=== PATIENT | female | born 1955 | race Caucasian/White ===

== ENCOUNTER 2023-06-06 09:18 | Outpatient (OUT) | payer MEDICARE, SELFPAY ==
[2023-06-06 09:55] LABS: Basophils Absolute Auto 0.1 10^3/uL (0.0-0.1); Basophils Percent Auto 0.6 % (0.2-2.0); Eosinophils Absolute Auto 0.1 10^3/uL (0.0-0.7); Eosinophils Percent Auto 0.6 % (0.9-7.0); Hematocrit 41.6 % (36.0-48.0); Hemoglobin 13.7 g/dL (12.0-16.0); Immature Granulocytes Abs Auto 0.04 10^3/uL (0.00-0.03); Immature Granulocytes Pct Auto 0.4 % (0.0-0.5); Lymphocytes Absolute Auto 2.6 10^3/uL (1.2-3.8); Lymphocytes Percent Auto 26.9 % (20.5-60.0); Mean Corpuscular HGB Conc 32.9 g/dL (29.9-35.2); Mean Corpuscular Hemoglobin 28.8 pg (26.7-34.0); Mean Corpuscular Volume 87.6 fL (81.0-99.0); Mean Platelet Volume 9.8 fL (9.5-13.5); Monocytes Absolute Auto 0.8 10^3/uL (0.3-0.8); Monocytes Percent Auto 8.2 % (1.7-12.0); Neutrophils Absolute Auto 6.2 10^3/uL (1.4-6.5); Neutrophils Percent Auto 63.3 % (43.0-75.0); Platelet Count 333 10^3/uL (150-450); Red Blood Count 4.75 10^6/uL (4.20-5.40); Red Cell Distribution Width 12.9 % (11.0-15.0); White Blood Count 9.8 10^3/uL (4.0-11.0)
[2023-06-06 10:13] LABS: Creatinine Urine Random 33.92 mg/dL (20.00-300.00); Microalbum Creatinine Ratio Ur 38.3 mg/g (0.0-29.9); Microalbumin Urine Random <1.3 mg/dL (<=30.0)
[2023-06-06 10:17] LABS: Alanine Aminotransferase 36 U/L (14-59); Albumin Globulin Ratio 0.9; Alkaline Phosphatase 55 U/L (46-116); Anion Gap 12.2; Aspartate Amino Transferase 17 U/L (15-37); BUN Creatinine Ratio 19.6; Bilirubin Total 0.4 mg/dL (0.2-1.0); Calcium 9.4 mg/dL (8.5-10.1); Carbon Dioxide 27.8 mmol/L (21.0-32.0); Chloride 100 mmol/L (98-107); Chol HDL Ratio 4.7; Cholesterol 225 mg/dL (<=200); Estimated GFR (African America >60 (>=60); Estimated GFR (Non-African Ame >60 (>=60); Globulin 4.4 g/dL; Glucose 112 mg/dL (74-106); HDL Cholesterol 48 mg/dL (40-60); Sodium 136 mmol/L (136-145); Total Protein 8.4 g/dL (6.4-8.2); Triglycerides 221 mg/dL (<=150); VLDL CHOLESTEROL 44.2 mg/dL
[2023-06-06 10:25] LABS: Estimated Average Glucose 143 mg/dL; Glycohemoglobin A1C 6.6 % (4.5-6.2)
== END 2023-06-06 09:19 | disposition home or self-care (01) ==
LOC: LAB 09:22
PROVIDERS: PCP Internal Medicine; Visit Provider Internal Medicine
DX: E78.49 Other hyperlipidemia (principal); E11.9 Type 2 diabetes mellitus without complications; I10 Essential (primary) hypertension
CPT/HCPCS: 36415; 80053; 80061; 82043; 82570; 83036; 85025

== ENCOUNTER 2023-09-14 12:25 | Outpatient (OUT) | payer MEDICARE, SELFPAY ==
--- OUTSIDE RECORDS SUMMARY | 2023-09-14 12:42 | XMS_ITS | CCD ---
Author Organization [facility] Care Team Providers Care Diesel Bus Mechanic Name Role Phone FAWWAD, AREVALO H Attending Unavailable FAWWAD, AREVALO H Admitting Unavailable FAWWAD, AREVALO H Primary Care Unavailable FAWWAD, AREVALO H Consulting Unavailable FAWWAD, AREVALO H Attending Unavailable FAWWAD, AREVALO H Admitting Unavailable FAWWAD, AREVALO H Primary Care Unavailable FAWWAD, AREVALO H Consulting Unavailable DR SAMIR DORANTES V Consulting Unavailable FAWWAD, AREVALO H Attending Unavailable FAWWAD, AREVALO H Admitting Unavailable FAWWAD, AREVALO H Primary Care Unavailable FAWWAD, AREVALO H Consulting Unavailable FAWWAD, AREVALO Attending Unavailable FAWWAD, AREVALO Attending Unavailable Problems Active Problems Problem Classification Problem Date Documented Da te Episodic/Chronic Diabetes mellitus with complications (4 sources) Type 2 diabetes mellitus with diabetic neuropathy, unspecified; Translations: [TYPE 2 DM W/DIABETIC NEUROPATHY UNS] Onset: 08-03-2022 Chronic Diabetes mellitus without complication (4 sources) Type 2 diabetes mellitus without complications; Translations: [TYPE 2 DM WITHOUT COMPLICATIONS] Onset: 06-14-2022 Chronic Disorders of lipid metabolism (1 source) Hyperlipidemia, unspecified; Translations: [HYPERLIPIDEMIA UNSPECIFIED] Onset: 08-07-2022 Chronic Past or Other Problems Problem Classification Problem Date Documented Da te Episodic/Chronic Other screening for suspected conditions (not mental disorders or infectious disease) (4 sources) Encounter for screening mammogram for malignant neoplasm of breast; Translations: [ENC SCR MAMMO MALIG NEOPLASM BREAST] Onset: 03-22-2022 Episodic Residual codes; unclassified (1 source) Family history of malignant neoplasm of other organs or systems; Translations: [FAM HX MALIG NEOPLASM OTH ORGN/SYS] Onset: 04-01-2022 Episodic Results Test Name Value Interpretation Reference Range Facility VITAMIN B1 (THIAMINE)on 07-15 Vit. B1, Whole Blood 120.2 nmol/L Normal 66.5-200.0 [facility] Comment on above: Performed By: #### V ITB1T #### [facility] [address] [place] [address] Dr. Sameera [place] GLYCOHEMOGLOBIN A1Con 2022 ADA RECOMMENDATION SEE BELOW Normal [facility] Comment on above: Result Comment: ADA RECOMMENDED LIMIT 4.0 - 6.0 ADA THERAPEUTIC TARGET < 7.0 ACTION SUGGESTED > 7.0 Performed By: #### A 1C #### [facility] [address] [place] [address] Dr. Sameera [place] Glucose [Mass/Vol] 131 mg/dL Normal [facility] Comment on above: Performed By: #### A 1C #### [facility] [address] [place] [address] Dr. Sameera [place] HbA1c (Bld) [Mass fraction] 6.2 % Normal 4.5-6.2 [facility] Comment on above: Performed By: #### A 1C #### [facility] [address] [place] [address] Dr. Sameera Montana LIPID PROFILEon 08-03-2022 CHOL-HDL RATIO NORM SEE BELOW Normal [facility] Comment on above: Result Comment: 3.3 - 4.4 LOW RISK 4.4 - 7.1 AVERAGE RISK 7.1 - 11.0 MODERATE RISK >11.0 HIGH RISK Performed By: #### L IPID #### [facility] [address] [place] [address] Dr. Sameera Montana Cholesterol [Mass/Vol] 216 mg/dL Critically high <=200 [facility] Comment on above: Performed By: #### L IPID #### [facility] [address] [place] [address] Dr. Sameera Montana Cholesterol in HDL [Mass/Vol] 46 mg/dL Normal 40-60 [facility] Comment on above: Performed By: #### L IPID #### [facility] [address] [place] [address] Dr. Sameera Montana Cholesterol in LDL [Mass/Vol] 106.4 mg/dL Normal [facility] Comment on above: Performed By: #### L IPID #### [facility] [address] [address] [address] Sameera Montana Cholesterol.total/Cho lesterol in HDL [Mass ratio] 4.7 {ratio} Normal [facility] Comment on above: Performed By: #### L IPID #### [facility] [address] [address] [address] Sameera Montana HDL NORMAL > or = 60 mg/dl - LO W CARDIOVASCULAR RISK <40 mg/dl - HIGH CARDIOVASCULAR RISK Normal [facility] Comment on above: Performed By: #### L IPID #### [facility] [address] [address] [address] Sameera Montana LDL CALC NORMAL SEE BELOW Normal [facility] Comment on above: Result Comment: <100 mg/dl OPTIMAL 100 - 129 mg/dl NEAR OR ABOVE OPTIMAL 130 - 159 mg/dl BORDERLINE HIGH 160 - 189 mg/dl HIGH >190 mg/dl VERY HIGH Performed By: #### L IPID #### [facility] [address] [place] [address] Dr. Sameera Montana Triglyceride [Mass/Vol] 318 mg/dL Critically high <=150 [facility] Comment on above: Performed By: #### L IPID #### [facility] [address] [place] [address] Dr. Sameera Montana VLDL CALC 63.6 mg/dL Normal [facility] Comment on above: Performed By: #### L IPID #### [facility] [address] [address] [address] Sameera Montana VITAMIN B12on 08-03-2022 Cobalamin (Vitamin B12) [Mass/Vol] 506.0 pg/mL Normal 193.0-986.0 [facility] Comment on above: Performed By: #### V ITB12 #### [facility] [address] [place] [address] Dr. Sameera Montana DIRECT LDLon 06-14-2022 Cholesterol in LDL [Mass/Vol] 164 mg/dL Normal [facility] Comment on above: Performed By: #### D LDL, LIPID #### [facility] [address] [address] [address] Sameera Montana DLDL NORMAL SEE BELOW Normal [facility] Comment on above: Result Comment: <100 mg/dl OPTIMAL 100 - 129 mg/dl NEAR OR ABOVE OPTIMAL 130 - 159 mg/dl BORDERLINE HIGH 160 - 189 mg/dl HIGH >190 mg/dl VERY HIGH Performed By: #### D LDL, LIPID #### [facility] [address] [address] [address] Sameera Montana GLYCOHEMOGLOBIN A1Con 2022 ADA RECOMMENDATION SEE BELOW Normal [facility] Comment on above: Result Comment: ADA RECOMMENDED LIMIT 4.0 - 6.0 ADA THERAPEUTIC TARGET < 7.0 ACTION SUGGESTED > 7.0 Performed By: #### A 1C #### [facility] [address] [place] [address] Dr. Sameera Montana Glucose [Mass/Vol] 137 mg/dL Normal [facility] Comment on above: Performed By: #### A 1C #### [facility] [address] [place] [address] Dr. Sameera Montaan HbA1c (Bld) [Mass fraction] 6.4 % Critically high 4.5-6.2 [facility] Comment on above: Performed By: #### A 1C #### [facility] [address] [place] [address] Dr. Sameera Montana LIPID PROFILEon 06-14-2022 CHOL-HDL RATIO NORM SEE BELOW Normal [facility] Comment on above: Result Comment: 3.3 - 4.4 LOW RISK 4.4 - 7.1 AVERAGE RISK 7.1 - 11.0 MODERATE RISK >11.0 HIGH RISK Performed By: #### D LDL, LIPID #### [facility] [address] [place] [address] Dr. Sameera Montana Cholesterol [Mass/Vol] 295 mg/dL Critically high <=200 [facility] Comment on above: Performed By: #### D LDL, LIPID #### [facility] [address] [place] [address] Dr. Sameera Montana Cholesterol in HDL [Mass/Vol] 41 mg/dL Normal 40-60 [facility] Comment on above: Performed By: #### D LDL, LIPID #### [facility] [address] [address] [address] Sameera Montana Cholesterol.total/Cho lesterol in HDL [Mass ratio] 7.2 {ratio} Normal [facility] Comment on above: Performed By: #### D LDL, LIPID #### [facility] [address] [address] [address] Sameera Montana HDL NORMAL > or = 60 mg/dl - LO W CARDIOVASCULAR RISK <40 mg/dl - HIGH CARDIOVASCULAR RISK Normal [facility] Comment on above: Performed By: #### D LDL, LIPID #### [facility] [address] [address] [address] Sameera Montana LDL CALC NORMAL SEE BELOW Normal [facility] Comment on above: Result Comment: <100 mg/dl OPTIMAL 100 - 129 mg/dl NEAR OR ABOVE OPTIMAL 130 - 159 mg/dl BORDERLINE HIGH 160 - 189 mg/dl HIGH >190 mg/dl VERY HIGH Performed By: #### D LDL, LIPID #### [facility] [address] [address] [address] Sameera Montana Triglyceride [Mass/Vol] 440 mg/dL Critically high <=150 [facility] Comment on above: Performed By: #### D LDL, LIPID #### [facility] [address] [address] [address] Sameera Montana VLDL CALC 88.0 mg/dL Normal [facility] Comment on above: Performed By: #### D LDL, LIPID #### [facility] [address] [address] [address] Sameera Montana MG MAMM SCREEN 3D MIKEY CADon 03-22-2022 MG MAMM SCREEN 3D MIKEY CAD Patient: MAME HONG Exam Date: 03/22/2022 : 1955 Gender:F Ordering : SHAIKH Radha JOHNSON . Admission #: [id number] Family : Order #: [id number] CLICK HERE TO VIEW EXAM RADIOLOGY REPORT PROCEDURE: MAMMOGRAM SCREENING 3D BILATERAL CAD COMPARISON: MG MAMM SCREEN MIKEY W CAD, 03/27/2019. MG MAMM MIKEY SCRN W CAD DIG, 03/20/2013. INDICATIONS: Screening mammography Calculator Name NCI Breast Cancer Risk Assessment Tool 5 Year Breast Cancer Risk 1.20% Lifetime Breast Cancer Risk 4.60% Personal Breast Cancer No Personal Ovarian Cancer No Treatments None Family Cancers Brother with bone cancer at age 51. LOCATION: [facility] BREAST COMPOSITION: Heterogeneously dense,which may obscure small masses. FINDINGS: DIAGNOSTIC CATEGORY 1--NEGATIVE. NO CHANGE FROM COMPARISON ASSESSMENT. Scattered benign-appearing calcifications are present. Scattered benign-appearing lymph nodes are present. RIGHT BREAST: No significant suspicious finding. LEFT BREAST: No significant suspicious finding. RECOMMENDATIONS: ROUTINE MAMMOGRAM AND CLINICAL EVALUATION IN 12 MONTHS. PLEASE NOTE: A NORMAL MAMMOGRAM DOES NOT EXCLUDE THE POSSIBILITY OF BREAST CANCER. A CLINICALLY SUSPICIOUS PALPABLE LUMP SHOULD BE BIOPSIED. Dictated by: Samir Dorantes MD on 03/22/2022 at 12:13 Approved by: Samir Dorantes MD on 03/22/2022 at 12:14 Normal [facility] Encounters Encounter Date Encounter Type Care Provider Facility Start: 08-15-2023 End: 08-15-2023 ambulatory SHAIKH ELIZABETH Not Available Start: 05-26-2023 End: 05-26-2023 ambulatory SHAIKH ELIZABETH Not Available Start: 08-03-2022 End: 08-04-2022 ambulatory SHAIKH Nato JOHNSON Facility:[facility] Start: 06-14-2022 End: 06-15-2022 ambulatory SHAIKH Nato JOHNSON Facility:[facility] Start: 03-22-2022 End: 03-23-[address] SAMIR DORANTES Facility:[facility] Payers Date Payer Category Payer Medicare [id number] 1957 Unknown [id number] 1957 Unknown [id number] 1955 Unknown [id number] 2.16.84 [id number] 1955 Unknown [id number] 2.16.84 [id number] 1955 Unknown [id number] 2.16.84 [id number] 1955 Unknown [id number] 2.16.84 [id number] 1955 Unknown [id number] 2.16.84 [id number] Summary Purpose Family History No Family History Records FoundNo Family History Records Found Advance Directives No Advanced Directives Records FoundNo Advanced Directives Records Found Additional Source Comments INFORMATION SOURCE (unrecogn ized section and content) DATE CREATED AUTHOR 10/22/2022 [facility] DATE CREATED AUTHOR AUTHOR'S EDUARDO ATGIBRAN 08/16/2023 [facility] dical Specialists [facility] FOR RECORDS PERTAINING TO PATIENTS WHO ARE OR HAVE BEEN ENROLLED IN A CHEMICAL DEPENDENCY/SUBSTANCEABUSE PROGRAM, SOME INFORMATION MAY BE OMITTED. This clinical summary was aggregated from multiple sources. Caution should be exercised in using it in the provision of clinical care. This summary normalizes information from multiple sources, and as a consequence, information in this document may materially change the coding, format and clinical context of patient data. In addition, data may be omitted in some cases. CLINICAL DECISIONS SHOULD BE BASED ON THE PRIMARY CLINICAL RECORDS. [facility] [employer] [facility]. provides no warranty or guarantee of the accuracy or completeness of information in this document.
[2023-09-14 14:14] LABS: Chol HDL Ratio 4.3; Cholesterol 204 mg/dL (<=200); HDL Cholesterol 47 mg/dL (40-60); Triglycerides 173 mg/dL (<=150); VLDL CHOLESTEROL 34.6 mg/dL
== END 2023-09-14 12:26 | disposition home or self-care (01) ==
LOC: LAB 12:26
PROVIDERS: PCP Internal Medicine; Visit Provider Internal Medicine
DX: E78.49 Other hyperlipidemia (principal)
CPT/HCPCS: 36415; 80061

== ENCOUNTER 2023-11-08 09:23 | Outpatient (OUT) | payer MEDICARE, SELFPAY ==
--- OUTSIDE RECORDS SUMMARY | 2023-11-08 09:43 | XMS_ITS ---
Patient Summarization (C-CDA 2.1 CCD) Created on: November 08, 2023 MAME HONG : 1955 Sex: Female Author Organization Sample organization Care Team Providers Care Ergonomic Specialist Name Role Phone FAWWAD, AREVALO H Attending Unavailable FAWWAD, AREVALO H Admitting Unavailable FAWWAD, AREVALO H Primary Care Unavailable FAWWAD, AREVALO H Consulting Unavailable FAWWAD, AREVALO H Attending Unavailable FAWWAD, AREVALO H Admitting Unavailable FAWWAD, AREVALO H Primary Care Unavailable FAWWAD, AREVALO H Consulting Unavailable DR SAMIR DORANTES Unavailable FAWWAD, AREVALO H Attending Unavailable FAWWAD, AREVALO H Admitting Unavailable FAWWAD, AREVALO H Primary Care Unavailable FAWWAD, AREVALO H Consulting Unavailable FAWWAD, AREVALO Attending Unavailable FAWWAD, AREVALO Attending Unavailable FAWWAD, AREVALO Attending Unavailable Encounters Encounter Date Encounter Type Care Provider Facility Start: 10-03-2023 End: 10-03-2023 ambulatory AREVALO FAWWAD Not Available Start: 08-15-2023 End: 08-15-2023 ambulatory AREVALO FAWWAD Not Available Start: 05-26-2023 End: 05-26-2023 ambulatory AREVALO FAWWAD Not Available Start: 08-03-2022 End: 08-04-2022 ambulatory AREVALO H FAWWAD Facility:[facility] Start: 06-14-2022 End: 06-15-2022 ambulatory AREVALO H FAWWAD Facility:[facility] Start: 03-22-2022 End: 03-23-[address] SAMIR DORANTES Facility:[facility] Payers Date Payer Category Payer Medicare [id number] 1957 Unknown [id number] 1957 Unknown [id number] 1955 Unknown [id number] 2.16.84 [id number] 1955 Unknown [id number] 2.16.84 [id number] 1955 Unknown [id number] 2.16.84 [id number] 1955 Unknown [id number] 2.16.84 [id number] 1955 Unknown [id number] 2.16.84 [id number] 1955 Unknown [id number] 2.16.84 [id number] Problems Active Problems Problem Classification Problem Date [...] Whole Blood 120.2 nmol/L Normal 66.5-200.0 [facility] Comment on above: Performed By: #### V ITB1T #### [facility] [address] [place] [address] Dr. Sameera Montana GLYCOHEMOGLOBIN A1Con 2022 ADA RECOMMENDATION SEE BELOW Normal [facility] Comment on above: Result Comment: ADA RECOMMENDED LIMIT 4.0 - 6.0 ADA THERAPEUTIC TARGET < 7.0 ACTION SUGGESTED > 7.0 Performed By: #### A 1C #### [facility] [address] [place] [address] Dr. Sameera Montana Glucose [Mass/Vol] 131 mg/dL Normal [facility] Comment on above: Performed By: #### A 1C #### [facility] [address] [place] [address] Dr. Sameera Montana HbA1c (Bld) [Mass fraction] 6.2 % Normal 4.5-6.2 [facility] Comment on above: Performed By: #### A 1C #### [facility] [address] [place] [address] Dr. Sameera Montana LIPID PROFILEon 08-03-2022 CHOL-HDL RATIO NORM SEE BELOW Normal [facility] Comment on above: Result Comment: 3.3 - 4.4 LOW RISK 4.4 - 7.1 AVERAGE RISK 7.1 - 11.0 MODERATE RISK >11.0 HIGH RISK Performed By: #### L IPID #### [facility] [address] [place] [address] Dr. Sameera Montana Cholesterol [Mass/Vol] 216 mg/dL Critically high <=200 [facility] Comment on above: Performed By: #### L IPID #### [facility] [address] [place] [address] Dr. Sameera Montana Cholesterol in HDL [Mass/Vol] 46 mg/dL Normal 40-60 [facility] Comment on above: Performed By: #### L IPID #### [facility] [address] [place] [address] Dr. Sameera Montana Cholesterol in LDL [Mass/Vol] 106.4 mg/dL Normal [facility] Comment on above: Performed By: #### L IPID #### [facility] [address] [place] [address] Dr. Sameera Montana Cholesterol.total/Cho lesterol in HDL [Mass ratio] 4.7 {ratio} Normal [facility] Comment on above: Performed By: #### L IPID #### [facility] [address] [address] [address] Sameera Montana HDL NORMAL > or = 60 mg/dl - LO W CARDIOVASCULAR RISK <40 mg/dl - HIGH CARDIOVASCULAR RISK Normal [facility] Comment on above: Performed By: #### L IPID #### [facility] [address] [place] [address] Dr. Sameera Montana LDL CALC NORMAL SEE BELOW Normal [facility] Comment on above: Result Comment: <100 mg/dl OPTIMAL 100 - 129 mg/dl NEAR OR ABOVE OPTIMAL 130 - 159 mg/dl BORDERLINE HIGH 160 - 189 mg/dl HIGH >190 mg/dl VERY HIGH Performed By: #### L IPID #### [facility] [address] [place] [address] Dr. Sameera Montana Triglyceride [Mass/Vol] 318 mg/dL Critically high <=150 [facility] Comment on above: Performed By: #### L IPID #### [facility] [address] [address] [address] Sameera Montana VLDL CALC 63.6 mg/dL Normal [facility] Comment on above: Performed By: #### L IPID #### [facility] [address] [place] [address] Dr. Sameera Montana VITAMIN B12on 08-03-2022 Cobalamin (Vitamin B12) [Mass/Vol] 506.0 pg/mL Normal 193.0-986.0 [facility] Comment on above: Performed By: #### V ITB12 #### [facility] [address] [place] [address] Dr. Sameera Montana DIRECT LDLon 06-14-2022 Cholesterol in LDL [Mass/Vol] 164 mg/dL Normal [facility] Comment on above: Performed By: #### D LDL, LIPID #### [facility] [address] [place] [address] Dr. Sameera Montana DLDL NORMAL SEE BELOW Normal [facility] Comment on above: Result Comment: <100 mg/dl OPTIMAL 100 - 129 mg/dl NEAR OR ABOVE OPTIMAL 130 - 159 mg/dl BORDERLINE HIGH 160 - 189 mg/dl HIGH >190 mg/dl VERY HIGH Performed By: #### D LDL, LIPID #### [facility] [address] [address] [address] Sameera Montana GLYCOHEMOGLOBIN A1Con 2022 ADA RECOMMENDATION SEE BELOW Normal [facility] Comment on above: Result Comment: ADA RECOMMENDED LIMIT 4.0 - 6.0 ADA THERAPEUTIC TARGET < 7.0 ACTION SUGGESTED > 7.0 Performed By: #### A 1C #### [facility] [address] [address] [address] Sameera Montana Glucose [Mass/Vol] 137 mg/dL Normal [facility] Comment on above: Performed By: #### A 1C #### [facility] [address] [place] [address] Dr. Sameera Montana HbA1c (Bld) [Mass fraction] 6.4 % Critically high 4.5-6.2 [facility] Comment on above: Performed By: #### A 1C #### [facility] [address] [place] [address] Dr. Sameera Montana LIPID PROFILEon 06-14-2022 CHOL-HDL RATIO NORM SEE BELOW Normal [facility] Comment on above: Result Comment: 3.3 - 4.4 LOW RISK 4.4 - 7.1 AVERAGE RISK 7.1 - 11.0 MODERATE RISK >11.0 HIGH RISK Performed By: #### D LDL, LIPID #### [facility] [address] [place] [address] Dr. Sameera Montana Cholesterol [Mass/Vol] 295 mg/dL Critically high <=200 [facility] Comment on above: Performed By: #### D LDL, LIPID #### [facility] [address] [address] [address] Sameera Montana Cholesterol in HDL [Mass/Vol] 41 mg/dL Normal 40-60 [facility] Comment on above: Performed By: #### D LDL, LIPID #### [facility] [address] [address] [address] Sameera Montana Cholesterol.total/Cho lesterol in HDL [Mass ratio] 7.2 {ratio} Normal [facility] Comment on above: Performed By: #### D LDL, LIPID #### [facility] [address] [address] [address] Sameera Montana HDL NORMAL > or = 60 mg/dl - LO W CARDIOVASCULAR RISK <40 mg/dl - HIGH CARDIOVASCULAR RISK Normal [facility] Comment on above: Performed By: #### D LDL, LIPID #### [facility] [address] [address] [address] Sameera Montana LDL CALC NORMAL SEE BELOW Normal [facility] Comment on above: Result Comment: <100 mg/dl OPTIMAL 100 - 129 mg/dl NEAR OR ABOVE OPTIMAL 130 - 159 mg/dl BORDERLINE HIGH 160 - 189 mg/dl HIGH >190 mg/dl VERY HIGH Performed By: #### D LDL, LIPID #### [facility] [address] [address] [address] Sameera Montana Triglyceride [Mass/Vol] 440 mg/dL Critically high <=150 [facility] Comment on above: Performed By: #### D LDL, LIPID #### [facility] [address] [address] [address] Sameera Montana VLDL CALC 88.0 mg/dL Normal [facility] Comment on above: Performed By: #### D LDL, LIPID #### [facility] [address] [address] [address] Sameera Montana MG MAMM SCREEN 3D MIKEY CADon 03-22-2022 MG MAMM SCREEN 3D MIKEY CAD Patient: MAME HONG Exam Date: 03/22/2022 : 1955 Gender:F Ordering : SHAIKH Radha JOHNSON . Admission #: [id number] Family : Order #: [id number] CLICK HERE TO VIEW EXAM RADIOLOGY REPORT [...] bone cancer at age 53. LOCATION: [facility] BREAST COMPOSITION: Heterogeneously dense,which may obscure small [...] Dorantes MD on 03/22/2022 at 12:14 Normal [facility] Summary Purpose Family History No Family History Records FoundNo Family History Records Found Advance Directives No Advanced Directives Records FoundNo Advanced Directives Records Found Additional Source Comments INFORMATION SOURCE (unrecogn ized section and content) DATE CREATED AUTHOR 10/22/2022 [facility] DATE CREATED AUTHOR 'S ORGANIZ ATION 10/04/2023 [facility] Specialists [facility] FOR RECORDS PERTAINING TO PATIENTS WHO ARE [...] BE BASED ON THE PRIMARY CLINICAL RECORDS. [facility] [employer] [facility]. provides no warranty or guarantee of the accuracy or completeness of information in this document.
[2023-11-08 10:19] LABS: Estimated Average Glucose 131 mg/dL; Glycohemoglobin A1C 6.2 % (4.5-6.2)
[2023-11-08 10:57] LABS: Chol HDL Ratio 8.5; Cholesterol 333 mg/dL (<=200); HDL Cholesterol 39 mg/dL (40-60); Triglycerides 575 mg/dL (<=150)
[2023-11-08 11:00] LABS: LDL Cholesterol Direct 127 mg/dL
== END 2023-11-08 09:24 | disposition home or self-care (01) ==
LOC: LAB 09:24
PROVIDERS: PCP Internal Medicine; Visit Provider Internal Medicine
DX: E78.49 Other hyperlipidemia (principal); E11.42 Type 2 diabetes mellitus with diabetic polyneuropathy
CPT/HCPCS: 36415; 80061; 83036; 83721

== ENCOUNTER 2024-07-31 10:32 | Outpatient (OUT) | payer MEDICARE, SELFPAY ==
--- OUTSIDE RECORDS SUMMARY | 2024-07-31 10:40 | XMS_ITS | CCD ---
Author Organization [facility] Team Providers Care Supervisor Production Managing Name Role Phone FAWWAD, AREVALO H Attending [...] Care Unavailable FAWWAD, AREVALO H Consulting Unavailable Chuckie Zepeda MD Primary Care Provider Alaina INSTRUCTIONAL COORDINATOR, Ada Unavailable CHUCKIE ZEPEDA Attending Unavailable FAWWAD, AREAVLO Attending Unavailable FAWWAD, AREVALO Attending Unavailable FAWWAD, AREVALO Attending Unavailable HYDE, ADA Attending Unavailabl e HYDE, ADA Referring Unavailabl e HYDE, ADA Referring Unavailabl e HYDE, ADA Attending Unavailabl e Allergies Allergy Classification Reported Allergen(s) Allergy Type Date of Onset Reaction(s) Facility (6 sources) gabapentin Drug Allergy 05-24-2023 Other [facility] Medications Current Medications Medication Drug Class(es) Dates Sig (Normalized) Sig (Original) ezetimibe 10 mg oral tablet (5 sources) Dietary Cholesterol Absorption Inhibitor Start: 02-21-2024 End: 02-20-2025 take 1 tablet by mouth once daily ezetimibe (Zetia) 10 MG tablet Indications: Other hyperlipidemia (CMS/HCC) Take 1 tablet (10 mg) by mouth Daily 30 tablet 11 02/21/2024 02/20/2025 Active fenofibrate 145 mg oral tablet (3 sources) Peroxisome Proliferator Receptor alpha Agonist Start: 11-08-2023 End: 02-21-2024 take 1 tablet by mouth once daily fenofibrate (Tricor) 145 MG tablet Indications: Other hyperlipidemia (CMS/HCC) Take 1 tablet (145 mg) by mouth Daily 90 tablet 11/08/2023 02/21/2024 Discontinued (Side effects) gabapentin 300 mg oral capsule (10 sources) Anti-epileptic Agent Start: 02-21-2024 End: 02-20-2025 take 1 capsule by mouth once daily gabapentin (Neurontin) 300 MG capsule Indications: Diabetic polyneuropathy associated with type 2 diabetes mellitus (CMS/HCC) Take 1 capsule (300 mg) by mouth Daily 90 capsule 05/23/2024 08/21/2024 Active Start: 11-07-2023 End: 05-25-2024 take 1 capsule by mouth in the morning gabapentin (Neurontin) 100 MG capsule Indications: Diabetic polyneuropathy associated with type 2 diabetes mellitus (CMS/HCC) Take 1 capsule (100 mg) by mouth in the morning and 1 capsule (100 mg) before bedtime. 200 capsule 1 11/07/2023 02/21/2024 Discontinued (Dose adjustment) rosuvastatin calcium 40 mg oral tablet (6 sources) HMG-CoA Reductase Inhibitor Start: 11-08-2023 End: 05-26-2024 take 1 tablet by mouth once daily rosuvastatin (Crestor) 40 MG tablet Indications: Other hyperlipidemia (CMS/HCC) Take 1 tablet (40 mg) by mouth Daily 100 tablet 1 11/08/2023 05/26/2024 Active semaglutide 7 mg oral tablet (6 sources) Start: 11-07-2023 End: 05-25-2024 take 1 tablet by mouth before mealtime semaglutide (Rybelsus) 7 MG tablet Indications: Type 2 diabetes mellitus without complication, without long-term current use of insulin (CMS/HCC) Take 1 tablet (7 mg) by mouth in the morning. Take before meals. 100 tablet 1 11/07/2023 05/25/2024 Active Problems Active Problems Problem Classification Problem Date Documented Da te Episodic/Chronic Diabetes mellitus with complications (20 sources) Type 2 diabetes mellitus with diabetic neuropathy, unspecified; Translations: [Polyneuropathy due to type 2 diabetes mellitus] Onset: 08-03-2022 Chronic Diabetes mellitus without complication (4 sources) Type 2 diabetes mellitus without complications; Translations: [TYPE 2 DM WITHOUT COMPLICATIONS] Onset: 06-14-2022 Chronic Disorders of lipid metabolism (11 sources) Hyperlipidemia, unspecified; Translations: [Hyperlipidemia] Onset: 08-07-2022 05-26-2023 Chronic Essential hypertension (8 sources) Essential hypertension; Translations: [Essential (primary) hypertension] Onset: 05-26-2023 05-26-2023 Chronic Past or Other Problems Problem Classification Problem Date Documented Da te Episodic/Chronic Mood disorders (6 sources) Mood disorders Onset: 05-26-2023 05-26-2023 Other screening for suspected conditions (not mental disorders or infectious disease) (20 sources) Encounter for screening mammogram for malignant neoplasm of breast; Translations: [Patient encounter status] Onset: 03-22-2022 Episodic Residual codes; unclassified (1 source) Family history of malignant neoplasm of other organs or systems; Translations: [FAM HX MALIG NEOPLASM OTH ORGN/SYS] Onset: 04-01-2022 Episodic Results Test Name Value Interpretation Reference Range Facility BI MAMMOGRAM SCREENING TOMOS YNTHESIS BILATERALon 05-22-2024 BI MAMMOGRAM SCREENING TOMOSYNTHESIS BILATERAL This is a summary report. The complete report is available in the patient's medical record. If you cannot access the medical record, please contact the sending organization for a detailed fax or copy. Examination: BI MAMMOGRAM SCREENING TOMOSYNTHESIS BILATERAL Clinical History: screening for breast cancer Technique: Screening digital mammography study of both breasts was performed with 2-D and 3-D tomosynthesis imaging. Study was compared to the prior exam dated 03/22/2022. Findings: There is no evidence of interval dominant spiculated mass, grouped microcalcifications, or skin thickening which would be suggestive of malignancy. A few benign-appearing calcifications are seen bilaterally. Axillary lymph nodes are noted on the left. IMPRESSION: Impression: No specific evidence of malignancy seen in either breast. BIRADS 2 - Benign Findings DENSITY: There are scattered areas of fibroglandular density. FOLLOW-UP: Routine Screening Mammogram ELECTRONICALLY SIGNED BY: Sukhdev Betancourt M.D. Normal Not Available DEXA BONE DENSITYon 05-22-19 DEXA BONE DENSITY Examination: DEXA BONE DENSITY Clinical History: screening for osteoporosis Technique: Bone density study was performed. T score values for the lumbar spine, right femoral neck and left femoral neck were obtained. Comparison: None Findings: Value for the lumbar spine from L1-L4 is -0.9. Value for the right femoral neck is -1.1. Value for the left femoral neck is -1.0. Findings are compatible with mild osteopenia with mild increased fracture risk. No evidence of osteoporosis. IMPRESSION: Impression: Findings compatible with mild osteopenia with mild increased fracture risk. ELECTRONICALLY SIGNED BY: Sukhdev Betancourt M.D. Normal Not Available VITAMIN B1 (THIAMINE)on 07-15 Vit. B1, Whole Blood 120.2 nmol/L Normal 66.5-200.0 [facility] Comment on above: Performed By: #### V ITB1T #### [facility] [address] [place] [address] Dr. Sameera [place] GLYCOHEMOGLOBIN A1Con 2022 ADA RECOMMENDATION SEE BELOW Normal [facility] Comment on above: Result Comment: ADA RECOMMENDED LIMIT 4.0 - 6.0 ADA THERAPEUTIC TARGET < 7.0 ACTION SUGGESTED > 7.0 Performed By: #### A 1C #### [facility] [address] [place] [address] Dr. Sameera [place] Glucose [Mass/Vol] 131 mg/dL Normal [facility] Comment on above: Performed By: #### A 1C #### [facility] [address] [place] [address] Dr. Sameera [place] HbA1c (Bld) [Mass fraction] 6.2 % Normal 4.5-6.2 [facility] Comment on above: Performed By: #### A 1C #### [facility] [address] [place] [address] Dr. Sameera [place] LIPID PROFILEon 08-03-2022 CHOL-HDL RATIO NORM SEE BELOW Normal [facility] Comment on above: Result Comment: 3.3 - 4.4 LOW RISK 4.4 - 7.1 AVERAGE RISK 7.1 - 11.0 MODERATE RISK >11.0 HIGH RISK Performed By: #### L IPID #### [facility] [address] [address] [address] Sameera [place] Cholesterol [Mass/Vol] 216 mg/dL Critically high <=[address] [facility] Comment on above: Performed By: #### L IPID #### [facility] [address] [address] [address] Sameera [place] Cholesterol in HDL [Mass/Vol] 46 mg/dL Normal 40-60 [facility] Comment on above: Performed By: #### L IPID #### [facility] [address] [address] [address] Sameera [place] Cholesterol in LDL [Mass/Vol] 106.4 mg/dL Normal [facility] Comment on above: Performed By: #### L IPID #### [facility] [address] [address] [address] Sameera [place] Cholesterol.total/Cho lesterol in HDL [Mass ratio] 4.7 {ratio} Normal [facility] Comment on above: Performed By: #### L IPID #### [facility] [address] [address] [address] Sameera [place] HDL NORMAL > or = 60 mg/dl - LOW CARDIOVASCULAR RISK <40 mg/dl - HIGH CARDIOVASCULAR RISK Normal [facility] Comment on above: Performed By: #### L IPID #### [facility] [address] [address] [address] Sameera [place] LDL CALC NORMAL SEE BELOW Normal [facility] Comment on above: Result Comment: <100 mg/dl OPTIMAL 100 - 129 mg/dl NEAR OR ABOVE OPTIMAL 130 - 159 mg/dl BORDERLINE HIGH 160 - 189 mg/dl HIGH >190 mg/dl VERY HIGH Performed By: #### L IPID #### [facility] [address] [address] [address] Sameera [place] Triglyceride [Mass/Vol] 318 mg/dL Critically high <=[address] [facility] Comment on above: Performed By: #### L IPID #### [facility] [address] [address] [address] Sameera [place] VLDL CALC 63.6 mg/dL Normal [facility] Comment on above: Performed By: #### L IPID #### [facility] [address] [address] [address] Sameera [place] VITAMIN B12on 08-03-2022 Cobalamin (Vitamin B12) [Mass/Vol] 506.0 pg/mL Normal 193.0-986.0 [facility] Comment on above: Performed By: #### V ITB12 #### [facility] [address] [address] [address] Sameera [place] DIRECT LDLon 06-14-2022 Cholesterol in LDL [Mass/Vol] 164 mg/dL Normal [facility] Comment on above: Performed By: #### D LDL, LIPID #### [facility] [address] [place] [address] Dr. Sameera [place] DLDL NORMAL SEE BELOW Normal [facility] Comment on above: Result Comment: <100 mg/dl OPTIMAL 100 - 129 mg/dl NEAR OR ABOVE OPTIMAL 130 - 159 mg/dl BORDERLINE HIGH 160 - 189 mg/dl HIGH >190 mg/dl VERY HIGH Performed By: #### D LDL, LIPID #### [facility] [address] [place] [address] Dr. Sameera [place] GLYCOHEMOGLOBIN A1Con 2022 ADA RECOMMENDATION SEE BELOW Normal [facility] Comment on above: Result Comment: ADA RECOMMENDED LIMIT 4.0 - 6.0 ADA THERAPEUTIC TARGET < 7.0 ACTION SUGGESTED > 7.0 Performed By: #### A 1C #### [facility] [address] [place] [address] Dr. Sameera Motnana Glucose [Mass/Vol] 137 mg/dL Normal [facility] Comment on above: Performed By: #### A 1C #### [facility] [address] [place] [address] Dr. Sameera [place] HbA1c (Bld) [Mass fraction] 6.4 % Critically high 4.5-6.2 [facility] Comment on above: Performed By: #### A 1C #### [facility] [address] [place] [address] Dr. Sameera [place] LIPID PROFILEon 06-14-2022 CHOL-HDL RATIO NORM SEE BELOW Normal [facility] Comment on above: Result Comment: 3.3 - 4.4 LOW RISK 4.4 - 7.1 AVERAGE RISK 7.1 - 11.0 MODERATE RISK >11.0 HIGH RISK Performed By: #### D LDL, LIPID #### [facility] [address] [address] [address] Sameera [place] Cholesterol [Mass/Vol] 295 mg/dL Critically high <=200 [facility] Comment on above: Performed By: #### D LDL, LIPID #### [facility] [address] [address] [address] Sameera Montana Cholesterol in HDL [Mass/Vol] 41 mg/dL Normal 40-60 [facility] Comment on above: Performed By: #### D LDL, LIPID #### [facility] [address] [address] [address] Sameera [place] Cholesterol.total/Cho lesterol in HDL [Mass ratio] 7.2 {ratio} Normal [facility] Comment on above: Performed By: #### D LDL, LIPID #### [facility] [address] [address] [address] Sameera [place] HDL NORMAL > or = 60 mg/dl - LOW CARDIOVASCULAR RISK <40 mg/dl - HIGH CARDIOVASCULAR RISK Normal [facility] Comment on above: Performed By: #### D LDL, LIPID #### [facility] [address] [place], [place] [address] Dr. Sameera [place] LDL CALC NORMAL SEE BELOW Normal [facility] Comment on above: Result Comment: <100 mg/dl OPTIMAL 100 - 129 mg/dl NEAR OR ABOVE OPTIMAL 130 - 159 mg/dl BORDERLINE HIGH 160 - 189 mg/dl HIGH >190 mg/dl VERY HIGH Performed By: #### D LDL, LIPID #### [facility] [id number] Sameera Montana Triglyceride [Mass/Vol] 440 mg/dL Critically high <=150 [facility] Comment on above: Performed By: #### D LDL, LIPID #### [facility] [address] [address] [address] Sameera Montana VLDL CALC 88.0 mg/dL Normal [facility] Comment on above: Performed By: #### D LDL, LIPID #### [facility] [address] [address] [address] Sameera Montana MG MAMM SCREEN 3D MIKEY CADon 03-22-2022 MG MAMM SCREEN 3D MIKEY CAD Patient: LALI JACKSON Exam Date: 03/22/2022 : 1955 Gender:F Ordering : SHAIKH Radha JOHNSON . Admission #: [id number] Family : Order #: [id number] CLICK HERE TO VIEW EXAM RADIOLOGY REPORT [...] bone cancer at age 53. LOCATION: [facility] BREAST COMPOSITION: Heterogeneously dense,which may obscure [...] Dorantes MD on 03/22/2022 at 12:14 Normal [facility] Vital Signs Date Time Vital Sign Value Performing Clinician Faci lity 05-23-2024 08:58-0500 Body height 160 cm Ada Grigsbytrick INSTRUCTIONAL COORDINATOR Work Phone: [facility] 05-23-2024 08:58-0500 Body mass index (BMI) [Ratio] 25.69 kg/m2 Ada Grigsbytrick INSTRUCTIONAL COORDINATOR Work Phone: [facility] 05-23-2024 08:58-0500 Body temperature 97.5 [degF] Ada Hyde INSTRUCTIONAL COORDINATOR Work Phone: [facility] 05-23-2024 08:58-0500 Body weight 65.77 kg Ada Hyde INSTRUCTIONAL COORDINATOR Work Phone: [facility] 05-23-2024 08:58-0500 Diastolic blood pressure 76 mm[Hg] Ada Hyde INSTRUCTIONAL COORDINATOR Work Phone: [facility] 05-23-2024 08:58-0500 Heart rate 90 /min Ada Hyde INSTRUCTIONAL COORDINATOR Work Phone: [facility] 05-23-2024 08:58-0500 Respiratory rate 22 /min Ada Hyde INSTRUCTIONAL COORDINATOR Work Phone: [facility] 05-23-2024 08:58-0500 SaO2% (BldA) [Mass fraction] 96 % Ada Hyde INSTRUCTIONAL COORDINATOR Work Phone: [facility] 05-23-2024 08:58-0500 Systolic blood pressure 158 mm[Hg] Ada Hyde INSTRUCTIONAL COORDINATOR Work Phone: [facility] 02-21-2024 09:27-0400 Body mass index (BMI) [Ratio] 25.15 kg/m2 Ada Hyde INSTRUCTIONAL COORDINATOR Work Phone: [facility] 02-21-2024 09:27-0400 Body temperature 97.2 [degF] Ada Hyde INSTRUCTIONAL COORDINATOR Work Phone: [facility] 02-21-2024 09:27-0400 Body weight 64.41 kg Ada Hyde INSTRUCTIONAL COORDINATOR Work Phone: [facility] 02-21-2024 09:27-0400 Diastolic blood pressure 78 mm[Hg] Ada Hyde INSTRUCTIONAL COORDINATOR Work Phone: [facility] 02-21-2024 09:27-0400 Heart rate 75 /min Ada Hyde INSTRUCTIONAL COORDINATOR Work Phone: [place] [id number] 09:27-0400 SaO2% (BldA) [Mass fraction] 99 % Ada Hyde INSTRUCTIONAL COORDINATOR Work Phone: [facility] 02-21-2024 09:27-0400 Systolic blood pressure 122 mm[Hg] Ada Hyde INSTRUCTIONAL COORDINATOR Work Phone: [facility] Encounters Encounter Date Encounter Type Care Provider Facility Start: 07-20-2024 End: 07-20-2024 ambulatory CHUCKIE ZEPEDA Not Available Start: 05-23-2024 End: 05-23-2024 Bamboo flowsheet Ada Hyde INSTRUCTIONAL COORDINATOR Work Phone: [facility] Start: 05-23-2024 End: 05-23-2024 Bamboo flowsheet Ada Hyde INSTRUCTIONAL COORDINATOR Work Phone: [facility] Start: 05-23-2024 End: 05-23-2024 Office outpatient visit 15 minutes Ada Cortezpatrick INSTRUCTIONAL COORDINATOR Work Phone: [facility] Comment on above: Other hyperlipidemia (CMS/HCC) (Primary Dx); Diabetic polyneuropathy associated with type 2 diabetes mellitus (CMS/HCC); Type 2 diabetes mellitus with diabetic polyneuropathy, without long-term current use of insulin (CMS/HCC) Start: 05-23-2024 End: 05-23-2024 ambulatory ADA HYDE Not Available Start: 05-22-2024 End: 05-22-2024 ambulatory ADA HYDE Not Available Start: 02-21-2024 End: 02-21-2024 Bamboo flowsheet Ada Hyde INSTRUCTIONAL COORDINATOR Work Phone: [facility] Start: 02-21-2024 End: 02-21-2024 Bamboo flowsheet Ada Hyde INSTRUCTIONAL COORDINATOR Work Phone: [facility] Start: 02-21-2024 End: 02-21-2024 Office outpatient visit 25 minutes Ada Hyde INSTRUCTIONAL COORDINATOR Work Phone: [facility] Comment on above: Essential hypertensi on (Primary Dx); Diabetic polyneuropathy associated with type 2 diabetes mellitus ([facility]); Encounter for osteoporosis screening in asymptomatic postmenopausal patient; Encounter for screening for malignant neoplasm of colon; Screening mammogram, encounter for; Other hyperlipidemia ([facility]); Type 2 diabetes mellitus with diabetic polyneuropathy, without long-term current use of insulin ([facility]) Start: 02-21-2024 End: 02-21-2024 ambulatory ADA HYDE Not Available Start: 11-07-2023 End: 11-07-2023 ambulatory SHAIKH ELDERWRUBIO Not Available Start: 10-03-2023 End: 10-03-2023 ambulatory AREVALO FAWWAD Not Available Start: 08-15-2023 End: 08-15-2023 ambulatory AREVALO FAWBASIMD Not Available Start: 05-26-2023 Patient encounter procedure Allison Hyde NP Work Phone: [facility] Start: 08-03-2022 End: 08-04-2022 ambulatory AREVALO H FAWWAD Facility:[facility] Start: 06-14-2022 End: 06-15-2022 ambulatory AREVALO Nato FAWWACarolyn Facility:[facility] Start: 03-22-2022 End: 03-23-[address] SAMIR DORANTES Facility:[facility] Plan of Treatment Date Care Activity Detail Author Start: 08-22-2024 End: 08-22-2024 Patient encounter procedure 08/22/2024 10:00 AM EDT Office Visit [facility] [address] [place] [address] Ada Hyde NP [address] [place] [address] [facility] Start: 06-16-2024 Glaucoma screening Diabetes: R etinopathy Screening [facility] Start: 06-06-2024 Urine screening for protein Diabetes: Urine Protein Screening [facility] Start: 05-26-2024 Medicare Annual Wellness (AWV) Medicare Annual Wellness (AWV) [facility] Start: 05-26-2024 Pneumococcal Vaccine : 65+ Years (1 of 2 - PCV) Pneumococcal Vaccine: 65+ Years (1 of 2 - PCV) [facility] Comment on above: Postponed from 01/07 (Patient Refused) Start: 05-23-2024 End: 05-23-2024 Patient encounter procedure [facility] Comment on above: Arrived Start: 02-21-2024 End: 02-20-2025 CBC W Auto Differential panel - Blood CBC and differential Lab Routine Essential hypertension Type 2 diabetes mellitus with diabetic polyneuropathy, without long-term current use of insulin ([facility]) Expected: 02/21/2024 (Approximate), Expires: 02/20/2025 [facility] Comment on above: Expected: 02/21/2024 (Approximate), Expires: 02/20/2025 Start: 02-21-2024 End: 02-20-2025 Comprehensive metabolic 2000 panel - Serum or Plasma Comprehensive metabolic panel Lab Routine Essential hypertension Type 2 diabetes mellitus with diabetic polyneuropathy, without long-term current use of insulin (CMS/HCC) Expected: 02/21/2024 (Approximate), Expires: 02/20/2025 [facility] Comment on above: Expected: 02/21/2024 (Approximate), Expires: 02/20/2025 Start: 02-21-2024 End: 02-20-2025 DXA Skeletal system Views for bone density DEXA bone density Imaging Routine Encounter for osteoporosis screening in asymptomatic postmenopausal patient Expected: 02/21/2024, Expires: 02/20/2025 [facility] Comment on above: Expected: 02/21/2024 , Expires: 02/20/2025 Start: 02-21-2024 End: 02-20-2025 Hemoglobin A1c/Hemoglobin.total in Blood Hemoglobin A1c Lab Routine Type 2 diabetes mellitus with diabetic polyneuropathy, without long-term current use of insulin ([facility]) Expected: 02/21/2024 (Approximate), Expires: 02/20/2025 [facility] Comment on above: Expected: 02/21/2024 (Approximate), Expires: 02/20/2025 Start: 02-21-2024 End: 02-20-2025 Lipid 1996 panel - Serum or Plasma Lipid panel Lab Routine Other hyperlipidemia (CMS/HCC) Expected: 02/21/2024 (Approximate), Expires: 02/20/2025 [facility] Comment on above: Expected: 02/21/2024 (Approximate), Expires: 02/20/2025 Start: 02-21-2024 End: 04-22-2025 MG Breast - bilateral Screening Bilateral screening mammogram Imaging Routine Screening mammogram, encounter for Expected: 02/21/2024, Expires: 04/22/2025 [facility] Comment on above: Expected: 02/21/2024 , Expires: 04/22/2025 Start: 02-21-2024 End: 02-20-2025 Noninvasive colorectal cancer DNA and occult blood screening [Presence] in Stool Cologuard colon cancer screening Lab Routine Encounter for screening for malignant neoplasm of colon Expected: 02/21/2024 (Approximate), Expires: 02/20/2025 [facility] Comment on above: Expected: 02/21/2024 (Approximate), Expires: 02/20/2025 Start: 02-21-2024 End: 02-20-2025 TSH W/REFLEX TO FT4 TSH W/REFLEX TO FT4 Lab Routine Essential hypertension Expected: 02/21/2024 (Approximate), Expires: 02/20/2025 [facility] Work Phone: Comment on above: Expected: 02/21/2024 (Approximate), Expires: 02/20/2025 Start: 02-21-2024 End: 02-21-2024 Patient encounter procedure 02/21/2024 9:30 AM EDT Office Visit [facility] [address] [place] [address] Ada Hyde NP [address] [place] [address] Arrived [facility] Comment on above: Arrived Start: 01-15-2024 Influenza vaccination Influenza Vacc ine (#1) [facility] Start: 12-05-2023 Hemoglobin A1c measurement Diabetes: Hemoglobin A1C [facility] Start: 1997 Screening for malign ant neoplasm of breast Mammogram [facility] Start: 1955 Screening for malign ant neoplasm of colon [facility] Microalbumin/Creatin ine panel in random Urine Microalbumin / creatinine urine ratio Lab Routine Essential hypertension Type 2 diabetes mellitus with diabetic polyneuropathy, without long-term current use of insulin ([facility]) Ordered: 02/21/2024 [facility] Comment on above: Ordered: 02/21/2024 Payers Date Payer Category Payer Medicaid [employer] MEDICARE A DVANTAGE [id number] 2022 Medicare [employer] MEDICARE A DVANTAGE A[employer]NA MEDICARE REPLACEMENT [id number] 2022-Present [address] [place] [address] [id number] 2022 Medicare [id number] 1959 Unknown [id number] 1959 Unknown [id number] 1955 Unknown [id number] 1955 Unknown [id number] 1957 Unknown [id number] [id number] 1957 Unknown [id number] [id number] 1957 Unknown [id number] [id number] 1957 Unknown [id number] [id number] 1957 Unknown [id number] [id number] 1957 Unknown [id number] [id number] 1957 Unknown [id number] [id number] 1955 Unknown [id number] [id number] 1955 Unknown [id number] Social History Date Type Detail Facility Start: 08-15-2023 Tobacco smoking status [facility] Ex-smoke r [facility] History of tobacco use Current smoker [facility] History of tobacco use Cigarette Smoker [facility] History of tobacco use Passive smoker [facility] Start: 11-07-2023 Alcoholic beverage intake Life time non-drinker (finding) [facility] Start: 05-25-2023 End: 11-07-2023 [facility] of [facility] Start: 05-25-2023 End: 11-07-2023 Humiliation, Afraid, Rape, and Kick questionnaire [HARK] [facility] Within the last year , have you been afraid of your partner or ex-partner? No [facility] How often do you att end meetings of the clubs or organizations you belong to? Patient declined [facility] Are you now , , , , never or living with a partner? [facility] Do you feel stress - tense, restless, nervous, or anxious, or unable to sleep at night because your mind is troubled all the time - these days [OSQ] To some extent [facility] Start: 05-26-2023 Alcohol Comment caffeine: 3-4 cups per day [facility] Start: 1955 Sex assigned at Not on file [facility] History of Present illness Narrative 05-23-2024 Ada Hyde NP - 05/23/2024 9:50 AM Hortencia Hyde NP - 05/23/2024 9:21 AM Hortencia Hyde NP - 05/23/2024 9:00 AM EST Note Date & Type Note Facility 05-23-2024 History of Presen t illness Narrative Associated Problem(s): Type 2 diabetes mellitus with diabetic polyneuropathy, without long-term current use of insulin (CMS/[facility]) Stopped taking all of her medications. States she feels significantly better since stopping all medications. Discussed in detail with pt cardiovascular and additional risks associated with unmanaged diabetes mellitus. Pt verbalized understanding and maintains she would like to stay off of all medications except gabapentin at this time. Associated Problem(s): Other hyperlipidemia (CMS/HCC) Currently stopped taking Rosuvastatin and Zetia; Stopped fenofibrate due to migraines. Denies any myalgias. Most recent Lipid Panel 3 months ago elevated. Would like a recheck done today. Discussed in detail with pt cardiovascular and additional risks associated with unmanaged triglycerides and cholesterol. Pt verbalized understanding and maintains she would like to stay off of all medications except gabapentin at this time. Images from the original note were not included. Subjective Patient ID: Lali Jackson is a 69 y.o. female who presents for Follow-up (3m ). Stopped taking all of her medications. States she feels significantly better since stopping all medications. Reports neuropathy in feet is still bothersome and is agreeable to taking gabapentin again for neuropathy. States she is walking on treadmill daily now. Did not have lab work done from last OV, states she will have them done today. HLD: Currently stopped taking Rosuvastatin and Zetia; Stopped fenofibrate due to migraines. Denies any myalgias. Most recent Lipid Panel 3 months ago elevated. Would like a recheck done today. Discussed in detail with pt cardiovascular and additional risks associated with unmanaged triglycerides and cholesterol. Pt verbalized understanding and maintains she would like to stay off of all medications except gabapentin at this time. Review of Systems Constitutional: Negative for activity change, appetite change, chills, diaphoresis, fatigue, fever and unexpected weight change. HENT: Negative for congestion, ear pain, rhinorrhea, sinus pressure, sinus pain, sneezing, sore throat, trouble swallowing and voice change. Eyes: Negative for visual disturbance. Respiratory: Negative for cough, chest tightness, shortness of breath and wheezing. Cardiovascular: Negative for chest pain, palpitations and leg swelling. Gastrointestinal: Negative for abdominal distention, abdominal pain, blood in stool, constipation, diarrhea and vomiting. Genitourinary: Negative for decreased urine volume, dysuria, flank pain, frequency, hematuria and urgency. Musculoskeletal: Negative for arthralgias, gait problem, joint swelling and myalgias. Skin: Negative for rash. Neurological: Negative for dizziness, tremors, syncope, weakness, light-headedness and headaches. Neuropathy BLE Psychiatric/Behavioral: Negative for decreased concentration and suicidal ideas. The patient is not nervous/anxious. Hematological: Does not bruise/bleed easily. Endocrine: Negative for cold intolerance, heat intolerance, polydipsia, polyphagia and polyuria. Objective Physical Exam Vitals reviewed. Constitutional: Appearance: Normal appearance. HENT: Right Ear: Tympanic membrane normal. Left Ear: Tympanic membrane normal. Nose: Nose normal. Mouth/Throat: Mouth: Mucous membranes are moist. Pharynx: Oropharynx is clear. Eyes: Pupils: Pupils are equal, round, and reactive to light. Cardiovascular: Rate and Rhythm: Normal rate and regular rhythm. Pulses: Normal pulses. Heart sounds: Normal heart sounds. Pulmonary: Effort: Pulmonary effort is normal. Breath sounds: Normal breath sounds. Abdominal: General: Abdomen is flat. Bowel sounds are normal. Palpations: Abdomen is soft. Musculoskeletal: General: Normal range of motion. Skin: General: Skin is warm and dry. Capillary Refill: Capillary refill takes less than 2 seconds. Neurological: Mental Status: She is alert and oriented to person, place, and time. Mental status is at baseline. Assessment/Plan Problem List Items Addressed This Visit Type 2 diabetes mellitus with diabetic polyneuropathy, without long-term current use of insulin ([facility]) Stopped taking all of her medications. States she feels significantly better since stopping all medications. Discussed in detail with pt cardiovascular and additional risks associated with unmanaged diabetes mellitus. Pt verbalized understanding and maintains she would like to stay off of all medications except gabapentin at this time. Other hyperlipidemia ([facility]) - Primary Currently stopped taking Rosuvastatin and Zetia; Stopped fenofibrate due to migraines. Denies any myalgias. Most recent Lipid Panel 3 months ago elevated. Would like a recheck done today. Discussed in detail with pt cardiovascular and additional risks associated with unmanaged triglycerides and cholesterol. Pt verbalized understanding and maintains she would like to stay off of all medications except gabapentin at this time. Diabetic polyneuropathy associated with type 2 diabetes mellitus ([facility]/HCC) Relevant Medications gabapentin (Neurontin) 300 MG capsule documented in this encounter [facility] Instructions 05-23-2024 Patient Instructions Note Date & Type Note Facility 05-23-2024 Instructions Ada Hyde NP - 05/23/2024 9:00 AM EST FASTING labs ordered. Nothing to eat or drink for 12 hours prior to blood draw. Water and black coffee ok. We will call you with results! documented in this encounter [facility] History of Present illness Narrative 02-21-2024 Ada Hyde NP - 02/21/2024 12:05 PM Shane Hyde NP - 02/21/2024 12:04 PM Shane Hyde NP - 02/21/2024 12:03 PM Shane Hyde NP - 02/21/2024 9:30 AM EDT Note Date & Type Note Facility 02-21-2024 History of Presen t illness Narrative Associated Problem(s): Diabetic polyneuropathy associated with type 2 diabetes mellitus ([facility]/HCC) Previously reported Gabapentin as allergy due to muscle aches. Was agreeable to restart and trial medication with previous PCP. Was taking Gabapentin 100 mg BID. Reports it does take the edge off of the neuropathic pain but does not relieve it entirely. Will trial 300 mg Gabapentin once daily. Associated Problem(s): Other hyperlipidemia ([facility]) Currently taking Rosuvastatin 40mg; Stopped fenofibrate due to migraines. Denies any myalgias. Most recent Lipid Panel 3 monhs ago elevated. Will order Zetia 10mg today; Associated Problem(s): Type 2 diabetes mellitus with diabetic polyneuropathy, without long-term current use of insulin ([facility]) Taking Rybelsus 7mg Denies any adverse reactions or unwanted side effects Most recent labs: hemoglobin A1C 6.2 Does not check BG at home. No episode of hypoglycemia No medication adverse effects reported by the patient. Patient educated on lifestyle modifications, dietary restrictions, signs and symptoms of hypoglycemia/hyperglycemia and importance of eating regular consistent meals. Stressed upon importance of checking blood glucose at home and bring blood glucose log to appointments. All questions, concerns answered and addressed. Encouraged to call office if persistent hypoglycemia/hyperglycemia on home glucose monitoring noted. Recheck A1C today. DM Eye Exam: 06/2022 @ [facility] Images from the original note were not included. Subjective Patient ID: Lali Jackson is a 69 y.o. female who presents for Follow-up (Neuropathy in her feet /Pain level is an 8-10 at night /). HPI DM II: Taking Rybelsus 7mg Denies any adverse reactions or unwanted side effects Most recent labs: hemoglobin A1C 6.2 Does not check BG at home. No episode of hypoglycemia No medication adverse effects reported by the patient. Patient educated on lifestyle modifications, dietary restrictions, signs and symptoms of hypoglycemia/hyperglycemia and importance of eating regular consistent meals. Stressed upon importance of checking blood glucose at home and bring blood glucose log to appointments. All questions, concerns answered and addressed. Encouraged to call office if persistent hypoglycemia/hyperglycemia on home glucose monitoring noted. Education: Check blood sugars daily, notify if <70 or >200. Take medications (pills or insulin) as directed. Monitor for s/s of hypoglycemia (sweaty, dizziness, nausea, vomiting, or shakiness). Watch for increase in thirst, urination, or appetite. Inspect feet frequently monitoring for open wounds , and also recommend yearly eye exam. Pt should attempt to remain as physically active as chronic conditions allow, as well as trying to follow a diet low in carbohydrates, and simple sugars. DM Eye Exam: 06/2022 @ [facility] in [place] DM Neuropathy: Was taking Gabapentin 100mg Bid. Reports it does take the edge off of the neuropathic pain but does not relieve it entirely. Will trial 300mg Gabapentin once daily. HLD: Currently taking Rosuvastatin 40mg; Stopped fenofibrate due to migraines. Denies any myalgias. Most recent Lipid Panel 3 monhs ago elevated. Will order Zetia 10mg today; Component Ref Range & Units 3 mo ago (11/08/23) 5 mo ago (09/14/23) 8 mo ago (06/06/23) 8 mo ago (06/06/23) 8 mo ago (06/06/23) 8 mo ago (06/06/23) TRIGLYCERIDES <=150 mg/dL 575 High 173 High 221 High 136 R 26.9 R 33.92 R CHOLESTEROL <=200 mg/dL 333 High 204 High 225 High 4.0 R 0.4 R HDL CHOLESTEROL 40 - 60 mg/dL 39 Low 47 CM 48 CM 12.2 R 6.2 R Comment: > or =60 mg/dl - LOW CARDIOVASCULAR RISK <40 mg/dl - HIGH CARDIOVASCULAR RISK VLDL CHOLESTEROL mg/dL 115.0 123.0 CM 133.0 CM 112 High R 2.6 R CHOL HDL RATIO 8.5 34.6 R 44.2 R 0.4 R 0.8 R Comment: 3.3 - 4.4 LOW RISK 4.4 - 7.1 AVERAGE RISK 7.1 - 11.0 MODERATE RISK >11.0 HIGH RISK CHOL HDL RATIO 4.3 CM 4.7 CM 17 R 0.04 High R ALANINE AMINOTRANSFERASE 36 R ALKALINE PHOSPHATASE 55 R TOTAL PROTEIN 8.4 High R ALBUMIN LEVEL 4.0 R ALBUMIN GLOBULIN RATIO 0.9 Resulting Agency [facility] Review of Systems Constitutional: Negative for activity change, appetite change, chills, diaphoresis, fatigue, fever and unexpected weight change. HENT: Negative for congestion, ear pain, rhinorrhea, sinus pressure, sinus pain, sneezing, sore throat, trouble swallowing and voice change. Eyes: Negative for visual disturbance. Respiratory: Negative for cough, chest tightness, shortness of breath and wheezing. Cardiovascular: Negative for chest pain, palpitations and leg swelling. Gastrointestinal: Negative for abdominal distention, abdominal pain, blood in stool, constipation, diarrhea and vomiting. Genitourinary: Negative for decreased urine volume, dysuria, flank pain, frequency, hematuria and urgency. Musculoskeletal: Negative for arthralgias, gait problem, joint swelling and myalgias. Skin: Negative for rash. Neurological: Negative for dizziness, tremors, syncope, weakness, light-headedness and headaches. Neuropathy in BLE Psychiatric/Behavioral: Negative for decreased concentration and suicidal ideas. The patient is not nervous/anxious. Hematological: Does not bruise/bleed easily. Endocrine: Negative for cold intolerance, heat intolerance, polydipsia, polyphagia and polyuria. Objective Physical Exam Vitals reviewed. Constitutional: Appearance: Normal appearance. HENT: Head: Normocephalic and atraumatic. Right Ear: Tympanic membrane normal. Left Ear: Tympanic membrane normal. Nose: Nose normal. Mouth/Throat: Mouth: Mucous membranes are moist. Pharynx: Oropharynx is clear. Eyes: Pupils: Pupils are equal, round, and reactive to light. Cardiovascular: Rate and Rhythm: Normal rate and regular rhythm. Pulses: Normal pulses. Heart sounds: Normal heart sounds. Pulmonary: Effort: Pulmonary effort is normal. Breath sounds: Normal breath sounds. Abdominal: General: Abdomen is flat. Bowel sounds are normal. Palpations: Abdomen is soft. Musculoskeletal: General: Normal range of motion. Cervical back: Normal range of motion. Skin: General: Skin is warm and dry. Capillary Refill: Capillary refill takes less than 2 seconds. Neurological: General: No focal deficit present. Mental Status: She is alert and oriented to person, place, and time. Psychiatric: Mood and Affect: Mood normal. Behavior: Behavior normal. Assessment/Plan Problem List Items Addressed This Visit Type 2 diabetes mellitus with diabetic polyneuropathy, without long-term current use of insulin (CMS/HCC) Taking Rybelsus 7mg Denies any adverse reactions or unwanted side effects Most recent labs: hemoglobin A1C 6.2 Does not check BG at home. No episode of hypoglycemia No medication adverse effects reported by the patient. Patient educated on lifestyle modifications, dietary restrictions, signs and symptoms of hypoglycemia/hyperglycemia and importance of eating regular consistent meals. Stressed upon importance of checking blood glucose at home and bring blood glucose log to appointments. All questions, concerns answered and addressed. Encouraged to call office if persistent hypoglycemia/hyperglycemia on home glucose monitoring noted. Recheck A1C today. DM Eye Exam: 06/2022 @ [facility] Relevant Orders Microalbumin / creatinine urine ratio Hemoglobin A1c Comprehensive metabolic panel CBC and differential Other hyperlipidemia (CMS/HCC) Currently taking Rosuvastatin 40mg; Stopped fenofibrate due to migraines. Denies any myalgias. Most recent Lipid Panel 3 monhs ago elevated. Will order Zetia 10mg today; Relevant Medications ezetimibe (Zetia) 10 MG tablet Other Relevant Orders Lipid panel Essential hypertension - Primary (Chronic) Relevant Orders TSH W/REFLEX TO FT4 Microalbumin / creatinine urine ratio Comprehensive metabolic panel CBC and differential Screening mammogram, encounter for Relevant Orders Bilateral screening mammogram Diabetic polyneuropathy associated with type 2 diabetes mellitus (CMS/HCC) Previously reported Gabapentin as allergy due to muscle aches. Was agreeable to restart and trial medication with previous PCP. Was taking Gabapentin 100 mg BID. Reports it does take the edge off of the neuropathic pain but does not relieve it entirely. Will trial 300 mg Gabapentin once daily. Relevant Medications gabapentin (Neurontin) 300 MG capsule Encounter for osteoporosis screening in asymptomatic postmenopausal patient Relevant Orders DEXA bone density Encounter for screening for malignant neoplasm of colon Relevant Orders Cologuard colon cancer screening documented in this encounter [facility] Instructions 02-21-2024 Patient Instructions Note Date & Type Note Facility 02-21-2024 Instructions Ada Hyde NP - 02/21/2024 9:30 AM EDT FASTING labs ordered. Nothing to eat or drink for 12 hours prior to blood draw. Water and black coffee ok. Diet: Eat three meals per day. Breakfast, lunch, and dinner. Avoid snacking. Avoid eating after 5/6 pm. Daily protein GOAL 35% of your intake; 30g per meal. Daily calorie GOAL 1,800-2,000 per day. Consider tracking your food intake on MyFtinessPal or LoseIt Water: Increase water intake; GOAL 64-80oz of water per day. Exercise: Increase activity. GOAL 30 minutes, 5 days per week. START SLOW. Start with 5 minutes, 5 days per week. Then increase to 10 days, 5 days per week. Continue to increase until you reach the goal. Increase steps; GOAL 10,000 steps per day. Be sure to get adequate sleep; GOAL 6-8 hours of sleep per night. Education: Check blood sugars daily, notify if <70 or >200. Take medications (pills or insulin) as directed. Monitor for s/s of hypoglycemia (sweaty, dizziness, nausea, vomiting, or shakiness). Watch for increase in thirst, urination, or appetite. Inspect feet frequently monitoring for open wounds , and also recommend yearly eye exam. Pt should attempt to remain as physically active as chronic conditions allow, as well as trying to follow a diet low in carbohydrates, and simple sugars. documented in this encounter [facility] Evaluation note Note Date & Type Note Facility Evaluation note Diagnosis Essential hypertension- Primary Unspecified essential hypertension Diabetic polyneuropathy associated with type 2 diabetes mellitus (CMS/HCC) Encounter for osteoporosis screening in asymptomatic postmenopausal patient Encounter for screening for malignant neoplasm of colon Screening mammogram, encounter for Other hyperlipidemia (CMS/HCC) Type 2 diabetes mellitus with diabetic polyneuropathy, without long-term current use of insulin (CMS/HCC) documented in this encounter [facility] Evaluation note Note Date & Type Note Facility Evaluation note Diagnosis Type 2 diabetes mellitus without complication, without long-term current use of insulin (CMS/HCC)- Primary Other hyperlipidemia (CMS/HCC) Essential hypertension Unspecified essential hypertension Screening mammogram, encounter for Diabetic polyneuropathy associated with type 2 diabetes mellitus (CMS/HCC) Encounter for osteoporosis screening in asymptomatic postmenopausal patient Medicare annual wellness visit, initial Other hyperlipidemia (CMS/HCC)- Primary Diabetic polyneuropathy associated with type 2 diabetes mellitus (CMS/HCC)- Primary Essential hypertension Unspecified essential hypertension Type 2 diabetes mellitus with diabetic polyneuropathy, without long-term current use of insulin (CMS/HCC) Other hyperlipidemia (CMS/HCC) Diabetic polyneuropathy associated with type 2 diabetes mellitus (CMS/HCC)- Primary Encounter for screening for malignant neoplasm of colon- Primary Type 2 diabetes mellitus with diabetic polyneuropathy, without long-term current use of insulin (CMS/HCC) Diabetic polyneuropathy associated with type 2 diabetes mellitus (CMS/HCC) Essential hypertension Unspecified essential hypertension Other hyperlipidemia (CMS/HCC) Type 2 diabetes mellitus without complication, without long-term current use of insulin (CMS/HCC) Essential hypertension- Primary Unspecified essential hypertension Diabetic polyneuropathy associated with type 2 diabetes mellitus (CMS/HCC) Encounter for osteoporosis screening in asymptomatic postmenopausal patient Encounter for screening for malignant neoplasm of colon Screening mammogram, encounter for Other hyperlipidemia (CMS/HCC) Type 2 diabetes mellitus with diabetic polyneuropathy, without long-term current use of insulin (CMS/HCC) Other hyperlipidemia (CMS/HCC)- Primary Diabetic polyneuropathy associated with type 2 diabetes mellitus (CMS/HCC) Type 2 diabetes mellitus with diabetic polyneuropathy, without long-term current use of insulin (CMS/HCC) documented in this encounter [facility] Summary Purpose Family History No Family History Records FoundNo Family History Records Found Advance Directives No Advanced Directives Records FoundNo Advanced Directives Records Found Additional Source Comments INFORMATION SOURCE (unrecogn ized section and content) DATE CREATED AUTHOR 10/22/2022 [facility] DATE CREATED AUTHOR AUTHOR'S ORGANIZ ATION 07/22/2024 [facility] [employer] Care Teams (unrecognized sec tion and content) Supervisor Production Managing Relationship Specialty Start Date End Date Chuckie Zepeda MD [address] [place] [phone] PCP - General Family Medicine 12/27/23 Ada Hyde NP [address] [place] [phone] Nurse Practitioner Family Medicine 12/27/23 Supervisor Production Managing Relationship Specialty Start Date End Date Chuckie Zepeda MD [address] [place] [phone] PCP - General Family Medicine 12/27/23 Ada Hyde NP [address] [place] [phone] Nurse Practitioner Family Medicine 12/27/23 Supervisor Production Managing Relationship Specialty Start Date End Date Chuckie Zepeda MD [address] [place] [phone] PCP - General Family Medicine 12/27/23 Ada Hyde NP [address] [place] [phone] Nurse Practitioner Family Medicine 12/27/23 Supervisor Production Managing Relationship Specialty Start Date End Date Chuckie Zepeda MD [address] [place] [phone] PCP - General Family Medicine 12/27/23 Ada Hyde NP [address] [place] [phone] Nurse Practitioner Family Medicine 12/27/23 Reason for Visit (unrecogniz ed section and content) Reason Comments Follow-up Neuropathy in her fe et Pain level is an 8-10 at night Reason Comments Follow-up 3m FOR RECORDS PERTAINING TO PATIENTS WHO ARE [...] BE BASED ON THE PRIMARY CLINICAL RECORDS. [facility]. provides no warranty or guarantee of the accuracy or completeness of information in this document.
[2024-07-31 11:06] LABS: Basophils Absolute Auto 0.1 10^3/uL (0.0-0.1); Basophils Percent Auto 0.7 % (0.2-2.0); Eosinophils Absolute Auto 0.1 10^3/uL (0.0-0.7); Eosinophils Percent Auto 1.4 % (0.9-7.0); Hemoglobin 13.8 g/dL (12.0-16.0); Immature Granulocytes Abs Auto 0.06 10^3/uL (0.00-0.03); Immature Granulocytes Pct Auto 0.7 % (0.0-0.5); Lymphocytes Absolute Auto 2.9 10^3/uL (1.2-3.8); Lymphocytes Percent Auto 32.5 % (20.5-60.0); Mean Corpuscular HGB Conc 33.7 g/dL (29.9-35.2); Mean Corpuscular Hemoglobin 28.9 pg (26.7-34.0); Mean Corpuscular Volume 85.8 fL (81.0-99.0); Mean Platelet Volume 9.4 fL (9.5-13.5); Monocytes Absolute Auto 0.8 10^3/uL (0.3-0.8); Neutrophils Absolute Auto 5.1 10^3/uL (1.4-6.5); Neutrophils Percent Auto 55.7 % (43.0-75.0); Platelet Count 310 10^3/uL (150-450); Red Blood Count 4.78 10^6/uL (4.20-5.40); Red Cell Distribution Width 12.7 % (11.0-15.0); White Blood Count 9.1 10^3/uL (4.0-11.0)
[2024-07-31 11:46] LABS: Creatinine Urine Random 19.19 mg/dL (20.00-300.00); Microalbum Creatinine Ratio Ur 67.7 mg/g (0.0-29.9); Microalbumin Urine Random <1.3 mg/dL (<=30.0)
[2024-07-31 12:07] LABS: Estimated Average Glucose 140 mg/dL; Glycohemoglobin A1C 6.5 % (4.5-6.2)
[2024-07-31 12:16] LABS: Alanine Aminotransferase 29 U/L (14-59); Albumin Level 4.2 g/dL (3.4-5.0); Alkaline Phosphatase 50 U/L (46-116); Anion Gap 12.5; Aspartate Amino Transferase 20 U/L (15-37); BUN Creatinine Ratio 27.2; Bilirubin Direct 0.1 mg/dL (0.0-0.2); Bilirubin Total 0.5 mg/dL (0.2-1.0); Calcium 9.8 mg/dL (8.5-10.1); Carbon Dioxide 29.7 mmol/L (21.0-32.0); Chloride 100 mmol/L (98-107); Chol HDL Ratio 6.9; Cholesterol 277 mg/dL (<=200); Estimated GFR (African America >60 (>=60 mL/min/1.73m^2); Estimated GFR (Non-African Ame >60 (>=60 mL/min/1.73m^2); Globulin 4.3 g/dL; Glucose 116 mg/dL (74-106); HDL Cholesterol 40 mg/dL (40-60); Potassium 4.2 mmol/L (3.5-5.1); Sodium 138 mmol/L (136-145); Thyroid Stimulating Hormone 1.602 uIU/mL (0.358-3.740); Total Protein 8.5 g/dL (6.4-8.2); Triglycerides 304 mg/dL (<=150); VLDL CHOLESTEROL 60.8 mg/dL
== END 2024-07-31 10:33 | disposition home or self-care (01) ==
LOC: LAB 10:34
PROVIDERS: PCP Family Medicine; Visit Provider Family Medicine
DX: E11.65 Type 2 diabetes mellitus with hyperglycemia (principal); Z79.899 Other long term (current) drug therapy; I10 Essential (primary) hypertension; E78.5 Hyperlipidemia, unspecified; R53.83 Other fatigue
CPT/HCPCS: 36415; 80048; 80061; 80076; 82043; 82570; 83036; 84443; 85025

== ENCOUNTER 2025-01-16 09:55 | Outpatient (OUT) | payer MEDICARE, SELFPAY ==
--- OUTSIDE RECORDS SUMMARY | 2025-01-03 06:30 | XMS_ITS ---
Author Organization [facility] Address [address], [place] [address] Care Team Providers Care Clinical Application Manager Name Role Phone Chuckie Lindsay Primary Care Provider Cedrick Kim Unavailable [phone] Allergies No Known Allergies Reason For Referral Reason b/l painful foot rosa ropathy Diagnosis 1 Peripheral neuropath ic pain (M79.2) Referral Organization [facility] Referring Provider First Name Cedrick Referring Provider Last Name Sergio Referring Provider Speciality Podiatry Referred Provider Specialty Pain Medicin e Referral Priority Routine REASON FOR VISIT Bilateral Foot Pain Medications Medication SIG (Take, Route, Frequency, Duration) Notes Start Date End Date Status Ezetimibe 10 MG Tablet Oral; Duration: 30 Days Active Gabapentin 300 MG Capsule Oral; Duration: 90 Days Active Rosuvastatin Calcium 40 MG Tablet 1 tablet Orally Once a day Active Amitriptyline HCl 25 MG Tablet TAKE 1 TABLET BY MOUTH AT BEDTIME Oral; Duration: 30 Days Active Rybelsus 3 MG Tablet as directed Orally Active Fenofibrate 145 MG Tablet 1 tablet Orall y Once a day Active Advil PM 200-38 MG Tablet 2 tablets at b edtime as needed Orally Once a day Active Calcium 600 MG Tablet 1 tablet with meal s Orally Twice a day Active Magnesium 250 MG Tablet 1 tablet with a meal Orally Once a day Active Neuropathy Dicofenac 3%, gabapentin 6%, lidocaine 2%, prilocaine 2% FAS Gel 1-2 grams Topically to area of pain BID-QID PRN massaging in well; Duration: 1 month 01/03/2025 01/05/2025 Active Social History Section Notes: Patient is a nonsmoker. No alcohol use. Encounters Encounter Location Date Provider Diagnosis [employer] [facility] [address], [place] [address] 01/03/2025 Cedrick Hill Peripheral neuropathic pain M79.2 ; Low back pain without sciatica, unspecified back pain laterality, unspecified chronicity M54.50 and Diabetic peripheral neuropathy E11.42 Assessments Encounter Date Diagnosis (ICD Code) Assessment Notes Treatment Notes Treatment Clinical Notes Section Notes 01/03/2025 Peripheral neuropathic pain (ICD-10 - M79.2) Patient was seen and evaluated. Patient education provided and all questions answered to satisfaction. I recommended nonsurgical treatment at this time. Treatment advices included: - Referral to pain mgt - Dr. Michelle provided - Discussed medications and potential side effect. Medication(s) recommended/pres cribed: topical compound from [facility] - I discussed Lyrica as an alternative to gabapentin but was not prescribed as this will likely be a buttermaker continuous churn medication and would prefer the Dr. Lindsay or Dr. Lewis manage going forward. Lali will f/u with me as needed 01/03/2025 Low back pain without sciatica, unspecified back pain laterality, unspecified chronicity (ICD-10 - M54.50) 01/03/2025 Diabetic peripheral neuropathy (ICD-10 - E11.42) Plan Of Treatment Medication Medication Name Sig Start Date Stop Date Notes Neuropathy Dicofenac 3%, gabapentin 6%, lidocaine 2%, prilocaine 2% FAS Gel 1-2 grams Topically to area of pain BID-QID PRN massaging in well; Duration: 1 month 01/03/2025 01/05/2025 Treatment Notes Assessment Notes Peripheral neuropathic pain Patient was seen and evaluated. Patient education provided and all questions answered to satisfaction. I recommended nonsurgical treatment at this time. Treatment advices included: - Referral to pain mgt - Dr. Michelle provided - Discussed medications and potential side effect. Medication(s) recommended/prescribed: topical compound from [facility] - I discussed Lyrica as an alternative to gabapentin but was not prescribed as this will likely be a buttermaker continuous churn medication and would prefer the Dr. Lindsay or Dr. Lewis manage going forward. Lali will f/u with me as needed Referrals Referral Date Details 01/03/2025 01/03/2025, b/l pain ful foot neuropathy Next Appt Details Follow Up: prn, Reason: History and Physical Notes * HPI (History of Present Illness) Category Sub-Category Detail Notes Category Not es Foot Lali is a 69F who relates to being healthy most of her life but over last year or two she has developed worsening tingling pain in b/l feet which is worse at night. She was placed on gabapentin but no longer taking it because it didn't seem to help and she couldn't tolerate the side effects (headaches & drowsiness). She relates that she had lower back issues when working at [employer] for 39 years but that got somewhat better since retiring. Examination Category Sub-Category Detail Notes Category Not es General Examination Skin: skin intact with no open wounds. No signs of infection Neuro: light touch intact to dorsal & plantar foot but somewhat altered to the toes and forefoot. Negative tinel's sign Vascular: Palpable pedal pulses. No significant swelling or bruising. No calf pain on squeeze MSK: No POP. Able to fire all muscle groups equally & symmetrically. No deformity Consultation Request Notes Referral Date Referring Provider Referred Provider Not es 01/03/2025 Cedrick Hill , b/l painfu l foot neuropathy Progress Notes * Win HONGaDOB:1955 ( 69 yo F)Acc No.[id number]:01/03/2025 New Patient Patient: Lali Rico Provider: Vega Hill DPM :1955 A ge:69 Y S ex:Female Date:01/03/2025 Phone: Address:[address] [place] [address], [id number] Pcp:hCuckie Lindsay Subjective: * Chief Complaints: * B ilateral Foot Pain * HPI: F oot: Lali is a 69F who relates to being healthy most of her life but over last year or two she has developed worsening tingling pain in b/l feet which is worse at night. She was placed on gabapentin but no longer taking it because it didn't seem to help and she couldn't tolerate the side effects (headaches & drowsiness). She relates that she had lower back issues when working at [employer] for 39 years but that got somewhat better since retiring. * Medical History: Diabetes Medical History Verified * Surgical History: Denies Past Surgical History. * Family History: F ather: diagnosed with Heart disease. B savanna: diagnosed with Type 2 diabetes mellitus without complication, unspecified whether penitentiary insulin use. S ister: diagnosed with Type 2 diabetes mellitus without complication, unspecified whether buttermaker continuous churn insulin use. S on: diagnosed with Type 2 diabetes mellitus without complication, unspecified whether penitentiary insulin use.?Family History Verified.. * Social History: Social History Verified. P andreas is a nonsmoker. No alcohol use. * Medications: T akingAdvil PM 200-38 MG Tablet 2 tablets at bedtime as needed Orally Once a day Magnesium 250 MG Tablet 1 tablet with a meal Orally Once a day Calcium 600 MG Tablet 1 tablet with meals Orally Twice a day Fenofibrate 145 MG Tablet 1 tablet Orally Once a day Rosuvastatin Calcium 40 MG Tablet 1 tablet Orally Once a day Rybelsus 3 MG Tablet as directed Orally Amitriptyline HCl 25 MG Tablet TAKE 1 TABLET BY MOUTH AT BEDTIME Oral Gabapentin 300 MG Capsule Oral Ezetimibe 10 MG Tablet Oral Medication List reviewed and reconciled with the patientTaking Advil PM 200-38 MG Tablet 2 tablets at bedtime as needed Orally Once a day Taking Magnesium 250 MG Tablet 1 tablet with a meal Orally Once a day Taking Calcium 600 MG Tablet 1 tablet with meals Orally Twice a day Taking Fenofibrate 145 MG Tablet 1 tablet Orally Once a day Taking Rosuvastatin Calcium 40 MG Tablet 1 tablet Orally Once a day Taking Rybelsus 3 MG Tablet as directed Orally Taking Amitriptyline HCl 25 MG Tablet TAKE 1 TABLET BY MOUTH AT BEDTIME Oral Taking Gabapentin 300 MG Capsule Oral Taking Ezetimibe 10 MG Tablet Oral Medication List reviewed and reconciled with the patient * Allergies: N .K.D.A.yesAllergies Verified. Objective: * Examination: G eneral Examination: S kin: skin intact with no open wounds. No signs of infection Neuro: light touch intact to dorsal & plantar foot but somewhat altered to the toes and forefoot. Negative tinel's sign Vascular: Palpable pedal pulses. No significant swelling or bruising. No calf pain on squeeze MSK: No POP. Able to fire all muscle groups equally & symmetrically. No deformity. Assessment: * Assessment: 1. P eripheral neuropathic pain - M79.2 (Primary) 2 . L ow back pain without sciatica, unspecified back pain laterality, unspecified chronicity - M54.50 3 .?Diabetic peripheral neuropathy - E11.42 Plan: * Treatment: * Follow Up: vega morris Billing Information: * Visit Code: 49350 Office Visit, New Pt., Level 3. * Procedure Codes: * Sign off status: Completed true * Provider: Vega Hill DPM Date: 0 01/03/2025 Generated for Karissa arnold/Melonie/Jess on: 0 01/16/2025 09:59 AM EDT
--- OUTSIDE RECORDS SUMMARY | 2025-01-16 09:59 | XMS_ITS | Clinical Summary ---
Author Organization [facility] Address [address] [place] [address] Care Team Providers Care Rectifier Operator Name Role Phone Chuckie Lindsay MD Primary Care Provider Allergies Active Allergy Reactions Criticality Noted Date Comments Gabapentin Other 05/24/2023 Severe muscle aches Medications amitriptyline (Elavil) 25 MG tabletIndications:D iabetic polyneuropathy associated with type 2 diabetes mellitus (HCC) Take 1 tablet (25 mg) by mouth at bedtime 30 tablet 2 Active Active Problems Problem Noted Date Diagnosed Date Type 2 diabetes mellitus wit h diabetic microalbuminuria, without long-term current use of insulin 07/31/2024 Statin myopathy 07/20/2024 Assessment & Plan (07/20/2024 10:42 AM EST): Did not tolerate statins and monitor. Encounter for long-term (current) use of medicat ions 07/20/2024 Encounter for screening for malignant neoplasm o f colon 11/07/2023 Assessment & Plan (11/07/2023 9:51 AM EDT): Had normal colonoscopy 10 years ago - ordered cologuard. Type 2 diabetes mellitus wit h hyperglycemia, without long-term current use of insulin 05/26/2023 Assessment & Plan (10/22/2024 9:14 AM EDT): Last A1C 6.5. Stick to ADA diet and limit carbs. Assessment & Plan (07/20/2024 10:42 AM EST): Not checking BS and due for A1C. Stick to ADA diet and limit carbs. Assessment & Plan (05/23/2024 9:50 AM EST): Stopped taking all of her medications. States she feels significantly better since stopping all medications. Discussed in detail with pt cardiovascular and additional risks associated with unmanaged diabetes mellitus. Pt verbalized understanding and maintains she would like to stay off of all medications except gabapentin at this time. Assessment & Plan (02/21/2024 12:04 PM EDT): Taking Rybelsus 7mg Denies any adverse reactions [...] A1C today. DM Eye Exam: 06/2022 @ [facility] in [place] Assessment & Plan (11/07/2023 9:49 AM EDT): A1C 6.6 06/08 She was previously on Metformin for T2 DM - she stopped using it due to GI side effects. Doing well on Rybelsus - On 7 mg. Check A1C. Assessment & Plan (08/15/2023 11:46 AM EDT): A1C 6.6 No episode of hypoglycemia No medication adverse effects reported by the patient. She was on Metformin for T2 DM - she stopped using it due to GI side effects. Doing well on Rybelsus. Patient counseled and educated on adverse effects, drug interactions and to reach out to office/pharmacy if questions or concerns related to new medications. Assessment & Plan (05/26/2023 3:01 PM EST): Has not gone for labs since last appointment. No episode of hypoglycemia No medication adverse [...] persistent hypoglycemia/hyperglycemia on home glucose monitoring noted. She was on Metformin for T2 DM - she stopped using it due to GI side effects. Will start patient on Rybelsus that should also help with weight loss. Patient counseled and educated on adverse effects, drug interactions and to reach out to office/pharmacy if questions or concerns related to new medications. Dyslipidemia 05/26/2023 Assessment & Plan (07/20/2024 10:42 AM EST): Did not tolerate statins and add fiber supplement. Assessment & Plan (05/23/2024 9:21 AM EST): Currently stopped taking Rosuvastatin and Zetia; Stopped fenofibrate due to migraines. Denies any myalgias. Most recent Lipid Panel 3 months ago elevated. Would like a recheck done today. Discussed in detail with pt cardiovascular and additional risks associated with unmanaged triglycerides and cholesterol. Pt verbalized understanding and maintains she would like to stay off of all medications except gabapentin at this time. Assessment & Plan (02/21/2024 12:04 PM EDT): Currently taking Rosuvastatin 40mg; Stopped fenofibrate due to migraines. Denies any myalgias. Most recent Lipid Panel 3 monhs ago elevated. Will order Zetia 10mg today; Assessment & Plan (11/07/2023 9:50 AM EDT): Co-morbidities: T2 DM Currently on Crestor. Recheck Lipid panel Assessment & Plan (08/15/2023 11:53 AM EDT): Co-morbidities: T2 DM Last Lipid Panel: 06/08 LDL 130 TAG 221 T. Cholesterol 225 HDL 48 Supposed to be on Lipitor 40 mg but uses 20 mg. She reports feeling nauseous when she uses 40 mg. Switch to Crestor 20 mg to see if she can tolerate it better. Recheck Lipid panel Assessment & Plan (06/08/2023 10:44 AM EST): Co-morbidities: T2 DM Last Lipid Panel: 06/08 LDL 130 TAG 221 T. Cholesterol 225 HDL 48 Supposed to be on Lipitor 40 mg but uses 20 mg. She reports feeling nauseous when she uses 40 mg. Switch to Crestor 20 mg to see if she can tolerate it better. Essential hypertension 05/26/2023 Assessment & Plan (10/22/2024 9:13 AM EDT): BP okay without medication and monitor. Discussed DASH diet. Assessment & Plan (07/20/2024 10:42 AM EST): BP controlled and monitor PRN. Discussed DASH diet. Assessment & Plan (08/15/2023 11:52 AM EDT): BP has been elevated on multiple occasions. Asymptomatic. Patient encouraged to continue with home BP monitoring and call office if he experiences orthostatic symptoms or persistently elevated BP. She had two cups of coffee today. Patient advised on moderate caffeine consumption. She drinks about 4-5 cups a day. Will monitor for now. Assessment & Plan (05/26/2023 2:59 PM EST): BP has been elevated on multiple occasions. Asymptomatic. Patient encouraged to continue with home BP monitoring and call office if he experiences orthostatic symptoms or persistently elevated BP. Bring Home BP log next appointment for review and based on the numbers, will determine need for treatment. Screening mammogram, encounter for 05/26/2023 Assessment & Plan (05/26/2023 3:02 PM EST): Ordered mammogram for screening. Diabetic polyneuropathy asso ciated with type 2 diabetes mellitus 05/26/2023 Assessment & Plan (10/22/2024 9:13 AM EDT): Continued pain and stop neurontin. Try lyrica. Assessment & Plan (07/20/2024 10:42 AM EST): Continued symptoms and increase neurontin. Assessment & Plan (02/21/2024 12:06 PM EDT): Previously reported Gabapentin as allergy due to muscle aches. Was agreeable to restart and trial medication with previous PCP. Was taking Gabapentin 100 mg BID. Reports it does take the edge off of the neuropathic pain but does not relieve it entirely. Will trial 300 mg Gabapentin once daily. Assessment & Plan (11/07/2023 9:50 AM EDT): Previously experienced daily burning, numbing pain in bilateral feet, usually at night. Previously tried gabapentin and lyrica and stopped because they worsened her joint pain She reports waking up multiple times due to pain. Amitriptyline made her too drowsy. She could not tolerate Cymbalta also because it caused her headache and nausea. She was agreeable to try gabapentin again - she is using 100 mg at bedtime and its working well for her. C/w same. Assessment & Plan (10/03/2023 9:51 AM EDT): Reports daily burning, numbing pain in bilateral feet, usually at night. Previously tried gabapentin and lyrica and stopped because they worsened her joint pain She reports waking up multiple times due to pain. Amitriptyline made her too drowsy. She could not tolerate Cymbalta also because it caused her headache and nausea. Patient is agreeable to try and use Gabapentin once again. We will start low dose gabapentin Assessment & Plan (08/15/2023 11:49 AM EDT): Reports daily burning, numbing pain in bilateral feet, usually at night. Previously tried gabapentin and lyrica and stopped because they worsened her joint pain She reports waking up multiple times due to pain. She is agreeable to try and use Amitriptyline. She noticed very mild improvement in her symptoms, but she also noted that she is very groggy on it. I do not believe there is room for increasing the dose as I suspect she will be too drowsy on it if we did that. We will start patient on Cymbalta 30 mg once daily for one week and then use 30 mg q12 from week 2. Assessment & Plan (05/26/2023 2:58 PM EST): Reports daily burning, numbing pain in bilateral feet, usually at night. Previously tried gabapentin and lyrica and stopped because they worsened her joint pain She reports waking up multiple times due to pain. She is agreeable to try and use Amitriptyline. Patient counseled and educated on adverse effects, drug interactions and to reach out to office/pharmacy if questions or concerns related to new medications. Encounter for osteoporosis s creening in asymptomatic postmenopausal patient 05/26/2023 Assessment & Plan (05/26/2023 3:02 PM EST): Ordered DEXA scan - post menopausal women, age > 65 Medicare annual wellness visit, subsequent 05/26 Assessment & Plan (10/22/2024 9:13 AM EDT): Reviewed labs. Due for cologuard. Discussed proper diet and regular aerobic exercise. Need aerobic exercise 5-6 days a week for 30 minutes at a time. Smaller portions and limit total calories. Tetanus every 10 years. Advised not to smoke. Assessment & Plan (05/26/2023 3:03 PM EST): Patient here for Medicare Wellness. Reviewed medical, surgical and social history. Reviewed medication list. Patient screened for depression, fall risk, cognitive impairment. Patient provided appropriate education on chronic medical conditions, prescription medications. Patient's health related questions and concerns addressed and answered. Ordered mammogram, DEXA scan. Uptodate on Colon Cancer screening. Refusing Vaccines. Encounters Date Type Department Care Team Description 11/07/2024 Telephone [facility] [address] [place] [address] Chuckie Lindsay MD 11/02/2024 Telephone [facility] [address] [place] [address] Chuckie Lindsay MD 10/22/2024 8:30 AM EDT Office Visit [facility] [address] [place] [address] Chuckie Lindsay MD Medicare annual wellness visit, subsequent (Primary Dx); Type 2 diabetes mellitus with hyperglycemia, without long-term current use of insulin (HCC); Essential hypertension; Diabetic polyneuropathy associated with type 2 diabetes mellitus (HCC); Colon cancer screening 10/22/2024 Halina flowsheet [facility] [address] [place] [address] Chuckie Lindsay MD from Last 3 Months Family History Medical History Relation Name Comments Bone cancer Brother Lung cancer Brother Heart disease Father MVA Mother Diabetes Sister Diabetes Son Relation Name Status Comments Brother Father Mother Sister Son Social History Tobacco Use Types Packs/Day Years Used Date Smoking Tobacco: Former Cigarettes Passive Smoke Exposure: Past Tobacco Cessation:Counseling Given: No Alcohol Use Standard Drinks/Week Comments Never 0 (1 standard drink = 0.6 oz pur e alcohol) caffeine: 3-4 cups per day Humiliation, Afraid, Rape, and Kick questionnair e Answer Date Recorded Within the last year, have y ou been afraid of your partner or ex-partner? No 05/25/2023 Within the last year, have y ou been humiliated or emotionally abused in other ways by your partner or ex-partner? No Within the last year, have y ou been kicked, hit, slapped, or otherwise physically hurt by your partner or ex-partner? No 05/25/2023 Within the last year, have y ou been raped or forced to have any kind of sexual activity by your partner or ex-partner? No 05/25/2023 Social Connection and Isolat ion Panel [NHANES] Answer Date Recorded In a typical week, how many times do you talk on the phone with family, friends, or neighbors? More than three times a week 05/25/2023 How often do you get togethe r with friends or relatives? More than three times a week 05/25/2023 How often do you attend chur ch or mormonism services? Never 05/25/2023 Do you belong to any clubs o r organizations such as judaism groups, unions, fraternal or athletic groups, or school groups? No 05/25/2023 How often do you attend meet ings of the clubs or organizations you belong to? Patient declined 05/25/2023 Are you , , di vorced, , never , or living with a partner? 05/25/2023 AUDIT-C Answer Date Recorded Q1: How often do you have a drink containing alc ohol? Patient declined 05/25/2023 Q2: How many drinks containi ng alcohol do you have on a typical day when you are drinking? Patient declined 05/25/2023 Q3: How often do you have si x or more drinks on one occasion? Patient declined 05/25/2023 Overall Financial Resource Strain (CARDIA) Answe r Date Recorded How hard is it for you to pa y for the very basics like food, housing, medical care, and heating? Patient declined 05/25/2023 PHQ-2 Answer Date Recorded Patient Health Questionnaire-2 Score 0 10/22/2024 [facility] - Occupational Stress Questionnaire Answer Date Recorded Do you feel stress - tense, restless, nervous, or anxious, or unable to sleep at night because your mind is troubled all the time - these days? To some extent 05/25/2023 Exercise Vital Sign Answer Date Recorde d On average, how many days pe r week do you engage in moderate to strenuous exercise (like a brisk walk)? 4 days 05/25/2023 On average, how many minutes do you engage in exercise at this level? 30 min 05/25/2023 Hunger Vital Sign Answer Date Recorded Within the past 12 months, y ou worried that your food would run out before you got the money to buy more. Patient declined Within the past 12 months, t he food you bought just didn't last and you didn't have money to get more. Patient declined 02/2024 PRAPARE - Transportation Answer Date Re corded In the past 12 months, has l ack of transportation kept you from medical appointments or from getting medications? Patient declined 05/25/2023 In the past 12 months, has l ack of transportation kept you from meetings, work, or from getting things needed for daily living? Patient declined 05/25/2023 Housing Stability Vital Sign Answer Javier e Recorded In the last 12 months, was t here a time when you were not able to pay the mortgage or rent on time? Patient refused 05/25/19 24 Number of Places Lived in the Last Year Not on f ile 05/25/2023 In the last 12 months, was t here a time when you did not have a steady place to sleep or slept in a half-way (including now)? Patient refused 05/25/2023 Comments Unknown Sex and Gender Information Value Date Recorded Sex Assigned at Not on file Legal Sex Female 7:11 PM EDT Gender Identity Not on file Sexual Orientation Not on file Last Filed Vital Signs Vital Sign Reading Time Taken Comments Blood Pressure 146/82 10/22/2024 8:36 AM EDT Pulse 89 10/22/2024 8:36 AM EDT Temperature 36.4 C (97.5 F) 10/22/2024 8:36 AM EDT Respiratory Rate 18 10/22/2024 8:36 AM EDT Oxygen Saturation 97% 10/22/2024 8:36 AM EDT Inhaled Oxygen Concentration - - Weight 66.2 kg (146 lb) 10/22/2024 8:36 AM EDT Height 160 cm (5' 3 ) 10/22/2024 8:36 AM EDT Body Mass Index 25.86 10/22/2024 8:36 AM EDT Plan of Treatment Health Maintenance Due Date Last Done Comments CT Colonography 1957 Colonoscopy 1957 Colorectal Cancer Screening 1957 FIT-DNA 1957 FIT 1957 FOBT 1957 Sigmoidoscopy 1955 Pneumococcal Vaccine: 65+ Ye ars (1 of 2 - PCV) 01/08/1976 Influenza Vaccine (#1) 2025 Diabetes: Hemoglobin A1C 01/31/2025 07/31/2024, 05/17 Mammogram 05/22/2025 05/22/2024 Diabetes: Urine Protein Screening 07/31/2025 025, 06/06/2023 Medicare Annual Wellness (AWV) 10/22/2025 0 10/22/2024, 05/26/2023, 05/26/2023 Diabetes: Retinopathy Screening 10/10/2026 , 06/16/2022 Procedures Procedure Name Priority Date/Time Associated Diagnosis Comments BI MAMMOGRAM SCREENING TOMOSYNTHESIS BILATERAL Routine 05/22/2024 3:02 PM EST Screening mammogram, encounter for from Last 3 Months or Most Recently Relevant to Health Maintenance Results * Bilateral screening mammogram with tomosynthesis (05/22/2024 3:02 PM EST) Anatomical Region Laterality Modality Breast Bilateral Mammography 05/23/2024 11:2 1 AM EST Impressions 05/23/2024 11:26 AM EST Impression: No specific evidence of malignancy seen in either breast. BIRADS 2 - Benign Findings DENSITY: There are scattered areas of fibroglandular density. FOLLOW-UP: Routine Screening Mammogram ELECTRONICALLY SIGNED BY: Sukhdev Betancourt M.D. Narrative 05/23/2024 11:26 AM EST Examination: BI MAMMOGRAM SCREENING TOMOSYNTHESIS BILATERAL Clinical [...] lymph nodes are noted on the left. Procedure Note Sukhdev Betancourt MD - 05/23/2024 Examination: BI MAMMOGRAM SCREENING TOMOSYNTHESIS BILATERAL Clinical History: screening for breast cancer Technique: Screening digital mammography study of both breasts wasperformed with 2-D and 3-D tomosynthesis imaging. Study was compared tothe prior exam dated 03/22/2022. Findings: There is no evidence of interval dominant spiculated mass,grouped microcalcifications, or skin thickening which would be suggestiveof malignancy. A few benign-appearing calcifications are seen bilaterally. Axillary lymphnodes are noted on the left. IMPRESSION: Impression: No specific evidence of malignancy seen in either breast. BIRADS 2 - Benign Findings DENSITY: There are scattered areas of fibroglandular density. FOLLOW-UP: Routine Screening Mammogram ELECTRONICALLY SIGNED BY: Sukhdev Betancourt M.D. Ada Foley NP IMG BI PROCEDURES Final Result from Last 3 Months or Most Recently Relevant to Health Maintenance Insurance [employer] MED[employer]ARE [employer]VANTAGE Care Teams Rectifier Operator Relationship Specialty Start Date End Date Chuckie Lindsay MD PCP - General Family Medicine 12/27/23
--- OUTSIDE RECORDS SUMMARY | 2025-01-16 09:59 | XMS_ITS | Encounter Summary ---
Author Organization [facility] Address [address] [place] [address] Care Team Providers Care Cloth Bleaching Range Back Tender Name Role Phone Shaikh TOM Espinosa Primary Care Provider [phone] Chuckie Lindsay MD Primary Care Provider [phone] Ada Foley HEMATOLOGY TECHNICIAN Unavailable [phone] Encounter Details Date Type Department Care Team (Late st Contact Info) Description 09/30/2023 Orders Only [facility] [address] [place] [id number] Shaikh Espinosa MD [address] [place] [id number] Social History Tobacco Use Types Packs/Day Years Used Date Smoking Tobacco: Former Cigarettes Passive Smoke Exposure: Past Alcohol Use Standard Drinks/Week Comments Never 0 [...] often do you attend chur ch or advent services? Never 05/25/2023 Do you belong to any clubs o r organizations such as amish groups, unions, fraternal or athletic groups, or [...] Date Recorded Patient Health Questionnaire-2 Score 0 10/03/2023 [facility] Questionnaire Answer Date Recorded [...] place to sleep or slept in a intermediate (including now)? Patient refused 05/25/2023 Comments Unknown Sex and Gender Information Value Date Recorded Sex Assigned at Not on file Legal Sex Female 7:11 PM EDT Gender Identity Not on file Sexual Orientation Not on file documented as of this encounter Functional Status * Over the past 2 weeks, how often have you been bothered by any of the following problems? Question Answer Date of Assessment Author Little interest or pleasure in doing things Not at all 10/03/2023 9:42 AM EDT Marco A Bob M A Feeling down, depressed, or hopeless Not at all 10/03/2023 9:42 AM EDT Marco A Bob M A Patient Health Questionnaire -2 Score 0 10/03/2023 9:42 AM EDT Marco A Bob M A documented as of this encounter Plan of Treatment Not on file documented as of this encounter Visit Diagnoses Not on filedocumented in this encounter Additional Health Concerns Assessment Noted Time PHQ-9 Depression Total Score: 0 05/26/19 24 2:30 PM EST documented as of this encounter Care Teams Cloth Bleaching Range Back Tender Relationship Specialty Start Date End Date Shaikh Espinosa MD [address] [place] [address] PCP - General Internal Medicine 08/15/23 12/26/23 Chuckie Lindsay MD [address] [place] [address] PCP - General Family Medicine 12/27/23 Ada Foley NP [address] [place] [address] Nurse Practitioner Family Medicine 12/27/23 07/19/24 documented as of this encounter
--- OUTSIDE RECORDS SUMMARY | 2025-01-16 09:59 | XMS_ITS | Patient Health Record ---
Author Organization [employer] [employer] [facility] Address [address] [address], [place] [address] Care Team Providers Care Sod Farmer Name Role Phone Chuckie Lindsay Primary Care Provider Unavailfabricio sergio AriewilbertCedrick Unavailable [phone] Allergies No Known Allergies Reason For Referral Reason b/l painful foot rosa ropathy Diagnosis 1 Peripheral neuropath ic pain (M79.2) Referral Organization [employer] Referring Provider First Name Cedrick Referring Provider Last Name Sergio Referring Provider Speciality Podiatry Referred Provider Specialty Pain Medicin e Referral Priority Routine Medications Medication SIG (Take, Route, Frequency, Duration) Notes Start Date End Date Status Ezetimibe 10 MG Tablet Oral; Duration: 30 Days Active Gabapentin 300 MG Capsule Oral; Duration: 90 Days Active Rosuvastatin Calcium 40 MG Tablet 1 tablet Orally Once a day Active Fenofibrate 145 MG Tablet 1 tablet Orall y Once a day Active Amitriptyline HCl 25 MG Tablet TAKE 1 TABLET BY MOUTH AT BEDTIME Oral; Duration: 30 Days Active Rybelsus 3 MG Tablet as directed Orally Active Advil PM 200-38 MG Tablet 2 tablets at b edtime as needed Orally Once a day Active Calcium 600 MG Tablet 1 tablet with meal s Orally Twice a day Active Magnesium 250 MG Tablet 1 tablet with a meal Orally Once a day Active Social History Section Notes: Patient is a nonsmoker. No alcohol use. Encounters Encounter Location Date Provider Diagnosis [employer] [facility] [address] [address], [place] [address] 01/03/2025 C[facility]rick [place] Peripheral neuropathic pain M79.2 [...] would prefer the Dr. Lindsay or Dr. Michelle. manage going forward. Lali will f/u with me as needed 01/03/2025 Low back pain without sciatica, unspecified back pain laterality, unspecified chronicity (ICD-10 - M54.50) 01/03/2025 Diabetic peripheral neuropathy (ICD-10 - E11.42) Plan Of Treatment No Information Insurance Providers Payer Name Payer Address Payer Phone Subscriber Number Group Number Insured Name Patient Relationship to Insured Coverage Start Date Coverage End Date [employer] [address] [address] [place] [address] [phone] [id number] Lali Jackson Self - patient is the insured Medical (General) History Medical History History ICD Code Diabetes
--- OUTSIDE RECORDS SUMMARY | 2025-01-16 09:59 | XMS_ITS | Clinical Summary ---
Author Organization [facility] Address [address] [place] [address] Care Team Providers Care Casing Man Name Role Phone Unavailable Primary Care Provider Unavailabl e Social History Tobacco Use Types Packs/Day Years Used Date Smoking Tobacco: Never Assessed Comments Unknown Sex and Gender Information Value Date Recorded Sex Assigned at Not on file Legal Sex Female 12:18 AM EDT Gender Identity Not on file Sexual Orientation Not on file Last Filed Vital Signs Vital Sign Reading Time Taken Comments Blood Pressure 124/66 03/01/2019 9:39 AM EDT Pulse - - Temperature - - Respiratory Rate - - Oxygen Saturation 98% 03/01/2019 9:39 AM EDT Inhaled Oxygen Concentration - - Weight 65.3 kg (144 lb) 03/01/2019 9:37 AM EDT Height 160 cm (5' 3 ) 03/01/2019 9:39 AM EDT Body Mass Index 25.51 03/01/2019 9:37 AM EDT Plan of Treatment Not on file
--- NOTE | 2025-01-16 10:29 | P.CN_ITS ---
Consult Note: HPI Data of Consult Patient: new to practice Requesting Physician: Aide Lewis NP Primary Care Provider: Chuckie Lindsay MD Consult Narrative Reason for consult: bilateral foot pain Narrative: Lali Jackson a pleasant 70 year old female presents for evaluation of chronic bilateral foot pain. notes traumatic injury to low back 25 years ago with intermittent back and BLE pain since then, however over the last few years she has had increasing severe bilateral foot pain. no emg/ncv completed, she does have a hx of DM2. pain 3/10 increasing to 10/10 at night, standing, walking, stairs, bending, activity. pt has failed to benefit from amitriptyline, gabapentin, pregabalin, and duloxetine noted significant side effects with each medication. she was referred to Dr Hill for treatment, he suggested a compound cream which she has not received yet. currently shes utilizing advil pm and magnesium with minimal improvement. cc:: CC: Aide Lewis NP Review of Systems ROS Musculoskeletal Reports: extremity pain Exam Constitutional Documenting provider has reviewed patient's vital signs: yes Common normals: no apparent distress, oriented x3, healthy appearing, alert and well nourished General appearance: cooperative HENSC Common normals: normocephalic, hearing grossly normal bilaterally and moist oral mucous membranes Head and scalp: normocephalic Eye Common normals: PERRL Pupil: PERRL Neck & C-Spine Common normals: full ROM General: normal visual inspection Chest Common normals: inspection of chest normal Respiratory Common normals: normal respiratory effort, no retractions and no use of accessory muscles Back & Pelvis Lumbar spine/lower back: pain with ROM Other: increased low back pain with bending Extremity Other: no edema noted to bilateral lower extremities bilateral feet warm to touch, appropraite color, decreased sensation to soles of bilateral feet. dysthesia noted to bilateral feet and digits Neuro Common normals: oriented x3 Sensorium/orientation: alert Psych Common normals: mental status grossly normal, thought process normal, cooperative, affect normal, speech normal and activity/motor behavior normal Speech: normal speech Thought process: normal thought process Results Additional Findings Additional findings: If on a controlled substance or opioids, I have checked an [place] report on this patient and there are no aberrancies noted in the prescribing history.??If on a controlled substance or opioid a drug screen was completed and reviewed within the last year, and if there has not been a drug screen completed we ordered one today to monitor higher risk, state monitored pain medication use. As part of providing excellent, safe, comprehensive care, the following was completed at our patient's visit: 1. A medication reconciliation and review to ensure accurate knowledge of current/active medications, including asking our patients to inform us about any [id number] medications or herbal remedies/nutritional supplements/alternative remedies. 2. A review to specifically ensure our patients have had annual screening for screening for depression, screening for tobacco use, and screening for unhealthy alcohol use. For concerning screenings had a discussion with the patient, provided patient education, and recommended follow-up with primary care provider when appropriate. If patient noted with a risk of falling, they received education on strength, gait, and balance training to prevent future risk of falling. Portions of this note may have been carried over from the previous visit and updated as appropriate. Please note this office utilizes paper charting in addition to the electronic medical record. A list of current medications, vitals, and PMH is available there as the clinical staff outside of myself do not have access to [employer] charting during the clinic day operations. As part of providing quality comprehensive care the current medications, vitals, and PMH were reviewed in the paper chart. Assessment and Plan Assessment and Plan (1) Painful diabetic neuropathy: (2) Polyneuropathy: (3) Lumbar degenerative disc disease: Plan 70 year old female with chronic bilateral foot pain, as well as hx of moderate to severe low back pain. based on patients failure to respond to gabapentin, amitriptyline, duloxetine, pregabalin and significant side effects we do not recommend additional oral medications at this time. we will update an emg ncv of bilateral feet to assess neuropathic pain and polyneuropathy, as well as update lumbar xray to assess ddd. pt may benefit from qutenza for painful DPN, however she will need to trial lidocaine 5% patches to bilateral feet on 12 hours off 12 hours at this time as a recommendation prior to qutenza. can utilize compound cream ordered by podiatry as directed throughout the day. f/u to review EMG and lumbar xray.
--- OUTSIDE RECORDS SUMMARY | 2025-01-16 11:26 | XMS_ITS | CCD ---
Author Organization [facility] Care Team Providers Care Communication Equipment Mechanic Name Role Phone FAWWAD, AREVALO H [...] Chuckie Zepeda MD Primary Care Provider Alaina ASSISTANT STORE MANAGER TRAINEE, Ada Unavailable CHUCKIE ZEPEDA Attending Unavailable CHUCKIE ZEPEDA Attending Unavailable FAWWAD, AREVALO Attending Unavailable ADA FOLEY Attending Maude e ADA FOLEY Referring Unavailabl e FOLEY, ADA Referring Unavailabl e FOLEY, ADA Attending Unavailabl e Allergies Allergy Classification Reported Allergen(s) Allergy Type Date of Onset Reaction(s) Facility (9 sources) gabapentin Drug Allergy 05-24-2023 Other [facility] [...] (Side effects) gabapentin 300 mg oral capsule (13 sources) Anti-epileptic Agent Start: 02-21-2024 End: 02-20-2025 take 1 capsule by mouth in the morning gabapentin (Neurontin) 300 MG capsule Indications: Diabetic polyneuropathy associated with type 2 diabetes mellitus (CMS/HCC) Take 1 capsule (300 mg) by mouth in the morning and 1 capsule (300 mg) before bedtime. 180 capsule 07/20/2024 10/22/2024 Discontinued Start: 11-07-2023 End: 05-25-2024 take 1 capsule by mouth in the morning gabapentin (Neurontin) 100 MG capsule Indications: Diabetic polyneuropathy associated with type 2 diabetes mellitus (CMS/HCC) Take 1 capsule (100 mg) by mouth in the morning and 1 capsule (100 mg) before bedtime. 200 capsule 1 11/07/2023 02/21/2024 Discontinued (Dose adjustment) losartan potassium 25 mg oral tablet (3 sources) Angiotensin 2 Receptor Ju Start: 07-31-2024 End: 10-22-2024 take 1 tablet by mouth once daily losartan (Cozaar) 25 MG tablet Indications: Essential hypertension (CMS/HCC) Take 1 tablet (25 mg) by mouth Daily 30 tablet 5 07/31/2024 10/22/2024 Discontinued pregabalin 75 mg oral capsule (2 sources) Start: 10-22-2024 End: 12-21-2024 take 1 capsule by mouth in the morning pregabalin (Lyrica) 75 MG capsule Indications: Diabetic polyneuropathy associated with type 2 diabetes mellitus (CMS/HCC) Take 1 capsule (75 mg) by mouth in the morning and 1 capsule (75 mg) before bedtime. 60 capsule 1 10/22/2024 12/21/2024 Active rosuvastatin calcium 40 mg oral tablet (6 sources) HMG-CoA Reductase Inhibitor Start: 11-08-2023 End: 01-11-2025 take 1 tablet by mouth once daily [...] Onset: 06-14-2022 Chronic Disorders of lipid metabolism (14 sources) Hyperlipidemia, unspecified; Translations: [Hyperlipidemia] Onset: 08-07-2022 05-26-2023 Chronic Essential hypertension (13 sources) Essential hypertension; Translations: [Essential (primary) hypertension] Onset: 05-26-2023 05-26-2023 Chronic Other screening for suspected conditions (not mental disorders or infectious disease) (20 sources) Encounter for screening mammogram for malignant neoplasm of breast; Translations: [Patient encounter status] Onset: 03-22-2022 Episodic Past or Other Problems Problem Classification Problem Date Documented Da te Episodic/Chronic Mood disorders (9 sources) Mood disorders Onset: 05-26-2023 Resolved: 10-22-2024 05-26-2023 Other aftercare (3 sources) Long-term current use of drug therapy; Translations: [Other usp (current) drug therapy] Onset: 07-20-2024 07-20-2024 Episodic Other nervous system disorders (3 sources) Drug-induced myopathy; Translations: [Toxic myopathy] Onset: 07-20-2024 07-20-2024 Episodic Residual codes; unclassified (1 source) Family [...] Whole Blood 120.2 nmol/L Normal 66.5-200.0 Th [facility] Comment on above: Performed By: #### V ITB1T #### [facility] [address] [place] [address] Dr. Sameera Montana GLYCOHEMOGLOBIN A1Con 2022 ADA RECOMMENDATION SEE BELOW Normal [facility] Comment on above: Result Comment: ADA RECOMMENDED LIMIT 4.0 - 6.0 ADA THERAPEUTIC TARGET < 7.0 ACTION SUGGESTED > 7.0 Performed By: #### A 1C #### [facility] [address] [place] [address] Dr. Sameera Montana Glucose [Mass/Vol] 131 mg/dL Normal [facility] Comment on above: Performed By: #### A 1C #### [facility] [address] [address] [address] Sameera Montana HbA1c (Bld) [Mass fraction] 6.2 % Normal 4.5-6.2 [facility] Comment on above: Performed By: #### A 1C #### [facility] [address] [place] [address] Dr. Sameera Montana LIPID PROFILEon 08-03-2022 CHOL-HDL RATIO NORM SEE BELOW Normal [facility] Comment on above: Result Comment: 3.3 - 4.4 LOW RISK 4.4 - 7.1 AVERAGE RISK 7.1 - 11.0 MODERATE RISK >11.0 HIGH RISK Performed By: #### L IPID #### [facility] [address] [place] [address] Dr. Sameera Montana Cholesterol [Mass/Vol] 216 mg/dL Critically high <=200 [facility] Comment on above: Performed By: #### L IPID #### [facility] [address] [place] [address] Dr. Sameera Montana Cholesterol in HDL [Mass/Vol] 46 mg/dL Normal 40-60 [facility] Comment on above: Performed By: #### L IPID #### [facility] [address] [address] [address] Sameera Montana Cholesterol in LDL [Mass/Vol] 106.4 mg/dL Normal [facility] Comment on above: Performed By: #### L IPID #### [facility] [address] [place] [address] Dr. Sameera Montana Cholesterol.total/Cho lesterol in HDL [Mass ratio] 4.7 {ratio} Normal [facility] Comment on above: Performed By: #### L IPID #### [facility] [address] [address] [address] Sameera Montana HDL NORMAL > or = 60 mg/dl - LOW CARDIOVASCULAR RISK <40 mg/dl - HIGH CARDIOVASCULAR RISK Normal [facility] Comment on above: Performed By: #### L IPID #### [facility] [address] [address] [address] Sameera Montana LDL CALC NORMAL SEE BELOW Normal [facility] Comment on above: Result Comment: <100 mg/dl OPTIMAL 100 - 129 mg/dl NEAR OR ABOVE OPTIMAL 130 - 159 mg/dl BORDERLINE HIGH 160 - 189 mg/dl HIGH >190 mg/dl VERY HIGH Performed By: #### L IPID #### [facility] [address] [place] [address] Dr. Sameera Montana Triglyceride [Mass/Vol] 318 mg/dL Critically high <=150 [facility] Comment on above: Performed By: #### L IPID #### [facility] [address] [address] [address] Sameera Montana VLDL CALC 63.6 mg/dL Normal [facility] Comment on above: Performed By: #### L IPID #### [facility] [address] [place] [address] Dr. Sameera Montana VITAMIN B12on 08-03-2022 Cobalamin (Vitamin B12) [Mass/Vol] 506.0 pg/mL Normal 193.0-986.0 [facility] Comment on above: Performed By: #### V ITB12 #### [facility] [address] [place] [address] Dr. Sameera Montana DIRECT LDLon 06-14-2022 Cholesterol in LDL [Mass/Vol] 164 mg/dL Normal [facility] Comment on above: Performed By: #### D LDL, LIPID #### [facility] [address] [place] [address] Dr. Sameera Montana DLDL NORMAL SEE BELOW Normal [facility] Comment on above: Result Comment: <100 mg/dl OPTIMAL 100 - 129 mg/dl NEAR OR ABOVE OPTIMAL 130 - 159 mg/dl BORDERLINE HIGH 160 - 189 mg/dl HIGH >190 mg/dl VERY HIGH Performed By: #### D LDL, LIPID #### [facility] [address] [address] [address] Sameera Montana GLYCOHEMOGLOBIN A1Con 2022 ADA RECOMMENDATION SEE BELOW Normal [facility] Comment on above: Result Comment: ADA RECOMMENDED LIMIT 4.0 - 6.0 ADA THERAPEUTIC TARGET < 7.0 ACTION SUGGESTED > 7.0 Performed By: #### A 1C #### [facility] [address] [address] [address] Sameera Montana Glucose [Mass/Vol] 137 mg/dL Normal [facility] Comment on above: Performed By: #### A 1C #### [facility] [address] [place] [address] Dr. Sameera Montana HbA1c (Bld) [Mass fraction] 6.4 % Critically high 4.5-6.2 [facility] Comment on above: Performed By: #### A 1C #### [facility] [address] [place] [address] Dr. Sameera Montana LIPID PROFILEon 06-14-2022 CHOL-HDL RATIO NORM SEE BELOW Normal [facility] Comment on above: Result Comment: 3.3 - 4.4 LOW RISK 4.4 - 7.1 AVERAGE RISK 7.1 - 11.0 MODERATE RISK >11.0 HIGH RISK Performed By: #### D LDL, LIPID #### [facility] [address] [place] [address] Dr. Sameera Montana Cholesterol [Mass/Vol] 295 mg/dL Critically high <=200 [facility] Comment on above: Performed By: #### D LDL, LIPID #### [facility] [address] [address] [address] Sameera Montana Cholesterol in HDL [Mass/Vol] 41 mg/dL Normal 40-60 [facility] Comment on above: Performed By: #### D LDL, LIPID #### [facility] [address] [place] [address] Dr. Sameera Montana Cholesterol.total/Cho lesterol in HDL [Mass ratio] 7.2 {ratio} Normal [facility] Comment on above: Performed By: #### D LDL, LIPID #### [facility] [address] [address] [address] Sameera Montana HDL NORMAL > or = 60 mg/dl - LOW CARDIOVASCULAR RISK <40 mg/dl - HIGH CARDIOVASCULAR RISK Normal [facility] Comment on above: Performed By: #### D LDL, LIPID #### [facility] [address] [address] [address] Sameera Montana LDL CALC NORMAL SEE BELOW Normal [facility] Comment on above: Result Comment: <100 mg/dl OPTIMAL 100 - 129 mg/dl NEAR OR ABOVE OPTIMAL 130 - 159 mg/dl BORDERLINE HIGH 160 - 189 mg/dl HIGH >190 mg/dl VERY HIGH Performed By: #### D LDL, LIPID #### [facility] [address] [address] [address] Sameera Montana Triglyceride [Mass/Vol] 440 mg/dL Critically high <=150 [facility] Comment on above: Performed By: #### D LDL, LIPID #### [facility] [address] [address] [address] Sameera Montana VLDL CALC 88.0 mg/dL Normal [facility] Comment on above: Performed By: #### D LDL, LIPID #### [facility] [address] [address] [address] Sameera Montana MG MAMM SCREEN 3D MIKEY CADon 03-22-2022 MG MAMM SCREEN 3D MIKEY CAD Patient: LALI JACKSON Exam Date: 03/22/2022 : 1955 Gender:F Ordering : SHAIKH Rahda JOHNSON . Admission #: [id number] Family : Order #: [id number] CLICK HERE TO VIEW EXAM RADIOLOGY REPORT [...] bone cancer at age 53. LOCATION: [facility] BREAST COMPOSITION: Heterogeneously dense,which may obscure [...] Dorantes MD on 03/22/2022 at 12:14 Normal [facility] Vital Signs Date Time Vital Sign Value Performing Clinician Faci lity 10-22-2024 08:36-0400 Body height 160 cm Chuckie Zepeda MD Work Phone: [facility] 10-22-2024 08:36-0400 Body mass index (BMI) [Ratio] 25.86 kg/m2 Chuckie Zepeda MD Work Phone: [facility] 10-22-2024 08:36-0400 Body temperature 97.5 [degF] Chuckie Zepeda MD Work Phone: [facility] 10-22-2024 08:36-0400 Body weight 66.22 kg Chuckie Zepeda MD Work Phone: [facility] 10-22-2024 08:36-0400 Diastolic blood pressure 82 mm[Hg] Chuckie Zepeda MD Work Phone: [facility] 10-22-2024 08:36-0400 Heart rate 89 /min Chuckie Zepeda MD Work Phone: [facility] 10-22-2024 08:36-0400 Respiratory rate 18 /min Chuckie Zepeda MD Work Phone: [facility] 10-22-2024 08:36-0400 SaO2% (BldA) [Mass fraction] 97 % Chuckie Zepeda MD Work Phone: [facility] 10-22-2024 08:36-0400 Systolic blood pressure 146 mm[Hg] Chuckie Zepeda MD Work Phone: [facility] 05-23-2024 08:58-0500 Body height 160 cm Ada Foley ASSISTANT STORE MANAGER TRAINEE Work Phone: [facility] 05-23-2024 08:58-0500 Body mass index (BMI) [Ratio] 25.69 kg/m2 Ada Foley ASSISTANT STORE MANAGER TRAINEE Work Phone: [facility] 05-23-2024 08:58-0500 Body temperature 97.5 [degF] Ada Foley ASSISTANT STORE MANAGER TRAINEE Work Phone: [facility] 05-23-2024 08:58-0500 Body weight 65.77 kg Ada Foley ASSISTANT STORE MANAGER TRAINEE Work Phone: [facility] 05-23-2024 08:58-0500 Diastolic blood pressure 76 mm[Hg] Ada Foley ASSISTANT STORE MANAGER TRAINEE Work Phone: [facility] 05-23-2024 08:58-0500 Heart rate 90 /min Ada Foley ASSISTANT STORE MANAGER TRAINEE Work Phone: [facility] 05-23-2024 08:58-0500 Respiratory rate 22 /min Ada Foley ASSISTANT STORE MANAGER TRAINEE Work Phone: [facility] 05-23-2024 08:58-0500 SaO2% (BldA) [Mass fraction] 96 % Ada Foley ASSISTANT STORE MANAGER TRAINEE Work Phone: [facility] 05-23-2024 08:58-0500 Systolic blood pressure 158 mm[Hg] Ada Foley ASSISTANT STORE MANAGER TRAINEE Work Phone: [facility] 02-21-2024 09:27-0400 Body mass index (BMI) [Ratio] 25.15 kg/m2 Ada Foley ASSISTANT STORE MANAGER TRAINEE Work Phone: [facility] 02-21-2024 09:27-0400 Body temperature 97.2 [degF] Ada Foley ASSISTANT STORE MANAGER TRAINEE Work Phone: [facility] 02-21-2024 09:27-0400 Body weight 64.41 kg Ada Medinak ASSISTANT STORE MANAGER TRAINEE Work Phone: [facility] 02-21-2024 09:27-0400 Diastolic blood pressure 78 mm[Hg] Ada Haddadzpatrick ASSISTANT STORE MANAGER TRAINEE Work Phone: [facility] 02-21-2024 09:27-0400 Heart rate 75 /min Ada Cortezpatrick ASSISTANT STORE MANAGER TRAINEE Work Phone: [facility] 02-21-2024 09:27-0400 SaO2% (BldA) [Mass fraction] 99 % Ada Grigsbytrick ASSISTANT STORE MANAGER TRAINEE Work Phone: [facility] 02-21-2024 09:27-0400 Systolic blood pressure 122 mm[Hg] Ada Foley ASSISTANT STORE MANAGER TRAINEE Work Phone: [facility] Healthcare Encounters Encounter Date Encounter Type Care Provider Facility Start: 10-22-2024 End: 10-22-2024 Bamboo flowsheet Chuckie Zepeda MD Work Phone: [facility] Start: 10-22-2024 End: 10-22-2024 Halina flowsheet Chuckie Zepeda MD Work Phone: [facility] Start: 10-22-2024 End: 10-22-2024 Office outpatient visit 15 minutes Chuckie Zepeda MD Work Phone: [facility] Comment on above: Medicare annual well ness visit, subsequent (Primary Dx); Type 2 diabetes mellitus with hyperglycemia, without long-term current use of insulin ([facility]/HCC); Essential hypertension; Diabetic polyneuropathy associated with type 2 diabetes mellitus (CMS/HCC); Colon cancer screening Start: 10-22-2024 End: 10-22-2024 Patient encounter procedure Chuckie Zepeda MD Work Phone: [facility] Start: 10-22-2024 End: 10-22-2024 ambulatory CHUCKIE ZEPEDA Not Available Start: 07-20-2024 Patient encounter procedure Frederick Zepeda MD Work Phone: [facility] Start: 07-20-2024 End: 07-20-2024 ambulatory CHUCKIE ZEPEDA Not Available Start: 05-23-2024 End: 05-23-2024 Bamboo flowsheet Ada Foley ASSISTANT STORE MANAGER TRAINEE Work Phone: [facility] Start: 05-23-2024 End: 05-23-2024 Bamboo flowsheet Ada Foley ASSISTANT STORE MANAGER TRAINEE Work Phone: [facility] Start: 05-23-2024 End: 05-23-2024 Office outpatient visit 15 minutes Ada Foley ASSISTANT STORE MANAGER TRAINEE Work Phone: [facility] Comment on above: Other hyperlipidemia (CMS/HCC) (Primary Dx); Diabetic polyneuropathy associated with type 2 diabetes mellitus (CMS/HCC); Type 2 diabetes mellitus with diabetic polyneuropathy, without long-term current use of insulin (CMS/HCC) Start: 05-23-2024 End: 05-23-2024 ambulatory ADA FOLEY Not Available Start: 05-22-2024 End: 05-22-2024 ambulatory ADA FOLEY Not Available Start: 02-21-2024 End: 02-21-2024 Bamboo flowsheet Ada Foley ASSISTANT STORE MANAGER TRAINEE Work Phone: [facility] Start: 02-21-2024 End: 02-21-2024 Bamboo flowsheet Ada Foley ASSISTANT STORE MANAGER TRAINEE Work Phone: [facility] Start: 02-21-2024 End: 02-21-2024 Office outpatient visit 25 minutes Ada Foley ASSISTANT STORE MANAGER TRAINEE Work Phone: [facility] Comment on above: Essential hypertensi on (Primary Dx); Diabetic polyneuropathy associated with type 2 diabetes mellitus (CMS/HCC); Encounter for osteoporosis screening in asymptomatic postmenopausal patient; Encounter for screening for malignant neoplasm of colon; Screening mammogram, encounter for; Other hyperlipidemia (CMS/HCC); Type 2 diabetes mellitus with diabetic polyneuropathy, without long-term current use of insulin ([facility]) Start: 02-21-2024 End: 02-21-2024 ambulatory ADA HADDADZPATRICK Not Available Start: 11-07-2023 End: 11-07-2023 ambulatory SHAIKH ELIZABETH Not Available Start: 05-26-2023 Patient encounter procedure Allison Haddadzpatrick ASSISTANT STORE MANAGER TRAINEE Work Phone: [facility] Start: 08-03-2022 End: 08-04-2022 ambulatory SHAIKH Nato SINGLETONCarolyn Facility:[facility] Start: 06-14-2022 End: 06-15-2022 ambulatory SHAIKH Nato FRIEDMANBRANDI Facility:[facility] Start: 03-22-2022 End: 03-23-[address] SAMIR DORANTES Facility:[facility] Procedures Date Procedure Procedure Detail Performing Clinician Start: 05-22-2024 Mammography Chuckie agustin MD Work Phone: Plan of Treatment Date Care Activity Detail Author Start: 10-10-2026 Glaucoma screening Diabetes: R etinopathy Screening [facility] Start: 07-31-2025 Urine screening for protein Diabetes: Urine Protein Screening [facility] Start: 05-22-2025 Screening for malign ant neoplasm of breast Mammogram [facility] Start: 01-31-2025 Hemoglobin A1c measurement Diabetes: Hemoglobin A1C [facility] Start: 01-22-2025 End: 01-22-2025 Patient encounter procedure 01/22/2025 9:30 AM EDT Office Visit [facility] [address] [place] [phone] Chuckie Zepeda MD [address] [place] [id number] [facility] Start: 01-14-2025 Influenza vaccination Influenz a Vaccine (Season Ended) [facility] Start: 10-22-2024 End: 10-22-2025 Noninvasive colorectal cancer DNA and occult blood screening [Presence] in Stool Cologuard colon cancer screening Lab Routine Colon cancer screening Expected: 10/22/2024 (Approximate), Expires: 10/22/2025 [facility] Work Phone: Comment on above: Expected: 10/22/2024 (Approximate), Expires: 10/22/2025 Start: 10-22-2024 End: 10-22-2024 Patient encounter procedure 10/22/2024 8:30 AM EDT Office Visit [facility] [address] [place] [phone] Chuckie Zepeda MD [address] [place] [id number] [facility] Comment on above: Arrived Start: 08-22-2024 End: 08-22-2024 Patient encounter procedure 08/22/2024 10:00 AM EDT Office Visit [facility] [address] [place] [phone] Ada Foley NP [address] [place] [phone] [facility] Start: 06-16-2024 Glaucoma screening Diabetes: R etinopathy Screening [facility] Start: 06-06-2024 Urine screening for protein Diabetes: Urine Protein Screening [facility] Start: 05-26-2024 Medicare Annual Wellness (AWV) Medicare Annual Wellness (AWV) [facility] Start: 05-26-2024 Pneumococcal Vaccine : 65+ Years (1 of 2 - PCV) Pneumococcal Vaccine: 65+ Years (1 of 2 - PCV) [facility] Comment on above: Postponed from 01/07 (Patient Refused) Start: 05-23-2024 End: 05-23-[address] [facility] Comment on above: Arrived Start: 02-21-2024 End: 02-20-2025 CBC W Auto Differential panel - Blood CBC and differential Lab Routine Essential hypertension Type 2 diabetes mellitus with diabetic polyneuropathy, without long-term current use of insulin ([facility]) Expected: 02/21/2024 (Approximate), Expires: 02/20/2025 [facility] Comment on above: Expected: 02/21/2024 (Approximate), Expires: 02/20/2025 Start: 02-21-2024 End: 02-20-2025 Comprehensive metabolic 2000 panel - Serum or Plasma Comprehensive metabolic panel Lab Routine Essential hypertension Type 2 diabetes mellitus with diabetic polyneuropathy, without long-term current use of insulin ([facility]) Expected: 02/21/2024 (Approximate), Expires: 02/20/2025 [facility] Comment on above: Expected: 02/21/2024 (Approximate), Expires: 02/20/2025 Start: 02-21-2024 End: 02-20-2025 DXA Skeletal system Views for bone density DEXA bone density Imaging Routine Encounter for osteoporosis screening in asymptomatic postmenopausal patient Expected: 02/21/2024, Expires: 02/20/2025 [facility] Comment on above: Expected: 02/21/2024 , Expires: 02/20/2025 Start: 02-21-2024 End: 02-20-2025 Hemoglobin A1c/Hemoglobin.total in Blood Hemoglobin A1c Lab Routine Type 2 diabetes mellitus with diabetic polyneuropathy, without long-term current use of insulin ([facility]) Expected: 02/21/2024 (Approximate), Expires: 02/20/2025 [facility] Comment on above: Expected: 02/21/2024 (Approximate), Expires: 02/20/2025 Start: 02-21-2024 End: 02-20-2025 Lipid 1996 panel - Serum or Plasma Lipid panel Lab Routine Other hyperlipidemia ([facility]) Expected: 02/21/2024 (Approximate), Expires: 02/20/2025 [facility] Comment on above: Expected: 02/21/2024 (Approximate), Expires: 02/20/2025 Start: 02-21-2024 End: 04-22-2025 MG Breast - bilateral Screening Bilateral screening mammogram Imaging Routine Screening mammogram, encounter for Expected: 02/21/2024, Expires: 04/22/2025 [facility] Comment on above: Expected: 02/21/2024 , Expires: 04/22/2025 Start: 02-21-2024 End: 02-20-2025 Noninvasive colorectal cancer DNA and occult blood screening [Presence] in Stool Cologuard colon cancer screening Lab Routine Encounter for screening for malignant neoplasm of colon Expected: 02/21/2024 (Approximate), Expires: 02/20/2025 [facility] Comment on above: Expected: 02/21/2024 (Approximate), Expires: 02/20/2025 Start: 02-21-2024 End: 02-20-2025 TSH W/REFLEX TO FT4 TSH W/REFLEX TO FT4 Lab Routine Essential hypertension Expected: 02/21/2024 (Approximate), Expires: 02/20/2025 [facility] Work Phone: Comment on above: Expected: 02/21/2024 (Approximate), Expires: 02/20/2025 Start: 02-21-2024 End: 02-21-2024 Patient encounter procedure 02/21/2024 9:30 AM EDT Office Visit [facility] [address] [place] [phone] Ada Foley NP [address] [place] [address] [facility] Comment on above: Arrived Start: 01-15-2024 Influenza vaccination Influenza Vacc ine (#1) [facility] Start: 12-05-2023 Hemoglobin A1c measurement Diabetes: Hemoglobin A1C [facility] Start: 1997 Screening for malign ant neoplasm of breast Mammogram [facility] Start: 01-08-1976 Pneumococcal Vaccine : 65+ Years (1 of 2 - PCV) Pneumococcal Vaccine: 65+ Years (1 of 2 - PCV) [facility] Start: 1955 Screening for malign ant neoplasm of colon [facility] Microalbumin/Creatin ine panel in random Urine Microalbumin / creatinine urine ratio Lab Routine Essential hypertension Type 2 diabetes mellitus with diabetic polyneuropathy, without long-term current use of insulin ([facility]) Ordered: 02/21/2024 [facility] Comment on above: Ordered: 02/21/2024 Payers Date Payer Category Payer Medicaid [employer] MEDICARE A DVANTAGE [id number] 2022 Medicare [employer] MEDICARE A DVANTAGE [employer] MEDICARE REPLACEMENT [id number] 2022-Present [address] [place] [address] [id number] 2022 Medicare [id number] 1957 Unknown [id number] 1957 Unknown [id number] 1955 Unknown [id number] 1957 Unknown [id number] 1957 Unknown [id number] [id number] 1957 Unknown [id number] [id number] 1957 Unknown [id number] [id number] 1957 Unknown [id number] 1957 Unknown [id number] [id number] 1957 Unknown [id number] [id number] 1957 Unknown [id number] [id number] 1957 Unknown [id number] Social History Date Type Detail Facility Start: 08-15-2023 Tobacco smoking status NHIS Ex-smoke r [facility] History of tobacco use Current smoker [facility] History of tobacco use Cigarette Smoker [facility] History of tobacco use Passive smoker [facility] Start: 11-07-2023 End: 10-22-2024 Alcoholic beverage intake Lifetime non-drinker (finding) [facility] Start: 05-25-2023 End: 10-22-2024 [facility] of [facility] Start: 05-25-2023 End: 10-22-2024 Humiliation, Afraid, Rape, and Kick questionnaire [HARK] [...] at Not on file [facility] Functional Status Date Assessment Result Facility 10-22-2024 Patient [facility] ionnaire 2 item (PHQ-2) [Reported] [facility] History of Present illness Narrative 10-22-2024 Chuckie Zepeda MD - 10/22/2024 9:14 AM Jayy Zepeda MD - 10/22/2024 9:13 AM Jayy Zepeda MD - 10/22/2024 9:13 AM Jayy Zepeda MD - 10/22/2024 9:13 AM EDT Note Date & Type Note Facility 10-22-2024 History of Presen t illness Narrative Associated Problem(s): Type 2 diabetes mellitus with hyperglycemia, without long-term current use of insulin ([facility]) Last A1C 6.5. Stick to ADA diet and limit carbs. Associated Problem(s): Medicare annual wellness visit, subsequent Reviewed labs. Due for cologuard. Discussed proper diet and regular aerobic exercise. Need aerobic exercise 5-6 days a week for 30 minutes at a time. Smaller portions and limit total calories. Tetanus every 10 years. Advised not to smoke. Associated Problem(s): Essential hypertension BP okay without medication and monitor. Discussed DASH diet. Associated Problem(s): Diabetic polyneuropathy associated with type 2 diabetes mellitus ([facility]) Continued pain and stop neurontin. Try lyrica. Images from the original note were not included. Subjective Patient ID: Lali Jackson is a 69 y.o. female who presents for Medicare Annual Wellness Visit Subsequent (WELLNESS) and Hip Pain. Presents for medicare annual wellness visit. Weight stable over the past year. Tries to stay active and walk several days a week. Tries to watch diet and eat healthy. Increased fruits and vegetables. Smaller portions and limits snacking. Tries to limit total daily calories. Reviewed labs. Not checking BS but last A1C 6.5. Stopped losartan due to side effects. Turner nauseated and had HART. BP okay without medication. Neuropathy unchanged. Increased neurontin but still pain and numbness in feet. Pain with walking and standing. Review of Systems Respiratory: Negative for cough, shortness of breath and wheezing. Cardiovascular: Negative for chest pain and palpitations. Gastrointestinal: Negative for abdominal pain, diarrhea, nausea and vomiting. Genitourinary: Negative for dysuria. Objective Physical Exam Constitutional: General: She is not in acute distress. Appearance: Normal appearance. HENT: Head: Normocephalic. Right Ear: Tympanic membrane normal. Left Ear: Tympanic membrane normal. Eyes: Extraocular Movements: Extraocular movements intact. Pupils: Pupils are equal, round, and reactive to light. Cardiovascular: Rate and Rhythm: Normal rate and regular rhythm. Heart sounds: No murmur heard. No friction rub. No gallop. Pulmonary: Effort: Pulmonary effort is normal. Breath sounds: Normal breath sounds. No wheezing, rhonchi or rales. Abdominal: General: Bowel sounds are normal. There is no distension. Palpations: Abdomen is soft. Tenderness: There is no abdominal tenderness. There is no guarding or rebound. Musculoskeletal: General: No swelling or tenderness. Cervical back: Neck supple. Right lower leg: No edema. Left lower leg: No edema. Skin: Findings: No erythema or rash. Neurological: General: No focal deficit present. Mental Status: She is alert and oriented to person, place, and time. Cranial Nerves: No cranial nerve deficit. Motor: No weakness. Gait: Gait normal. Assessment/Plan Problem List Items Addressed This Visit Type 2 diabetes mellitus with hyperglycemia, without long-term current use of insulin ([facility]) Last A1C 6.5. Stick to ADA diet and limit carbs. Essential hypertension (Chronic) BP okay without medication and monitor. Discussed DASH diet. Diabetic polyneuropathy associated with type 2 diabetes mellitus (CMS/HCC) Continued pain and stop neurontin. Try lyrica. Relevant Medications pregabalin (Lyrica) 75 MG capsule Medicare annual wellness visit, subsequent - Primary Reviewed labs. Due for cologuard. Discussed proper diet and regular aerobic exercise. Need aerobic exercise 5-6 days a week for 30 minutes at a time. Smaller portions and limit total calories. Tetanus every 10 years. Advised not to smoke. Other Visit Diagnoses Colon cancer screening Relevant Orders Cologuard colon cancer screening documented in this encounter [facility] History of Present illness Narrative 05-23-2024 Ada Foley NP - 05/23/2024 9:50 AM Hortencia Foley NP - 05/23/2024 9:21 AM Hortencia Foley NP - 05/23/2024 9:00 AM EST Note Date & Type Note Facility 05-23-2024 History of Presen t illness Narrative Associated Problem(s): Type 2 diabetes mellitus with diabetic polyneuropathy, without long-term current use of insulin ([facility]) Stopped taking all of her medications. States she feels significantly better since stopping all medications. Discussed in detail with pt cardiovascular and additional risks associated with unmanaged diabetes mellitus. Pt verbalized understanding and maintains she would like to stay off of all medications except gabapentin at this time. Associated Problem(s): Other hyperlipidemia ([facility]) Currently stopped taking Rosuvastatin and Zetia; Stopped [...] polyneuropathy, without long-term current use of insulin ([facility]) Stopped taking all of her medications. States she feels significantly better since stopping all medications. Discussed in detail with pt cardiovascular and additional risks associated with unmanaged diabetes mellitus. Pt verbalized understanding and maintains she would like to stay off of all medications except gabapentin at this time. Other hyperlipidemia (CMS/HCC) - Primary Currently stopped taking Rosuvastatin and [...] associated with type 2 diabetes mellitus (CMS/HCC) Relevant Medications gabapentin (Neurontin) 300 MG capsule documented in this encounter [facility] Instructions 05-23-2024 Patient Instructions Note Date & Type Note Facility 05-23-2024 Instructions Ada Foley NP - 05/23/2024 9:00 AM EST FASTING labs ordered. Nothing to eat or drink for 12 hours prior to blood draw. Water and black coffee ok. We will call you with results! documented in this encounter [facility] History of Present illness Narrative 02-21-2024 Ada Foley NP - 02/21/2024 12:05 PM EDGleyns Foley NP - 02/21/2024 12:04 PM Shane Foley NP - 02/21/2024 12:03 PM Shane Foley NP - 02/21/2024 9:30 AM EDT Note [...] Gabapentin once daily. Associated Problem(s): Other hyperlipidemia ([facility]/HCC) Currently taking Rosuvastatin 40mg; Stopped fenofibrate due to migraines. Denies any myalgias. Most recent Lipid Panel 3 monhs ago elevated. Will order Zetia 10mg today; Associated Problem(s): Type 2 diabetes mellitus with diabetic polyneuropathy, without long-term current use of insulin ([facility]) Taking Rybelsus 7mg Denies any adverse reactions [...] A1C today. DM Eye Exam: 06/2022 @ [facility] Images from the original note were not [...] DM Eye Exam: 06/2022 @ [facility] in [place] DM Neuropathy: Was taking Gabapentin 100mg Bid. [...] R ALBUMIN GLOBULIN RATIO 0.[address] [facility] Review of Systems Constitutional: Negative for activity [...] polyneuropathy, without long-term current use of insulin ([facility]) Taking Rybelsus 7mg Denies any adverse reactions [...] A1C today. DM Eye Exam: 06/2022 @ [facility] in [place] Relevant Orders Microalbumin / creatinine urine ratio Hemoglobin A1c Comprehensive metabolic panel CBC and differential Other hyperlipidemia ([facility]) Currently taking Rosuvastatin 40mg; Stopped fenofibrate due [...] polyneuropathy associated with type 2 diabetes mellitus ([facility]) Previously reported Gabapentin as allergy due to [...] colon cancer screening documented in this encounter [facility] Instructions 02-21-2024 Patient Instructions Note Date & Type Note Facility 02-21-2024 Instructions Ada Foley NP - 02/21/2024 9:30 AM EDT FASTING [...] and simple sugars. documented in this encounter [facility] Evaluation note Note Date & Type Note Facility Evaluation note Diagnosis Essential hypertension- Primary Unspecified essential hypertension Diabetic polyneuropathy associated with type 2 diabetes mellitus ([facility]) Encounter for osteoporosis screening in asymptomatic postmenopausal patient Encounter for screening for malignant neoplasm of colon Screening mammogram, encounter for Other hyperlipidemia (CMS/HCC) Type 2 diabetes mellitus with diabetic polyneuropathy, without long-term current use of insulin (CMS/HCC) documented in this encounter [facility] Evaluation note Note Date & Type [...] of insulin (CMS/HCC) documented in this encounter [facility] Evaluation note Note Date & Type Note Facility Evaluation note Diagnosis Type 2 diabetes mellitus without complication, without long-term current use of insulin- Primary Other hyperlipidemia Essential hypertension Unspecified essential hypertension Screening mammogram, encounter for Diabetic polyneuropathy associated with type 2 diabetes mellitus (CMS/HCC) Encounter for osteoporosis screening in asymptomatic postmenopausal patient Medicare annual wellness visit, initial Other hyperlipidemia- Primary Diabetic polyneuropathy associated with type 2 diabetes mellitus (CMS/HCC)- Primary Essential hypertension Unspecified essential hypertension Type 2 diabetes mellitus with diabetic polyneuropathy, without long-term current use of insulin (CMS/HCC) Other hyperlipidemia Diabetic polyneuropathy associated with type 2 diabetes mellitus (CMS/HCC)- Primary Encounter for screening for malignant neoplasm of colon- Primary Type 2 diabetes mellitus with diabetic polyneuropathy, without long-term current use of insulin (CMS/HCC) Diabetic polyneuropathy associated with type 2 diabetes mellitus (CMS/HCC) Essential hypertension Unspecified essential hypertension Other hyperlipidemia Type 2 diabetes mellitus without complication, without long-term current use of insulin Essential hypertension- Primary Unspecified essential hypertension Diabetic polyneuropathy associated with type 2 diabetes mellitus (CMS/HCC) Encounter for osteoporosis screening in asymptomatic postmenopausal patient Encounter for screening for malignant neoplasm of colon Screening mammogram, encounter for Other hyperlipidemia Type 2 diabetes mellitus with diabetic polyneuropathy, without long-term current use of insulin ([facility]) Other hyperlipidemia- Primary Diabetic polyneuropathy associated with type 2 diabetes mellitus ([facility]/HCC) Type 2 diabetes mellitus with diabetic polyneuropathy, without long-term current use of insulin ([facility]/HCC) Type 2 diabetes mellitus with hyperglycemia, without long-term current use of insulin ([facility]/HCC)- Primary Essential hypertension Unspecified essential hypertension Diabetic polyneuropathy associated with type 2 diabetes mellitus ([facility]CC) Statin myopathy Toxic myopathy Dyslipidemia ([facility]/HCC) Other and unspecified hyperlipidemia Encounter for long-term (current) use of medications Encounter for long-term (current) use of other medications Fatigue, unspecified type Medicare annual wellness visit, subsequent- Primary Type 2 diabetes mellitus with hyperglycemia, without long-term current use of insulin ([facility]) Essential hypertension Unspecified essential hypertension Diabetic polyneuropathy associated with type 2 diabetes mellitus ([facility]) Colon cancer screening Special screening for malignant neoplasms, colon documented in this encounter [facility] Summary Purpose Family History No Family History Records FoundNo Family History Records Found Advance Directives No Advanced Directives Records FoundNo Advanced Directives Records Found Additional Source Comments INFORMATION SOURCE (unrecogn ized section and content) DATE CREATED AUTHOR 10/22/2022 [facility] DATE CREATED AUTHOR AUTHOR'S EDUARDO ATION 10/22/2024 [facility] EPIC Care Teams (unrecognized sec tion and content) Communication Equipment Mechanic Relationship Specialty Start Date End Date Chuckie Zepeda MD [address] [place] [address] PCP - General Family Medicine 12/27/23 Ada Foley NP [address] [place] [address] Nurse Practitioner Family Medicine 12/27/23 Communication Equipment Mechanic Relationship Specialty Start Date End Date Chuckie Zepeda MD [address] [place] [address] PCP - General Family Medicine 12/27/23 Ada Foley NP [address] [place] [address] Nurse Practitioner Family Medicine 12/27/23 Communication Equipment Mechanic Relationship Specialty Start Date End Date Chuckie Zepeda MD [address] [place] [phone] PCP - General Family Medicine 12/27/23 Ada Foley NP [address] [place] [address] Nurse Practitioner Family Medicine 12/27/23 Communication Equipment Mechanic Relationship Specialty Start Date End Date Chuckie Zepeda MD [address] [place] [phone] PCP - General Family Medicine 12/27/23 Ada Foley NP [address] [place] [address] Nurse Practitioner Family Medicine 12/27/23 Communication Equipment Mechanic Relationship Specialty Start Date End Date Chuckie Zepeda MD [address] [place] [phone] PCP - General Family Medicine 12/27/23 Communication Equipment Mechanic Relationship Specialty Start Date End Date Chuckie Zepeda MD [address] [place] [phone] PCP - General Family Medicine 12/27/23 Reason for Visit (unrecogniz ed section and content) Reason Comments Follow-up Neuropathy in her fe et Pain level is an 8-10 at night Reason Comments Follow-up 3m Reason Comments Medicare Annual Wellness Visit Subsequen t WELLNESS Hip Pain FOR RECORDS PERTAINING TO PATIENTS WHO ARE [...] BE BASED ON THE PRIMARY CLINICAL RECORDS. [employer] provides no warranty or guarantee of the accuracy or completeness of information in this document.
== END 2025-01-16 09:56 | disposition home or self-care (01) ==
PROVIDERS: PCP Family Medicine; Visit Provider Nurse Practitioner
DX: E11.40 Type 2 diabetes mellitus with diabetic neuropathy, unspecified (principal); G62.9 Polyneuropathy, unspecified; M51.369 Other intervertebral disc degeneration, lumbar region without mention of lumbar back pain or lower extremity pain
CPT/HCPCS: G0463

== ENCOUNTER 2025-01-17 10:01 | Outpatient (OUT) | payer MEDICARE, SELFPAY ==
--- NOTE | 2025-01-17 10:07 | XR_ITS ---
The [address] [address] Patient Name: MAME HONG MRN: [id number] date: 1955 Sex: F Assigned Patient Location: [facility] Current Patient Location: [facility] Accession/Order Number: [id number] Exam Date: 01/17/2025 10:28 Report Date: 01/17/2025 11:10 At the request of: ABELARDO PERRIN NP Procedure: XR lumbar spine min 4V LUMBAR SPINE -4 views: CLINICAL HISTORY: Chronic back pain radiating to the left hip, increasing over the past few months. Numbness and tingling at the feet. No recent injury. COMPARISON: None AP, lateral and both oblique views of the lumbosacral junction were obtained. The lateral view is not well centered. There is osteopenia. Slight thoracolumbar levoscoliotic curvature is seen. No definite acute compression fractures are identified. There is approximately 7 mm anterolisthesis of L4 on L5. Alignment is otherwise maintained. No disproportionate disc space narrowing is identified. There is minimal endplate spurring. Lower lumbar facet hypertrophy is seen, greatest at L4-5. No pars defect is identified. The sacroiliac joints are maintained. There are no paraspinal soft tissue abnormalities. XR/XR lumbar spine min 4V IMPRESSION: OSTEOPENIA, SCOLIOSIS AND MILD DEGENERATIVE CHANGES. Impression dictated by: Susi Adams M.D. 01/17/2025 11:10 AM Dictation Location: Fever Electronically authenticated by: [id number] Date: 01/17/2025 11:10
--- OUTSIDE RECORDS SUMMARY | 2025-01-17 10:09 | XMS_ITS | CCD ---
Author Organization [facility] Care Team Providers Care Worm Raiser Name Role Phone FAWWAD, AREVALO H Attending [...] Unavailable Chuckie Zepeda MD Primary Care Provider [phone] Alaina HEMOTHERAPISTAda Unavailable CHUCKIE ZEPEDA Attending Unavailable CHUCKIE ZEPEDA [...] current use of drug therapy; Translations: [Other [place] [facility] (current) drug therapy] Onset: 07-20-2024 07-20-2024 Episodic [...] Whole Blood 120.2 nmol/L Normal 66.5-200.0 [facility] Comment on above: Performed By: #### V ITB1T #### [facility] [address] [place] [address] Dr. Sameera Montana GLYCOHEMOGLOBIN A1Con 2022 ADA RECOMMENDATION SEE BELOW Normal [facility] Comment on above: Result Comment: ADA RECOMMENDED LIMIT 4.0 - 6.0 ADA THERAPEUTIC TARGET < 7.0 ACTION SUGGESTED > 7.0 Performed By: #### A 1C #### [facility] [address] [place] [address] Dr. Sameera Montana Glucose [Mass/Vol] 131 mg/dL Normal [facility] Comment on above: Performed By: #### A 1C #### [facility] [address] [address] [address] Sameera Montana HbA1c (Bld) [Mass fraction] 6.2 % Normal 4.5-6.2 [facility] Comment on above: Performed By: #### A 1C #### [facility] [address] [place] [address] Dr. Sameera Montana LIPID PROFILEon 08-03-2022 CHOL-HDL RATIO NORM SEE BELOW Normal [facility] Comment on above: Result Comment: 3.3 - 4.4 LOW RISK 4.4 - 7.1 AVERAGE RISK 7.1 - 11.0 MODERATE RISK >11.0 HIGH RISK Performed By: #### L IPID #### [facility] [address] [place] [address] Dr. Sameera Montana Cholesterol [Mass/Vol] 216 mg/dL Critically high <=200 [facility] Comment on above: Performed By: #### L IPID #### [facility] [address] [place] [address] Dr. Sameera Montana Cholesterol in HDL [Mass/Vol] 46 mg/dL Normal 40-60 [facility] Comment on above: Performed By: #### L IPID #### [facility] [address] [address] [address] Sameera Montana Cholesterol in LDL [Mass/Vol] 106.4 mg/dL Normal [facility] Comment on above: Performed By: #### L IPID #### [facility] [address] [place] [address] Dr. Sameera Montana Cholesterol.total/Cho lesterol in HDL [Mass ratio] 4.7 {ratio} Normal [facility] Comment on above: Performed By: #### L IPID #### [facility] [address] [address] [address] Sameera Montana HDL NORMAL > or = 60 mg/dl - LOW CARDIOVASCULAR RISK <40 mg/dl - HIGH CARDIOVASCULAR RISK Normal [facility] Comment on above: Performed By: #### L IPID #### [facility] [address] [address] [address] Sameera Montana LDL CALC NORMAL SEE BELOW Normal [facility] Comment on above: Result Comment: <100 mg/dl OPTIMAL 100 - 129 mg/dl NEAR OR ABOVE OPTIMAL 130 - 159 mg/dl BORDERLINE HIGH 160 - 189 mg/dl HIGH >190 mg/dl VERY HIGH Performed By: #### L IPID #### [facility] [address] [place] [address] Dr. Sameera Montana Triglyceride [Mass/Vol] 318 mg/dL Critically high <=150 [facility] Comment on above: Performed By: #### L IPID #### [facility] [address] [address] [address] Sameera Montana VLDL CALC 63.6 mg/dL Normal [facility] Comment on above: Performed By: #### L IPID #### [facility] [address] [place] [address] Dr. Sameera Montana VITAMIN B12on 08-03-2022 Cobalamin (Vitamin B12) [Mass/Vol] 506.0 pg/mL Normal 193.0-986.0 [facility] Comment on above: Performed By: #### V ITB12 #### [facility] [address] [place] [address] Dr. Sameera Montana DIRECT LDLon 06-14-2022 Cholesterol in LDL [Mass/Vol] 164 mg/dL Normal [facility] Comment on above: Performed By: #### D LDL, LIPID #### [facility] [address] [place] [address] Dr. Sameera Montana DLDL NORMAL SEE BELOW Normal [facility] Comment on above: Result Comment: <100 mg/dl OPTIMAL 100 - 129 mg/dl NEAR OR ABOVE OPTIMAL 130 - 159 mg/dl BORDERLINE HIGH 160 - 189 mg/dl HIGH >190 mg/dl VERY HIGH Performed By: #### D LDL, LIPID #### [facility] [address] [address] [address] Sameera Montana GLYCOHEMOGLOBIN A1Con 2022 ADA RECOMMENDATION SEE BELOW Normal [facility] Comment on above: Result Comment: ADA RECOMMENDED LIMIT 4.0 - 6.0 ADA THERAPEUTIC TARGET < 7.0 ACTION SUGGESTED > 7.0 Performed By: #### A 1C #### [facility] [address] [address] [address] Sameera Montana Glucose [Mass/Vol] 137 mg/dL Normal [facility] Comment on above: Performed By: #### A 1C #### [facility] [address] [place] [address] Dr. Sameera Montana HbA1c (Bld) [Mass fraction] 6.4 % Critically high 4.5-6.2 [facility] Comment on above: Performed By: #### A 1C #### [facility] [address] [place] [address] Dr. Sameera Montana LIPID PROFILEon 06-14-2022 CHOL-HDL RATIO NORM SEE BELOW Normal [facility] Comment on above: Result Comment: 3.3 - 4.4 LOW RISK 4.4 - 7.1 AVERAGE RISK 7.1 - 11.0 MODERATE RISK >11.0 HIGH RISK Performed By: #### D LDL, LIPID #### [facility] [address] [place] [address] Dr. Sameera Montana Cholesterol [Mass/Vol] 295 mg/dL Critically high <=200 [facility] Comment on above: Performed By: #### D LDL, LIPID #### [facility] [address] [address] [address] Sameera Montana Cholesterol in HDL [Mass/Vol] 41 mg/dL Normal 40-60 [facility] Comment on above: Performed By: #### D LDL, LIPID #### [facility] [address] [place] [address] Dr. Sameera Montana Cholesterol.total/Cho lesterol in HDL [Mass ratio] 7.2 {ratio} Normal [facility] Comment on above: Performed By: #### D LDL, LIPID #### [facility] [address] [address] [address] Sameera Montana HDL NORMAL > or = 60 mg/dl - LOW CARDIOVASCULAR RISK <40 mg/dl - HIGH CARDIOVASCULAR RISK Normal [facility] Comment on above: Performed By: #### D LDL, LIPID #### [facility] [address] [address] [address] Sameera Montana LDL CALC NORMAL SEE BELOW Normal [facility] Comment on above: Result Comment: <100 mg/dl OPTIMAL 100 - 129 mg/dl NEAR OR ABOVE OPTIMAL 130 - 159 mg/dl BORDERLINE HIGH 160 - 189 mg/dl HIGH >190 mg/dl VERY HIGH Performed By: #### D LDL, LIPID #### [facility] [address] [address] [address] Sameera Montana Triglyceride [Mass/Vol] 440 mg/dL Critically high <=150 [facility] Comment on above: Performed By: #### D LDL, LIPID #### [facility] [address] [address] [address] Sameera Montana VLDL CALC 88.0 mg/dL Normal [facility] Comment on above: Performed By: #### D LDL, LIPID #### [facility] [address] [address] [address] Sameera Montana MG MAMM SCREEN 3D MIKEY CADon 03-22-2022 MG MAMM SCREEN 3D MIKEY CAD Patient: LALI JACKSON Exam Date: 03/22/2022 : 1955 Gender:F Ordering : SHAIKH Radha JOHNSON . Admission #: [id number] Family : Order #: [id number] CLICK HERE TO VIEW EXAM RADIOLOGY REPORT [...] cancer at age 53. LOCATION: [facility] BREAST COMPOSITION: Heterogeneously dense,which may obscure [...] Dorantes MD on 03/22/2022 at 12:14 Normal [facility] Vital Signs Date Time Vital Sign Value Performing Clinician Faci lity 10-22-2024 08:36-0400 Body height 160 cm Chuckie Zepeda MD Work Phone: [facility] 10-22-2024 08:36-0400 Body mass index (BMI) [Ratio] 25.86 kg/m2 Chuckie Zepeda MD Work Phone: [facility] 10-22-2024 08:36-0400 Body temperature 97.5 [degF] Chuckie Zepeda MD Work Phone: [facility] 10-22-2024 08:36-0400 Body weight 66.22 kg Chuckie Zepeda MD Work Phone: [facility] 10-22-2024 08:36-0400 Diastolic blood pressure 82 mm[Hg] Chuckie Zepeda MD Work Phone: [facility] 10-22-2024 08:36-0400 Heart rate 89 /min Chuckie Zepeda MD Work Phone: [facility] 10-22-2024 08:36-0400 Respiratory rate 18 /min Chuckie Zepeda MD Work Phone: [facility] 10-22-2024 08:36-0400 SaO2% (BldA) [Mass fraction] 97 % Chuckie Zepeda MD Work Phone: [facility] 10-22-2024 08:36-0400 Systolic blood pressure 146 mm[Hg] Chuckie Zepeda MD Work Phone: [facility] 05-23-2024 08:58-0500 Body height 160 cm Ada Foley HEMOTHERAPIST Work Phone: [facility] 05-23-2024 08:58-0500 Body mass index (BMI) [Ratio] 25.69 kg/m2 Ada Foley HEMOTHERAPIST Work Phone: [facility] 05-23-2024 08:58-0500 Body temperature 97.5 [degF] Ada Foley HEMOTHERAPIST Work Phone: [facility] 05-23-2024 08:58-0500 Body weight 65.77 kg Ada Foley HEMOTHERAPIST Work Phone: [facility] 05-23-2024 08:58-0500 Diastolic blood pressure 76 mm[Hg] Ada Foley HEMOTHERAPIST Work Phone: [facility] 05-23-2024 08:58-0500 Heart rate 90 /min Ada Foley HEMOTHERAPIST Work Phone: [facility] 05-23-2024 08:58-0500 Respiratory rate 22 /min Ada Foley HEMOTHERAPIST Work Phone: [facility] 05-23-2024 08:58-0500 SaO2% (BldA) [Mass fraction] 96 % Ada Foley HEMOTHERAPIST Work Phone: [facility] 05-23-2024 08:58-0500 Systolic blood pressure 158 mm[Hg] Ada Foley HEMOTHERAPIST Work Phone: [facility] 02-21-2024 09:27-0400 Body mass index (BMI) [Ratio] 25.15 kg/m2 Ada Foley HEMOTHERAPIST Work Phone: [facility] 02-21-2024 09:27-0400 Body temperature 97.2 [degF] Ada Foley HEMOTHERAPIST Work Phone: [facility] 02-21-2024 09:27-0400 Body weight 64.41 kg Ada Medinak HEMOTHERAPIST Work Phone: [facility] 02-21-2024 09:27-0400 Diastolic blood pressure 78 mm[Hg] Ada Haddadzpatrick HEMOTHERAPIST Work Phone: [facility] 02-21-2024 09:27-0400 Heart rate 75 /min Ada Cortezpatrick HEMOTHERAPIST Work Phone: [facility] 02-21-2024 09:27-0400 SaO2% (BldA) [Mass fraction] 99 % Ada Grigsbytrick HEMOTHERAPIST Work Phone: [facility] 02-21-2024 09:27-0400 Systolic blood pressure 122 mm[Hg] Ada Foley HEMOTHERAPIST Work Phone: [facility] Healthcare Encounters Encounter Date Encounter Type Care Provider Facility Start: 10-22-2024 End: 10-22-2024 Bamboo flowsheet Chuckie Zepeda MD Work Phone: [facility] Start: 10-22-2024 End: 10-22-2024 Halina flowsheet Chuckie Zepeda MD Work Phone: [facility] Start: 10-22-2024 End: 10-22-2024 Office outpatient visit 15 minutes Chuckie Zepeda MD Work Phone: [facility] Comment on above: Medicare annual well ness visit, subsequent (Primary Dx); Type 2 diabetes mellitus with hyperglycemia, without long-term current use of insulin ([facility]/HCC); Essential hypertension; Diabetic polyneuropathy associated with type 2 diabetes mellitus (CMS/HCC); Colon cancer screening Start: 10-22-2024 End: 10-22-2024 Patient encounter procedure Chuckie Zepeda MD Work Phone: [facility] Healthcare Start: 10-22-2024 End: 10-22-2024 ambulatory CHUCKIE ZEPEDA Not Available Start: 07-20-2024 Patient encounter procedure Frederick Zepeda MD Work Phone: [facility] Start: 07-20-2024 End: 07-20-2024 ambulatory CHUCKIE ZEPEDA Not Available Start: 05-23-2024 End: 05-23-2024 Bamboo flowsheet Ada Foley HEMOTHERAPIST Work Phone: [facility] Start: 05-23-2024 End: 05-23-2024 Bamboo flowsheet Ada Foley HEMOTHERAPIST Work Phone: [facility] Start: 05-23-2024 End: 05-23-2024 Office outpatient visit 15 minutes Ada Foley HEMOTHERAPIST Work Phone: [facility] Comment on above: Other hyperlipidemia (CMS/HCC) (Primary Dx); Diabetic polyneuropathy associated with type 2 diabetes mellitus (CMS/HCC); Type 2 diabetes mellitus with diabetic polyneuropathy, without long-term current use of insulin (CMS/HCC) Start: 05-23-2024 End: 05-23-2024 ambulatory ADA FOLEY Not Available Start: 05-22-2024 End: 05-22-2024 ambulatory ADA FOLEY Not Available Start: 02-21-2024 End: 02-21-2024 Bamboo flowsheet Ada Foley HEMOTHERAPIST Work Phone: [facility] Start: 02-21-2024 End: 02-21-2024 Bamboo flowsheet Ada Foley HEMOTHERAPIST Work Phone: [facility] Start: 02-21-2024 End: 02-21-2024 Office outpatient visit 25 minutes Ada Foley HEMOTHERAPIST Work Phone: [facility] Comment on above: Essential hypertensi on (Primary Dx); Diabetic polyneuropathy associated with type 2 diabetes mellitus (CMS/HCC); Encounter for osteoporosis screening in asymptomatic postmenopausal patient; Encounter for screening for malignant neoplasm of colon; Screening mammogram, encounter for; Other hyperlipidemia (CMS/HCC); Type 2 diabetes mellitus with diabetic polyneuropathy, without long-term current use of insulin ([facility]) Start: 02-21-2024 End: 02-21-2024 ambulatory ADA HADDADZPATRICK Not Available Start: 11-07-2023 End: 11-07-2023 ambulatory SHAIKH ELIZABETH Not Available Start: 05-26-2023 Patient encounter procedure Allison Haddadzpatrick HEMOTHERAPIST Work Phone: [facility] Start: 08-03-2022 End: 08-04-2022 ambulatory SHAIKH Nato SINGLETONCarolyn Facility:[facility] Start: 06-14-2022 End: 06-15-2022 ambulatory SHAIKH Nato FRIEDMANBRANDI Facility:[facility] Start: 03-22-2022 End: 03-23-[address] SAMIR DORANTES Facility:[facility] Procedures Date Procedure Procedure Detail Performing Clinician Start: 05-22-2024 Mammography Chuckie agustin MD Work Phone: Plan of Treatment Date Care Activity Detail Author Start: 10-10-2026 Glaucoma screening Diabetes: R etinopathy Screening [facility] Start: 07-31-2025 Urine screening for protein Diabetes: Urine Protein Screening [facility] Start: 05-22-2025 Screening for malign ant neoplasm of breast Mammogram [facility] Start: 01-31-2025 Hemoglobin A1c measurement Diabetes: Hemoglobin A1C [facility] Start: 01-22-2025 End: 01-22-2025 Patient encounter procedure 01/22/2025 9:30 AM EDT Office Visit [facility] [address] [place] [phone] Chuckie Zepeda MD [address] [place] [phone] [facility] Start: 01-14-2025 Influenza vaccination Influenz a Vaccine (Season Ended) [facility] Start: 10-22-2024 End: 10-22-2025 Noninvasive colorectal cancer DNA and occult blood screening [Presence] in Stool Cologuard colon cancer screening Lab Routine Colon cancer screening Expected: 10/22/2024 (Approximate), Expires: 10/22/2025 [facility] Work Phone: Comment on above: Expected: 10/22/2024 (Approximate), Expires: 10/22/2025 Start: 10-22-2024 End: 10-22-2024 Patient encounter procedure 10/22/2024 8:30 AM EDT Office Visit [facility] [address] [place] [phone] Chuckie Zepeda MD [address] [place] [phone] [facility]rived [facility] Comment on above: Arrived Start: 08-22-2024 End: 08-22-2024 Patient encounter procedure 08/22/2024 10:00 AM EDT Office Visit [facility] [address] [place] [phone] Ada Foley NP [address] [place] [phone] [facility] Start: 06-16-2024 Glaucoma screening Diabetes: R etinopathy Screening [facility] Start: 06-06-2024 Urine screening for protein Diabetes: Urine Protein Screening [facility] Start: 05-26-2024 Medicare Annual Wellness (AWV) Medicare Annual Wellness (AWV) [facility] Start: 05-26-2024 Pneumococcal Vaccine : 65+ Years (1 of 2 - PCV) Pneumococcal Vaccine: 65+ Years (1 of 2 - PCV) [facility] Comment on above: Postponed from 01/07 (Patient Refused) Start: 05-23-2024 End: 05-23-2024 Patient encounter procedure [facility] Comment on above: Arrived Start: 02-21-2024 End: 02-20-2025 CBC W Auto Differential panel - Blood CBC and differential Lab Routine Essential hypertension Type 2 diabetes mellitus with diabetic polyneuropathy, without long-term current use of insulin ([facility]) Expected: 02/21/2024 (Approximate), Expires: 02/20/2025 [facility] Comment on above: Expected: 02/21/2024 (Approximate), Expires: 02/20/2025 Start: 02-21-2024 End: 02-20-2025 Comprehensive metabolic 2000 panel - Serum or Plasma Comprehensive metabolic panel Lab Routine Essential hypertension Type 2 diabetes mellitus with diabetic polyneuropathy, without long-term current use of insulin ([facility]) Expected: 02/21/2024 (Approximate), Expires: 02/20/2025 [facility] Comment on above: Expected: 02/21/2024 (Approximate), Expires: 02/20/2025 Start: 02-21-2024 End: 02-20-2025 DXA Skeletal system Views for bone density DEXA bone density Imaging Routine Encounter for osteoporosis screening in asymptomatic postmenopausal patient Expected: 02/21/2024, Expires: 02/20/2025 [facility] Comment on above: Expected: 02/21/2024 , Expires: 02/20/2025 Start: 02-21-2024 End: 02-20-2025 Hemoglobin A1c/Hemoglobin.total in Blood Hemoglobin A1c Lab Routine Type 2 diabetes mellitus with diabetic polyneuropathy, without long-term current use of insulin ([facility]) Expected: 02/21/2024 (Approximate), Expires: 02/20/2025 [facility] Comment on above: Expected: 02/21/2024 (Approximate), Expires: 02/20/2025 Start: 02-21-2024 End: 02-20-2025 Lipid 1996 panel - Serum or Plasma Lipid panel Lab Routine Other hyperlipidemia ([facility]) Expected: 02/21/2024 (Approximate), Expires: 02/20/2025 [facility] Comment on above: Expected: 02/21/2024 (Approximate), Expires: 02/20/2025 Start: 02-21-2024 End: 04-22-2025 MG Breast - bilateral Screening Bilateral screening mammogram Imaging Routine Screening mammogram, encounter for Expected: 02/21/2024, Expires: 04/22/2025 [facility] Comment on above: Expected: 02/21/2024 , Expires: 04/22/2025 Start: 02-21-2024 End: 02-20-2025 Noninvasive colorectal cancer DNA and occult blood screening [Presence] in Stool Cologuard colon cancer screening Lab Routine Encounter for screening for malignant neoplasm of colon Expected: 02/21/2024 (Approximate), Expires: 02/20/2025 [facility] Comment on above: Expected: 02/21/2024 (Approximate), Expires: 02/20/2025 Start: 02-21-2024 End: 02-20-2025 TSH W/REFLEX TO FT4 TSH W/REFLEX TO FT4 Lab Routine Essential hypertension Expected: 02/21/2024 (Approximate), Expires: 02/20/2025 [facility] Work Phone: Comment on above: Expected: 02/21/2024 (Approximate), Expires: 02/20/2025 Start: 02-21-2024 End: 02-21-2024 Patient encounter procedure 02/21/2024 9:30 AM EDT Office Visit [facility] [address] [place] [address] Ada Foley NP [address] [place] [address] [facility]rived [facility] Comment on above: Arrived Start: 01-15-2024 Influenza vaccination Influenza Vacc ine (#1) [facility] Start: 12-05-2023 Hemoglobin A1c measurement Diabetes: Hemoglobin A1C [facility] Start: 1997 Screening for malign ant neoplasm of breast Mammogram [facility] Start: 01-08-1976 Pneumococcal Vaccine : 65+ Years (1 of 2 - PCV) Pneumococcal Vaccine: 65+ Years (1 of 2 - PCV) [facility] Start: 1955 Screening for malign ant neoplasm of colon [facility] Microalbumin/Creatin ine panel in random Urine Microalbumin / creatinine urine ratio Lab Routine Essential hypertension Type 2 diabetes mellitus with diabetic polyneuropathy, without long-term current use of insulin ([facility]) Ordered: 02/21/2024 [facility] Comment on above: Ordered: 02/21/2024 Payers Date Payer Category Payer Medicaid [employer] MEDICARE A DVANTAGE [id number] 2022 Medicare [employer] MEDICARE A DVANTAGE A[employer]NA MEDICARE REPLACEMENT [id number] 2022-Present [address] [place] [address] [id number] 2022 Medicare [id number] 1959 Unknown [id number] 1959 Unknown [id number] 1955 Unknown [id number] 1955 Unknown [id number] 1955 Unknown [id number] 1955 Unknown [id number] 1955 Unknown [id number] 1957 Unknown [id number] 1957 Unknown [id number] 1957 Unknown [id number] 1957 Unknown [id number] 1957 Unknown [id number] Social History Date Type Detail Facility Start: [...] hyperglycemia, without long-term current use of insulin ([facility]) Last A1C 6.5. Stick to ADA diet [...] polyneuropathy associated with type 2 diabetes mellitus ([facility]) Continued pain and stop neurontin. Try lyrica. [...] 6.5. Stopped losartan due to side effects. Kirby nauseated and had HART. BP okay without [...] hyperglycemia, without long-term current use of insulin ([facility]) Last A1C 6.5. Stick to ADA diet [...] polyneuropathy, without long-term current use of insulin ([facility]) Stopped taking all of her medications. States she feels significantly better since stopping all medications. Discussed in detail with pt cardiovascular and additional risks associated with unmanaged diabetes mellitus. Pt verbalized understanding and maintains she would like to stay off of all medications except gabapentin at this time. Associated Problem(s): Other hyperlipidemia ([facility]) Currently stopped taking Rosuvastatin and Zetia; Stopped [...] polyneuropathy, without long-term current use of insulin ([facility]) Stopped taking all of her medications. States [...] 300 MG capsule documented in this encounter [facility] Healthcare Instructions 05-23-2024 Patient Instructions Note Date & Type Note Facility 05-23-2024 Instructions Ada Foley NP - 05/23/2024 9:00 AM EST FASTING labs ordered. Nothing to eat or drink for 12 hours prior to blood draw. Water and black coffee ok. We will call you with results! documented in this encounter [facility] History of Present illness Narrative 02-21-2024 Ada Foley NP - 02/21/2024 12:05 PM EDGlenys Foley NP - 02/21/2024 12:04 PM Shane [...] Gabapentin once daily. Associated Problem(s): Other hyperlipidemia ([facility]/HCC) Currently taking Rosuvastatin 40mg; Stopped fenofibrate due to migraines. Denies any myalgias. Most recent Lipid Panel 3 monhs ago elevated. Will order Zetia 10mg today; Associated Problem(s): Type 2 diabetes mellitus with diabetic polyneuropathy, without long-term current use of insulin (CMS/[facility]) Taking Rybelsus 7mg Denies any adverse reactions [...] A1C today. DM Eye Exam: 06/2022 @ [facility] Images from the original note were [...] DM Eye Exam: 06/2022 @ [facility] [place] DM Neuropathy: Was taking Gabapentin 100mg Bid. [...] R ALBUMIN GLOBULIN RATIO 0.9 Resulting Agency [facility] Review of Systems Constitutional: Negative for activity [...] polyneuropathy, without long-term current use of insulin ([facility]) Taking Rybelsus 7mg Denies any adverse reactions [...] A1C today. DM Eye Exam: 06/2022 @ [facility] in [place] Relevant Orders Microalbumin / creatinine urine ratio Hemoglobin A1c Comprehensive metabolic panel CBC and differential Other hyperlipidemia ([facility]) Currently taking Rosuvastatin 40mg; Stopped fenofibrate due [...] polyneuropathy associated with type 2 diabetes mellitus ([facility]/HCC) Previously reported Gabapentin as allergy due to [...] colon cancer screening documented in this encounter [facility] Instructions 02-21-2024 Patient Instructions Note Date [...] and simple sugars. documented in this encounter [facility] Healthcare Evaluation note Note Date & Type Note Facility Evaluation note Diagnosis Essential hypertension- Primary Unspecified essential hypertension Diabetic polyneuropathy associated with type 2 diabetes mellitus ([facility]/HCC) Encounter for osteoporosis screening in asymptomatic postmenopausal patient Encounter for screening for malignant neoplasm of colon Screening mammogram, encounter for Other hyperlipidemia (CMS/HCC) Type 2 diabetes mellitus with diabetic polyneuropathy, without long-term current use of insulin (CMS/HCC) documented in this encounter [facility] Healthcare Evaluation note Note Date & [...] of insulin (CMS/HCC) documented in this encounter [facility] Healthcare Evaluation note Note Date & [...] polyneuropathy, without long-term current use of insulin ([facility]) Other hyperlipidemia- Primary Diabetic polyneuropathy associated with type 2 diabetes mellitus ([facility]/HCC) Type 2 diabetes mellitus with diabetic polyneuropathy, without long-term current use of insulin ([facility]/HCC) Type 2 diabetes mellitus with hyperglycemia, without long-term current use of insulin ([facility]/HCC)- Primary Essential hypertension Unspecified essential hypertension Diabetic polyneuropathy associated with type 2 diabetes mellitus ([facility]/HCC) Statin myopathy Toxic myopathy Dyslipidemia ([facility]/HCC) Other and unspecified hyperlipidemia Encounter for long-term (current) use of medications Encounter for long-term (current) use of other medications Fatigue, unspecified type Medicare annual wellness visit, subsequent- Primary Type 2 diabetes mellitus with hyperglycemia, without long-term current use of insulin ([facility]) Essential hypertension Unspecified essential hypertension Diabetic polyneuropathy associated with type 2 diabetes mellitus ([facility]) Colon cancer screening Special screening for malignant neoplasms, colon documented in this encounter [facility] Summary Purpose Family History No Family History Records FoundNo Family History Records Found Advance Directives No Advanced Directives Records FoundNo Advanced Directives Records Found Additional Source Comments INFORMATION SOURCE (unrecogn ized section and content) DATE CREATED AUTHOR 10/22/2022 [facility] DATE CREATED AUTHOR AUTHOR'S EDUARDO ATION 10/22/2024 [facility] [employer] Care Teams (unrecognized sec tion and content) Worm Raiser Relationship Specialty Start Date End Date Chuckie Zepeda MD [address] [place] [address] PCP - General Family Medicine 12/27/23 Ada Foley NP [address] [address] Nurse Practitioner Family Medicine 12/27/23 Worm Raiser Relationship Specialty Start Date End Date Chuckie Zepeda MD [address] [place] [address] PCP - General Family Medicine 12/27/23 Ada Foley NP [address] [place] [address] Nurse Practitioner Family Medicine 12/27/23 Worm Raiser Relationship Specialty Start Date End Date Chuckie Zepeda MD [address] [place] [phone] PCP - General Family Medicine 12/27/23 Ada Foley NP [address] [place] [address] Nurse Practitioner Family Medicine 12/27/23 Worm Raiser Relationship Specialty Start Date End Date Chuckie Zepeda MD [address] [place] [phone] PCP - General Family Medicine 12/27/23 Ada Foley NP [address] [place] [address] Nurse Practitioner Family Medicine 12/27/23 Worm Raiser Relationship Specialty Start Date End Date Chuckie Zepeda MD [address] [place] [phone] PCP - General Family Medicine 12/27/23 Worm Raiser Relationship Specialty Start Date End Date Chuckie Zepeda MD [address] [place] [phone] PCP - General Family Medicine 12/27/23 Reason [...] BE BASED ON THE PRIMARY CLINICAL RECORDS. [employer] provides no warranty or guarantee of the accuracy or completeness of information in this document.
== END 2025-01-17 10:02 | disposition home or self-care (01) ==
LOC: RAD 10:03
PROVIDERS: PCP Family Medicine; Visit Provider Nurse Practitioner
DX: M51.360 Other intervertebral disc degeneration, lumbar region with discogenic back pain only (principal); M85.88 Other specified disorders of bone density and structure, other site; M41.86 Other forms of scoliosis, lumbar region
CPT/HCPCS: 72110

== ENCOUNTER 2025-01-22 10:37 | Outpatient (OUT) | payer MEDICARE, SELFPAY ==
--- OUTSIDE RECORDS SUMMARY | 2025-01-22 10:44 | XMS_ITS | CCD ---
Author Organization [facility] Care Team Providers Care Stuffed Casing Tier Name Role Phone FAWWAD, AREVALO H Attending Unavailable FAWWAD, AREVALO H Admitting Unavailable FAWWAD, AREVALO H Primary Care Unavailable FAWWAD, AREVALO H Consulting Unavailable FAWWAD, AREVALO H Attending Unavailable FAWWAD, AREVALO H Admitting Unavailable FAWWAD, AREVALO H Primary Care Unavailable FAWWAD, ARVEALO H Consulting Unavailable DR SAMIR DORANTES V Consulting Unavailable FAWWAD, AREVALO H Attending Unavailable FAWWAD, AREVALO H Admitting Unavailable FAWWAD, AREVALO H Primary Care Unavailable FAWWAD, AREVALO H Consulting Unavailable Chuckie Zepeda MD Primary Care Provider Alaina LEAN SPECIALISTAda Unavailable CHUCKIE ZEPEDA Attending Unavailable CHUCKIE ZEPEDA [...] Whole Blood 120.2 nmol/L Normal 66.5-200.0 [facility] Comment on above: Performed By: #### V ITB1T #### [facility] [address] [place] [address] Dr. Sameera Montana GLYCOHEMOGLOBIN A1Con 2022 ADA RECOMMENDATION SEE BELOW Normal [facility] Comment on above: Result Comment: ADA RECOMMENDED LIMIT 4.0 - 6.0 ADA THERAPEUTIC TARGET < 7.0 ACTION SUGGESTED > 7.0 Performed By: #### A 1C #### [facility] [address] [place] [address] Dr. Sameera Montana Glucose [Mass/Vol] 131 mg/dL Normal [facility] Comment on above: Performed By: #### A 1C #### [facility] [address] [address] [address] Sameera Montana HbA1c (Bld) [Mass fraction] 6.2 % Normal 4.5-6.2 [facility] Comment on above: Performed By: #### A 1C #### [facility] [address] [place] [address] Dr. Sameera Montana LIPID PROFILEon 08-03-2022 CHOL-HDL RATIO NORM SEE BELOW Normal [facility] Comment on above: Result Comment: 3.3 - 4.4 LOW RISK 4.4 - 7.1 AVERAGE RISK 7.1 - 11.0 MODERATE RISK >11.0 HIGH RISK Performed By: #### L IPID #### [facility] [address] [place] [address] Dr. Sameera Montana Cholesterol [Mass/Vol] 216 mg/dL Critically high <=200 [facility] Comment on above: Performed By: #### L IPID #### [facility] [address] [place] [address] Dr. Sameera Montana Cholesterol in HDL [Mass/Vol] 46 mg/dL Normal 40-60 [facility] Comment on above: Performed By: #### L IPID #### [facility] [address] [address] [address] Sameera Montana Cholesterol in LDL [Mass/Vol] 106.4 mg/dL Normal [facility] Comment on above: Performed By: #### L IPID #### [facility] [address] [place] [address] Dr. Sameera Montana Cholesterol.total/Cho lesterol in HDL [Mass ratio] 4.7 {ratio} Normal [facility] Comment on above: Performed By: #### L IPID #### [facility] [address] [address] [address] Sameera Montana HDL NORMAL > or = 60 mg/dl - LOW CARDIOVASCULAR RISK <40 mg/dl - HIGH CARDIOVASCULAR RISK Normal [facility] Comment on above: Performed By: #### L IPID #### [facility] [address] [address] [address] Sameera Montana LDL CALC NORMAL SEE BELOW Normal [facility] Comment on above: Result Comment: <100 mg/dl OPTIMAL 100 - 129 mg/dl NEAR OR ABOVE OPTIMAL 130 - 159 mg/dl BORDERLINE HIGH 160 - 189 mg/dl HIGH >190 mg/dl VERY HIGH Performed By: #### L IPID #### [facility] [address] [place] [address] Dr. Sameera Montana Triglyceride [Mass/Vol] 318 mg/dL Critically high <=150 [facility] Comment on above: Performed By: #### L IPID #### [facility] [address] [address] [address] Sameera Montana VLDL CALC 63.6 mg/dL Normal [facility] Comment on above: Performed By: #### L IPID #### [facility] [address] [place] [address] Dr. Sameera Montana VITAMIN B12on 08-03-2022 Cobalamin (Vitamin B12) [Mass/Vol] 506.0 pg/mL Normal 193.0-986.0 [facility] Comment on above: Performed By: #### V ITB12 #### [facility] [address] [place] [address] Dr. Sameera Montana DIRECT LDLon 06-14-2022 Cholesterol in LDL [Mass/Vol] 164 mg/dL Normal [facility] Comment on above: Performed By: #### D LDL, LIPID #### [facility] [address] [place] [address] Dr. Sameera Montana DLDL NORMAL SEE BELOW Normal [facility] Comment on above: Result Comment: <100 mg/dl OPTIMAL 100 - 129 mg/dl NEAR OR ABOVE OPTIMAL 130 - 159 mg/dl BORDERLINE HIGH 160 - 189 mg/dl HIGH >190 mg/dl VERY HIGH Performed By: #### D LDL, LIPID #### [facility] [address] [address] [address] Sameera Montana GLYCOHEMOGLOBIN A1Con 2022 ADA RECOMMENDATION SEE BELOW Normal [facility] Comment on above: Result Comment: ADA RECOMMENDED LIMIT 4.0 - 6.0 ADA THERAPEUTIC TARGET < 7.0 ACTION SUGGESTED > 7.0 Performed By: #### A 1C #### [facility] [address] [address] [address] Sameera Montana Glucose [Mass/Vol] 137 mg/dL Normal [facility] Comment on above: Performed By: #### A 1C #### [facility] [address] [place] [address] Dr. Sameera Montana HbA1c (Bld) [Mass fraction] 6.4 % Critically high 4.5-6.2 [facility] Comment on above: Performed By: #### A 1C #### [facility] [address] [place] [address] Dr. Sameera Montana LIPID PROFILEon 06-14-2022 CHOL-HDL RATIO NORM SEE BELOW Normal [facility] Comment on above: Result Comment: 3.3 - 4.4 LOW RISK 4.4 - 7.1 AVERAGE RISK 7.1 - 11.0 MODERATE RISK >11.0 HIGH RISK Performed By: #### D LDL, LIPID #### [facility] [address] [place] [address] Dr. Sameera Montana Cholesterol [Mass/Vol] 295 mg/dL Critically high <=200 [facility] Comment on above: Performed By: #### D LDL, LIPID #### [facility] [address] [address] [address] Sameera Montana Cholesterol in HDL [Mass/Vol] 41 mg/dL Normal 40-60 [facility] Comment on above: Performed By: #### D LDL, LIPID #### [facility] [address] [place] [address] Dr. Sameera Montana Cholesterol.total/Cho lesterol in HDL [Mass ratio] 7.2 {ratio} Normal [facility] Comment on above: Performed By: #### D LDL, LIPID #### [facility] [address] [address] [address] Sameera Montana HDL NORMAL > or = 60 mg/dl - LOW CARDIOVASCULAR RISK <40 mg/dl - HIGH CARDIOVASCULAR RISK Normal [facility] Comment on above: Performed By: #### D LDL, LIPID #### [facility] [address] [address] [address] Sameera Montana LDL CALC NORMAL SEE BELOW Normal [facility] Comment on above: Result Comment: <100 mg/dl OPTIMAL 100 - 129 mg/dl NEAR OR ABOVE OPTIMAL 130 - 159 mg/dl BORDERLINE HIGH 160 - 189 mg/dl HIGH >190 mg/dl VERY HIGH Performed By: #### D LDL, LIPID #### [facility] [address] [address] [address] Sameera Montana Triglyceride [Mass/Vol] 440 mg/dL Critically high <=150 [facility] Comment on above: Performed By: #### D LDL, LIPID #### [facility] [address] [address] [address] Sameera Montana VLDL CALC 88.0 mg/dL Normal [facility] Comment on above: Performed By: #### D LDL, LIPID #### [facility] [address] [address] [address] Sameera Montana MG MAMM SCREEN 3D MIKEY CADon 03-22-2022 MG MAMM SCREEN 3D MIKEY CAD Patient: LLAI JACKSON Exam Date: 03/22/2022 : 1955 Gender:F Ordering : SHAIKH Radha JOHNSON . Admission #: [id number] Family : Order #: [id number] CLICK HERE TO VIEW EXAM RADIOLOGY REPORT [...] cancer at age 53. LOCATION: [facility] BREAST COMPOSITION: Heterogeneously dense,which may obscure [...] Dorantes MD on 03/22/2022 at 12:14 Normal [facility] Vital Signs Date Time Vital Sign Value Performing Clinician Faci lity 10-22-2024 08:36-0400 Body height 160 cm Chuckie Zepeda MD Work Phone: [facility] 10-22-2024 08:36-0400 Body mass index (BMI) [Ratio] 25.86 kg/m2 Chuckie Zepeda MD Work Phone: [facility] 10-22-2024 08:36-0400 Body temperature 97.5 [degF] Chuckie Zepeda MD Work Phone: [facility] 10-22-2024 08:36-0400 Body weight 66.22 kg Chuckie Zepeda MD Work Phone: [facility] 10-22-2024 08:36-0400 Diastolic blood pressure 82 mm[Hg] Chuckie Zepeda MD Work Phone: [facility] 10-22-2024 08:36-0400 Heart rate 89 /min Chuckie Zepeda MD Work Phone: [facility] 10-22-2024 08:36-0400 Respiratory rate 18 /min Chuckie Zepeda MD Work Phone: [facility] 10-22-2024 08:36-0400 SaO2% (BldA) [Mass fraction] 97 % Chuckie Zepeda MD Work Phone: [facility] 10-22-2024 08:36-0400 Systolic blood pressure 146 mm[Hg] Chuckie Zepeda MD Work Phone: [facility] 05-23-2024 08:58-0500 Body height 160 cm Ada Foley LEAN SPECIALIST Work Phone: [facility] 05-23-2024 08:58-0500 Body mass index (BMI) [Ratio] 25.69 kg/m2 Ada Foley LEAN SPECIALIST Work Phone: [facility] 05-23-2024 08:58-0500 Body temperature 97.5 [degF] Ada Foley LEAN SPECIALIST Work Phone: [facility] 05-23-2024 08:58-0500 Body weight 65.77 kg Ada Foley LEAN SPECIALIST Work Phone: [facility] 05-23-2024 08:58-0500 Diastolic blood pressure 76 mm[Hg] Ada Foley LEAN SPECIALIST Work Phone: [facility] 05-23-2024 08:58-0500 Heart rate 90 /min Ada Foley LEAN SPECIALIST Work Phone: [facility] 05-23-2024 08:58-0500 Respiratory rate 22 /min Ada Foley LEAN SPECIALIST Work Phone: [facility] 05-23-2024 08:58-0500 SaO2% (BldA) [Mass fraction] 96 % Ada Foley LEAN SPECIALIST Work Phone: [facility] 05-23-2024 08:58-0500 Systolic blood pressure 158 mm[Hg] Ada Foley LEAN SPECIALIST Work Phone: [facility] 02-21-2024 09:27-0400 Body mass index (BMI) [Ratio] 25.15 kg/m2 Ada Foley LEAN SPECIALIST Work Phone: [facility] 02-21-2024 09:27-0400 Body temperature 97.2 [degF] Ada Foley LEAN SPECIALIST Work Phone: [facility] 02-21-2024 09:27-0400 Body weight 64.41 kg Ada Medinak LEAN SPECIALIST Work Phone: [facility] 02-21-2024 09:27-0400 Diastolic blood pressure 78 mm[Hg] Ada Haddadzpatrick LEAN SPECIALIST Work Phone: [facility] 02-21-2024 09:27-0400 Heart rate 75 /min Ada Cortezpatrick LEAN SPECIALIST Work Phone: [facility] 02-21-2024 09:27-0400 SaO2% (BldA) [Mass fraction] 99 % Ada Grigsbytrick LEAN SPECIALIST Work Phone: [facility] 02-21-2024 09:27-0400 Systolic blood pressure 122 mm[Hg] Ada Foley LEAN SPECIALIST Work Phone: [facility] Healthcare Encounters Encounter Date Encounter Type Care Provider Facility Start: 10-22-2024 End: 10-22-2024 Bamboo flowsheet Chuckie Zepeda MD Work Phone: [facility] Start: 10-22-2024 End: 10-22-2024 Halina flowsheet Chuckie Zepeda MD Work Phone: [facility] Start: 10-22-2024 End: 10-22-2024 Office outpatient visit 15 minutes Chuckie Zepeda MD Work Phone: [facility] Comment on above: Medicare annual well ness visit, subsequent (Primary Dx); Type 2 diabetes mellitus with hyperglycemia, without long-term current use of insulin ([facility]/HCC); Essential hypertension; Diabetic polyneuropathy associated with type 2 diabetes mellitus (CMS/HCC); Colon cancer screening Start: 10-22-2024 End: 10-22-2024 Patient encounter procedure Chuckie Zepeda MD Work Phone: [facility] Start: 10-22-2024 End: 10-22-2024 ambulatory CHUCKIE ZEPEDA Not Available Start: 07-20-2024 Patient encounter procedure Frederick Zepeda MD Work Phone: [facility] Start: 07-20-2024 End: 07-20-2024 ambulatory CHUCKIE ZEPEDA Not Available Start: 05-23-2024 End: 05-23-2024 Bamboo flowsheet Ada Foley LEAN SPECIALIST Work Phone: [facility] Start: 05-23-2024 End: 05-23-2024 Bamboo flowsheet Ada Foley LEAN SPECIALIST Work Phone: [facility] Start: 05-23-2024 End: 05-23-2024 Office outpatient visit 15 minutes Ada Foley LEAN SPECIALIST Work Phone: [facility] Comment on above: Other hyperlipidemia (CMS/HCC) (Primary Dx); Diabetic polyneuropathy associated with type 2 diabetes mellitus (CMS/HCC); Type 2 diabetes mellitus with diabetic polyneuropathy, without long-term current use of insulin (CMS/HCC) Start: 05-23-2024 End: 05-23-2024 ambulatory ADA FOLEY Not Available Start: 05-22-2024 End: 05-22-2024 ambulatory ADA FOLEY Not Available Start: 02-21-2024 End: 02-21-2024 Bamboo flowsheet Ada Foley LEAN SPECIALIST Work Phone: [facility] Start: 02-21-2024 End: 02-21-2024 Bamboo flowsheet Ada Foley LEAN SPECIALIST Work Phone: [facility] Start: 02-21-2024 End: 02-21-2024 Office outpatient visit 25 minutes Ada Foley LEAN SPECIALIST Work Phone: [facility] Comment on above: Essential hypertensi on (Primary Dx); Diabetic polyneuropathy associated with type 2 diabetes mellitus (CMS/HCC); Encounter for osteoporosis screening in asymptomatic postmenopausal patient; Encounter for screening for malignant neoplasm of colon; Screening mammogram, encounter for; Other hyperlipidemia (CMS/HCC); Type 2 diabetes mellitus with diabetic polyneuropathy, without long-term current use of insulin ([facility]) Start: 02-21-2024 End: 02-21-2024 ambulatory ADA HADDADZPATRICK Not Available Start: 11-07-2023 End: 11-07-2023 ambulatory SHAIKH ELIZABETH Not Available Start: 05-26-2023 Patient encounter procedure Allison Haddadzpatrick LEAN SPECIALIST Work Phone: [facility] Start: 08-03-2022 End: 08-04-2022 ambulatory SHAIKH Nato SINGLETONCarolyn Facility:[facility] Start: 06-14-2022 End: 06-15-2022 ambulatory SHAIKH Nato FRIEDMANBRANDI Facility:[facility] Start: 03-22-2022 End: 03-23-[address] SAMIR DORANTES Facility:[facility] Procedures Date Procedure Procedure Detail Performing Clinician Start: 05-22-2024 Mammography Chuckie agustin MD Work Phone: Plan of Treatment Date Care Activity Detail Author Start: 10-10-2026 Glaucoma screening Diabetes: R etinopathy Screening [facility] Start: 07-31-2025 Urine screening for protein Diabetes: Urine Protein Screening [facility] Start: 05-22-2025 Screening for malign ant neoplasm of breast Mammogram [facility] Start: 01-31-2025 Hemoglobin A1c measurement Diabetes: Hemoglobin A1C [facility] Start: 01-22-2025 End: 01-22-2025 Patient encounter procedure 01/22/2025 9:30 AM EDT Office Visit [facility] [address] [place] [phone] Chuckie Zepeda MD [address] [place] [id number] [facility] Start: 01-14-2025 Influenza vaccination Influenz a Vaccine (Season Ended) [facility] Start: 10-22-2024 End: 10-22-2025 Noninvasive colorectal cancer DNA and occult blood screening [Presence] in Stool Cologuard colon cancer screening Lab Routine Colon cancer screening Expected: 10/22/2024 (Approximate), Expires: 10/22/2025 [facility] Work Phone: Comment on above: Expected: 10/22/2024 (Approximate), Expires: 10/22/2025 Start: 10-22-2024 End: 10-22-2024 Patient encounter procedure 10/22/2024 8:30 AM EDT Office Visit [facility] [address] [place] [phone] Chuckie Zepeda MD [address] [place] [id number] Arrived [facility] Comment on above: Arrived Start: 08-22-2024 End: 08-22-2024 Patient encounter procedure 08/22/2024 10:00 AM EDT Office Visit [facility] [address] [place] [phone] Ada Foley NP [address] [place] [phone] [facility] Start: 06-16-2024 Glaucoma screening Diabetes: R etinopathy Screening [facility] Start: 06-06-2024 Urine screening for protein Diabetes: Urine Protein Screening [facility] Start: 05-26-2024 Medicare Annual Wellness (AWV) Medicare Annual Wellness (AWV) [facility] Start: 05-26-2024 Pneumococcal Vaccine : 65+ Years (1 of 2 - PCV) Pneumococcal Vaccine: 65+ Years (1 of 2 - PCV) [facility] Comment on above: Postponed from 01/07 (Patient Refused) Start: 05-23-2024 End: 05-23-2024 Patient encounter procedure [facility] Comment on above: Arrived Start: 02-21-2024 End: 02-20-2025 CBC W Auto Differential panel - Blood CBC and differential Lab Routine Essential hypertension Type 2 diabetes mellitus with diabetic polyneuropathy, without long-term current use of insulin ([facility]) Expected: 02/21/2024 (Approximate), Expires: 02/20/2025 [facility] Comment on above: Expected: 02/21/2024 (Approximate), Expires: 02/20/2025 Start: 02-21-2024 End: 02-20-2025 Comprehensive metabolic 2000 panel - Serum or Plasma Comprehensive metabolic panel Lab Routine Essential hypertension Type 2 diabetes mellitus with diabetic polyneuropathy, without long-term current use of insulin ([facility]) Expected: 02/21/2024 (Approximate), Expires: 02/20/2025 [facility] Comment on above: Expected: 02/21/2024 (Approximate), Expires: 02/20/2025 Start: 02-21-2024 End: 02-20-2025 DXA Skeletal system Views for bone density DEXA bone density Imaging Routine Encounter for osteoporosis screening in asymptomatic postmenopausal patient Expected: 02/21/2024, Expires: 02/20/2025 [facility] Comment on above: Expected: 02/21/2024 , Expires: 02/20/2025 Start: 02-21-2024 End: 02-20-2025 Hemoglobin A1c/Hemoglobin.total in Blood Hemoglobin A1c Lab Routine Type 2 diabetes mellitus with diabetic polyneuropathy, without long-term current use of insulin ([facility]) Expected: 02/21/2024 (Approximate), Expires: 02/20/2025 [facility] Comment on above: Expected: 02/21/2024 (Approximate), Expires: 02/20/2025 Start: 02-21-2024 End: 02-20-2025 Lipid 1996 panel - Serum or Plasma Lipid panel Lab Routine Other hyperlipidemia ([facility]) Expected: 02/21/2024 (Approximate), Expires: 02/20/2025 [facility] Comment on above: Expected: 02/21/2024 (Approximate), Expires: 02/20/2025 Start: 02-21-2024 End: 04-22-2025 MG Breast - bilateral Screening Bilateral screening mammogram Imaging Routine Screening mammogram, encounter for Expected: 02/21/2024, Expires: 04/22/2025 [facility] Comment on above: Expected: 02/21/2024 , Expires: 04/22/2025 Start: 02-21-2024 End: 02-20-2025 Noninvasive colorectal cancer DNA and occult blood screening [Presence] in Stool Cologuard colon cancer screening Lab Routine Encounter for screening for malignant neoplasm of colon Expected: 02/21/2024 (Approximate), Expires: 02/20/2025 [facility] Comment on above: Expected: 02/21/2024 (Approximate), Expires: 02/20/2025 Start: 02-21-2024 End: 02-20-2025 TSH W/REFLEX TO FT4 TSH W/REFLEX TO FT4 Lab Routine Essential hypertension Expected: 02/21/2024 (Approximate), Expires: 02/20/2025 [facility] Work Phone: Comment on above: Expected: 02/21/2024 (Approximate), Expires: 02/20/2025 Start: 02-21-2024 End: 02-21-2024 Patient encounter procedure 02/21/2024 9:30 AM EDT Office Visit [facility] [address] [place] [address] Ada Foley NP [address] [place] [address] [facility] Comment on above: Arrived Start: 01-15-2024 Influenza vaccination Influenza Vacc ine (#1) [facility] Start: 12-05-2023 Hemoglobin A1c measurement Diabetes: Hemoglobin A1C [facility] Start: 1997 Screening for malign ant neoplasm of breast Mammogram [facility] Start: 01-08-1976 Pneumococcal Vaccine : 65+ Years (1 of 2 - PCV) Pneumococcal Vaccine: 65+ Years (1 of 2 - PCV) [facility] Start: 1955 Screening for malign ant neoplasm of colon [facility] Microalbumin/Creatin ine panel in random Urine Microalbumin / creatinine urine ratio Lab Routine Essential hypertension Type 2 diabetes mellitus with diabetic polyneuropathy, without long-term current use of insulin ([facility]) Ordered: 02/21/2024 [facility] Comment on above: Ordered: 02/21/2024 Payers Date Payer Category Payer Medicaid [employer] MEDICARE A DVANTAGE [id number] 2022 Medicare [employer] MEDICARE A DVANTAGE A[employer]NA MEDICARE REPLACEMENT [id number] 2022-Present [address] [place] [address] [id number] 2022 Medicare [id number] 1959 Unknown [id number] 1959 Unknown [id number] 1955 Unknown [id number] 1955 Unknown [id number] 1955 Unknown [id number] 1957 Unknown [id number] 1955 Unknown [id number] [id number] 1957 Unknown [id number] 1957 Unknown [id number] 1957 Unknown [id number] 1957 Unknown [id number] 1957 Unknown [id number] Social History Date Type Detail Facility Start: [...] hyperglycemia, without long-term current use of insulin ([facility]) Last A1C 6.5. Stick to ADA diet [...] polyneuropathy associated with type 2 diabetes mellitus ([facility]) Continued pain and stop neurontin. Try lyrica. [...] 6.5. Stopped losartan due to side effects. [place] nauseated and had HART. BP okay without [...] hyperglycemia, without long-term current use of insulin ([facility]) Last A1C 6.5. Stick to ADA diet [...] polyneuropathy, without long-term current use of insulin ([facility]) Stopped taking all of her medications. States she feels significantly better since stopping all medications. Discussed in detail with pt cardiovascular and additional risks associated with unmanaged diabetes mellitus. Pt verbalized understanding and maintains she would like to stay off of all medications except gabapentin at this time. Associated Problem(s): Other hyperlipidemia ([facility]) Currently stopped taking Rosuvastatin and Zetia; Stopped [...] polyneuropathy, without long-term current use of insulin ([facility]) Stopped taking all of her medications. States [...] 300 MG capsule documented in this encounter [facility] Healthcare Instructions 05-23-2024 Patient Instructions Note Date & Type Note Facility 05-23-2024 Instructions Ada Foley NP - 05/23/2024 9:00 AM EST FASTING labs ordered. Nothing to eat or drink for 12 hours prior to blood draw. Water and black coffee ok. We will call you with results! documented in this encounter [facility] History of Present illness Narrative 02-21-2024 Ada [...] Gabapentin once daily. Associated Problem(s): Other hyperlipidemia ([facility]/HCC) Currently taking Rosuvastatin 40mg; Stopped fenofibrate due to migraines. Denies any myalgias. Most recent Lipid Panel 3 monhs ago elevated. Will order Zetia 10mg today; Associated Problem(s): Type 2 diabetes mellitus with diabetic polyneuropathy, without long-term current use of insulin ([facility]) Taking Rybelsus 7mg Denies any adverse reactions [...] A1C today. DM Eye Exam: 06/2022 @ [facility] Images from the original note were not [...] DM Eye Exam: 06/2022 @ [facility] in [place] DM Neuropathy: Was taking Gabapentin 100mg Bid. [...] R ALBUMIN GLOBULIN RATIO 0.9 Resulting Agency [facility] Review of Systems Constitutional: Negative for activity [...] polyneuropathy, without long-term current use of insulin ([facility]) Taking Rybelsus 7mg Denies any adverse reactions [...] A1C today. DM Eye Exam: 06/2022 @ [facility] in [place] Relevant Orders Microalbumin / creatinine urine ratio Hemoglobin A1c Comprehensive metabolic panel CBC and differential Other hyperlipidemia ([facility]) Currently taking Rosuvastatin 40mg; Stopped fenofibrate due [...] polyneuropathy associated with type 2 diabetes mellitus ([facility]/HCC) Previously reported Gabapentin as allergy due to [...] colon cancer screening documented in this encounter [facility] Instructions 02-21-2024 Patient Instructions Note Date & [...] and simple sugars. documented in this encounter [facility] Healthcare Evaluation note Note Date & Type Note Facility Evaluation note Diagnosis Essential hypertension- Primary Unspecified essential hypertension Diabetic polyneuropathy associated with type 2 diabetes mellitus ([facility]/HCC) Encounter for osteoporosis screening in asymptomatic postmenopausal patient Encounter for screening for malignant neoplasm of colon Screening mammogram, encounter for Other hyperlipidemia (CMS/HCC) Type 2 diabetes mellitus with diabetic polyneuropathy, without long-term current use of insulin (CMS/HCC) documented in this encounter [facility] Healthcare Evaluation note Note Date & [...] of insulin (CMS/HCC) documented in this encounter [facility] Healthcare Evaluation note Note Date & [...] polyneuropathy, without long-term current use of insulin ([facility]) Other hyperlipidemia- Primary Diabetic polyneuropathy associated with type 2 diabetes mellitus ([facility]/HCC) Type 2 diabetes mellitus with diabetic polyneuropathy, without long-term current use of insulin ([facility]/HCC) Type 2 diabetes mellitus with hyperglycemia, without long-term current use of insulin ([facility]/HCC)- Primary Essential hypertension Unspecified essential hypertension Diabetic polyneuropathy associated with type 2 diabetes mellitus ([facility]/HCC) Statin myopathy Toxic myopathy Dyslipidemia ([facility]/HCC) Other and unspecified hyperlipidemia Encounter for long-term (current) use of medications Encounter for long-term (current) use of other medications Fatigue, unspecified type Medicare annual wellness visit, subsequent- Primary Type 2 diabetes mellitus with hyperglycemia, without long-term current use of insulin ([facility]) Essential hypertension Unspecified essential hypertension Diabetic polyneuropathy associated with type 2 diabetes mellitus ([facility]) Colon cancer screening Special screening for malignant neoplasms, colon documented in this encounter [facility] Summary Purpose Family History No Family History Records FoundNo Family History Records Found Advance Directives No Advanced Directives Records FoundNo Advanced Directives Records Found Additional Source Comments INFORMATION SOURCE (unrecogn ized section and content) DATE CREATED AUTHOR 10/22/2022 [facility] DATE CREATED AUTHOR AUTHOR'S EDUARDO ATION 10/22/2024 [facility] d[facility] Specialists EPIC Care Teams (unrecognized sec tion and content) Stuffed Casing Tier Relationship Specialty Start Date End Date Chuckie Zepeda MD [address] [place] [address] PCP - General Family Medicine 12/27/23 Ada Foley NP [address] [place] [address] Nurse Practitioner Family Medicine 12/27/23 Stuffed Casing Tier Relationship Specialty Start Date End Date Chuckie Zepeda MD [address] [place] [address] PCP - General Family Medicine 12/27/23 Ada Foley NP [address] [place] [address] Nurse Practitioner Family Medicine 12/27/23 Stuffed Casing Tier Relationship Specialty Start Date End Date Chuckie Zepeda MD [address] [place] [phone] PCP - General Family Medicine 12/27/23 Ada Foley NP [address] [place] [address] Nurse Practitioner Family Medicine 12/27/23 Stuffed Casing Tier Relationship Specialty Start Date End Date Chuckie Zepeda MD [address] [place] [phone] PCP - General Family Medicine 12/27/23 Ada Foley NP [address] [place] [address] Nurse Practitioner Family Medicine 12/27/23 Stuffed Casing Tier Relationship Specialty Start Date End Date Chuckie Zepeda MD [address] [place] [phone] PCP - General Family Medicine 12/27/23 Stuffed Casing Tier Relationship Specialty Start Date End Date Chuckie Zepeda MD [address] [place] [phone] PCP - General Family Medicine 12/27/23 Reason [...] BE BASED ON THE PRIMARY CLINICAL RECORDS. [email or web address] provides no warranty or guarantee of the accuracy or completeness of information in this document.
== END 2025-01-22 10:38 | disposition home or self-care (01) ==
LOC: LAB 10:38
PROVIDERS: PCP Family Medicine; Visit Provider Family Medicine
DX: E11.29 Type 2 diabetes mellitus with other diabetic kidney complication (principal); R80.9 Proteinuria, unspecified
CPT/HCPCS: 36415; 83036

== ENCOUNTER 2025-02-27 14:33 | Outpatient (OUT) | payer MEDICARE, SELFPAY ==
--- OUTSIDE RECORDS SUMMARY | 2025-02-27 14:35 | XMS_ITS | CCD ---
Author Organization [facility] Care Team Providers Care Foreign Banknote Teller Name Role Phone FAWWAD, AREVALO H Attending [...] Unavailable Chuckie Zepeda MD Primary Care Provider Ada Foley NP Unavailable [phone] CHUCKIE ZEPEDA Attending Unavailable CHUCKIE ZEPEDA Attending Unavailable FAWWAD, AREVALO Attending Unavailable ADA FOLEY Attending Unavailabl e FOLEY, BRITTANY Referring Unavailabl e FOLEY, BRITTANY Referring Unavailabl e ADA FOLEY Attending UnavailChuckie Rodriguez MD Primary Care Provider Chuckie Zepeda MD Attending Provider [phone] Noel Muñoz DO Attending Provider [phone] Allergies Allergy Classification Reported Allergen(s) Allergy Type Date of Onset Reaction(s) Facility (11 sources) gabapentin Drug Allergy 05-24-2023 Other [facility] Medications Current Medications Medication Drug Class(es) Dates Sig (Normalized) Sig (Original) DULoxetine 30 mg delayed release oral capsule (2 sources) Serotonin and Norepinephrine Reuptake Inhibitor Start: 01-22-2025 take 1 capsule by mouth once daily ezetimibe 10 mg oral tablet (5 sources) [...] capsule 1 11/07/2023 02/21/2024 Discontinued (Dose adjustment) lidocaine 0.05 mg/mg medicated patch (2 sources) Antiarrhythmic, Amide Local Anesthetic Start: 01-22-2025 apply 1 dose topically once daily losartan potassium 25 mg oral tablet (3 [...] meals. 100 tablet 1 11/07/2023 05/25/2024 Active Completed/Discontinued Medications Medication Drug Class(es) Dates Sig (Normalized) Sig (Original) amitriptyline hydrochloride 25 mg oral tablet (2 sources) Tricyclic Antidepressant Start: 01-21-2025 End: 01-22-2025 take 1 tablet by mouth once daily at bedtime Amitriptyline 25 mg tablet Discontinued 25 MG PO Daily at bedtime January 21, 2025 12:00am January 22, 2025 9:31am Problems Active Problems Problem Classification Problem Date Documented Da te Episodic/Chronic Diabetes mellitus with complications (20 sources) Type 2 diabetes mellitus with diabetic neuropathy, unspecified; Translations: [Polyneuropathy due to type 2 diabetes mellitus] Onset: 08-03-2022 Chronic Diabetes mellitus without complication (4 sources) Type 2 diabetes mellitus without complications; Translations: [TYPE 2 DM WITHOUT COMPLICATIONS] Onset: 06-14-2022 Chronic Disorders of lipid metabolism (16 sources) Hyperlipidemia, unspecified; Translations: [Hyperlipidemia] Onset: 08-07-2022 05-26-2023 Chronic Essential hypertension (17 sources) Essential hypertension; Translations: [Essential (primary) hypertension] Onset: 05-26-2023 05-26-2023 Chronic Other aftercare (5 sources) Long-term current use of drug therapy; Translations: [Other terminal press operator (current) drug therapy] Onset: 07-20-2024 07-20-2024 Episodic Other nervous system disorders (2 sources) Polyneuropathy; Translations: [Polyneuropathy, unspecified] 02-19-2025 Chronic Other nervous system disorders (6 sources) Drug-induced myopathy; Translations: [Toxic myopathy] Onset: 07-20-2024 07-20-2024 Episodic Other screening for suspected conditions (not mental disorders or infectious disease) (20 sources) Encounter for screening mammogram for malignant neoplasm of breast; Translations: [Patient encounter status] Onset: 03-22-2022 Episodic Spondylosis; intervertebral disc disorders; other back problems (4 sources) Lumbar spondylosis; Translations: [Spondylosis without myelopathy or radiculopathy, lumbar region] 01-22-2025 Chronic Past or Other Problems Problem Classification Problem Date Documented Da te Episodic/Chronic Mood disorders (9 sources) Mood disorders Onset: 05-26-2023 Resolved: 10-22-2024 05-26-2023 Residual codes; unclassified (1 source) Family history of malignant neoplasm of other organs or systems; Translations: [FAM HX MALIG NEOPLASM OTH ORGN/SYS] Onset: 04-01-2022 Episodic Results Test Name Value Interpretation Reference Range Facility Glucose mean value [Mass/vol ume] in Blood Estimated from glycated hemoglobinOrdered By: Chuckie Zepeda on 01-22-2025 Average glucose Estimated from glycated hemoglobin (Bld) [Mass/Vol] 137 mg/dL [facility] Hemoglobin A1c percentageOrd ered By: Chuckie Zepeda on 01-22-2025 HbA1c (Bld) [Mass fraction] 6.4 % High 4.5-6.2 [facility] Comment on above: ADA RECOMMENDED LIMI T 4.0 - 6.0ADA THERAPEUTIC TARGET < 7.0ACTION SUGGESTED> 7.0 BI MAMMOGRAM SCREENING TOMOS YNTHESIS BILATERALon 05-22-2024 [...] Whole Blood 120.2 nmol/L Normal 66.5-200.[address] [facility] Comment on above: Performed By: #### V ITB1T #### [facility] [address], [place] [address] Dr. Sameera [place] GLYCOHEMOGLOBIN A1Con 2022 ADA RECOMMENDATION SEE BELOW Normal [facility] Comment on above: Result Comment: ADA RECOMMENDED LIMIT 4.0 - 6.0 ADA THERAPEUTIC TARGET < 7.0 ACTION SUGGESTED > 7.0 Performed By: #### A 1C #### [facility] [address] [place] [address] [address] Sameera [place] Glucose [Mass/Vol] 131 mg/dL Normal [facility] Comment on above: Performed By: #### A 1C #### [facility] [address] [address] [address] Sameera [place] HbA1c (Bld) [Mass fraction] 6.2 % Normal 4.5-6.2 [facility] Comment on above: Performed By: #### A 1C #### [facility] [address] [address] [address] Sameera [place] LIPID PROFILEon 08-03-2022 CHOL-HDL RATIO NORM SEE BELOW Normal [facility] Comment on above: Result Comment: 3.3 - 4.4 LOW RISK 4.4 - 7.1 AVERAGE RISK 7.1 - 11.0 MODERATE RISK >11.0 HIGH RISK Performed By: #### L IPID #### [facility] [address] [place] [address] Dr. Sameera [place] Cholesterol [Mass/Vol] 216 mg/dL Critically high <=200 [facility] Comment on above: Performed By: #### L IPID #### [facility] [address] [address] [address] Sameera [place] Cholesterol in HDL [Mass/Vol] 46 mg/dL Normal 40-60 [facility] Comment on above: Performed By: #### L IPID #### [facility] [address] [place] [address] Dr. Sameera [place] Cholesterol in LDL [Mass/Vol] 106.4 mg/dL Normal [facility] Comment on above: Performed By: #### L IPID #### [facility] [address] [address] [address] Sameera [place] Cholesterol.total/Chol esterol in HDL [Mass ratio] 4.7 {ratio} Normal [facility] Comment on above: Performed By: #### L IPID #### [facility] [address] [address] [address] Sameera [place] HDL NORMAL > or = 60 mg/dl - LOW CARDIOVASCULAR RISK <40 mg/dl - HIGH CARDIOVASCULAR RISK Normal [facility] Comment on above: Performed By: #### L IPID #### [facility] [address] [address] [address] Sameera [place] LDL CALC NORMAL SEE BELOW Normal [facility] Comment on above: Result Comment: <100 mg/dl OPTIMAL 100 - 129 mg/dl NEAR OR ABOVE OPTIMAL 130 - 159 mg/dl BORDERLINE HIGH 160 - 189 mg/dl HIGH >190 mg/dl VERY HIGH Performed By: #### L IPID #### [facility] [address] [address] [address] Sameera [place] Triglyceride [Mass/Vol] 318 mg/dL Critically high <=150 [facility] Comment on above: Performed By: #### L IPID #### [facility] [address] [address] [address] Sameera [place] VLDL CALC 63.6 mg/dL Normal [facility] Comment on above: Performed By: #### L IPID #### [facility] [address] [address] [address] Sameera [place] VITAMIN B12on 08-03-2022 Cobalamin (Vitamin B12) [Mass/Vol] 506.0 pg/mL Normal 193.0-986.0 [facility] Comment on above: Performed By: #### V ITB12 #### [facility] [address] [place] [address] Dr. Sameera [place] DIRECT LDLon 06-14-2022 Cholesterol in LDL [Mass/Vol] 164 mg/dL Normal [facility] Comment on above: Performed By: #### D LDL, LIPID #### [facility] [address] [place] [address] Dr. Sameera [place] DLDL NORMAL SEE BELOW Normal [facility] Comment on above: Result Comment: <100 mg/dl OPTIMAL 100 - 129 mg/dl NEAR OR ABOVE OPTIMAL 130 - 159 mg/dl BORDERLINE HIGH 160 - 189 mg/dl HIGH >190 mg/dl VERY HIGH Performed By: #### D LDL, LIPID #### [facility] [address] [place] [address] Dr. Sameera [place] GLYCOHEMOGLOBIN A1Con 2022 ADA RECOMMENDATION SEE BELOW Normal [facility] Comment on above: Result Comment: ADA RECOMMENDED LIMIT 4.0 - 6.0 ADA THERAPEUTIC TARGET < 7.0 ACTION SUGGESTED > 7.0 Performed By: #### A 1C #### [facility] [address] [address] [address] Sameera [place] Glucose [Mass/Vol] 137 mg/dL Normal [facility] Comment on above: Performed By: #### A 1C #### [facility] [address] [address] [address] Sameera [place] HbA1c (Bld) [Mass fraction] 6.4 % Critically high 4.5-6.2 [facility] Comment on above: Performed By: #### A 1C #### [facility] [address] [place] [address] Dr. Sameera [place] LIPID PROFILEon 06-14-2022 CHOL-HDL RATIO NORM SEE BELOW Normal [facility] Comment on above: Result Comment: 3.3 - 4.4 LOW RISK 4.4 - 7.1 AVERAGE RISK 7.1 - 11.0 MODERATE RISK >11.0 HIGH RISK Performed By: #### D LDL, LIPID #### [facility] [address] [address] [address] Sameera [place] Cholesterol [Mass/Vol] 295 mg/dL Critically high <=200 [facility] Comment on above: Performed By: #### D LDL, LIPID #### [facility] [address] [place] [address] Dr. Sameera [place] Cholesterol in HDL [Mass/Vol] 41 mg/dL Normal 40-60 [facility] Comment on above: Performed By: #### D LDL, LIPID #### [facility] [address] [address] [address] Sameera [place] Cholesterol.total/Chol esterol in HDL [Mass ratio] 7.2 {ratio} Normal [facility] Comment on above: Performed By: #### D LDL, LIPID #### [facility] [address] [address] [address] Sameera [place] HDL NORMAL > or = 60 mg/dl - LOW CARDIOVASCULAR RISK <40 mg/dl - HIGH CARDIOVASCULAR RISK Normal [facility] Comment on above: Performed By: #### D LDL, LIPID #### [facility] [address], [place] [address] Dr. Sameera [place] LDL CALC NORMAL SEE BELOW Normal [facility] Comment on above: Result Comment: <100 mg/dl OPTIMAL 100 - 129 mg/dl NEAR OR ABOVE OPTIMAL 130 - 159 mg/dl BORDERLINE HIGH 160 - 189 mg/dl HIGH >190 mg/dl VERY HIGH Performed By: #### D LDL, LIPID #### [facility] [address], [place] [address] Dr. Sameera [place] Triglyceride [Mass/Vol] 440 mg/dL Critically high <=150 [facility] Comment on above: Performed By: #### D LDL, LIPID #### [facility] [address] [address] [address] Sameera [place] VLDL CALC 88.0 mg/dL Normal [facility] Comment on above: Performed By: #### D LDL, LIPID #### [facility] [address] [address] [address] Sameera [place] MG MAMM SCREEN 3D MIKEY CADon 03-22-2022 MG MAMM SCREEN 3D MIKEY CAD Patient: LALI JACKSON Exam Date: 03/22/2022 : 1955 Gender:F Ordering : SHAIKH Radha JOHNSON . Admission #: [id number] Family : Order #: [id number] CLICK HERE TO VIEW EXAM RADIOLOGY REPORT [...] bone cancer at age 53. LOCATION: [facility] BREAST COMPOSITION: Heterogeneously dense,which may obscure [...] Samir Dorantes MD on 03/22/2022 at 12:14 [facility] Vital Signs Date Time Vital Sign Value Performing Clinician Faci lity 01-22-2025 09:28-0400 Body height 160.02 cm Chuckie Zepeda MD Work Phone: [facility] 01-22-2025 09:28-0400 Body mass index (BMI) [Ratio] 25.8 kg/m2 Chuckie Zepeda MD Work Phone: [facility] 01-22-2025 09:28-0400 Body temperature 97.3 [degF] Chuckie Zepeda MD Work Phone: [facility] 01-22-2025 09:28-0400 Body weight 66.22 kg Chuckie Zepeda MD Work Phone: [facility] 01-22-2025 09:28-0400 Heart rate 80 /min Chuckie Zepeda MD Work Phone: [facility] 01-22-2025 09:28-0400 Respiratory rate 20 /min Chuckie Zepeda MD Work Phone: [facility] 01-22-2025 09:28-0400 SaO2% (BldA) [Mass fraction] 97 % Chuckie Zepeda MD Work Phone: [facility] 10-22-2024 08:36-0400 Body height 160 cm Chuckie Zepeda MD Work Phone: [facility] 10-22-2024 08:36-0400 Body mass index (BMI) [Ratio] 25.86 kg/m2 Chuckie Zepeda MD Work Phone: [facility] 10-22-2024 08:36-0400 Body temperature 97.5 [degF] Chuckie Zepeda MD Work Phone: [facility] 10-22-2024 08:36-0400 Body weight 66.22 kg Chuckie Zepeda MD Work Phone: [facility] 10-22-2024 08:36-0400 Diastolic blood pressure 82 mm[Hg] Chuckie Zepeda MD Work Phone: [facility] 10-22-2024 08:36-0400 Heart rate 89 /min Chuckie Zepeda MD Work Phone: [facility] 10-22-2024 08:36-0400 Respiratory rate 18 /min Chuckie Zepeda MD Work Phone: [facility] 10-22-2024 08:36-0400 SaO2% (BldA) [Mass fraction] 97 % Chuckie Zepeda MD Work Phone: [facility] 10-22-2024 08:36-0400 Systolic blood pressure 146 mm[Hg] Chuckie Zepeda MD Work Phone: [facility] 05-23-2024 08:58-0500 Body height 160 cm Ada Foley INSURANCE CLAIMS ADJUSTER Work Phone: [facility] 05-23-2024 08:58-0500 Body mass index (BMI) [Ratio] 25.69 kg/m2 Ada Foley INSURANCE CLAIMS ADJUSTER Work Phone: [facility] 05-23-2024 08:58-0500 Body temperature 97.5 [degF] Ada Foley INSURANCE CLAIMS ADJUSTER Work Phone: [facility] 05-23-2024 08:58-0500 Body weight 65.77 kg Ada Foley INSURANCE CLAIMS ADJUSTER Work Phone: [facility] 05-23-2024 08:58-0500 Diastolic blood pressure 76 mm[Hg] Ada Foley INSURANCE CLAIMS ADJUSTER Work Phone: [facility] 05-23-2024 08:58-0500 Heart rate 90 /min Ada Foley INSURANCE CLAIMS ADJUSTER Work Phone: [facility] 05-23-2024 08:58-0500 Respiratory rate 22 /min Ada Cortezpatrick INSURANCE CLAIMS ADJUSTER Work Phone: [facility] 05-23-2024 08:58-0500 SaO2% (BldA) [Mass fraction] 96 % Ada Hermanzpatrick INSURANCE CLAIMS ADJUSTER Work Phone: [facility] 05-23-2024 08:58-0500 Systolic blood pressure 158 mm[Hg] Ada Foley INSURANCE CLAIMS ADJUSTER Work Phone: [facility] 02-21-2024 09:27-0400 Body mass index (BMI) [Ratio] 25.15 kg/m2 Ada Foley INSURANCE CLAIMS ADJUSTER Work Phone: [facility] 02-21-2024 09:27-0400 Body temperature 97.2 [degF] Ada Foley INSURANCE CLAIMS ADJUSTER Work Phone: [facility] 02-21-2024 09:27-0400 Body weight 64.41 kg Ada Foley INSURANCE CLAIMS ADJUSTER Work Phone: [facility] 02-21-2024 09:27-0400 Diastolic blood pressure 78 mm[Hg] Ada Foley INSURANCE CLAIMS ADJUSTER Work Phone: [facility] 02-21-2024 09:27-0400 Heart rate 75 /min Ada Foley INSURANCE CLAIMS ADJUSTER Work Phone: [facility] 02-21-2024 09:27-0400 SaO2% (BldA) [Mass fraction] 99 % Ada Hermanzpatrick INSURANCE CLAIMS ADJUSTER Work Phone: [facility] 02-21-2024 09:27-0400 Systolic blood pressure 122 mm[Hg] Ada Foley INSURANCE CLAIMS ADJUSTER Work Phone: [facility] Encounters Encounter Date Encounter Type Care Provider Facility Start: 02-19-2025 End: 02-19-2025 ambulatory Chuckie Zepeda MD Work Phone: [facility] Work Phone: Start: 02-19-2025 End: 02-19-2025 Patient encounter procedure Noel Singh DO -[facility] [place] Work Phone: Start: 01-22-2025 End: 01-22-2025 ambulatory Chuckie Zepeda MD Work Phone: [facility] Work Phone: Start: 01-22-2025 End: 01-22-2025 Patient encounter procedure Chuckie Zepeda MD -[facility] [place] Work Phone: Start: 10-22-2024 End: 10-22-2024 Bamboo flowsheet Chuckie Zepeda MD Work Phone: [facility] Start: 10-22-2024 End: 10-22-2024 Bamboo flowsheet Chuckie Zepeda MD Work Phone: [facility] Start: 10-22-2024 End: 10-22-2024 Office outpatient visit 15 minutes Chuckie Zepeda MD Work Phone: [facility] Comment on above: Medicare annual well ness visit, subsequent (Primary Dx); Type 2 diabetes mellitus with hyperglycemia, without long-term current use of insulin ([facility]/HCC); Essential hypertension; Diabetic polyneuropathy associated with type 2 diabetes mellitus ([facility]/HCC); Colon cancer screening Start: 10-22-2024 End: 10-22-2024 Patient encounter procedure Chuckie Zepeda MD Work Phone: [facility] Start: 10-22-2024 End: 10-22-2024 ambulatory CHUCKIE ZEPEDA Not Available Start: 07-20-2024 Patient encounter procedure Chuckie Zepeda MD Work Phone: [facility] Start: 07-20-2024 End: 07-20-2024 ambulatory CHUCKIE ZEPEDA Not Available Start: 05-23-2024 End: 05-23-2024 Bamboo flowsheet Ada Foley NP Work Phone: [facility] Start: 05-23-2024 End: 05-23-2024 Bamboo flowsheet Ada Foley INSURANCE CLAIMS ADJUSTER Work Phone: [facility] Start: 05-23-2024 End: 05-23-2024 Office outpatient visit 15 minutes Ada Foley INSURANCE CLAIMS ADJUSTER Work Phone: [facility] Comment on above: Other hyperlipidemia (CMS/HCC) (Primary Dx); Diabetic polyneuropathy associated with type 2 diabetes mellitus (CMS/HCC); Type 2 diabetes mellitus with diabetic polyneuropathy, without long-term current use of insulin (CMS/HCC) Start: 05-23-2024 End: 05-23-2024 ambulatory ADA FOLEY Not Available Start: 05-22-2024 End: 05-22-2024 ambulatory ADA FOLEY Not Available Start: 02-21-2024 End: 02-21-2024 Bamboo flowsheet Ada Foley INSURANCE CLAIMS ADJUSTER Work Phone: [facility] Start: 02-21-2024 End: 02-21-2024 Bamboo flowsheet Ada Foley INSURANCE CLAIMS ADJUSTER Work Phone: [facility] Start: 02-21-2024 End: 02-21-2024 Office outpatient visit 25 minutes Ada Foley INSURANCE CLAIMS ADJUSTER Work Phone: [facility] Comment on above: Essential hypertensi on (Primary Dx); Diabetic polyneuropathy associated with type 2 diabetes mellitus (CMS/HCC); Encounter for osteoporosis screening in asymptomatic postmenopausal patient; Encounter for screening for malignant neoplasm of colon; Screening mammogram, encounter for; Other hyperlipidemia (CMS/HCC); Type 2 diabetes mellitus with diabetic polyneuropathy, without long-term current use of insulin (CMS/HCC) Start: 02-21-2024 End: 02-21-2024 ambulatory ADA FOLEY Not Available Start: 11-07-2023 End: 11-07-2023 ambulatory SHAIKH ELIZABETH Not Available Start: 05-26-2023 Patient encounter procedure Ada Foley ALFONSO Work Phone: [facility] Start: 08-03-2022 End: 08-04-2022 ambulatory AREVALO Nato BROOKSSDCarolyn Facility: Start: 06-14-2022 End: 06-15-2022 ambulatory SHAIKH Nato JOHNSON Facility:[facility] Start: 03-22-2022 End: 03-23-[address] SAMIR DORANTES Facility:[facility] Procedures Date Procedure Procedure Detail Performing Clinician Start: 05-22-2024 Mammography Chuckie agustin MD Work Phone: Plan of Treatment Date Care Activity Detail Author Start: 10-10-2026 Glaucoma screening Diabetes: R etinopathy Screening [facility] Start: 07-31-2025 Urine screening for protein Diabetes: Urine Protein Screening [facility] Start: 05-22-2025 Screening for malign ant neoplasm of breast Mammogram [facility] Start: 01-31-2025 Hemoglobin A1c measurement Diabetes: Hemoglobin A1C [facility] Start: 01-22-2025 End: 01-22-2025 Patient encounter procedure 01/22/2025 9:30 AM EDT Office Visit [facility] [address] [place] [phone] Chuckie Zepeda MD [address] [place] [id number] [facility] Start: 01-14-2025 Influenza vaccination Influenz a Vaccine (Season Ended) [facility] Start: 10-22-2024 End: 10-22-2025 Noninvasive colorectal cancer DNA and occult blood screening [Presence] in Stool Cologuard colon cancer screening Lab Routine Colon cancer screening Expected: 10/22/2024 (Approximate), Expires: 10/22/2025 [facility] Work Phone: Comment on above: Expected: 10/22/2024 (Approximate), Expires: 10/22/2025 Start: 10-22-2024 End: 10-22-2024 Patient encounter procedure 10/22/2024 8:30 AM EDT Office Visit [facility] [address] [place] [phone] Chuckie Zepeda MD [address] [place] [phone] [facility] Comment on above: Arrived Start: 08-22-2024 End: 08-22-2024 Patient encounter procedure 08/22/2024 10:00 AM EDT Office Visit [facility] [address] [place] [id number] Ada Foley, ALFONSO [address] [place] [address] [facility] Start: 06-16-2024 Glaucoma screening Diabetes: R etinopathy Screening [facility] Start: 06-06-2024 Urine screening for protein Diabetes: Urine Protein Screening [facility] Start: 05-26-2024 Medicare Annual Wellness (AWV) Medicare Annual Wellness (AWV) [facility] Start: 05-26-2024 Pneumococcal Vaccine : 65+ Years (1 of 2 - PCV) Pneumococcal Vaccine: 65+ Years (1 of 2 - PCV) [facility] Comment on above: Postponed from 01/07 (Patient Refused) Start: 05-23-2024 End: 05-23-2024 Patient encounter procedure [facility] Comment on above: Arrived Start: 02-21-2024 End: 02-20-2025 CBC W Auto Differential panel - Blood CBC and differential Lab Routine Essential hypertension Type 2 diabetes mellitus with diabetic polyneuropathy, without long-term current use of insulin (CMS/HCC) Expected: 02/21/2024 (Approximate), Expires: 02/20/2025 [facility] Comment on above: Expected: 02/21/2024 (Approximate), Expires: 02/20/2025 Start: 02-21-2024 End: 02-20-2025 Comprehensive metabolic 2000 panel - Serum or Plasma Comprehensive metabolic panel Lab Routine Essential hypertension Type 2 diabetes mellitus with diabetic polyneuropathy, without long-term current use of insulin (CMS/HCC) Expected: 02/21/2024 (Approximate), Expires: 02/20/2025 [facility] Comment on above: Expected: 02/21/2024 (Approximate), Expires: 02/20/2025 Start: 02-21-2024 End: 02-20-2025 DXA Skeletal system Views for bone density DEXA bone density Imaging Routine Encounter for osteoporosis screening in asymptomatic postmenopausal patient Expected: 02/21/2024, Expires: 02/20/2025 [facility] Comment on above: Expected: 02/21/2024 , Expires: 02/20/2025 Start: 02-21-2024 End: 02-20-2025 Hemoglobin A1c/Hemoglobin.total in Blood Hemoglobin A1c Lab Routine Type 2 diabetes mellitus with diabetic polyneuropathy, without long-term current use of insulin ([facility]) Expected: 02/21/2024 (Approximate), Expires: 02/20/2025 [facility] Comment on above: Expected: 02/21/2024 (Approximate), Expires: 02/20/2025 Start: 02-21-2024 End: 02-20-2025 Lipid 1996 panel - Serum or Plasma Lipid panel Lab Routine Other hyperlipidemia ([facility]) Expected: 02/21/2024 (Approximate), Expires: 02/20/2025 [facility] Comment on above: Expected: 02/21/2024 (Approximate), Expires: 02/20/2025 Start: 02-21-2024 End: 04-22-2025 MG Breast - bilateral Screening Bilateral screening mammogram Imaging Routine Screening mammogram, encounter for Expected: 02/21/2024, Expires: 04/22/2025 [facility] Comment on above: Expected: 02/21/2024 , Expires: 04/22/2025 Start: 02-21-2024 End: 02-20-2025 Noninvasive colorectal cancer DNA and occult blood screening [Presence] in Stool Cologuard colon cancer screening Lab Routine Encounter for screening for malignant neoplasm of colon Expected: 02/21/2024 (Approximate), Expires: 02/20/2025 [facility] Comment on above: Expected: 02/21/2024 (Approximate), Expires: 02/20/2025 Start: 02-21-2024 End: 10-08-2025 TSH W/REFLEX TO FT4 TSH W/REFLEX TO FT4 Lab Routine Essential hypertension Expected: 02/21/2024 (Approximate), Expires: 02/20/2025 [facility] Work Phone: Comment on above: Expected: 02/21/2024 (Approximate), Expires: 02/20/2025 Start: 02-21-2024 End: 02-21-2024 Patient encounter procedure 02/21/2024 9:30 AM EDT Office Visit [facility] [address] [place] [address] Ada Foley NP [address] [place] [address] Arrived [facility] Comment on above: Arrived Start: 01-15-2024 Influenza vaccination Influenza Vacc ine (#1) [facility] Start: 12-05-2023 Hemoglobin A1c measurement Diabetes: Hemoglobin A1C [facility] Start: 1997 Screening for malign ant neoplasm of breast Mammogram [facility] Start: 01-08-1976 Pneumococcal Vaccine : 65+ Years (1 of 2 - PCV) Pneumococcal Vaccine: 65+ Years (1 of 2 - PCV) [facility] Start: 1955 Screening for malign ant neoplasm of colon [facility] Microalbumin/Creatin ine panel in random Urine Microalbumin / creatinine urine ratio Lab Routine Essential hypertension Type 2 diabetes mellitus with diabetic polyneuropathy, without long-term current use of insulin ([facility]) Ordered: 02/21/2024 [facility] Comment on above: Ordered: 02/21/2024 [facility] Payers Date Payer Category Payer Medicaid [employer] MEDICARE A DVANTAGE [id number] 2022 Medicare A[employer]NA MEDICARE A DVANTAGE AETNA MEDICARE REPLACEMENT [id number] 2022-Present [address] [place] [address] [id number] 2022 Medicare [id number] 1959 Unknown [id number] 1959 Unknown [id number] 1957 Unknown [id number] 1957 Unknown [id number] 1957 Unknown [id number] 1957 Unknown [id number] 1957 Unknown [id number] 1957 Unknown [id number] 1957 Unknown [id number] 1957 Unknown [id number] [id number] 1957 Unknown [id number] 1957 Unknown [id number] Social History Date Type Detail Facility Start: 08-15-2023 End: 01-22-2025 Tobacco smoking status NHIS Ex-smoker [facility] History of tobacco use Current smoker [facility] History of tobacco use Cigarette Smoker [facility] History of tobacco use Passive smoker [facility] Start: 11-07-2023 End: 10-22-2024 Alcoholic beverage intake Lifetime non-drinker (finding) [facility] Start: 05-25-2023 End: 10-22-2024 History of Social function [facility] Start: 05-25-2023 End: 10-22-2024 Humiliation, Afraid, Rape, and Kick questionnaire [HARK] [facility] Within the last year , have you been afraid of your partner or ex-partner? No [facility] How often do you att end meetings of the clubs or organizations you belong to? Patient declined [facility] Are you now , , , , never or living with a partner? [facility] Do you feel stress - tense, restless, nervous, or anxious, or unable to sleep at night because your mind is troubled all the time - these days [OSQ] To some extent [facility] Start: 05-26-2023 Alcohol Comment caffeine: 3-4 cups per day [facility] Start: 1955 Sex assigned at Not on file [facility] Sex Female (finding) [facility] Start: 1955 Sex Assigned At Female F [facility] Functional Status Date Assessment Result Facility 10-22-2024 Patient [facility] ionnaire 2 item (PHQ-2) [Reported] [facility] Clinical Notes 02-21-2024 to 01-22-2025 Note Date & Type Note Facility 01-22-2025 Evaluation note Diagnosis Onset Date Resolution Diabetic polyneuropathy associated with type 2 diabetes mellitus acute January 22, 2025 9:21am Essential hypertension acute Se ptember 2024 9:21am Lumbar spondylosis acute Septem 2024 9:21am Statin myopathy acute January 22, 2025 9:21am Type 2 diabetes mellitus with diabetic microalbuminuria, without long-term acute January 22, 2025 9:21am Polyneuropathy acute February 9:44am [facility] Work Phone: [phone]) 861-172006-09-2025 History of Present illness Narrative* Chuckie Zepeda MD - 10/22/2024 9:14 AM EDTAssociated Problem(s): Type 2 diabetes mellitus with hyperglycemia, without long-term current use of insulin ([facility]) Last A1C 6.5. Stick to ADA diet and limit carbs. * Chuckie Zepeda MD - 10/22/2024 9:13 AM EDTAssociated Problem(s): Medicare annual wellness visit, subsequent Reviewed labs. Due for cologuard. Discussed proper diet and regular aerobic exercise. Need aerobic exercise 5-6 days a week for 30 minutes at a time. Smaller portions and limit total calories. Tetanus every 10 years. Advised not to smoke. * Chuckie Zepeda MD - 10/22/2024 9:13 AM EDTAssociated Problem(s): Essential hypertension BP okay without medication and monitor. Discussed DASH diet. * Chuckie Zepeda MD - 10/22/2024 9:13 AM EDTAssociated Problem(s): Diabetic polyneuropathy associated with type 2 diabetes mellitus ([facility]) Continued pain and stop neurontin. Try lyrica. * Chuckie Zepeda MD - 10/22/2024 8:30 AM EDT Images from the original note were not included. Subjective Patient ID: Lali Jackson is a 69 y.o. female who presents for Medicare Annual Wellness Visit Subsequent (WELLNESS) and Hip Pain. Presents for medicare annual wellness visit. Weight stable over the past year. Tries to stay activeand walk several days a week. Tries to watch diet and eat healthy. Increased fruits and vegetables.Smaller portions and limits snacking. Tries to limit total daily calories. Reviewed labs. Not checking BS but last A1C 6.5. Stopped losartan due to side effects. [place] nauseated and had HART. BP okay without [...] hyperglycemia, without long-term current use of insulin (CMS/HCC) Last A1C 6.5. Stick to ADA diet [...] Cologuard colon cancer screening documented in this encounterSaint [facility] [id number] History of Present illness Narrative* Ada Foley NP - 05/23/2024 9:50 AM ESTAssociated Problem(s): Type 2 diabetes mellitus with diabetic polyneuropathy, without long-term current use of insulin ([facility]) Stopped taking all of her medications. States she feels significantly better since stopping all medications. Discussed in detail with pt cardiovascular and additional risks associated with unmanaged diabetes mellitus. Pt verbalized understanding and maintains she would like to stay off of all medications except gabapentin at this time. * Ada Foley NP - 05/23/2024 9:21 AM ESTAssociated Problem(s): Other hyperlipidemia ([facility]) Currently stopped taking Rosuvastatin and Zetia; Stopped fenofibrate due to migraines. Denies any myalgias. Most recent Lipid Panel 3 months ago elevated. Would like a recheck done today. Discussed in detail with pt cardiovascular and additional risks associated with unmanaged triglycerides and cholesterol. Pt verbalized understanding and maintains she would like to stay off of all medications except gabapentin at this time. * Ada Foley NP - 05/23/2024 9:00 AM EST Images from the original note were not [...] Neurological: Negative for dizziness, tremors, syncope, weakness, light- headedness and headaches. Neuropathy BLE Psychiatric/Behavioral: Negative for decreased concentration and suicidal ideas. The patient is notnervous/anxious. Hematological: Does not bruise/bleed easily. Endocrine: Negative [...] without long-term current use of insulin (CMS/HCC) Stopped taking all of her medications. States she feels significantly better since stopping all medications. Discussed in detail with pt cardiovascular and additional risks associated with unmanaged diabetes mellitus. Pt verbalized understanding and maintains she would like to stay off of all medications except gabapentin at this time. Other hyperlipidemia ([facility]) - Primary Currently stopped taking Rosuvastatin and [...] polyneuropathy associated with type 2 diabetes mellitus ([facility]/HCC) Relevant Medications gabapentin (Neurontin) 300 MG capsule documented in this encounterSaint Louis University Health Science [id number] Instructions* Patient Instructions* Ada Foley NP - 05/23/2024 9:00 AM EST FASTING labs ordered. Nothing to eat or drink for 12 hours prior to blood draw. Water and black coffee ok. We will call you with results! documented in this encounterSaint Louis University Health Science [id number] History of Present illness Narrative* Ada Foley NP - 02/21/2024 12:05 PM EDTAssociated Problem(s): Diabetic polyneuropathy associated with type 2 diabetes mellitus ([facility]/HCC) Previously reported Gabapentin as allergy due to muscle aches. Was agreeable to restart and trial medication with previous PCP. Was taking Gabapentin 100 mg BID. Reports it does take the edge off of the neuropathic pain but does not relieve it entirely. Will trial 300 mg Gabapentin once daily. * Ada Foley NP - 02/21/2024 12:04 PM EDTAssociated Problem(s): Other hyperlipidemia ([facility]CC) Currently taking Rosuvastatin 40mg; Stopped fenofibrate due to migraines. Denies any myalgias. Most recent Lipid Panel 3 monhs ago elevated. Will order Zetia 10mg today; * Ada Foley NP - 02/21/2024 12:03 PM EDTAssociated Problem(s): Type 2 diabetes mellitus with diabetic polyneuropathy, without long-term current use of insulin ([facility]) Taking Rybelsus 7mg Denies any adverse reactions [...] A1C today. DM Eye Exam: 06/2022 @ [facility] * Ada Foley NP - 02/21/2024 9:30 AM EDT Images from the original note were not [...] feet frequently monitoring for open wounds , andalso recommend yearly eye exam. Pt should attempt to remain as physically active as chronic conditions allow, as well as trying to follow a diet low in carbohydrates, and simple sugars. DM Eye Exam: 06/2022 @ [facility] in [place] DM Neuropathy: Was taking Gabapentin 100mg Bid. [...] R ALBUMIN GLOBULIN RATIO 0.9 Resulting Agency [facility] Review of Systems Constitutional: Negative for activity [...] Neurological: Negative for dizziness, tremors, syncope, weakness, light- headedness and headaches. Neuropathy in BLE Psychiatric/Behavioral: Negative for decreased concentration and suicidal ideas. The patient is notnervous/anxious. Hematological: Does not bruise/bleed easily. Endocrine: Negative [...] A1C today. DM Eye Exam: 06/2022 @ [facility] in [place] Relevant Orders Microalbumin / creatinine urine ratio [...] Cologuard colon cancer screening documented in this encounterSaint Louis University Health Science [id number] Instructions* Patient Instructions* Ada Foley NP - 02/21/2024 9:30 AM EDT FASTING labs ordered. Nothing to eat or drink for 12 hours prior to blood draw. Water and black coffee ok. Diet: Eat three meals per day. Breakfast, lunch, and dinner. Avoid snacking. Avoid eating after 5/6pm. Daily protein GOAL 35% of your intake; 30g per meal. Daily calorie GOAL 1,800-2,000 per day. Consider tracking your food intake on MyMedicinainessPal or LoseIt Water: Increase water intake; GOAL [...] feet frequently monitoring for open wounds , andalso recommend yearly eye exam. Pt should attempt to remain as physically active as chronic conditions allow, as well as trying to follow a diet low in carbohydrates, and simple sugars. documented in [facility] encounterM[facility]* Diagnosis Essential hypertension- Primary Unspecified essential hypertension Diabetic polyneuropathy associated with type 2 diabetes mellitus (CMS/HCC) Encounter for osteoporosis screening in asymptomatic postmenopausal patient Encounter for screening for malignant neoplasm of colon Screening mammogram, encounter for Other hyperlipidemia (CMS/HCC) Type 2 diabetes mellitus with diabetic polyneuropathy, without long-term current use of insulin (CMS/HCC) documented in this encounter [facility] HealthcareEvaluation note* Diagnosis Type 2 diabetes mellitus without complication, [...] of insulin (CMS/HCC) documented in this encounter [facility] HealthcareEvaluation note* Diagnosis Type 2 diabetes mellitus without complication, [...] polyneuropathy associated with type 2 diabetes mellitus ([facility]) Essential hypertension Unspecified essential hypertension Other hyperlipidemia Type 2 diabetes mellitus without complication, without long-term current use of insulin Essential hypertension- Primary Unspecified essential hypertension Diabetic polyneuropathy associated with type 2 diabetes mellitus ([facility]) Encounter for osteoporosis screening in asymptomatic postmenopausal patient Encounter for screening for malignant neoplasm of colon Screening mammogram, encounter for Other hyperlipidemia Type 2 diabetes mellitus with diabetic polyneuropathy, without long-term current use of insulin ([facility]) Other hyperlipidemia- Primary Diabetic polyneuropathy associated with type 2 diabetes mellitus ([facility]) Type 2 diabetes mellitus with diabetic polyneuropathy, without long-term current use of insulin ([facility]) Type 2 diabetes mellitus with hyperglycemia, without long-term current use of insulin ([facility])- Primary Essential hypertension Unspecified essential hypertension Diabetic polyneuropathy associated with type 2 diabetes mellitus ([facility]) Statin myopathy Toxic myopathy Dyslipidemia ([facility]) Other and unspecified hyperlipidemia Encounter for long-term (current) use of medications Encounter for long-term (current) use of other medications Fatigue, unspecified type Medicare annual wellness visit, subsequent- Primary Type 2 diabetes mellitus with hyperglycemia, without long-term current use of insulin ([facility]) Essential hypertension Unspecified essential hypertension Diabetic polyneuropathy associated with type 2 diabetes mellitus ([facility]) Colon cancer screening Special screening for malignant neoplasms, colon documented in this encounter [facility]* Diagnosis Onset Date Resolution Status Admit Date Diabetic polyneuropathy associated with type 2 diabetes mellitus acute January 22 9:21am Essential hypertension acute Se ptember 2024 9:21am Lumbar spondylosis acute Septem carolyn 2024 9:21am Type 2 diabetes mellitus wit h diabetic microalbuminuria, without long-term acute January 22, 2025 9:21am [facility] Work Phone: Reason for referral (narrative)No reason for referral information availableBellevue Hospital Work Phone: Summary Purpose Family History No Family History Records FoundNo Family History Records Found Advance Directives Advance Directive Response Recorded Date/ Time Advance Directives No January 9:18am Chief Complaint and Reason for Visit Chief Complaint Admit Date Established Patient January 22, 2025 9:21am Reason for Visit Admit Date Diabetic polyneuropathy asso ciated with type 2 diabetes mellitus January 22, 2025 9:21am Essential hypertension January 22 9:21am Lumbar spondylosis January 22, 2025 9:21am Type 2 diabetes mellitus wit h diabetic microalbuminuria, without long-term January 22, 2025 9:21am Chief Complaint Admit Date Established Patient January 22, 2025 9:21am EMG BLE per Aide Lewis INSURANCE CLAIMS ADJUSTER-C February 19, 2025 9:44am Reason for Visit Admit Date Diabetic polyneuropathy asso ciated with type 2 diabetes mellitus January 22, 2025 9:21am Essential hypertension January 22 9:21am Lumbar spondylosis January 22, 2025 9:21am Statin myopathy January 22, 2025 9:21am Type 2 diabetes mellitus wit h diabetic microalbuminuria, without long-term January 22, 2025 9:21am Polyneuropathy February 19, 2025 9: 44am Additional Source Comments INFORMATION SOURCE (unrecogn ized section and content) DATE CREATED AUTHOR 10/22/2022 [facility] DATE CREATED AUTHOR AUTHOR'S ORGANIZ ATION 10/22/2024 [facility] dical Specialists EPIC Care Teams (unrecognized sec tion and content) Foreign Banknote Teller Relationship Specialty Start Date End Date Chuckie Zepeda MD [address] [place] [address] PCP - General Family Medicine 12/27/23 Ada Foley NP [address] [place] [address] [place] [address] Nurse Practitioner Family Medicine 12/27/23 Foreign Banknote Teller Relationship Specialty Start Date End Date Chuckie Zepeda MD [address] [place] [address] PCP - General Family Medicine 12/27/23 Ada Foley NP [address] [place] [address] Nurse Practitioner Family Medicine 12/27/23 Foreign Banknote Teller Relationship Specialty Start Date End Date Chuckie Zepead MD [address] [place] [phone] PCP - General Family Medicine 12/27/23 Ada Foley NP [address] [place] [address] Nurse Practitioner Family Medicine 12/27/23 Foreign Banknote Teller Relationship Specialty Start Date End Date Chuckie Zepeda MD [address] [place] [phone] PCP - General Family Medicine 12/27/23 Ada Foley NP [address] [place] [address] Nurse Practitioner Family Medicine 12/27/23 Foreign Banknote Teller Relationship Specialty Start Date End Date Chuckie Zepeda MD [address] [place] [phone] PCP - General Family Medicine 12/27/23 Foreign Banknote Teller Relationship Specialty Start Date End Date Chuckie Zepeda MD [address] [place] [phone] PCP - General Family Medicine 12/27/23 Team Status: Active Member Role Status Dates Chuckie Zepeda MD Primary Care Provider Active Team Status: Inactive Member Role Status Dates Chuckie Zepeda MD Primary Care Provider Active S tart: January 22, 2025 End: January 22, 2025 Chuckie Zepeda MD Attending Provider Active Star t: January 22, 2025 End: January 22, 2025 Team Status: Inactive Member Role Status Dates Chuckie Zepeda MD Primary Care Provider Active S tart: February 19, 2025 End: February 19, 2025 Noel Muñoz DO Attending Provider Active Start: February 19, 2025 End: February 19, 2025 Reason for Visit (unrecogniz ed section and content) Reason Comments Follow-up Neuropathy in her fe et Pain level is an 8-10 at night Reason Comments Follow-up 3m Reason Comments Medicare Annual Wellness Visit Subsequen t WELLNESS Hip Pain Goals (unrecognized section and content) Goals may be documented in a n alternate sectionGoals may be documented in an alternate section FOR RECORDS PERTAINING TO PATIENTS WHO ARE [...] BE BASED ON THE PRIMARY CLINICAL RECORDS. [employer] provides no warranty or guarantee of the accuracy or completeness of information in this document.
--- NOTE | 2025-02-27 15:13 | P.CN_ITS ---
Consult Note: HPI Data of Consult Patient: known to practice within the last 3 years Consult date: 02/27/25 Requesting Physician: Aide Lewis NP Primary Care Provider: Chuckie Lindsay MD Consult Narrative Reason for consult: bilateral foot pain Narrative: Lali Jackson a pleasant 70 year old female presents for evaluation of chronic bilateral foot pain. notes traumatic injury to low back 25 years ago with intermittent back and BLE pain since then, however over the last few years she has had increasing severe bilateral foot pain. pain 3/10 increasing to 10/10 at night, standing, walking, stairs, bending, activity. pt has failed to benefit from amitriptyline, gabapentin, pregabalin, and duloxetine noted significant side effects with each medication. she was referred to Dr Hill for treatment, he suggested a compound cream which she is utilizing with minimal relief. finds no benefit to topical lidocaine patches. recently completed EMG NCV of BLE which is consistent with polyneuropathy and diabetic neuropathy cc:: CC: Aide Lewis NP Review of Systems ROS Musculoskeletal Reports: back pain and extremity pain Meds Home Medications and Allergies Home Medications ?Medication ?Instructions ?Recorded ?Confirmed ?Type lidocaine 5 % topical patch 2 patch topical DAILY #30 ea 01/16/25 Rx Allergies Allergy/AdvReac Type Severity Reaction Status Date / Time No Known Drug Allergies Allergy Verified 01/16/25 10:45 Exam Constitutional Documenting provider has reviewed patient's vital signs: yes Common normals: no apparent distress, oriented x3, healthy appearing, alert and well nourished General appearance: cooperative HENWA Common normals: normocephalic, hearing grossly normal bilaterally and moist oral mucous membranes Head and scalp: normocephalic Eye Common normals: PERRL Pupil: PERRL Neck & C-Spine Common normals: full ROM General: normal visual inspection Chest Common normals: inspection of chest normal Respiratory Common normals: normal respiratory effort, no retractions and no use of accessory muscles Back & Pelvis Lumbar spine/lower back: pain with ROM Other: increased low back pain with bending Extremity Other: no edema noted to bilateral lower extremities bilateral feet warm to touch, appropraite color, decreased sensation to soles of bilateral feet. dysthesia noted to bilateral feet and digits Neuro Common normals: oriented x3 Sensorium/orientation: alert Psych Common normals: mental status grossly normal, thought process normal, cooperative, affect normal, speech normal and activity/motor behavior normal Speech: normal speech Thought process: normal thought process Results Additional Findings Additional findings: If on a controlled substance or opioids, I have checked an [place] report on this patient and there are no aberrancies noted in the prescribing history.??If on a controlled substance or opioid a drug screen was completed and reviewed within the last year, and if there has not been a drug screen completed we ordered one today to monitor higher risk, state monitored pain medication use. As part of providing excellent, safe, comprehensive care, the following was completed at our patient's visit: 1. A medication reconciliation and review to ensure accurate knowledge of current/active medications, including asking our patients to inform us about any [id number] medications or herbal remedies/nutritional supplements/alternative remedies. 2. A review to specifically ensure our patients have had annual screening for screening for depression, screening for tobacco use, and screening for unhealthy alcohol use. For concerning screenings had a discussion with the patient, provided patient education, and recommended follow-up with primary care provider when appropriate. If patient noted with a risk of falling, they received education on strength, gait, and balance training to prevent future risk of falling. Portions of this note may have been carried over from the previous visit and updated as appropriate. Please note this office utilizes paper charting in addition to the electronic medical record. A list of current medications, vitals, and PMH is available there as the clinical staff outside of myself do not have access to [employer] charting during the clinic day operations. As part of providing quality comprehensive care the current medications, vitals, and PMH were reviewed in the paper chart. Assessment and Plan Assessment and Plan (1) Painful diabetic neuropathy: (2) Polyneuropathy: (3) Lumbar degenerative disc disease: Assessment and Plan: The patient has had over 3 months of moderate to severe low back and bilateral foot pain with functional impairment and inadequate response to conservative care including NSAIDS (unless there are contraindication such as concurrent blood thinners), multiple oral or topical pain medications, and home exercise program/physical therapy.? Patient has completed >6 weeks of guided home exercise program and/or formal physical therapy program without relief of their symptoms.? The Oswestry Disability Index was completed, and the patient scored a 20%.? (4) Other intervertebral disc degeneration, lumbar region with discogenic back pain and lower extremity pain: Plan 70 year old female with chronic bilateral foot pain, as well as hx of moderate to severe low back pain. based on patients failure to respond to gabapentin, amitriptyline, duloxetine, pregabalin and significant side effects we do not recommend additional oral medications at this time. lumbar xray reviewed with pt, recommend updating lumbar MRI without contrast to assess lumbar ddd and discogenic low back and BLE pain. I have strongly encouraged the pt to consider scs trial/implant for painful DPN, as this will likely significantly improve her bilateral foot pain and quality of life as well as manage her low back pain. handout provided on scs trial/implant. f/u to review lumbar MRI and discuss spinal cord stimulator trial for painful DPN.
== END 2025-02-27 14:34 | disposition home or self-care (01) ==
LOC: PM 14:33
PROVIDERS: PCP Family Medicine; Visit Provider Nurse Practitioner
DX: G62.9 Polyneuropathy, unspecified (principal); E11.40 Type 2 diabetes mellitus with diabetic neuropathy, unspecified; M51.369 Other intervertebral disc degeneration, lumbar region without mention of lumbar back pain or lower extremity pain; M51.362 Other intervertebral disc degeneration, lumbar region with discogenic back pain and lower extremity pain
CPT/HCPCS: G0463

== ENCOUNTER 2025-03-06 09:44 | Outpatient (OUT) | payer MEDICARE, SELFPAY ==
--- NOTE | 2025-03-06 09:47 | MR_ITS ---
The [address] [address] Patient Name: MAME HONG MRN: [id number] date: 1955 Sex: F Assigned Patient Location: MRI Current Patient Location: MRI Accession/Order Number: [id number] Exam Date: 03/06/2025 09:50 Report Date: 03/06/2025 16:47 At the request of: ABELARDO PERRIN NP Procedure: MR lumbar spine wo con MRI lumbar spine performed without contrast INDICATION: Intervertebral disc degeneration lumbar region, lumbar pain radiating into both lower extremities COMPARISON: None FINDINGS: Lumbar vertebral heights, alignment unremarkable. Anterolisthesis L4-L5 identified be due to the facet arthropathy. Nonspecific focus of diminished signal central T12 vertebral body represent a bone island. Otherwise bone marrow signal is grossly unremarkable. The conus medullaris terminates normally at the superior plate of L2. There is mild levocurvature. T12-L2: Mild facet arthropathy. No significant disease disc protrusion central canal neural from narrowing identified. L2-L3:: Minimal broad-based bulge with [id number] facet arthropathy. Mild right neural foraminal narrowing. Minimal canal narrowing. Left foramen is patent. L3-4: Broad-based disc bulge with [id number] facet arthropathy. Canal is grossly patent. Minimal crowding both foramina zones. L4-5: There is 4 mm anterolisthesis with uncovering the posterior disc. There is a circumferential disc bulge with moderate severe facet arthropathy. This results in moderate severe central canal stenosis and bilateral subarticular recess narrowing left greater than right, correlate with bilateral L5 radiculopathy. Otherwise there is evidence of moderate neural foraminal narrowing left greater than right. L5-S1: Circumferential disc bulge with moderate facet arthropathy. Mild right mild to moderate left-sided neural foraminal narrowing. Canal is minimally narrowed. MR/MR lumbar spine wo con IMPRESSION: Degenerative changes notably at L4-L5 predominantly caused by posterior element degeneration. There is bilateral subarticular recess narrowing level, correlate with bilateral left greater than right L5 radiculopathy result. Impression dictated by: Andre Hannon M.D. 03/06/2025 4:47 PM Dictation Location: [place] [address] Electronically authenticated by: [id number] Y Date: 03/06/2025 16:47
--- OUTSIDE RECORDS SUMMARY | 2025-03-06 09:47 | XMS_ITS | CCD ---
Author Organization [facility] Care Team Providers Care Care Transitions Nurse Name Role Phone FAWWAD, AREVALO H Attending [...] Unavailable Chuckie Zepeda MD Primary Care Provider Aad Foley NP Unavailable CHUCKIE ZEPEDA Attending Unavailable CHUCKIE ZEPEDA Attending Unavailable FAWWAD, AREVALO Attending Unavailable ADA FOLEY Attending Unavailabl e FOLEY, BRITTANY Referring Unavailabl e FOLEY, BRITTANY Referring Unavailabl e ADA FOLEY Attending UnavailChuckie Rodriguez MD Primary Care Provider Chuckie Zepeda MD Attending Provider Noel Muñoz DO Attending Provider Allergies Allergy ClassificationReported Allergen(s)Allergy TypeDate of OnsetReaction(s) Facility (11 sources)gabapentinDrug Ommdtgb64-12-1336WkgrqFDPI Healthcare Medications Current Medications MedicationDrug Class(es)DatesSig (Normalized)Sig (Original)DULoxetine 30 mg delayed release oral capsule (2 sources)Serotonin and Norepinephrine Reuptake InhibitorStart: 81-14-0352rlbm 1 capsule by mouth once dailyezetimibe 10 mg oral tablet (5 sources)Dietary Cholesterol Absorption InhibitorStart: 02-21-2024 End: 31-78-7590wzrm 1 tablet by mouth once dailyezetimibe (Zetia) 10 MG tablet Indications: Other hyperlipidemia (CMS/HCC) Take 1 tablet (10 mg) bymouth Daily 30 tablet 11 02/21/2024 02/20/2025 Activefenofibrate 145 mg oral tablet (3 sources)Peroxisome Proliferator Receptor alpha AgonistStart: 11-08-2023 End: 23-82-8723nala 1 tablet by mouth once dailyfenofibrate (Tricor) 145 MG tablet Indications: Other hyperlipidemia (CMS/HCC) Take 1 tablet (145 mg) by mouth Daily 90 tablet 11/08/2023 02/21/2024 Discontinued (Side effects) gabapentin 300 mg oral capsule (13 sources)Anti-epileptic AgentStart: 02-21-2024 End: 32-90-4027wtjg 1 capsule by mouth in the morninggabapentin (Neurontin) 300 MG capsule Indications: Diabetic polyneuropathy associated with type 2 diabetes mellitus (CMS/HCC) Take 1 capsule (300 mg) by mouth in the morning and 1 capsule (300 mg) before bedtime. 180 capsule 07/20/2024 10/22/2024 DiscontinuedStart: 11-07-2023 End: 07-91-9163fggw 1 capsule by mouth in the morninggabapentin (Neurontin) 100 MG capsule Indications: Diabetic polyneuropathy associated with type 2 diabetes mellitus (CMS/HCC) Take 1 capsule (100 mg) by mouth in the morning and 1 capsule (100 mg) before bedtime. 200 capsule 1 11/07/2023 02/21/2024 Discontinued (Dose adjustment)lidocaine 0.05 mg/mg medicated patch (2 sources)Antiarrhythmic, Amide Local AnestheticStart: 06-41-0419ttqaj 1 dose topically once dailylosartan potassium 25 mg oral tablet (3 sources)Angiotensin 2 Receptor BlockerStart: 07-31-2024 End: 54-16-0968jpad 1 tablet by mouth once dailylosartan (Cozaar) 25 MG tablet Indications: Essential hypertension (CMS/HCC) Take 1 tablet (25 mg) by mouth Daily 30 tablet 5 07/31/2024 10/22/2024 Discontinuedpregabalin 75 mg oral capsule (2 sources)Start: 10-22-2024 End: 04-05-8881pgif 1 capsule by mouth in the morningpregabalin (Lyrica) 75 MG capsule Indications: Diabetic polyneuropathy associated with type 2 diabetes mellitus (CMS/HCC) Take 1 capsule (75 mg) by mouth in the morning and 1 capsule (75 mg) before bedtime. 60 capsule 1 10/22/2024 12/21/2024 Activerosuvastatin calcium 40 mg oral tablet (6 sources)HMG-CoA Reductase InhibitorStart: 11-08-2023 End: 85-21-2973vsht 1 tablet by mouth once dailyrosuvastatin (Crestor) 40 MG tablet Indications: Other hyperlipidemia (CMS/HCC) Take 1 tablet (40 mg) by mouth Daily 100 tablet 1 11/08/2023 05/26/2024 Activesemaglutide 7 mg oral tablet (6 sources)Start: 11-07-2023 End: 16-60-4858dimp 1 tablet by mouth before mealtimesemaglutide (Rybelsus) 7 MG tablet Indications: Type 2 diabetes mellitus without complication, without long- term current use of insulin (CMS/HCC) Take 1 tablet (7 mg) by mouth in the morning. Take before meals. 100 tablet 1 11/07/2023 05/25/2024 Active Completed/Discontinued Medications MedicationDrug Class(es)DatesSig (Normalized)Sig (Original)amitriptyline hydrochloride 25 mg oral tablet (2 sources)Tricyclic AntidepressantStart: 01-21-2025 End: 33-85-2070pute 1 tablet by mouth once daily at bedtimeAmitriptyline 25 mg tablet Discontinued 25 MG PO Daily at bedtime January 21, 2025 12:00am Septem 2024 9:31am Problems Active Problems Problem ClassificationProblemDateDocumented DateEpisodic/ChronicDiabetes mellitus with complications (20 sources)Type 2 diabetes mellitus with diabetic neuropathy, unspecified; Translations: [Polyneuropathy due to type 2 diabetes mellitus]Onset: 08-03-2022 ChronicDiabetes mellitus without complication (4 sources)Type 2 diabetes mellitus without complications; Translations: [TYPE 2 DM WITHOUT COMPLICATIONS]Onset: 82-29-2352XcajgioKwkpsxobi of lipid metabolism (16 sources)Hyperlipidemia, unspecified; Translations: [Hyperlipidemia]Onset: 497187-53-2868FboqfruMqitxtbvs hypertension (17 sources)Essential hypertension; Translations: [Essential (primary) hypertension]Onset: 641158-57-9682OtyomcoPclij aftercare (5 sources)Long-term current use of drug therapy; Translations: [Other fci (current) drug therapy]Onset: 921246-18-0492FbuqlhaaKnhlx nervous system disorders (2 sources)Polyneuropathy; Translations: [Polyneuropathy, unspecified]02-19-2025 ChronicOther nervous system disorders (6 sources)Drug-induced myopathy; Translations: [Toxic myopathy]Onset: 253982-80-8030LstgbybpHjanw screening for suspected conditions (not mental disorders or infectious disease) (20 sources)Encounter for screening mammogram for malignant neoplasm of breast; Translations: [Patient encounter status]Onset: 53-23-5130PhowhscfQgivgtduufc; intervertebral disc disorders; other back problems (4 sources)Lumbar spondylosis; Translations: [Spondylosis without myelopathy or radiculopathy, lumbar region]21-21-0996Ibcchvc Past or Other Problems Problem ClassificationProblemDateDocumented DateEpisodic/ChronicMood disorders (9 sources)Mood disordersOnset: 05-26-2023 Resolved: 119602-90-6114Pguuykge codes; unclassified (1 source)Family history of malignant neoplasm of other organs or systems; Translations: [FAM HX MALIG NEOPLASM OTH ORGN/SYS]Onset: 52-22-3943Yhmtdbjg Results Test NameValueInterpretationReference RangeFacilityGlucose mean value [Mass/volume] in Blood Estimated from glycated hemoglobinOrdered By: Chuckie Zepeda on 96-88-8627[place]lj[place] glucose Estimated from glycated hemoglobin (Bld) [Mass/Vol]137 mg/dLTwin City HospitalHemoglobin A1c percentage Ordered By: Chuckie Zepeda on 23-26-2065QyW8t (Bld) [Mass fraction]6.4 %High 4.5-6.2FPike Community HospitalComment on above:ADA RECOMMENDED LIMIT 4.0 - 6.0ADA THERAPEUTIC TARGET < 7.0ACTION SUGGESTED> 7.0BI MAMMOGRAM SCREENING TOMOSYNTHESIS BILATERALon 34-90-8871IR MAMMOGRAM SCREENING TOMOSYNTHESIS BILATERALThis is a summary report. The complete report [...] Screening Mammogram ELECTRONICALLY SIGNED BY: Sukhdev Betancourt M.D.NormalNot AvailableDEXA BONE DENSITY on 58-40-7840RKEJ BONE DENSITYExamination: DEXA BONE DENSITY Clinical History: screening for [...] fracture risk. ELECTRONICALLY SIGNED BY: Sukhdev Betancourt M.D.NormalNot AvailableVITAMIN B1 (THIAMINE)on 49-31-2104Hsx. B1, Whole Ktpgm948.2 nmol/QFnqyhb62.5-200.0[facility] Bing, Md, Cancer CenterComment on above:Performed By: #### VITB1T #### [facility] [address] [place] [address] Dr. Sameera MontanaGLYCOHEMOGLOBIN A1Con 62-51-2189RYF RECOMMENDATIONSEE BELOWMohawk The [facility] HospitalCommclaren [place] on above:Result Comment: ADA RECOMMENDED LIMIT 4.0 - 6.0 ADA THERAPEUTIC TARGET < 7.0 ACTION SUGGESTED > 7.0Performed By: #### A1C #### [facility] [address] [place] [address] Dr. Sameera MontanaGlucose [Mass/Vol]131 mg/dLNoOhioHealth Berger Hospital on above:Performed By: #### A1C #### [facility] [address] [place] [address] Dr. Sameera MontanaHbA1c (Bld) [Mass fraction]6.2 %Normal4.5-6.2[facility] on above:Performed By: #### A1C #### [facility] [address] [place] [address] Dr. Sameera BowdenID PROFILEon 97-52-1917YUHC-HDL RATIO NORMSEE BELOWAdena Pike Medical CenterCommclaren [place] on above:Result Comment: 3.3 - 4.4 LOW RISK 4.4 - 7.1 AVERAGE RISK 7.1 - 11.0 MODERATE RISK >11.0 HIGH RISKPerformed By: #### LIPID #### [facility] [address] [place] [address] Dr. Sameera Ellisonesterol [Mass/Vol]216 mg/dLCritically high<=200[facility] on above:Performed By: #### LIPID #### [facility] [address] [place] [address] Dr. Sameera Ellisonesterol in HDL [Mass/Vol]46 mg/qXFpqpsr01-06Nbz [facility] on above:Performed By: #### LIPID #### [facility] [address] [place] [address] Dr. Sameera Ellisonesterol in LDL [Mass/Vol]106.4 mg/dLAdena Pike Medical CenterCommclaren northern [place] on above:Performed By: #### LIPID #### [facility] [address] [place] [address] Dr. Yilan ChangCholesterol.total/Cholesterol in HDL [Mass ratio]4.7 {ratio} NormalOhiohealth Arthur G.H. Bing, Md, Cancer CenterComment on above:Performed By: #### LIPID #### [facility] [address] [address] [address] Sameera Singer NORMAL> or = 60 mg/dl - LOW CARDIOVASCULAR RISK <40 mg/dl - HIGH CARDIOVASCULAR RISKAdena Pike Medical CenterComment on above:Performed By: #### LIPID #### [facility] [address] [address] [address] Sameera MontanaLDL CALC NORMALSEE Protestant HospitalComment on above:Result Comment: <100 mg/dl OPTIMAL 100 - 129 mg/dl NEAR OR ABOVE OPTIMAL 130 - 159 mg/dl BORDERLINE HIGH 160 - 189 mg/dl HIGH >190 mg/dl VERY HIGH Performed By: #### LIPID #### [facility] [address] [place] [address] Dr. Sameera MontanaTriglyceride [Mass/Vol]318 mg/dLCritically high<=150The [facility]aconess HospitalComment on above:Performed By: #### LIPID #### [facility] [address] [address] [address] Sameera MontanaVLDL CALC63.6 mg/dLNoMercy Health Urbana HospitalComment on above: Performed By: #### LIPID #### [facility] [address] [place] [address] Dr. Sameera MontanaVITAMIN B12on 89-14-3655Wsjlocfdl (Vitamin B12) [Mass/Vol]506.0 pg/gASbanyq051.0-986.0The [facility] HospitalComment on above:Performed By: #### VITB12 #### [facility] [address] [place] [address] Dr. Sameera MontanaDIRECT LDLon 84-08-3576Ednvaaalhhe in LDL [Mass/Vol]164 mg/dL NormalThe [facility] Deaconess HospitalComment on above:Performed By: #### DLDL, LIPID #### [facility] [address] [place] [address] Dr. Sameera MontanaDLDL NORMALSEE Protestant HospitalCommclaren northern [place] on above: Result Comment: <100 mg/dl OPTIMAL 100 - 129 mg/dl NEAR OR ABOVE OPTIMAL 130 - 159 mg/dl BORDERLINE HIGH 160 - 189 mg/dl HIGH >190 mg/dl VERY HIGHPerformed By: #### DLDL, LIPID #### [facility] [address] [place] [address] Dr. Sameera MontanaGLYCOHEMOGLOBIN A1Con 19-95-4995BTD RECOMMENDATIONSEE BELOWMercy Health Springfield Regional Medical CenterCommclaren [place] on above:Result Comment: ADA RECOMMENDED LIMIT 4.0 - 6.0 ADA THERAPEUTIC TARGET < 7.0 ACTION SUGGESTED > 7.0Performed By: #### A1C #### [facility] [address] [place] [address] Dr. Sameera MontanaGlucose [Mass/Vol]137 mg/dLAdena Pike Medical CenterCommclaren [place] on above:Performed By: #### A1C #### [facility] [address] [place] [address] Dr. Sameera MontanaHbA1c (Bld) [Mass fraction]6.4 %Critically high4.5-6.2[facility] on above:Performed By: #### A1C #### [facility] [address] [place] [address] Dr. Sameera MontanaLIPID PROFILEon 20-66-0385JLHD-HDL RATIO NORMSEE Protestant HospitalCommclaren [facility] [place] on above:Result Comment: 3.3 - 4.4 LOW RISK 4.4 - 7.1 AVERAGE RISK 7.1 - 11.0 MODERATE RISK >11.0 HIGH RISKPerformed By: #### DLDL, LIPID #### [facility] [address] [place] [address] Dr. Sameera MontanaCholesterol [Mass/Vol]295 mg/dLCritically high<=200[facility] on above:Performed By: #### DLDL, LIPID #### [facility] [address] [place] [address] Dr. Sameera MontanaCholesterol in HDL [Mass/Vol]41 mg/kGXxyojb43-24Mlw Esme HospitalComment on above:Performed By: #### DLDL, LIPID #### [facility] [address] [place] [address] Dr. Sameera MontanaCholesterol.total/Cholesterol in HDL [Mass ratio]7.2 {ratio} NormalThe [facility] HospitalCommclaren [place] on above:Performed By: #### DLDL, LIPID #### [facility] [address] [place] [address] Dr. Sameera EdmondsonL NORMAL> or = 60 mg/dl - LOW CARDIOVASCULAR RISK <40 mg/dl - HIGH CARDIOVASCULAR RISKAdena Pike Medical CenterCommclaren [place] on above:Performed By: #### DLDL, LIPID #### [facility] [address] [place] [address] Dr. Sameera Bennett CALC NORMALSEE BELOWAdena Pike Medical CenterCommclaren [place] on above:Result Comment: <100 mg/dl OPTIMAL 100 - 129 mg/dl NEAR OR ABOVE OPTIMAL 130 - 159 mg/dl BORDERLINE HIGH 160 - 189 mg/dl HIGH >190 mg/dl VERY HIGH Performed By: #### DLDL, LIPID #### [facility] [address] [place] [address] Dr. Sameera MontanaTriglyceride [Mass/Vol]440 mg/dLCritically high<=150Ohio[facility] Cancer CenterCommclaren [place] on above:Performed By: #### DLDL, LIPID #### [facility] [address] [place] [address] Dr. Sameera DalalLDL CALC88.0 mg/dLAdena Pike Medical CenterCommclaren [place] on above: Performed By: #### DLDL, LIPID #### [facility] [address] [place] [address] Dr. Sameera MontanaMG MAMM SCREEN 3D MIKEY CADon 86-59-9240QD MAMM SCREEN 3D MIKEY CAD Patient: LALI JACKSON Exam Date: 03/22/2022 : 1955 Gender:F Ordering : SHAIKH Radha JOHNSON . Admission #: [id number] Family : Order #: [id number] CLICK HERE TO VIEW EXAM RADIOLOGY REPORT [...] bone cancer at age 53. LOCATION: [facility] BREAST COMPOSITION: Heterogeneously dense,which may obscure [...] by: Samir Dorantes MD on 03/22/2022 at 12:14[facility] Vital Signs Date TimeVital SignValuePerforming IydyuccsiJztbjfdb28-48-5790 09:28-0400Body rbecix423.02 cmChuckie Zepeda MD Work Phone: [phone]-[facility]09-09-2025 09:28-0400 Body mass index (BMI) [Ratio]25.8 kg/m2Chuckie Zepeda MD Work Phone: [phone]-[facility]09-09-2025 09:28-0400 Body zbzdyzgyxbj06.3 [degF]Chuckie Zepeda MD Work Phone: [facility]09-09-2025 09:28-0400 Body ciuxge49.22 kgChuckie Zepeda MD Work Phone: [phone]-[facility]09-09-2025 09:28-0400 Heart rate80 /minChuckie Zepeda MD Work Phone: [phone]-[facility]09-09-2025 09:28-0400 Respiratory rate20 /minChuckie Zepeda MD Work Phone: [phone] [place], [place] [address]909-09-2025 09:28-0400 SaO2% (BldA) [Mass fraction]97 %Chuckie Zepeda MD Work Phone: [phone]-[facility]06-09-2025 08:36-0400 Body ieaqlr526 cmChuckie Zepeda MD Work Phone: [facility] HospitalZwhrqjqhyb36-02-3936 08:36-0400Body mass index (BMI) [Ratio]25.86 kg/m2Chuckie Zepeda MD Work Phone: [facility] HospitalBmyahvioti67-31-9109 08:36-0400Body temperature 97.5 [degF]Chuckie Zepeda MD Work Phone: [facility] HospitalJoibxurmdb49-35-6274 08:36-0400Body ixdzcw74.22 kgChuckie Zepeda MD Work Phone: [facility] HospitalOghgfacery24-72-5653 08:36-0400Diastolic blood ybouzdoi60 mm[Hg]Chuckie Zepeda MD Work Phone: [facility] HospitalVqztgvdexu86-44-6200 08:36-0400Heart rate89 /min Chuckie Zepeda MD Work Phone: [facility] HospitalQjguovnteq21-06-8433 08:36-0400Respiratory rate18 /minChuckie Zepeda MD Work Phone: [facility] HospitalGmljvogdpn83-79-8661 08:36-0314GhD0% (BldA) [Mass fraction]97 %Chuckie Zepeda MD Work Phone: [facility] HospitalQtdyzubcjn69-70-8844 08:36-0400Systolic blood adeaxacb658 mm[Hg]Chuckie Zepeda MD Work Phone: [facility] HospitalTdofxuodkz24-61-8781 08:58-0500Body zenjjb543 cm Ada Foley GROUP CONTROLLER Work Phone: [facility] HospitalYspzroaiui58-26-0183 08:58-0500Body mass index (BMI) [Ratio]25.69 kg/o6Ysftmuae Foley GROUP CONTROLLER Work Phone: noParkland Health CenterUjkeuluzkl86-93-1707 08:58-0500Body temperature 97.5 [degF]Ada Foley GROUP CONTROLLER Work Phone: [facility] HospitalXgjmthcoue99-73-1233 08:58-0500Body .77 kgAda Foley GROUP CONTROLLER Work Phone: noParkland Health CenterKukodyblsg72-03-8882 08:58-0500Diastolic blood iutcznoq96 mm[Hg]Ada Foley GROUP CONTROLLER Work Phone: [facility] HospitalFjzxsbmjof39-36-6920 08:58-0500Heart rate90 /min Ada Foley GROUP CONTROLLER Work Phone: [facility] HospitalGtggidnavb08-03-7321 08:58-0500Respiratory rate22 /minAda Foley GROUP CONTROLLER Work Phone: [facility] HospitalByfjrrxocc09-50-7588 08:58-1775NfK1% (BldA) [Mass fraction]96 %Ada Foley GROUP CONTROLLER Work Phone: [facility] HospitalHpfgwjxjzk85-92-0415 08:58-0500Systolic blood vhfaxfar036 mm[Hg]Ada Foley GROUP CONTROLLER Work Phone: noParkland Health CenterAjvrsyalap25-92-7371 09:27-0400Body mass index (BMI) [Ratio]25.15 kg/y3Pkdptrou Foley GROUP CONTROLLER Work Phone: [facility] HospitalVgqgtshrba93-39-3987 09:27-0400Body temperature 97.2 [degF]Ada Foley GROUP CONTROLLER Work Phone: noParkland Health CenterFsfaxfurgo98-33-0151 09:27-0400Body fxabpj24.41 kgAllisonittelizabeth Foley GROUP CONTROLLER Work Phone: noParkland Health CenterCiogjgyssx48-96-4070 09:27-0400Diastolic blood ivboecys03 mm[Hg]Ada Foley GROUP CONTROLLER Work Phone: noParkland Health CenterBhlaainvfh99-40-9813 09:27-0400Heart rate75 /min Ada Medinak GROUP CONTROLLER Work Phone: noParkland Health CenterExvhklmvzw85-40-2589 09:27-5319NpS4% (BldA) [Mass fraction]99 %Ada Grigsbytrick GROUP CONTROLLER Work Phone: [facility] Mmodnwopda51-12-7534 09:27-0400Systolic blood pzjiawsl822 mm[Hg]Ada Grigsbytrick GROUP CONTROLLER Work Phone: [facility] Encounters Encounter DateEncounter TypeCare ProviderFacilityStart: 02-19-2025 End: 38-77-9766ncycdapbovNzry Naderer MD Work Phone: [facility] Work Phone: Start: 02-19-2025 End: 35-03-5577Pbmfflj encounter procedureChristopher Toni Singh DO-[facility] Neurology [place] Work Phone: Start: 01-22-2025 End: 31-74-0706cpykalehlgOqsb Naderer MD Work Phone: [facility] Work Phone: Start: 01-22-2025 End: 26-55-6561Cpjuvhd encounter procedureChuckie Zepeda MD-[facility] Family Medicine [place] Work Phone: Start: 10-22-2024 End: 96-79-1251Zyxwbh flowsNaresh Zepeda MD Work Phone: [facility] FMStart: 10-22-2024 End: 27-46-6691Bbrevb He Zepeda MD Work Phone: [facility] FMStart: 10-22-2024 End: 58-99-0938Ebhbiw outpatient visit 15 minutesChuckie Zepeda MD Work Phone: [facility] FMComment on above:Medicare annual wellness visit, subsequent (Primary Dx); Type 2 diabetes mellitus with hyperglycemia, without long-term current use of insulin (CMS/HCC); Essential hypertension; Diabetic polyneuropathy associated with type 2 diabetes mellitus (CMS/HCC); Colon cancer screeningStart: 10-22-2024 End: 98-33-7218Etswaaj encounter procedureChuckie Zepeda MD Work Phone: [facility] HealthcareStart: 10-22-2024 End: 12-22-6551fbshuotzbqLHBH NADERERNot AvailableStart: 14-94-0976Xvuvskc encounter procedureChuckie Zepeda MD Work Phone: NOTB HealthcareStart: 07-20-2024 End: 77-46-1252tvfogogwqgBKTY NADERERNot AvailableStart: 05-23-2024 End: 93-66-3255Whmutx flowsheetBrittany Foley GROUP CONTROLLER Work Phone: [facility] FMStart: 05-23-2024 End: 45-66-6189Nsvpid flowsheetBrittany Foley GROUP CONTROLLER Work Phone: [facility] FMStart: 05-23-2024 End: 14-05-8541Gmicug outpatient visit 15 minutesBrittany Foley GROUP CONTROLLER Work Phone: [facility]WM FMComment on above:Other hyperlipidemia (CMS/HCC) (Primary Dx); Diabetic polyneuropathy associated with type 2 diabetes mellitus (CMS/HCC); Type 2 diabetes mellitus with diabetic polyneuropathy, without long-term current use of insulin (CMS/HCC)Start: 05-23-2024 End: 32-01-3767nmjhcjxytxJOBGVNMT FITZPATRICKNot AvailableStart: 05-22-2024 End: 13-95-6133gvilmkzrxzMKTFQFQN FITZPATRICKNot AvailableStart: 02-21-2024 End: 12-08-6149Vhhqys flowsheetBrittany Foley GROUP CONTROLLER Work Phone: noMS CWM FMStart: 02-21-2024 End: 72-13-3775Hynthj flowsheetBrittany Foley GROUP CONTROLLER Work Phone: [facility] FMStart: 02-21-2024 End: 81-92-6443Kazehb outpatient visit 25 minutesAda Foley GROUP CONTROLLER Work Phone: [facility] FMComment on above:Essential hypertension (Primary Dx); Diabetic polyneuropathy associated with type 2 diabetes mellitus ([facility]/HCC); Encounter for osteoporosis screening in asymptomatic postmenopausal patient; Encounter for screening for malignant neoplasm of colon; Screening mammogram, encounter for; Other hyperlipidemia ([facility]); Type 2 diabetes mellitus with diabetic polyneuropathy, without long-term current use of insulin ([facility])Start: 02-21-2024 End: 84-83-3559dzctcapwytAMNKTCXUAjit Romano AvailableStart: 11-07-2023 End: 77-07-4240negbngsuggEQNRGW FAWWADNot AvailableStart: 60-81-9049Vixlxmc encounter procedureAda Foley GROUP CONTROLLER Work Phone: NOFL HealthcareStart: 08-03-2022 End: 88-68-3945seofjphjqmMOOBBG H FAWWADFacility:V8Fvfie: 06-14-2022 End: 57-90-9422rxcfdjxhssLVRCLY H FAWWADFacility:C5Lwbtw: 03-22-2022 End: 91-19-9874scezjfxkhtWC DAVID V WESTFacility:H1 Procedures DateProcedureProcedure DetailPerforming ClinicianStart: 91-98-8709Jrlpnuomhpx Chuckie Zepeda MD Work Phone: Plan of Treatment DateCare ActivityDetailAuthorStart: 56-74-2313Wbmeadrq screeningDiabetes: Retinopathy ScreeningNOFL HealthcareStart: 34-77-3962Cyekw screening for protein Diabetes: Urine Protein ScreeningNOFL HealthcareStart: 54-00-5371Quregasbf for malignant neoplasm of breastMammogramNOFL HealthcareStart: 76-93-8850Qyimznbwph A1c measurementDiabetes: Hemoglobin P8BQZQE HealthcareStart: 01-22-2025 End: 48-69-3616Lhgdwuq encounter epwgfbhix95/01/2025 9:30 AM EDT Office Visit [facility] [address] [place] [phone] Chuckie Zepeda MD [address] [place] [phone] [facility] FMStart: 29-37-0719Cmzsvgxhc vaccinationInfluenza Vaccine (Season Ended)[facility] HealthcareStart: 10-22-2024 End: 26-61-1249Wxwpabcnrzv colorectal cancer DNA and occult blood screening [Presence] in StoolCologuard colon cancer screening Lab Routine Colon cancer screening Expected: 10/22/2024 (Approximate), Expires: 10/22/2025NOFL Healthcare Work Phone: Comment on above:Expected: 10/22/2024 (Approximate), Expires: 10/22/2025Start: 10-22-2024 End: 94-49-7971Crtbbkz encounter mixeowvuy84/09/2025 8:30 AM EDT Office Visit [facility] [address] [place] [phone] Chuckie Zepeda MD [address] [place] [phone] ArrivedST. [facility] FMComment on above:ArrivedStart: 08-22-2024 End: 83-56-4272Anosqwj encounter /09/2025 10:00 AM EDT Office Visit [facility] [address] [place] [phone] Ada Foley NP [address] [place] [phone] [facility] FMStart: 72-46-0763Bejjvnak screeningDiabetes: Retinopathy ScreeningNOFL HealthcareStart: 94-09-0069Hbiuz screening for protein Diabetes: Urine Protein ScreeningNOFL HealthcareStart: 01-11-2025Medicare Annual Wellness (AWV)Medicare Annual Wellness (AWV)[facility] HealthcareStart: 05-26-2024 Pneumococcal Vaccine: 65+ Years (1 of 2 - PCV)Pneumococcal Vaccine: 65+ Years (1 of 2 - PCV)[facility] HealthcareComment on above:Postponed from 1963 (Patient Refused)Start: 05-23-2024 End: 58-50-3571Iipsfwo encounter procedureNOFL CW FMComment on above:Arrived Start: 02-21-2024 End: 62-82-0411XKD W Auto Differential panel - BloodCBC and differential Lab Routine Essential hypertension Type 2 diabetes mellitus with diabetic polyn europathy, without long-term current use of insulin (CMS/[facility]) Expected: 02/21/2024 (Approximate), Expires: 02/20/2025[facility] HealthcareComment on above: Expected: 02/21/2024 (Approximate), Expires: 02/20/2025Start: 02-21-2024 End: 45-70-1463Yroxkhvbtrwte metabolic 2000 panel - Serum or PlasmaComprehensive metabolic panel Lab Routine Essential hypertension Type 2 diabetes mellitus with diabetic polyneuropathy, without long-term current use of insulin (CMS/HCC) Expected: 02/21/2024 (Approximate), Expires: 02/20/2025[facility] HealthcareComment on above:Expected: 02/21/2024 (Approximate), Expires: 02/20/2025Start: 02-21-2024 End: 87-69-0680JTR Skeletal system Views for bone densityDEXA bone density Imaging Routine Encounter for osteoporosis screening in asymptomatic postmenopausal patient Expected: 02/21/2024, Expires: 02/20/2025[facility] Healthcare Comment on above:Expected: 02/21/2024, Expires: 02/20/2025Start: 02-21-2024 End: 68-51-0349Dqftvktonw A1c/Hemoglobin.total in BloodHemoglobin A1c Lab Routine Type 2 diabetes mellitus with diabetic polyneuropathy, without long-term current use of insulin (CMS/HCC) Expected: 02/21/2024 (Approximate), Expires: 02/20/2025[facility] HealthcareComment on above:Expected: 02/21/2024 (Approximate), Expires: 02/20/2025Start: 02-21-2024 End: 80-10-7406Fwiad 1996 panel - Serum or PlasmaLipid panel Lab Routine Other hyperlipidemia (CMS/HCC) Expected: 02/21/2024 (Approximate), Expires:02/20/2025 [facility] HealthcareComment on above:Expected: 02/21/2024 (Approximate), Expires: 02/20/2025Start: 02-21-2024 End: 46-68-4217UJ Breast - bilateral ScreeningBilateral screening mammogram Imaging Routine Screening mammogram, encounter for Expected: 02/21/2024, Expires: 04/22/2025[facility] HealthcareComment on above:Expected: 02/21/2024, Expires: 04/22/2025Start: 02-21-2024 End: 17-44-0817Xuyyoiuupkq colorectal cancer DNA and occult blood screening [Presence] in StoolCologuard colon cancer screening Lab Routine Encounter for screening for malignant neoplasm of colon Expected: 02/21/2024 (Approximate), Expires: 02/20/2025[facility] HealthcareComment on above:Expected: 02/21/2024 (Approximate), Expires: 02/20/2025Start: 02-21-2024 End: 08-28-6937NMI W/REFLEX TO FT4TSH W/REFLEX TO FT4 Lab Routine Essential hypertension Expected: 02/21/2024 (Approximate), Expires:02/20/2025[facility] Work Phone: Comment on above:Expected: 02/21/2024 (Approximate), Expires: 02/20/2025Start: 02-21-2024 End: 44-13-4354Hqwivqu encounter lnckxtacf49/08/2024 9:30 AM EDT Office Visit [facility] [address] [place] [address] Ada Foley, ALFONSO [address] [place] [address] [facility] FMComment on above:ArrivedStart: 01-15-2024 Influenza vaccinationInfluenza Vaccine (#1)[facility] HealthcareStart: 12-05-2023 Hemoglobin A1c measurementDiabetes: Hemoglobin [id number] HealthcareStart: 62-23-9713Qvhhmqcvn for malignant neoplasm of breastMammogramHEBER VALLEY MEDICAL CENTER Healthcare Start: 99-42-6948Qcoanvchhbqd Vaccine: 65+ Years (1 of 2 - PCV)Pneumococcal Vaccine: 65+ Years (1 of 2 - PCV)[facility] HealthcareStart: 21-97-6440Lpibdfvtk for malignant neoplasm of colonHEBER VALLEY MEDICAL [facility]ENTER HealthcareMicroalbumin/Creatinine panel in random UrineMicroalbumin / creatinine urine ratio Lab Routine Essential hypertension Type 2 diabetes mellitus with diabetic polyneuropathy, without long-term current use of insulin ([facility]) Ordered: 02/21/2024[facility] Comment on above:Ordered: 02/21/2024[facility] Payers DatePayer CategoryPayerPolicy [id number] MEDICARE ADVANTAGE [id number] 2023MedicareAETNA MEDICARE ADVANTAGE AETNA MEDICARE REPLACEMENT [id number] 2022-Present [address] [place] [id number] [id number] [id number] [id number] 2.16.840.1.375965.3.57[id number] 2.16.840.1.685805.3.57[id number] 2.16.840.1.128890.3.57[id number] 2.16.840.1.031328.3.57[id number] 2.16.840.1.997687.3.57[id number] 2.16.840.1.589222.3.57[id number] 2.16.840.1.292496.3.57[id number] 2.16.840.1.375464.3.57[id number] 2.16.840.1.655376.3.579.2.1259 Social History DateTypeDetailFacilityStart: 08-15-2023 End: 21-29-4031Xmwarie smoking status NHISEx-smokerNOMS HealthcareHistory of tobacco useCurrent smokerNOMS HealthcareHistory of tobacco useCigarette Smoker [facility] HealthcareHistory of tobacco usePassive smokerNOMS HealthcareStart: 11-07-2023 End: 58-87-6749Mwbldzwnh beverage intakeLifetime non-drinker (finding)[facility] HealthcareStart: 05-25-2023 End: 66-90-2118Drklpcc of Social functionNOMS HealthcareStart: 05-25-2023 End: 23-57-8777Ojysoxfnzlh, Afraid, Rape, and Kick questionnaire [HARK][facility] HealthcareWithin the last year, have you been afraid of your partner or ex-partner?NoNOMS HealthcareHow often do you attend meetings of the clubs or organizations you belong to?Patient declinedNOFL HealthcareAre you now , , , , never or living with a partner?MarriedHE[facility]LEY MED[facility] HealthcareDo you feel stress - tense, restless, nervous, or anxious, or unable to sleep at night because yourmind is troubled all the time - these days [OSQ]To some extentJefferson Memorial HospitalStart: 67-98-1300Yqyffbv Commentcaffeine: 3-4 cups per dayJefferson Memorial HospitalStart: 92-90-2108Xng assigned at birthNot on [facility] AssociationSexFemal (finding)[facility] 1955 [facility] Functional Status YjwvNuwwukuphhNepmkmPzimmdhf82-95-6145Taopnse Health Questionnaire 2 item (PHQ- 2) [Reported][facility] Clinical Notes 02-21-2024 to 01-22-2025 Note Date & GcueXofdJybaaequ38-05-5370 Evaluation note* Diagnosis Onset Date Resolution Status Admit Date Diabetic polyneuropathy associated with type 2 diabetes mellitus acuteSeptember 2024 9:21amEssential hypertensionacuteSept2024 9:21amLumbar spondylosisacuteSeptember 2024 9:21amStatin myopathyacute Milagro 2024 9:21amType 2 diabetes mellitus with diabetic microalbuminuria, without long-termacuteSeptember 2024 9:21amPolyneuropathy acuteOctober 2024 9:44am [facility] Work Phone: 1(868) 259-459006-09-2025 History of Present illness Narrative* Chuckie Zepeda MD - 10/22/2024 9:14 AM EDTAssociated Problem(s): Type 2 diabetes mellitus with hyperglycemia, without long-term current use of insulin ([facility]) Last A1C 6.5. Stick to [...] polyneuropathy associated with type 2 diabetes mellitus ([facility]) Continued pain and stop neurontin. [...] 6.5. Stopped losartan due to side effects. [place] nauseated and had HART. BP okay without [...] hyperglycemia, without long-term current use of insulin ([facility]) Last A1C 6.5. Stick to ADA diet and limit carbs. Essential hypertension (Chronic) BP okay without medication and monitor. Discussed DASH diet. Diabetic polyneuropathy associated with type 2 diabetes mellitus ([facility]) Continued pain and stop neurontin. [...] Cologuard colon cancer screening documented in this encounterJefferson Memorial HospitalFabttlaamm58-88-4328 History of Present illness Narrative* Ada Foley, GROUP CONTROLLER - 05/23/2024 9:50 AM ESTAssociated Problem(s): Type 2 diabetes mellitus with diabetic polyneuropathy, without long-term current use of insulin ([facility]) Stopped taking all of her medications. States she feels significantly better since stopping all medications. Discussed in detail with pt cardiovascular and additional risks associated with unmanaged diabetes mellitus. Pt verbalized understanding and maintains she would like to stay off of all medications except gabapentin at this time. * Ada Foley NP - 05/23/2024 9:21 AM ESTAssociated Problem(s): Other hyperlipidemia ([facility]) Currently stopped taking Rosuvastatin and [...] polyneuropathy, without long-term current use of insulin ([facility]) Stopped taking all of her [...] (Neurontin) 300 MG capsule documented in this [facility]01-08-2025 Instructions* Patient Instructions* Ada Foley NP - 05/23/2024 9:00 AM EST FASTING labs ordered. Nothing to eat or drink for 12 hours prior to blood draw. Water and black coffee ok. We will call you with results! documented in this [facility]10-08-2024 History of Present illness Narrative* Ada Foley [...] 02/21/2024 12:04 PM EDTAssociated Problem(s): Other hyperlipidemia (CMS/HCC) Currently taking Rosuvastatin 40mg; [...] A1C today. DM Eye Exam: 06/2022 @ [facility] in [place] * Ada Foley NP - 02/21/2024 9:30 [...] DM Eye Exam: 06/2022 @ [facility] in [place] DM Neuropathy: Was taking Gabapentin 100mg Bid. [...] R ALBUMIN GLOBULIN RATIO 0.9 Resulting Agency [facility] Review of Systems Constitutional: Negative for [...] polyneuropathy, without long-term current use of insulin ([facility]) Taking Rybelsus 7mg Denies any [...] A1C today. DM Eye Exam: 06/2022 @ [facility] in [place] Relevant Orders Microalbumin / creatinine urine ratio Hemoglobin A1c Comprehensive metabolic panel CBC and differential Other hyperlipidemia ([facility]) Currently taking Rosuvastatin 40mg; Stopped [...] polyneuropathy associated with type 2 diabetes mellitus ([facility]/HCC) Previously reported Gabapentin as allergy due [...] Cologuard colon cancer screening documented in this encounterJefferson Memorial HospitalGjjthyiauw37-74-1931 Instructions* Patient Instructions* Ada Foley NP - [...] carbohydrates, and simple sugars. documented in this encounterNOFL HealthcareEvaluation note* Diagnosis Essential hypertension- Primary Unspecified essential hypertension Diabetic polyneuropathy associated with type 2 diabetes mellitus ([facility]/HCC) Encounter for osteoporosis screening in asymptomatic postmenopausal patient Encounter for screening for malignant neoplasm of colon Screening mammogram, encounter for Other hyperlipidemia ([facility]) Type 2 diabetes mellitus with diabetic polyneuropathy, without long-term current use of insulin (CMS/[facility]) documented in this encounter [facility] HealthcareEvaluation note* Diagnosis Type 2 diabetes mellitus without complication, without long-term current use of insulin ([facility])- Primary Other hyperlipidemia (CMS/HCC) Essential hypertension Unspecified essential hypertension Screening mammogram, encounter for Diabetic polyneuropathy associated with type 2 diabetes mellitus ([facility]) Encounter for osteoporosis screening in asymptomatic postmenopausal [...] of insulin (CMS/HCC) documented in this encounter [facility] HealthcareEvaluation note* Diagnosis Type 2 [...] polyneuropathy, without long-term current use of insulin ([facility]) Other hyperlipidemia- Primary Diabetic polyneuropathy associated with type 2 diabetes mellitus ([facility]/HCC) Type 2 diabetes mellitus with diabetic polyneuropathy, without long-term current use of insulin ([facility]) Type 2 diabetes mellitus with hyperglycemia, without long-term current use of insulin ([facility])- Primary Essential hypertension Unspecified essential hypertension Diabetic polyneuropathy associated with type 2 diabetes mellitus ([facility]) Statin myopathy Toxic myopathy Dyslipidemia ([facility]) Other and unspecified hyperlipidemia Encounter for long-term (current) use of medications Encounter for long-term (current) use of other medications Fatigue, unspecified type Medicare annual wellness visit, subsequent- Primary Type 2 diabetes mellitus with hyperglycemia, without long-term current use of insulin ([facility]) Essential hypertension Unspecified essential hypertension Diabetic polyneuropathy associated with type 2 diabetes mellitus ([facility]) Colon cancer screening Special screening for malignant neoplasms, colon documented in this encounter [facility] HealthcareEvaluation note* Diagnosis Onset Date Resolution Status Admit Date Diabetic polyneuropathy associated with type 2 diabetes mellitus acuteSeptember 2024 9:21amEssential hypertensionacuteSeptember 2024 9:21amLumbar spondylosisacuteSeptember 2024 9:21amType 2 diabetes mellitus with diabetic microalbuminuria, without long-termacuteSeptember 2024 9:21am [facility] Work Phone: Reason for referral (narrative)No reason for referral information availableKettering Health [facility] Work Phone: Summary Purpose Family History No [...] 2025 9:21am EMG BLE per Aide Lewis GROUP CONTROLLER-C February 19, 2025 9:44am Reason for Visit [...] and content) DATE CREATED AUTHOR 10/22/2022 [facility] DATE CREATED AUTHOR AUTHOR'S ORGANIZ ATION 10/22/2024 [facility] EPIC Care Teams (unrecognized sec tion and content) Team MemberRelationshipSpecialtyStart DateEnd Date Chuckie Zepeda MD [address] [place] [address] PCP - GeneralFamily Medicine12/27/23 Ada Foley NP [address] [place] [phone] Nurse PractitionerFainly Medicine12/27/23Team MemberRelationshipSpecialtyStart DateEnd Date Chuckie Zepeda MD [address] [place] [address] PCP - GeneralFamily Medicine12/27/23 Ada Foley NP [address] [place] [address] Nurse PractitionerFamily Medicine12/27/23Team MemberRelationshipSpecialtyStart DateEnd Date Chuckie Zepeda MD [address] [place] [address] PCP - [facility]12/27/23 Ada Foley NP [address] [place] [address] [facility]Ir[facility]12/27/23Team MemberRelationshipSpecialtyStart DateEnd Date Chuckie Zepeda MD [address] [place] [address] PCP - [facility]12/27/23 Ada Foley NP [address] [place] [address] [facility] Pract[facility]erIr[facility]12/27/23Team MemberRelationshipSpecialtyStart DateEnd Date Chuckie Zepeda MD [address] [place] [address] PCP - [facility]12/27/23Team MemberRelationshipSpecialtyStart DateEnd Date Chuckie Zepeda MD [address] [place] [address] PCP - [facility]12/27/23 Team Status: Active Member Role Status Dates Chuckie Zepeda MD Primary Care Provider Active Team Status: Inactive Member Role Status Dates Chuckie Zepeda MD Primary Care Provider Active S tart: January 22, 2025 End: January 22, 2025[facility] Zepeda MDAttending ProviderActiveStart: January 22, 2025 End: January 22, 2025 Team Status: Inactive Member Role Status Dates Chuckei Zepeda MD Primary Care Provider Active S tart: February 19, 2025 End: February 19hrNunu Diazending ProviderActiveStart: February 19, 2025 End: February 19, 2025 Reason for Visit (unrecogniz ed section and content) ReasonCommentsFollow-upNeuropathy in her feet Pain level is an 8-10 at night ReasonCommentsFollow-up3mReasonCommentsMedicare Annual Wellness Visit Subsequent WELLNESSHip Pain Goals (unrecognized section and content) Goals [...] BE BASED ON THE PRIMARY CLINICAL RECORDS. [facility]. provides no warranty or guarantee of the accuracy or completeness of information in this document.
== END 2025-03-06 09:45 | disposition home or self-care (01) ==
LOC: MRI 09:44
PROVIDERS: PCP Family Medicine; Visit Provider Nurse Practitioner
DX: M51.362 Other intervertebral disc degeneration, lumbar region with discogenic back pain and lower extremity pain (principal)
CPT/HCPCS: 72148

== ENCOUNTER 2025-03-13 08:23 | Outpatient (OUT) | payer MEDICARE, SELFPAY ==
--- OUTSIDE RECORDS SUMMARY | 2025-03-13 08:27 | XMS_ITS | CCD ---
Author Organization [facility] Care Team Providers Care Rod Straightener Name Role Phone FAWWAD, AREVALO H Attending [...] Primary Care Provider Ada Foley NP Unavailable CHUCKIE ZEPEDA Attending Unavailable CHUCKIE ZEPEDA Attending Unavailable FAWWAD, AREVALO Attending Unavailable ADA FOLEY Attending Unavailabl e FOLEY, BRITTANY Referring Unavailabl e FOLEY, BRITTANY Referring Unavailabl e ADA FOLEY Attending UnavailChuckie Rodriguez MD Primary Care Provider [phone] Chuckie Zepeda MD Attending Provider Noel Muñoz DO Attending Provider [phone] Allergies Allergy ClassificationReported Allergen(s)Allergy TypeDate of OnsetReaction(s) Facility (11 sources)gabapentinDrug Epzffyn75-53-4087DdpeoVUBW Healthcare Medications Current Medications MedicationDrug Class(es)DatesSig (Normalized)Sig (Original)DULoxetine 30 mg delayed release oral capsule (2 sources)Serotonin and Norepinephrine Reuptake InhibitorStart: 30-69-3657ddnk 1 capsule by mouth once dailyezetimibe 10 mg oral tablet (5 sources)Dietary Cholesterol Absorption InhibitorStart: 02-21-2024 End: 54-05-7374yvvv 1 tablet by mouth once dailyezetimibe (Zetia) 10 MG tablet Indications: Other hyperlipidemia (CMS/HCC) Take 1 tablet (10 mg) bymouth Daily 30 tablet 11 02/21/2024 02/20/2025 Activefenofibrate 145 mg oral tablet (3 sources)Peroxisome Proliferator Receptor alpha AgonistStart: 11-08-2023 End: 70-48-9282hlud 1 tablet by mouth once dailyfenofibrate (Tricor) 145 MG tablet Indications: Other hyperlipidemia (CMS/HCC) Take 1 tablet (145 mg) by mouth Daily 90 tablet 11/08/2023 02/21/2024 Discontinued (Side effects) gabapentin 300 mg oral capsule (13 sources)Anti-epileptic AgentStart: 02-21-2024 End: 34-21-6213kzef 1 capsule by mouth in the morninggabapentin (Neurontin) 300 MG capsule Indications: Diabetic polyneuropathy associated with type 2 diabetes mellitus (CMS/HCC) Take 1 capsule (300 mg) by mouth in the morning and 1 capsule (300 mg) before bedtime. 180 capsule 07/20/2024 10/22/2024 DiscontinuedStart: 11-07-2023 End: 81-20-1574kiez 1 capsule by mouth in the morninggabapentin (Neurontin) 100 MG capsule Indications: Diabetic polyneuropathy associated with type 2 diabetes mellitus (CMS/HCC) Take 1 capsule (100 mg) by mouth in the morning and 1 capsule (100 mg) before bedtime. 200 capsule 1 11/07/2023 02/21/2024 Discontinued (Dose adjustment)lidocaine 0.05 mg/mg medicated patch (2 sources)Antiarrhythmic, Amide Local AnestheticStart: 90-21-2718icgbp 1 dose topically once dailylosartan potassium 25 mg oral tablet (3 sources)Angiotensin 2 Receptor BlockerStart: 07-31-2024 End: 25-64-6241dydp 1 tablet by mouth once dailylosartan (Cozaar) 25 MG tablet Indications: Essential hypertension (CMS/HCC) Take 1 tablet (25 mg) by mouth Daily 30 tablet 5 07/31/2024 10/22/2024 Discontinuedpregabalin 75 mg oral capsule (2 sources)Start: 10-22-2024 End: 33-25-0554lgzl 1 capsule by mouth in the morningpregabalin (Lyrica) 75 MG capsule Indications: Diabetic polyneuropathy associated with type 2 diabetes mellitus (CMS/HCC) Take 1 capsule (75 mg) by mouth in the morning and 1 capsule (75 mg) before bedtime. 60 capsule 1 10/22/2024 12/21/2024 Activerosuvastatin calcium 40 mg oral tablet (6 sources)HMG-CoA Reductase InhibitorStart: 11-08-2023 End: 06-78-9163sioy 1 tablet by mouth once dailyrosuvastatin (Crestor) 40 MG tablet Indications: Other hyperlipidemia (CMS/HCC) Take 1 tablet (40 mg) by mouth Daily 100 tablet 1 11/08/2023 05/26/2024 Activesemaglutide 7 mg oral tablet (6 sources)Start: 11-07-2023 End: 55-72-7744fyzs 1 tablet by mouth before mealtimesemaglutide (Rybelsus) 7 MG tablet Indications: Type 2 diabetes mellitus without complication, without long- term current use of insulin (CMS/HCC) Take 1 tablet (7 mg) by mouth in the morning. Take before meals. 100 tablet 1 11/07/2023 05/25/2024 Active Completed/Discontinued Medications MedicationDrug Class(es)DatesSig (Normalized)Sig (Original)amitriptyline hydrochloride 25 mg oral tablet (2 sources)Tricyclic AntidepressantStart: 01-21-2025 End: 58-28-6815isws 1 tablet by mouth once daily at [...] complications; Translations: [TYPE 2 DM WITHOUT COMPLICATIONS]Onset: 10-95-1607GyqsowsPilwsreee of lipid metabolism (16 sources)Hyperlipidemia, unspecified; Translations: [Hyperlipidemia]Onset: 296564-31-7315EhaovhiEgpxrogoy hypertension (17 sources)Essential hypertension; Translations: [Essential (primary) hypertension]Onset: 043575-97-2179AwjkiuuZdtfx aftercare (5 sources)Long-term current use of drug therapy; Translations: [Other penitentiary (current) drug therapy]Onset: 160021-54-5224DotfzyudJujcg nervous system disorders (2 sources)Polyneuropathy; Translations: [Polyneuropathy, unspecified]02-19-2025 ChronicOther nervous system disorders (6 sources)Drug-induced myopathy; Translations: [Toxic myopathy]Onset: 444237-84-6482XyqceiriWpilq screening for suspected conditions (not mental disorders or infectious disease) (20 sources)Encounter for screening mammogram for malignant neoplasm of breast; Translations: [Patient encounter status]Onset: 03-84-8466XicilvqfSrqcudruyso; intervertebral disc disorders; other back problems (4 sources)Lumbar spondylosis; Translations: [Spondylosis without myelopathy or radiculopathy, lumbar region]63-13-8896Kluyvwu Past or Other Problems Problem ClassificationProblemDateDocumented DateEpisodic/ChronicMood disorders (9 sources)Mood disordersOnset: 05-26-2023 Resolved: 080122-31-5523Szpcgzck codes; unclassified (1 source)Family history of malignant neoplasm of other organs or systems; Translations: [FAM HX MALIG NEOPLASM OTH ORGN/SYS]Onset: 22-97-1895Xiikcemk Results Test NameValueInterpretationReference RangeFacilityGlucose mean value [Mass/volume] in Blood Estimated from glycated hemoglobinOrdered By: Chuckie Zepeda on 06-30-8006Xcowhnm glucose Estimated from glycated hemoglobin (Bld) [Mass/Vol]137 mg/dLChildren'S Hospital Of ColumbusHemoglobin A1c percentage Ordered By: Chuckie Zepeda on 14-87-5772ScZ7e (Bld) [Mass fraction]6.4 %High 4.5-6.2FProMedica Memorial HospitalComment on above:ADA RECOMMENDED LIMIT 4.0 - 6.0ADA THERAPEUTIC TARGET < 7.0ACTION SUGGESTED> 7.0BI MAMMOGRAM SCREENING TOMOSYNTHESIS BILATERALon 28-82-6492HQ MAMMOGRAM SCREENING TOMOSYNTHESIS BILATERALThis is a summary [...] Sukhdev Betancourt M.D.NormalNot AvailableDEXA BONE DENSITY on 13-38-5897QTZI BONE DENSITYExamination: DEXA BONE DENSITY Clinical History: [...] BY: Sukhdev Betancourt M.D.NormalNot AvailableVITAMIN B1 (THIAMINE)on 40-05-4475Zpe. B1, Whole Wxovn134.2 nmol/XZzpogt85.5-200.0Mart[facility] Ferry HospitalComment on above:Performed By: #### VITB1T #### [facility] [address] [place] [address] Dr. Sameera MontanaGLYCOHEMOGLOBIN A1Con 80-14-7123HOW RECOMMENDATIONSEE BELOWForest Junction [facility] CenterCombeaumont hospital on above:Result Comment: ADA RECOMMENDED LIMIT 4.0 - 6.0 ADA THERAPEUTIC TARGET < 7.0 ACTION SUGGESTED > 7.0Performed By: #### A1C #### [facility] [address] [place] [address] Dr. Sameera MontanaGlucose [Mass/Vol]131 mg/dLNoRegency Hospital Company on above:Performed By: #### A1C #### [facility] [address] [place] [address] Dr. Sameera MontanaHbA1c (Bld) [Mass fraction]6.2 %Normal4.5-6.2[facility] on above:Performed By: #### A1C #### [facility] [address] [place] [address] Dr. Sameera BowdenID PROFILEon 35-02-9991ACOM-HDL RATIO NORMSEE BELOWCincinnati Children's Hospital Medical CenterCombeaumont hospital on above:Result Comment: 3.3 - 4.4 LOW RISK 4.4 - 7.1 AVERAGE RISK 7.1 - 11.0 MODERATE RISK >11.0 HIGH RISKPerformed By: #### LIPID #### [facility] [address] [place] [address] Dr. Sameera Ellisonesterol [Mass/Vol]216 mg/dLCritically high<=200[facility] on above:Performed By: #### LIPID #### [facility] [address] [place] [address] Dr. Sameera Ellisonesterol in HDL [Mass/Vol]46 mg/mPBikegl04-11Bam [facility] on above:Performed By: #### LIPID #### [facility] [address] [place] [address] Dr. Sameera Ellisonesterol in LDL [Mass/Vol]106.4 mg/dLCincinnati Children's Hospital Medical CenterCombeaumont hospital on above:Performed By: #### LIPID #### [facility] [address] [place] [address] Dr. Yilan ChangCholesterol.total/Cholesterol in HDL [Mass ratio]4.7 {ratio} NormalMartins Ferry HospitalComment on above:Performed By: #### LIPID #### [facility] [address] [address] [address] Sameera Singer NORMAL> or = 60 mg/dl - LOW CARDIOVASCULAR RISK <40 mg/dl - HIGH CARDIOVASCULAR RISKCincinnati Children's Hospital Medical CenterComment on above:Performed By: #### LIPID #### [facility] [address] [address] [address] Sameera MontanaLDL CALC NORMALSEE Barnesville HospitalComment on above:Result Comment: <100 mg/dl OPTIMAL 100 - 129 mg/dl NEAR OR ABOVE OPTIMAL 130 - 159 mg/dl BORDERLINE HIGH 160 - 189 mg/dl HIGH >190 mg/dl VERY HIGH Performed By: #### LIPID #### [facility] [address] [place] [address] Dr. Sameera MontanaTriglyceride [Mass/Vol]318 mg/dLCritically high<=150[facility] CenterComment on above:Performed By: #### LIPID #### [facility] [address] [address] [address] Sameera MontanaVLDL CALC63.6 mg/dLNoOhioHealth Grady Memorial HospitalComment on above: Performed By: #### LIPID #### [facility] [address] [place] [address] Dr. Sameera MontanaVITAMIN B12on 46-35-1962Lmfamqeii (Vitamin B12) [Mass/Vol]506.0 pg/vNMfxpts638.0-986.0[facility] CenterComment on above:Performed By: #### VITB12 #### [facility] [address] [place] [address] Dr. Sameera MontanaDIRECT LDLon 98-26-5278Xmnsgrzrbdb in LDL [Mass/Vol]164 mg/dL NormalThe [facility] CenterComment on above:Performed By: #### DLDL, LIPID #### [facility] [address] [place] [address] Dr. Sameera MontanaDLDL NORMALSEE [facility] HospitalCombeaumont hospital on above: Result Comment: <100 mg/dl OPTIMAL 100 - 129 mg/dl NEAR OR ABOVE OPTIMAL 130 - 159 mg/dl BORDERLINE HIGH 160 - 189 mg/dl HIGH >190 mg/dl VERY HIGHPerformed By: #### DLDL, LIPID #### [facility] [address] [place] [address] Dr. Sameera MontanaGLYCOHEMOGLOBIN A1Con 18-91-5151BLL RECOMMENDATIONSEE BELOWMercy HospitalCombeaumont hospital on above:Result Comment: ADA RECOMMENDED LIMIT 4.0 - 6.0 ADA THERAPEUTIC TARGET < 7.0 ACTION SUGGESTED > 7.0Performed By: #### A1C #### [facility] [address] [place] [address] Dr. Sameera MontanaGlucose [Mass/Vol]137 mg/dLCincinnati Children's Hospital Medical CenterCombeaumont hospital on above:Performed By: #### A1C #### [facility] [address] [place] [address] Dr. Sameera MontanaHbA1c (Bld) [Mass fraction]6.4 %Critically high4.5-6.2[facility] on above:Performed By: #### A1C #### [facility] [address] [place] [address] Dr. Sameera MontanaLIPID PROFILEon 28-78-9766FXDX-HDL RATIO NORMSEE [facility] HospitalCombeaumont hospital on above:Result Comment: 3.3 - 4.4 LOW RISK 4.4 - 7.1 AVERAGE RISK 7.1 - 11.0 MODERATE RISK >11.0 HIGH RISKPerformed By: #### DLDL, LIPID #### [facility] [address] [place] [address] Dr. Sameera MontanaCholesterol [Mass/Vol]295 mg/dLCritically high<=200[facility] on above:Performed By: #### DLDL, LIPID #### [facility] [address] [place] [address] Dr. Sameera MontanaCholesterol in HDL [Mass/Vol]41 mg/zNZlsixx00-43Qnf Esme HospitalComment on above:Performed By: #### DLDL, LIPID #### [facility] [address] [place] [address] Dr. Sameera MontanaCholesterol.total/Cholesterol in HDL [Mass ratio]7.2 {ratio} NormalThe [facility] CenterCombeaumont hospital on above:Performed By: #### DLDL, LIPID #### [facility] [address] [place] [address] Dr. Sameera EdmondsonL NORMAL> or = 60 mg/dl - LOW CARDIOVASCULAR RISK <40 mg/dl - HIGH CARDIOVASCULAR RISKCincinnati Children's Hospital Medical CenterCombeaumont hospital on above:Performed By: #### DLDL, LIPID #### [facility] [address] [place] [address] Dr. Sameera Bennett CALC NORMALSEE BELOWCincinnati Children's Hospital Medical CenterCombeaumont hospital on above:Result Comment: <100 mg/dl OPTIMAL 100 - 129 mg/dl NEAR OR ABOVE OPTIMAL 130 - 159 mg/dl BORDERLINE HIGH 160 - 189 mg/dl HIGH >190 mg/dl VERY HIGH Performed By: #### DLDL, LIPID #### [facility] [address] [place] [address] Dr. Sameera MontanaTriglyceride [Mass/Vol]440 mg/dLCritically high<=150[facility] HospitalCombeaumont hospital on above:Performed By: #### DLDL, LIPID #### [facility] [address] [place] [address] Dr. Sameera DalalLDL CALC88.0 mg/dLCincinnati Children's Hospital Medical CenterCombeaumont hospital on above: Performed By: #### DLDL, LIPID #### [facility] [address] [place] [address] Dr. Sameera MontanaMG MAMM SCREEN 3D MIKEY CADon 90-07-2287SZ MAMM SCREEN 3D MIKEY CAD Patient: LALI JACKSON Exam Date: 03/22/2022 : 1955 Gender:F Ordering : SHAIKH Radha JHONSON . Admission #: [id number] Family : Order #: [id number] CLICK HERE TO VIEW EXAM RADIOLOGY REPORT [...] bone cancer at age 53. LOCATION: [facility] BREAST COMPOSITION: Heterogeneously dense,which may [...] by: Samir Dorantes MD on 03/22/2022 at 12:14[facility] Vital Signs Date TimeVital SignValuePerforming ObkjtfrliVysjsgwa90-45-7850 09:28-0400Body bauaqe146.02 cmChuckie Zepeda MD Work Phone: [phone]-[facility]09-09-2025 09:28-0400 Body mass index (BMI) [Ratio]25.8 kg/m2Cuhckie Zepeda MD Work Phone: [phone]-[facility]09-09-2025 09:28-0400 Body wrkhqzjgnlo22.3 [degF]Chuckie Zepeda MD Work Phone: [facility]09-09-2025 09:28-0400 Body .22 kgChuckie Zepeda MD Work Phone: [phone]-[facility]09-09-2025 09:28-0400 Heart rate80 /minChuckie Zepeda MD Work Phone: [phone]-[facility]09-09-2025 09:28-0400 Respiratory rate20 /minChuckie Zepeda MD Work Phone: [phone] [place], [place] 7124309-09-2025 09:28-0400 SaO2% (BldA) [Mass fraction]97 %Chuckie Zepeda MD Work Phone: [phone]-[facility]06-09-2025 08:36-0400 Body aqjxpb959 cmChuckie Zepeda MD Work Phone: [facility] HospitalIydbphqcxf77-94-3704 08:36-0400Body mass index (BMI) [Ratio]25.86 kg/m2Chuckie Zepeda MD Work Phone: [facility] HospitalMcpvflskwk28-85-2481 08:36-0400Body temperature 97.5 [degF]Chuckie Zepeda MD Work Phone: [facility] HospitalVhmmorbrzt09-09-6591 08:36-0400Body .22 kgChuckie Zepeda MD Work Phone: [facility] HospitalZrqfcfmgpd65-52-5974 08:36-0400Diastolic blood nnshlgaf81 mm[Hg]Chuckie Zepeda MD Work Phone: [facility] HospitalLhpaybuwzk11-65-0229 08:36-0400Heart rate89 /min Chuckie Zepeda MD Work Phone: [facility] HospitalSpmswualqd00-93-3769 08:36-0400Respiratory rate18 /minChuckie Zepeda MD Work Phone: [facility] HospitalDkwmibcqpg28-81-9092 08:36-9541RiY1% (BldA) [Mass fraction]97 %Chuckie Zepeda MD Work Phone: [facility] HospitalRfloncrgil41-70-0651 08:36-0400Systolic blood nexcnzhr975 mm[Hg]Chuckie Zepeda MD Work Phone: [facility] HospitalNxftzfpobr04-66-1859 08:58-0500Body ysmsqr405 cm Ada Foley [employer] Work Phone: [facility] HospitalZeadkdceqf90-80-9765 08:58-0500Body mass index (BMI) [Ratio]25.69 kg/a5Qfdbodem Foley [employer] DIRECTOR Work Phone: noSac-Os[facility] HospitalAoeimalqou83-78-5493 08:58-0500Body temperature 97.5 [degF]Ada Foley [employer] DIRECT[employer] Work Phone: [facility] HospitalBpmdnrjxsm05-57-1305 08:58-0500Body .77 kgAda Foley [employer] DIRECTOR Work Phone: noSac-[facility] HospitalMtasvwmayr81-87-9429 08:58-0500Diastolic blood doohpcwr52 mm[Hg]Ada Foley [employer] DIRECT[employer] Work Phone: [facility] HospitalGkmibbmewe63-16-9119 08:58-0500Heart rate90 /min Ada Foley [employer] DIRECT[employer] Work Phone: [facility] HospitalClmvhggbiw15-75-1641 08:58-0500Respiratory rate22 /minAda Foley [employer]ENCE [employer] DIRECTOR Work Phone: [facility] HospitalCketttiapa49-39-1645 08:58-8554DhO3% (BldA) [Mass fraction]96 %Ada Foley [employer] DIRECT[employer] Work Phone: [facility] HospitalRkumrbouox20-37-9391 08:58-0500Systolic blood yvysnfkx613 mm[Hg]Ada Foley [employer] DIRECT[employer] Work Phone: noS[facility] HospitalUzotvlmrap46-73-4303 09:27-0400Body mass index (BMI) [Ratio]25.15 kg/j0Wddfclwl Foley [employer] DIRECT[employer] Work Phone: [facility] HospitalOkjxqtbqzg57-77-1345 09:27-0400Body temperature 97.2 [degF]Ada Foley [employer] DIRECT[employer] Work Phone: noS[facility] HospitalLvvblumgam18-08-7017 09:27-0400Body gyxgct48.41 kgAllisonittelizabeth Foley [employer] DIRECTOR Work Phone: noS[facility] HospitalKhknbnfwla96-46-1146 09:27-0400Diastolic blood bimdzryz72 mm[Hg]Ada Foley [employer] DIRECTOR Work Phone: noS[facility] HospitalMmgdptjrpd73-43-2902 09:27-0400Heart rate75 /min Ada Medinak [employer] DIRECTOR Work Phone: noS[facility] HospitalMdcxdnlkmr48-04-7789 09:27-2257JtB3% (BldA) [Mass fraction]99 %Ada Grigsbytrick [employer] DIRECTOR Work Phone: [facility] Zljakqkqpt91-94-1655 09:27-0400Systolic blood ospstuub789 mm[Hg]Ada Grigsbytrick [employer] DIRECTOR Work Phone: [facility] Encounters Encounter DateEncounter TypeCare ProviderFacilityStart: 02-19-2025 End: 44-73-1535qiokrqmeuvNham Naderer MD Work Phone: [facility] Work Phone: Start: 02-19-2025 End: 88-96-1094Yaqfhhn encounter procedureChristopher Toni Singh DO-[facility] Neurology [place] Work Phone: Start: 01-22-2025 End: 62-25-3061rautusmifoOrst Naderer MD Work Phone: [facility] Work Phone: Start: 01-22-2025 End: 42-04-2060Ajerkdn encounter procedureChuckie Zepeda MD-[facility] Family Medicine [place] Work Phone: Start: 10-22-2024 End: 71-26-2740Kbwgiq flowsNaresh Zepeda MD Work Phone: [facility] FMStart: 10-22-2024 End: 60-57-6139Qbbegc He Zepeda MD Work Phone: [facility] FMStart: 10-22-2024 End: 06-53-4477Xlltrc outpatient visit 15 minutesChuckie Zepeda MD Work Phone: [facility] FMComment on above:Medicare annual wellness visit, subsequent (Primary Dx); Type 2 diabetes mellitus with hyperglycemia, without long-term current use of insulin (CMS/HCC); Essential hypertension; Diabetic polyneuropathy associated with type 2 diabetes mellitus (CMS/HCC); Colon cancer screeningStart: 10-22-2024 End: 66-16-6007Jlpynlk encounter procedureChuckie Zepeda MD Work Phone: [facility] HealthcareStart: 10-22-2024 End: 69-00-8683oznzyshzxwUCMB NADERERNot AvailableStart: 17-06-6246Qqyuxcv encounter procedureChuckie Zepeda MD Work Phone: [facility] HealthcareStart: 07-20-2024 End: 57-54-8428fnaldhkexmMDFI NADERERNot AvailableStart: 05-23-2024 End: 83-70-8572Uhulmh flowsheetBrittany Foley [employer] DIRECTOR Work Phone: [facility] FMStart: 05-23-2024 End: 38-00-0569Nsluri flowsheetBrittany Foley [employer] DIRECTOR Work Phone: [facility] FMStart: 05-23-2024 End: 24-30-7932Dndmwf outpatient visit 15 minutesBrittany Foley [employer] DIRECTOR Work Phone: [facility] FMComment on above:Other hyperlipidemia (CMS/HCC) (Primary Dx); Diabetic polyneuropathy associated with type 2 diabetes mellitus (CMS/HCC); Type 2 diabetes mellitus with diabetic polyneuropathy, without long-term current use of insulin (CMS/HCC)Start: 05-23-2024 End: 26-17-7140okraxmglkyVUMPHBUO FITZPATRICKNot AvailableStart: 05-22-2024 End: 96-54-3732hgmoymdmqaGLHBQIXM FITZPATRICKNot AvailableStart: 02-21-2024 End: 52-88-8881Tdfbpu flowsheetBrittany Foley [employer] DIRECTOR Work Phone: noMS CWM FMStart: 02-21-2024 End: 77-01-5405Btrqzv flowsheetBrittany Foley [employer]ENCE [employer] DIRECTOR Work Phone: [facility] FMStart: 02-21-2024 End: 02-95-3850Feazkn outpatient visit 25 minutesAda Foley [employer] DIRECTOR Work Phone: [facility] FMComment on above:Essential hypertension (Primary Dx); Diabetic polyneuropathy associated with type 2 diabetes mellitus ([facility]/HCC); Encounter for osteoporosis screening in asymptomatic postmenopausal patient; Encounter for screening for malignant neoplasm of colon; Screening mammogram, encounter for; Other hyperlipidemia ([facility]); Type 2 diabetes mellitus with diabetic polyneuropathy, without long-term current use of insulin ([facility])Start: 02-21-2024 End: 41-87-9903bjdxemdpyiPOOHACIZAjit Romano AvailableStart: 11-07-2023 End: 96-41-0820qbczfubbmyXGHNUW FAWWADNot AvailableStart: 42-76-8780Gqsrmrn encounter procedureAda Foley [employer] DIRECTOR Work Phone: NOFL HealthcareStart: 08-03-2022 End: 91-24-6252tnrpgbxjjuMEFQDG H FAWWADFacility:Q1Ljnje: 06-14-2022 End: 18-41-2302ffsnsszmdnOMVIII H FAWWADFacility:F0Papxl: 03-22-2022 End: 56-76-7512feavosptnnII DAVID V WESTFacility:H1 Procedures DateProcedureProcedure DetailPerforming ClinicianStart: 65-60-6131Evqqawrmzsm Chuckie Zepeda MD Work Phone: Plan of Treatment DateCare ActivityDetailAuthorStart: 01-91-0479Ddfmfuhm screeningDiabetes: Retinopathy ScreeningNOFL HealthcareStart: 75-07-6737Ersss screening for protein Diabetes: Urine Protein ScreeningNOFL HealthcareStart: 18-26-9611Cawvcjfzw for malignant neoplasm of breastMammogramNOFL HealthcareStart: 56-29-5063Etvaubthwx A1c measurementDiabetes: Hemoglobin S0IPYCB HealthcareStart: 01-22-2025 End: 64-68-0143Yjptdhv encounter /01/2025 9:30 AM EDT Office Visit [facility] [address] [place] [phone] Chuckie Zepeda MD [address] [place] [phone] [facility] FMStart: 63-41-1385Fhkldypqn vaccinationInfluenza Vaccine (Season Ended)[facility] HealthcareStart: 10-22-2024 End: 77-72-6923Itroqtcorvj colorectal cancer DNA and occult blood screening [Presence] in StoolCologuard colon cancer screening Lab Routine Colon cancer screening Expected: 10/22/2024 (Approximate), Expires: 10/22/2025[facility] Work Phone: Comment on above:Expected: 10/22/2024 (Approximate), Expires: 10/22/2025Start: 10-22-2024 End: 72-65-0702Blisfai encounter gmbttsuki13/09/2025 8:30 AM EDT Office Visit [facility] [address] [place] [phone] Chuckie Zepeda MD [address] [place] [phone] ArrivedSALINAS [facility] FMComment on above:ArrivedStart: 08-22-2024 End: 34-98-5352Somctko encounter crkxbictw28/09/2025 10:00 AM EDT Office Visit [facility] [address] [place] [phone] Ada Foley NP [address] [place] [phone] [facility] FMStart: 48-19-5174Qaoengtu screeningDiabetes: Retinopathy ScreeningNOFL HealthcareStart: 85-18-7735Xyphd screening for protein Diabetes: Urine Protein ScreeningNOFL HealthcareStart: 01-11-2025Medicare Annual Wellness (AWV)Medicare Annual Wellness (AWV)[facility] HealthcareStart: 05-26-2024 Pneumococcal Vaccine: 65+ Years (1 of 2 - PCV)Pneumococcal Vaccine: 65+ Years (1 of 2 - PCV)[facility] HealthcareComment on above:Postponed from 1963 (Patient Refused)Start: 05-23-2024 End: 11-67-1332Bjdtqkf encounter procedureNOFL CW FMComment on above:Arrived Start: 02-21-2024 End: 34-70-2661ISE W Auto Differential panel - BloodCBC and differential Lab Routine Essential hypertension Type 2 diabetes mellitus with diabetic polyn europathy, without long-term current use of insulin (CMS/[facility]) Expected: 02/21/2024 (Approximate), Expires: 02/20/2025[facility] HealthcareComment on above: Expected: 02/21/2024 (Approximate), Expires: 02/20/2025Start: 02-21-2024 End: 15-34-4794Ljrzrnwkqhfwx metabolic 2000 panel - Serum or PlasmaComprehensive metabolic panel Lab Routine Essential hypertension Type 2 diabetes mellitus with diabetic polyneuropathy, without long-term current use of insulin (CMS/HCC) Expected: 02/21/2024 (Approximate), Expires: 02/20/2025[facility] HealthcareComment on above:Expected: 02/21/2024 (Approximate), Expires: 02/20/2025Start: 02-21-2024 End: 16-59-7777YFG Skeletal system Views for bone densityDEXA bone density Imaging Routine Encounter for osteoporosis screening in asymptomatic postmenopausal patient Expected: 02/21/2024, Expires: 02/20/2025[facility] Healthcare Comment on above:Expected: 02/21/2024, Expires: 02/20/2025Start: 02-21-2024 End: 98-33-2817Duowclunzn A1c/Hemoglobin.total in BloodHemoglobin A1c Lab Routine Type 2 diabetes mellitus with diabetic polyneuropathy, without long-term current use of insulin (CMS/HCC) Expected: 02/21/2024 (Approximate), Expires: 02/20/2025[facility] HealthcareComment on above:Expected: 02/21/2024 (Approximate), Expires: 02/20/2025Start: 02-21-2024 End: 25-74-0276Cjlhg 1996 panel - Serum or PlasmaLipid panel Lab Routine Other hyperlipidemia (CMS/HCC) Expected: 02/21/2024 (Approximate), Expires:02/20/2025 [facility] HealthcareComment on above:Expected: 02/21/2024 (Approximate), Expires: 02/20/2025Start: 02-21-2024 End: 25-52-1060HH Breast - bilateral ScreeningBilateral screening mammogram Imaging Routine Screening mammogram, encounter for Expected: 02/21/2024, Expires: 04/22/2025NO[facility] HealthcareComment on above:Expected: 02/21/2024, Expires: 04/22/2025Start: 02-21-2024 End: 07-50-0214Stdinohmaek colorectal cancer DNA and occult blood screening [Presence] in StoolCologuard colon cancer screening Lab Routine Encounter for screening for malignant neoplasm of colon Expected: 02/21/2024 (Approximate), Expires: 02/20/2025[facility] HealthcareComment on above:Expected: 02/21/2024 (Approximate), Expires: 02/20/2025Start: 02-21-2024 End: 28-34-6831LFE W/REFLEX TO FT4TSH W/REFLEX TO FT4 Lab Routine Essential hypertension Expected: 02/21/2024 (Approximate), Expires:02/20/2025[facility] Work Phone: Comment on above:Expected: 02/21/2024 (Approximate), Expires: 02/20/2025Start: 02-21-2024 End: 97-54-1969Pjzwwcl encounter qjzwuvhbo70/08/2024 9:30 AM EDT Office Visit [facility] [address] [place] [address] Ada Foley, ALFONSO [address] [place] [address] [facility] FMComment on above:ArrivedStart: 01-15-2024 Influenza vaccinationInfluenza Vaccine (#1)[facility] HealthcareStart: 12-05-2023 Hemoglobin A1c measurementDiabetes: Hemoglobin Q9DAMGO HealthcareStart: 86-82-1928Idckwybre for malignant neoplasm of breastMammogramMOUNTAIN WEST MEDICAL CENTER Healthcare Start: 21-17-4091Agnbgvzshnti Vaccine: 65+ Years (1 of 2 - PCV)Pneumococcal Vaccine: 65+ Years (1 of 2 - PCV)[facility] HealthcareStart: 75-37-0781Xvvtadfte for malignant neoplasm of colonMOUNTAIN WEST MEDICAL [facility]ENTER HealthcareMicroalbumin/Creatinine panel in random UrineMicroalbumin / creatinine urine ratio Lab Routine Essential hypertension Type 2 diabetes mellitus with diabetic polyneuropathy, without long-term current use of insulin ([facility]) Ordered: 02/21/2024[facility] Comment on above:Ordered: 02/21/2024[facility] Payers DatePayer CategoryPayerPolicy [id number] MEDICARE ADVANTAGE [id number] 2023MedicareAETNA MEDICARE ADVANTAGE AETNA MEDICARE REPLACEMENT [id number] 2022-Present [address] [place] [id number] [id number] [id number] [id number] 2.16.840.1.398124.3.57[id number] 2.16.840.[id number] 2.16.840.1.107991.3.57[id number] 2.16.840.1.638336.3.57[id number] 2.16.840.1.2[id number] 2.16.840.1.220410.3.57[id number] 2.16.840.1.075124.3.57[id number] 2.16.840.1.934159.3.57[id number] 2.16.840.1.669147.3.579.2.1259 Social History DateTypeDetailFacilityStart: 08-15-2023 End: 35-25-9243Rfnppgj smoking status NHISEx-smokerNOMS HealthcareHistory of tobacco useCurrent smokerNOMS HealthcareHistory of tobacco useCigarette Smoker [facility] HealthcareHistory of tobacco usePassive smokerNOMS HealthcareStart: 11-07-2023 End: 70-28-3359Heawsutqx beverage intakeLifetime non-drinker (finding)[facility] HealthcareStart: 05-25-2023 End: 46-07-2816Ifoajnw of Social functionNOMS HealthcareStart: 05-25-2023 End: 26-59-4808Wdmbrfejilq, Afraid, Rape, and Kick questionnaire [HARK][facility] HealthcareWithin the last year, have you been afraid of your partner or ex-partner?NoNOMS HealthcareHow often do you attend meetings of the clubs or organizations you belong to?Patient declinedNOFL HealthcareAre you now , , , , never or living with a partner?MarriedMOUNTAIN WEST MEDICAL [facility]ENTER HealthcareDo you feel stress - tense, restless, nervous, or anxious, or unable to sleep at night because yourmind is troubled all the time - these days [OSQ]To some extentPerry County Memorial HospitalStart: 82-15-8752Cttxkhl Commentcaffeine: 3-4 cups per dayPerry County Memorial HospitalStart: 73-57-6311Mfx assigned at birthNot on [facility] InstituteSexFemal (finding)[facility] 1955 [facility] Functional Status FdsaIcjtpkuhfnSutnzyHtqzaclh66-16-7770Uqekilh Health Questionnaire 2 item (PHQ- 2) [Reported][facility] Clinical Notes 02-21-2024 to 01-22-2025 Note Date & BsmhOpstKvtapwot89-31-9265 Evaluation note* Diagnosis Onset Date Resolution Status Admit Date Diabetic polyneuropathy associated with type 2 diabetes mellitus acuteSeptember 2024 9:21amEssential hypertensionacuteSept2024 9:21amLumbar spondylosisacuteSeptember 2024 9:21amStatin myopathyacute Milagro 2024 9:21amType 2 diabetes mellitus with diabetic microalbuminuria, without long-termacuteSeptember 2024 9:21amPolyneuropathy acuteOctober 2024 9:44am [facility] Work Phone: 1(784) 358-298106-09-2025 History of Present illness Narrative* Chuckie Zepeda MD - 10/22/2024 9:14 AM EDTAssociated Problem(s): Type 2 diabetes mellitus with hyperglycemia, without long-term current use of insulin ([facility]) Last A1C 6.5. Stick to ADA [...] polyneuropathy associated with type 2 diabetes mellitus ([facility]) Continued pain and stop neurontin. Try [...] 6.5. Stopped losartan due to side effects. [place] nauseated and had HART. BP okay without [...] hyperglycemia, without long-term current use of insulin ([facility]) Last A1C 6.5. Stick to ADA diet and limit carbs. Essential hypertension (Chronic) BP okay without medication and monitor. Discussed DASH diet. Diabetic polyneuropathy associated with type 2 diabetes mellitus ([facility]) Continued pain and stop neurontin. Try [...] Cologuard colon cancer screening documented in this encounterPerry County Memorial HospitalEagjccbwpu05-55-8938 History of Present illness Narrative* Ada Foley, RESIDENCE LIFE DIRECTOR - 05/23/2024 9:50 AM ESTAssociated Problem(s): Type 2 diabetes mellitus with diabetic polyneuropathy, without long-term current use of insulin ([facility]) Stopped taking all of her medications. States she feels significantly better since stopping all medications. Discussed in detail with pt cardiovascular and additional risks associated with unmanaged diabetes mellitus. Pt verbalized understanding and maintains she would like to stay off of all medications except gabapentin at this time. * Ada Foley NP - 05/23/2024 9:21 AM ESTAssociated Problem(s): Other hyperlipidemia ([facility]) Currently stopped taking Rosuvastatin and Zetia; [...] polyneuropathy, without long-term current use of insulin ([facility]) Stopped taking all of her medications. [...] (Neurontin) 300 MG capsule documented in this [facility]01-08-2025 Instructions* Patient Instructions* Ada Foley NP - 05/23/2024 9:00 AM EST FASTING labs ordered. Nothing to eat or drink for 12 hours prior to blood draw. Water and black coffee ok. We will call you with results! documented in this [facility]10-08-2024 History of Present illness Narrative* Ada [...] A1C today. DM [place] * Ada Foley NP - 02/21/2024 9:30 [...] DM Eye Exam: 06/2022 @ [facility] in [place] DM Neuropathy: Was taking Gabapentin 100mg Bid. [...] R ALBUMIN GLOBULIN RATIO 0.9 Resulting Agency [facility] Review of Systems Constitutional: Negative for activity [...] polyneuropathy, without long-term current use of insulin ([facility]) Taking Rybelsus 7mg Denies any adverse [...] A1C today. DM Eye Exam: 06/[address] [facility] in [place] Relevant Orders Microalbumin / creatinine urine ratio Hemoglobin A1c Comprehensive metabolic panel CBC and differential Other hyperlipidemia ([facility]) Currently taking Rosuvastatin 40mg; Stopped fenofibrate [...] polyneuropathy associated with type 2 diabetes mellitus ([facility]/HCC) Previously reported Gabapentin as allergy due [...] Cologuard colon cancer screening documented in this encounterPerry County Memorial HospitalEwyymviksq85-96-1670 Instructions* Patient Instructions* Ada Foley NP - [...] polyneuropathy associated with type 2 diabetes mellitus ([facility]/HCC) Encounter for osteoporosis screening in asymptomatic postmenopausal patient Encounter for screening for malignant neoplasm of colon Screening mammogram, encounter for Other hyperlipidemia ([facility]) Type 2 diabetes mellitus with diabetic polyneuropathy, without long-term current use of insulin (CMS/[facility]) documented in this encounter [facility] HealthcareEvaluation note* Diagnosis Type 2 diabetes mellitus without complication, without long-term current use of insulin ([facility])- Primary Other hyperlipidemia (CMS/HCC) Essential hypertension Unspecified essential hypertension Screening mammogram, encounter for Diabetic polyneuropathy associated with type 2 diabetes mellitus ([facility]) Encounter for osteoporosis screening in asymptomatic postmenopausal [...] insulin (CMS/HCC) documented in this encounter [facility] HealthcareEvaluation note* Diagnosis Type 2 [...] polyneuropathy, without long-term current use of insulin ([facility]) Other hyperlipidemia- Primary Diabetic polyneuropathy associated with type 2 diabetes mellitus ([facility]/HCC) Type 2 diabetes mellitus with diabetic polyneuropathy, without long-term current use of insulin ([facility]) Type 2 diabetes mellitus with hyperglycemia, without long-term current use of insulin ([facility])- Primary Essential hypertension Unspecified essential hypertension Diabetic polyneuropathy associated with type 2 diabetes mellitus ([facility]) Statin myopathy Toxic myopathy Dyslipidemia ([facility]) Other and unspecified hyperlipidemia Encounter for long-term (current) use of medications Encounter for long-term (current) use of other medications Fatigue, unspecified type Medicare annual wellness visit, subsequent- Primary Type 2 diabetes mellitus with hyperglycemia, without long-term current use of insulin ([facility]) Essential hypertension Unspecified essential hypertension Diabetic polyneuropathy associated with type 2 diabetes mellitus ([facility]) Colon cancer screening Special screening for malignant neoplasms, colon documented in this encounter [facility] HealthcareEvaluation note* Diagnosis Onset Date Resolution Status Admit Date Diabetic polyneuropathy associated with type 2 diabetes mellitus acuteSeptember 2024 9:21amEssential hypertensionacuteSeptember 2024 9:21amLumbar spondylosisacuteSeptember 2024 9:21amType 2 diabetes mellitus with diabetic microalbuminuria, without long-termacuteSeptember 2024 9:21am [facility] Work Phone: Reason for referral (narrative)No reason for referral information availableSelect Medical Specialty [facility] Work Phone: Summary Purpose Family History No [...] 2025 9:21am EMG BLE per Aide Lewis RESIDENCE LIFE DIRECTOR-C February 19, 2025 9:44am Reason for Visit [...] and content) DATE CREATED AUTHOR 10/22/2022 [facility] DATE CREATED AUTHOR AUTHOR'S ORGANIZ ATION 10/22/2024 [facility] EPIC Care Teams (unrecognized sec tion and content) Team MemberRelationshipSpecialtyStart DateEnd Date Chuckie Zepeda MD [address] [place] [address] PCP - GeneralFamily Medicine12/27/23 Ada Foley NP [address] [place] [address] Nurse PractitionerFanely Medicine12/27/23Team MemberRelationshipSpecialtyStart DateEnd Date Chuckie Zepeda MD [address] [place] [address] PCP - GeneralFamily Medicine12/27/23 Ada Foley NP [address] [place] [address] Nurse PractitionerFamily Medicine12/27/23Team MemberRelationshipSpecialtyStart DateEnd Date Chuckie Zepeda MD [address] [place] [address] PCP - [facility]12/27/23 Ada Foley NP [address] [place] [address] [facility] Pract[facility]Jeff[facility]12/27/23Team MemberRelationshipSpecialtyStart DateEnd Date Chuckie Zepeda MD [address] [place] [address] PCP - [facility]12/27/23 Ada Foley NP [address] [place] [address] Nurse PractitionerJefferson Hospital12/27/23Team MemberRelationshipSpecialtyStart DateEnd Date Chuckie Zepeda MD [address] [place] [address] PCP - [facility]12/27/23Team MemberRelationshipSpecialtyStart DateEnd Date Chuckie Zepeda MD [address] [place] [address] PCP - [facility]12/27/23 Team Status: Active Member Role Status Dates Chuckie Zepeda MD Primary Care Provider Active Team Status: Inactive Member Role Status Dates Chuckie Zepeda MD Primary Care Provider Active S tart: January 22, 2025 End: January 22, 2025[facility] Centermike Zepeda MDAttending ProviderActiveStart: January 22, 2025 [...] BE BASED ON THE PRIMARY CLINICAL RECORDS. [facility]. provides no warranty or guarantee of the accuracy or completeness of information in this document.
--- NOTE | 2025-03-13 08:32 | P.CN_ITS ---
Consult Note: HPI Data of Consult Patient: known to practice within the last 3 years Consult date: 03/13/25 Requesting Physician: Aide Lewis NP Primary Care Provider: Chuckie Lindsay MD Consult Narrative Reason for consult: low back and bilateral foot pain Narrative: Lali Jackson a pleasant 70 year old female presents for evaluation of chronic bilateral foot pain. notes traumatic injury to low back 25 years ago with intermittent back and BLE pain since then, however over the last few years she has had increasing severe bilateral foot pain. pain 3/10 increasing to 10/10 at night, standing, walking, stairs, bending, activity. pt has failed to benefit from amitriptyline, gabapentin, pregabalin, and duloxetine noted significant side effects with each medication. she was referred to Dr Hill for treatment, he suggested a compound cream which she is utilizing with minimal relief. finds no benefit to topical lidocaine patches. recently completed EMG NCV of BLE which is consistent with polyneuropathy and diabetic neuropathy. recently completed lumbar MRI with results below cc:: CC: Aide Lewis NP Review of Systems ROS Musculoskeletal Reports: back pain and extremity pain Meds Home Medications and Allergies Home Medications ?Medication ?Instructions ?Recorded ?Confirmed ?Type lidocaine 5 % topical patch 2 patch topical DAILY #30 ea 01/16/25 Rx Allergies Allergy/AdvReac Type Severity Reaction Status Date / Time No Known Drug Allergies Allergy Verified 01/16/25 10:45 Exam Constitutional Documenting provider has reviewed patient's vital signs: yes Common normals: no apparent distress, oriented x3, healthy appearing, alert and well nourished General appearance: cooperative HENMT Common normals: normocephalic, hearing grossly normal bilaterally and moist oral mucous membranes Head and scalp: normocephalic Eye Common normals: PERRL Pupil: PERRL Neck & C-Spine Common normals: full ROM General: normal visual inspection Chest Common normals: inspection of chest normal Respiratory Common normals: normal respiratory effort, no retractions and no use of accessory muscles Back & Pelvis Lumbar spine/lower back: pain with ROM, straight leg raise positive right and straight leg raise positive left Other: increased low back pain with bending radiculopathy noted bilateral L4,5,S1 Extremity Other: no edema noted to bilateral lower extremities bilateral feet warm to touch, appropraite color, decreased sensation to soles of bilateral feet. dysthesia noted to bilateral feet and digits Neuro Common normals: oriented x3 Sensorium/orientation: alert Psych Common normals: mental status grossly normal, thought process normal, cooperative, affect normal, speech normal and activity/motor behavior normal Speech: normal speech Thought process: normal thought process Results Imaging Lumbar MRI: Attestation: I have reviewed the pertinent imaging results. Radiologist's impression: Lumbar vertebral heights, alignment unremarkable. Anterolisthesis L4-L5 identified be due to the facet arthropathy. Nonspecific focus of diminished signal central T12 vertebral body represent a bone island. Otherwise bone marrow signal is grossly unremarkable. The conus medullaris terminates normally at the superior plate of L2. There is mild levocurvature. T12-L2: Mild facet arthropathy. No significant disease disc protrusion central canal neural from narrowing identified. L2-L3:: Minimal broad-based bulge with jtni-ak-xpeghmii facet arthropathy. Mild right neural foraminal narrowing. Minimal canal narrowing. Left foramen is patent. L3-4: Broad-based disc bulge with nwrl-nd-misdqxjd facet arthropathy. Canal is grossly patent. Minimal crowding both foramina zones. L4-5: There is 4 mm anterolisthesis with uncovering the posterior disc. There is a circumferential disc bulge with moderate severe facet arthropathy. This results in moderate severe central canal stenosis and bilateral subarticular recess narrowing left greater than right, correlate with bilateral L5 radiculopathy. Otherwise there is evidence of moderate neural foraminal narrowing left greater than right. L5-S1: Circumferential disc bulge with moderate facet arthropathy. Mild right mild to moderate left-sided neural foraminal narrowing. Canal is minimally narrowed. Additional Findings Additional findings: If on a controlled substance or opioids, I have checked an [place] report on this patient and there are no aberrancies noted in the prescribing history.??If on a controlled substance or opioid a drug screen was completed and reviewed within the last year, and if there has not been a drug screen completed we ordered one today to monitor higher risk, state monitored pain medication use. As part of providing excellent, safe, comprehensive care, the following was completed at our patient's visit: 1. A medication reconciliation and review to ensure accurate knowledge of current/active medications, including asking our patients to inform us about any zwtb-vwd-fseerzh medications or herbal remedies/nutritional supplements/alternative remedies. 2. A review to specifically ensure our patients have had annual screening for screening for depression, screening for tobacco use, and screening for unhealthy alcohol use. For concerning screenings had a discussion with the patient, provided patient education, and recommended follow-up with primary care provider when appropriate. If patient noted with a risk of falling, they received education on strength, gait, and balance training to prevent future risk of falling. Portions of this note may have been carried over from the previous visit and updated as appropriate. Please note this office utilizes paper charting in addition to the electronic medical record. A list of current medications, vitals, and PMH is available there as the clinical staff outside of myself do not have access to [employer] charting during the clinic day operations. As part of providing quality comprehensive care the current medications, vitals, and PMH were reviewed in the paper chart. Assessment and Plan Assessment and Plan (1) Other intervertebral disc degeneration, lumbar region with discogenic back pain and lower extremity pain: (2) Lumbar degenerative disc disease: (3) Lumbar stenosis with neurogenic claudication: (4) Painful diabetic neuropathy: Plan The patient has had over 3 months of moderate to severe low back and bilateral LE pain with functional impairment and inadequate response to conservative care including NSAIDS (unless there are contraindication such as concurrent blood thinners), multiple oral or topical pain medications, and home exercise program/physical therapy.? Patient has completed >6 weeks of guided home exercise program and/or formal physical therapy program without relief of their symptoms.? The Oswestry Disability Index was completed, and the patient scored a 36%.? pt not interested in scs trial for painful dpn at this time lumbar mri reviewed with pt, will trial bilateral L4-5 TFESI under fluoroscopy for lumbar ddd and lumbar stenosis with NC start flexeril 5-10mg bid prn pain/spasms f/u 2 weeks after SHIVAM, encouraged to reconsider scs trial for painful DPN
== END 2025-03-13 08:24 | disposition home or self-care (01) ==
PROVIDERS: PCP Family Medicine; Visit Provider Nurse Practitioner
DX: M51.362 Other intervertebral disc degeneration, lumbar region with discogenic back pain and lower extremity pain (principal); M48.062 Spinal stenosis, lumbar region with neurogenic claudication; E11.40 Type 2 diabetes mellitus with diabetic neuropathy, unspecified
CPT/HCPCS: G0463

== ENCOUNTER 2025-04-01 07:02 | Day surgery (SDC) | payer MEDICARE, SELFPAY ==
--- OUTSIDE RECORDS SUMMARY | 2025-04-01 07:06 | XMS_ITS | Clinical Summary ---
Author Organization [facility] Address [address] [place] [address] Care Team Providers Care Factory Laborer Name Role Phone Unavailable Primary Care Provider Unavailabl e Social History Tobacco UseTypesPacks/DayYears UsedDateSmoking Tobacco: Never Assessed CommentsUnknownSex and Gender InformationValueDate RecordedSex Assigned at Not on fileLegal WcqNuouaj55/30/2022 12:18 AM EDTGender IdentityNot on file Sexual OrientationNot on file Last Filed Vital Signs Vital SignReadingTime TakenCommentsBlood Nhstvtmf429/6610 9:39 AM EDT Pulse--Temperature--Respiratory Rate--Oxygen Wzicipmkjp85%03/01/2019 9:39 AM EDT Inhaled Oxygen Concentration--Xajxgt40.3 kg (144 lb)03/01/2019 9:37 AM EDTHeight 160 cm (5' 3 )03/01/2019 9:39 AM EDTBody Mass Index25.511 9:37 AM EDT Plan of Treatment Not on file
--- OUTSIDE RECORDS SUMMARY | 2025-04-01 07:06 | XMS_ITS | Clinical Summary ---
Author Organization [facility] Address [address] [place] [address] Care Team Providers Care Dumper Name Role Phone Chuckie Lindsay MD Primary Care Provider [phone] Allergies Active AllergyReactionsCriticalityNoted CmenLtvmyfttNtauopddrxFvuht72/09/2024 Severe muscle aches Medications MedicationSigDispense QuantityRefillsLast FilledStart DateEnd DateStatus amitriptyline (Elavil) 25 MG tablet Indications:Diabetic polyneuropathy associated with type 2 diabetes mellitus (HCC)Take 1 tablet (25 mg) by mouth at bedtime 30 tablet 5Active Active Problems ProblemNoted DateDiagnosed DateType 2 diabetes mellitus with diabetic microalbuminuria, without long-term current use of czzivee4207/31/2024Statin cshwzivd15/07/2025 Assessment & Plan (07/20/2024 10:42 AM EST): Did not tolerate statins and monitor. Encounter for long-term (current) use of mxrungddfdb61/07/2025Encounter for screening for malignant neoplasm of colon11/07/2023 Assessment & Plan (11/07/2023 9:51 AM EDT): Had normal colonoscopy 10 years ago - ordered cologuard. Type 2 diabetes mellitus with hyperglycemia, without long-term current use of vjurxok8005/26/2023 Assessment & Plan (10/22/2024 9:14 AM EDT): [...] DM Eye Exam: 06/2022 @ [facility] in [place] Assessment & Plan (11/07/2023 9:49 AM EDT): [...] Metformin for T2 DM - she stopped usingit due to GI side effects. Will start patient on Rybelsus that should also help with weight loss. Patient counseled and educated on adverse effects, drug interactions and to reach out to office/pharmacy if questions or concerns related to new medications. Mqnjmmmbwsey39/11/2024 Assessment & Plan (07/20/2024 10:42 AM EST): [...] if she can tolerate it better. Essential hadzmsxjjmhz46/11/2024 Assessment & Plan (10/22/2024 9:13 AM EDT): [...] determine need for treatment. Screening mammogram, encounter for05/26/2023 Assessment & Plan (05/26/2023 3:02 PM EST): Ordered mammogram for screening. Diabetic polyneuropathy associated with type 2 diabetes /11/2024 Assessment & Plan (10/22/2024 9:13 AM EDT): [...] mg at bedtime and its working well forher. C/w same. Assessment & Plan (10/03/2023 9:51 [...] that she is very groggy on it. Silvestre not believe there is room for increasing [...] related to new medications. Encounter for osteoporosis screening in asymptomatic postmenopausal patient 05/26/2023 Assessment & Plan (05/26/2023 3:02 PM EST): Ordered DEXA scan - post menopausal women, age > 65 Medicare annual wellness visit, emhpbhoblc21/11/2024 Assessment & Plan (10/22/2024 9:13 AM EDT): [...] Uptodate on Colon Cancer screening. Refusing Vaccines. Family History Medical HistoryRelationNameCommentsBone cancerBrotherLung cancerBrotherHeart diseaseFatherMVAMotherDiabetesSisterDiabetesSonRelationNameStatusCommentsBrother DeceasedFatherDeceasedMotherDeceasedSisterSon Social History Tobacco UseTypesPacks/DayYears UsedDateSmoking Tobacco: FormerCigarettesPassive Smoke Exposure: Past Tobacco Cessation:Counseling Given: No Alcohol UseStandard Drinks/WeekCommentsNever0 (1 standard drink = 0.6 oz pure alcohol)caffeine: 3-4 cups per dayHumiliation, Afraid, Rape, and Kick questionnaireAnswerDate RecordedWithin the last year, have you been afraid of your partner or ex-partner?No05/25/2023Within the last year, have you been humiliated or emotionally abused in other ways by your partner or ex-partner?No 05/25/2023Within the last year, have you been kicked, hit, slapped, or otherwise physically hurt by your partner or ex-partner?No05/25/2023Within the last year, have you been raped or forced to have any kind of sexual activity by your part ner or ex-partner?No05/25/2023Social Connection and Isolation PanelAnswerDate RecordedIn a typical week, how many times do you talk on the phone with family, friends, or neighbors?More than three times a week05/25/2023How often do you get together with friends or relatives?More than three times a week05/25/2023How often do you attend anabaptist or confucianist services?Never05/25/2023o you belong to any clubs or organizations such as anabaptist groups, unions, fraternal or athletic groups, or school groups?No05/25/2023How often do you attend meetings of the clubs or organizations you belong to?Patient zsbmtoal87/10/2024re you , , , , never , or living with a partner? 05/25/2023UDIT-CAnswerDate RecordedQ1: How often do you have a drink containing alcohol?Patient xybqeqfc57/10/2024Q2: How many drinks containing alcohol do you have on a typical day when you are drinking?Patient ijxrpxbn71/10/2024Q3: How often do you have six or more drinks on one occasion?Patient tuphzvdd28/10/2024 Overall Financial Resource Strain (CARDIA)AnswerDate RecordedHow hard is it for you to pay for the very basics like food, housing, medical care, and heating? Patient /10/2024HQ-2AnswerDate RecordedPatient Health Questionnaire-2 Atoqz773[facility] [place] [facility] - Occupational Stress QuestionnaireAnswerDate RecordedDo you feel stress - tense, restless, nervous, or anxious, or unable to sleep at night because yourmind is troubled all the time - these days?To some pfbqaa6405/25/2023Exercise Vital SignAnswerDate Recorded On average, how many days per week do you engage in moderate to strenuous exercise (like a brisk walk)?4 days05/25/2023On average, how many minutes do you engage in exercise at this level?30 min05/25/2023Hunger Vital SignAnswerDate RecordedWithin the past 12 months, you worried that your food would run out before you got the money to buymore.Patient pjhdyfuz10/10/2024Within the past 12 months, the food you bought just didn't last and you didn't have money to get more.Patient vrajqduk78/10/2024RAPARE - TransportationAnswerDate RecordedIn the past 12 months, has lack of transportation kept you from medical appointments or from getting medications?Patient xpviigxj15/10/2024In the past 12 months, has lack of transportation kept you from meetings, work, or from getting things needed for daily living?Patient hfzezmzw37/10/2024Housing Stability Vital Sign AnswerDate RecordedIn the last 12 months, was there a time when you were not able to pay the mortgage or rent on time?Patient yrmtoli2605/25/2023Number of Places Lived in the Last YearNot on file05/25/2023In the last 12 months, was there a time when you did not have a steady place to sleep or slept in [facility] (including now)?Patient wjmsqak6205/25/2023CommentsUnknownSex and Gender InformationValueDate RecordedSex Assigned at BirthNot on fileLegal SexFemale 07/28/2022 7:11 PM EDTGender IdentityNot on fileSexual OrientationNot on file Last Filed Vital Signs Vital SignReadingTime TakenCommentsBlood Ysodhzon191/8206 8:36 AM EDT Jkhcd959410/22/2024 8:36 AM UPPGmkfmpqfbeq64.4 ??C (97.5 ??F)10/22/2024 8:36 AM EDTRespiratory Ratt755810/22/2024 8:36 AM EDTOxygen Ucblghyoje68%10/22/2024 8:36 AM EDTInhaled Oxygen Concentration--Dtciud90.2 kg (146 lb)10/22/2024 8:36 AM EDT Kugtnn259 cm (5' 3 )10/22/2024 8:36 AM EDTBody Mass Index25.8610/22/2024 8:36 AM EDT Plan of Treatment Health MaintenanceDue DateLast DoneCommentsCT Pfmjrlnezcct1957Colonoscopy 1957Colorectal Cancer Ceefqyzpd1957FIT-DNA1957FIT1955 FOBT1955 9402Yawrokyibpisg1957Pneumococcal Vaccine: 65+ Years (1 of 2 - PCV)01/08/1976COVID-19 Vaccine (1 - 2023- season)2025Influenza Vaccine (#1)2025Diabetes: Hemoglobin A1C/, 06/06/2023Mammogram /11/2024Diabetes: Urine Protein Xehcfczku36/, 06/06/2023Medicare Annual Wellness (AWV)/01/2025, 05/26/2023, 05/26/2023iabetes: Retinopathy Fvmlijbut58/, 06/16/2022 Procedures Procedure NamePriorityDate/TimeAssociated DiagnosisCommentsBI MAMMOGRAM SCREENING TOMOSYNTHESIS OHJCGLBVUHaswxdg38/07/2025 3:02 PM EST Screening mammogram, encounter for from Last 3 Months or Most Recently Relevant to Health Maintenance Results * Bilateral screening mammogram with tomosynthesis (05/22/2024 3:02 PM EST) Anatomical RegionLateralityModalityBreastBilateralMammographySpecimen (Source) Anatomical Location / LateralityCollection Method / VolumeCollection Time Received Time05/23/2024 11:21 AM EST Impressions 05/23/2024 11:26 AM EST [...] thickening which would be suggestive of malignancy. ?? A few benign-appearing calcifications are seen bilaterally. [...] Mammogram ELECTRONICALLY SIGNED BY: Sukhdev Betancourt M.D. Authorizing ProviderResult TypeResult StatusBrittcarepartners rehabilitation hospital [place] NPIMG BI PROCEDURESFinal Result from Last 3 Months or Most Recently Relevant to Health Maintenance Insurance Care Teams Team MemberRelationshipSpecialtyStart DateEnd Date Chuckie Lindsay MD [facility]
--- OUTSIDE RECORDS SUMMARY | 2025-04-01 07:06 | XMS_ITS | Patient Health Record ---
Author Organization [facility] Address [address] [address], [place] [address] Care Team Providers Care Security Threat Analyst Name Role Phone Chuckie Lindsay Primary Care Provider Unavailfabricio sergio AriewilbertCedrick Unavailable [phone] Allergies No Known Allergies Reason For Referral Reason b/l painful foot rosa ropathy Diagnosis 1 Peripheral neuropath ic pain (M79.2) Referral Organization [facility] Referring Provider First Name Cedrick Referring Provider Last Name Sergio Referring Provider Speciality Podiatry Referred Provider Specialty Pain Medicin e Referral Priority Routine Medications Medication SIG (Take, Route, Frequency, Duration) Notes Start Date End Date Status Ezetimibe 10 MG Tablet Oral; Duration: 30 Days ActiveGabapentin 300 MG CapsuleOral; Duration: 90 DaysActiveRosuvastatin Calcium 40 MG Tablet1 tablet Orally Once a dayActiveFenofibrate 145 MG Tablet1 tablet Orally Once a dayActiveAmitriptyline HCl 25 MG TabletTAKE 1 TABLET BY MOUTH AT BEDTIME Oral; Duration: 30 DaysActiveRybelsus 3 MG Tabletas directed Orally ActiveAdvil PM 200-38 MG Tablet2 tablets at bedtime as needed Orally Once a day ActiveCalcium 600 MG Tablet1 tablet with meals Orally Twice a dayActiveMagnesium 250 MG Tablet1 tablet with a meal Orally Once a dayActive Social History Section Notes: Patient is a nonsmoker. No alcohol use. Encounters Encounter Location Date Provider Diagnosis [facility] [address] [address], [facility] [place] [address] 01/03/2025 C[place] Peripheral neuropathic pain M79.2 ; Low back pain without sciatica, unspecified back pain laterality, unspecified chronicity M54.50 and Diabetic peripheral neuropathy E11.42 Assessments Encounter Date Diagnosis (ICD Code) Assessment Notes Treatment Notes Treatment Clinical Notes Section Notes 01/03/2025 Peripheral neuropathic pain (ICD -10 - M79.2) Patient was seen and evaluated. [...] prescribed as this will likely be a care home medication and would prefer the Dr. Lindsay or Dr. Michelle. manage going forward. Lali will f/u with me as needed 01/03/2025Low back pain without sciatica, unspecified back pain laterality, unspecified chronicity (ICD-10 - M54.50)01/03/2025Diabetic peripheral neuropathy (ICD-10 - E11.42) Plan Of Treatment No Information Insurance Providers Payer Name Payer Address Payer Phone Subscriber Number Group Number Insured Name Patient Relationship to Insured Coverage Start Date Coverage End Date [employer] [address] [address] [place] [address] [id number] Grecia Jackson - patient is the insured Medical (General) History Medical History History ICD Code Diabetes
--- OUTSIDE RECORDS SUMMARY | 2025-04-01 07:06 | XMS_ITS | CCD ---
Author Organization [facility] Care Team Providers Care Mill Tender Name Role Phone FAWWAD, AREVALO H Attending [...] Primary Care Provider Ada Foley NP Unavailable [phone] CHUCKIE ZEPEDA Attending Unavailable CHUCKIE ZEPEDA Attending Unavailable FAWWAD, AREVALO Attending Unavailable ADA FOLEY Attending Unavailabl e FOLEY, BRITTANY Referring Unavailabl e FOLEY, BRITTANY Referring Unavailabl e ADA FOLEY Attending UnavailChuckie Rodriguez MD Primary Care Provider Chuckie Zepeda MD Attending Provider Noel Muñoz DO Attending Provider Allergies Allergy ClassificationReported Allergen(s)Allergy TypeDate of OnsetReaction(s) Facility (11 sources)gabapentinDrug Rdmttsg92-22-8713VfluiFTVA Healthcare Medications Current Medications MedicationDrug Class(es)DatesSig (Normalized)Sig (Original)DULoxetine 30 mg delayed release oral capsule (2 sources)Serotonin and Norepinephrine Reuptake InhibitorStart: 55-36-3810reuo 1 capsule by mouth once dailyezetimibe 10 mg oral tablet (5 sources)Dietary Cholesterol Absorption InhibitorStart: 02-21-2024 End: 60-29-8163ntkc 1 tablet by mouth once dailyezetimibe (Zetia) 10 MG tablet Indications: Other hyperlipidemia (CMS/HCC) Take 1 tablet (10 mg) bymouth Daily 30 tablet 11 02/21/2024 02/20/2025 Activefenofibrate 145 mg oral tablet (3 sources)Peroxisome Proliferator Receptor alpha AgonistStart: 11-08-2023 End: 13-17-3220jxkq 1 tablet by mouth once dailyfenofibrate (Tricor) 145 MG tablet Indications: Other hyperlipidemia (CMS/HCC) Take 1 tablet (145 mg) by mouth Daily 90 tablet 11/08/2023 02/21/2024 Discontinued (Side effects) gabapentin 300 mg oral capsule (13 sources)Anti-epileptic AgentStart: 02-21-2024 End: 57-12-3033utjb 1 capsule by mouth in the morninggabapentin (Neurontin) 300 MG capsule Indications: Diabetic polyneuropathy associated with type 2 diabetes mellitus (CMS/HCC) Take 1 capsule (300 mg) by mouth in the morning and 1 capsule (300 mg) before bedtime. 180 capsule 07/20/2024 10/22/2024 DiscontinuedStart: 11-07-2023 End: 95-89-9905depf 1 capsule by mouth in the morninggabapentin (Neurontin) 100 MG capsule Indications: Diabetic polyneuropathy associated with type 2 diabetes mellitus (CMS/HCC) Take 1 capsule (100 mg) by mouth in the morning and 1 capsule (100 mg) before bedtime. 200 capsule 1 11/07/2023 02/21/2024 Discontinued (Dose adjustment)lidocaine 0.05 mg/mg medicated patch (2 sources)Antiarrhythmic, Amide Local AnestheticStart: 82-52-0032pklbc 1 dose topically once dailylosartan potassium 25 mg oral tablet (3 sources)Angiotensin 2 Receptor BlockerStart: 07-31-2024 End: 23-56-5640awce 1 tablet by mouth once dailylosartan (Cozaar) 25 MG tablet Indications: Essential hypertension (CMS/HCC) Take 1 tablet (25 mg) by mouth Daily 30 tablet 5 07/31/2024 10/22/2024 Discontinuedpregabalin 75 mg oral capsule (2 sources)Start: 10-22-2024 End: 12-42-9931hyzk 1 capsule by mouth in the morningpregabalin (Lyrica) 75 MG capsule Indications: Diabetic polyneuropathy associated with type 2 diabetes mellitus (CMS/HCC) Take 1 capsule (75 mg) by mouth in the morning and 1 capsule (75 mg) before bedtime. 60 capsule 1 10/22/2024 12/21/2024 Activerosuvastatin calcium 40 mg oral tablet (6 sources)HMG-CoA Reductase InhibitorStart: 11-08-2023 End: 99-99-6929gksa 1 tablet by mouth once dailyrosuvastatin (Crestor) 40 MG tablet Indications: Other hyperlipidemia (CMS/HCC) Take 1 tablet (40 mg) by mouth Daily 100 tablet 1 11/08/2023 05/26/2024 Activesemaglutide 7 mg oral tablet (6 sources)Start: 11-07-2023 End: 23-98-3571mplw 1 tablet by mouth before mealtimesemaglutide (Rybelsus) 7 MG tablet Indications: Type 2 diabetes mellitus without complication, without long- term current use of insulin (CMS/HCC) Take 1 tablet (7 mg) by mouth in the morning. Take before meals. 100 tablet 1 11/07/2023 05/25/2024 Active Completed/Discontinued Medications MedicationDrug Class(es)DatesSig (Normalized)Sig (Original)amitriptyline hydrochloride 25 mg oral tablet (2 sources)Tricyclic AntidepressantStart: 01-21-2025 End: 04-66-4577obpt 1 tablet by mouth once daily at [...] complications; Translations: [TYPE 2 DM WITHOUT COMPLICATIONS]Onset: 56-49-8116WfyfczySlmwfmpsd of lipid metabolism (16 sources)Hyperlipidemia, unspecified; Translations: [Hyperlipidemia]Onset: 052316-12-7181UljuuhjInevrfojn hypertension (17 sources)Essential hypertension; Translations: [Essential (primary) hypertension]Onset: 952978-51-4202GpnefydHghqg aftercare (5 sources)Long-term current use of drug therapy; Translations: [Other child care supervisor (current) drug therapy]Onset: 623533-00-5074QoqunsgmGdrgx nervous system disorders (2 sources)Polyneuropathy; Translations: [Polyneuropathy, unspecified]02-19-2025 ChronicOther nervous system disorders (6 sources)Drug-induced myopathy; Translations: [Toxic myopathy]Onset: 671801-20-0874FkccpzcrRymjy screening for suspected conditions (not mental disorders or infectious disease) (20 sources)Encounter for screening mammogram for malignant neoplasm of breast; Translations: [Patient encounter status]Onset: 73-73-8532QfimvaiaKymzeiykrpl; intervertebral disc disorders; other back problems (4 sources)Lumbar spondylosis; Translations: [Spondylosis without myelopathy or radiculopathy, lumbar region]33-65-0686Uqflmtw Past or Other Problems Problem ClassificationProblemDateDocumented DateEpisodic/ChronicMood disorders (9 sources)Mood disordersOnset: 05-26-2023 Resolved: 848468-74-9500Fyvdrcfo codes; unclassified (1 source)Family history of malignant neoplasm of other organs or systems; Translations: [FAM HX MALIG NEOPLASM OTH ORGN/SYS]Onset: 59-44-3105Pqbyhyvx Results Test NameValueInterpretationReference RangeFacilityGlucose mean value [Mass/volume] in Blood Estimated from glycated hemoglobinOrdered By: Chuckie Zepeda on 17-61-6774Ejtgilm glucose Estimated from glycated hemoglobin (Bld) [Mass/Vol]137 mg/dLCleveland Clinic [facility] General Lodi HospitalHemoglobin A1c percentage Ordered By: Chuckie Zepeda on 64-75-4478OrD7o (Bld) [Mass fraction]6.4 %High 4.5-6.2FGood Samaritan HospitalComment on above:ADA RECOMMENDED LIMIT 4.0 - 6.0ADA THERAPEUTIC TARGET < 7.0ACTION SUGGESTED> 7.0BI MAMMOGRAM SCREENING TOMOSYNTHESIS BILATERALon 10-36-4071EK MAMMOGRAM SCREENING TOMOSYNTHESIS BILATERALThis is a summary [...] Sukhdev Betancourt M.D.NormalNot AvailableDEXA BONE DENSITY on 91-87-2784BALK BONE DENSITYExamination: DEXA BONE DENSITY Clinical History: [...] BY: Sukhdev Betancourt M.D.NormalNot AvailableVITAMIN B1 (THIAMINE)on 22-70-6682Xgr. B1, Whole Hqlmf997.2 nmol/YDpnkvq04.5-200.0[facility] HospitalComment on above:Performed By: #### VITB1T #### [facility] [address] [place] [address] Dr. Sameera MontanaGLYCOHEMOGLOBIN A1Con 08-70-8383UXT RECOMMENDATIONSEE BELOWWitter Springs The [facility] HospitalComcorewell health [facility] on above:Result Comment: ADA RECOMMENDED LIMIT 4.0 - 6.0 ADA THERAPEUTIC TARGET < 7.0 ACTION SUGGESTED > 7.0Performed By: #### A1C #### [facility] [address] [place] [address] Dr. Sameera MontanaGlucose [Mass/Vol]131 mg/dLNoMount Carmel Health System on above:Performed By: #### A1C #### [facility] [address] [place] [address] Dr. Sameera MontanaHbA1c (Bld) [Mass fraction]6.2 %Normal4.5-6.2[facility] on above:Performed By: #### A1C #### [facility] [address] [place] [address] Dr. Sameera BowdenID PROFILEon 15-51-7586CFAS-HDL RATIO NORMSEE BELOWParkwood HospitalComcorewell health [facility] on above:Result Comment: 3.3 - 4.4 LOW RISK 4.4 - 7.1 AVERAGE RISK 7.1 - 11.0 MODERATE RISK >11.0 HIGH RISKPerformed By: #### LIPID #### [facility] [address] [place] [address] Dr. Sameera Ellisonesterol [Mass/Vol]216 mg/dLCritically high<=200[facility] on above:Performed By: #### LIPID #### [facility] [address] [place] [address] Dr. Sameera Ellisonesterol in HDL [Mass/Vol]46 mg/hRUrhpti71-16Tgy [facility] on above:Performed By: #### LIPID #### [facility] [address] [place] [address] Dr. Sameera Ellisonesterol in LDL [Mass/Vol]106.4 mg/dLParkwood HospitalComcorewell health [facility] on above:Performed By: #### LIPID #### [facility] [address] [place] [address] Dr. Yilan ChangCholesterol.total/Cholesterol in HDL [Mass ratio]4.7 {ratio} NormalOur Lady Of Mercy HospitalComment on above:Performed By: #### LIPID #### [facility] [address] [address] [address] Sameera Singer NORMAL> or = 60 mg/dl - LOW CARDIOVASCULAR RISK <40 mg/dl - HIGH CARDIOVASCULAR RISKParkwood HospitalComment on above:Performed By: #### LIPID #### [facility] [address] [address] [address] Sameera MontanaLDL CALC NORMALSEE Medina HospitalComment on above:Result Comment: <100 mg/dl OPTIMAL 100 - 129 mg/dl NEAR OR ABOVE OPTIMAL 130 - 159 mg/dl BORDERLINE HIGH 160 - 189 mg/dl HIGH >190 mg/dl VERY HIGH Performed By: #### LIPID #### [facility] [address] [place] [address] Dr. Sameera MontanaTriglyceride [Mass/Vol]318 mg/dLCritically high<=150The [facility] HospitalComment on above:Performed By: #### LIPID #### [facility] [address] [address] [address] Sameera MontanaVLDL CALC63.6 mg/dLNoKindred HealthcareComment on above: Performed By: #### LIPID #### [facility] [address] [place] [address] Dr. Sameera MontanaVITAMIN B12on 30-68-2848Addwyxokf (Vitamin B12) [Mass/Vol]506.0 pg/kECbaeqn837.0-986.0The [facility] HospitalComment on above:Performed By: #### VITB12 #### [facility] [address] [place] [address] Dr. Sameera MontanaDIRECT LDLon 88-33-6463Wsmakfgjebp in LDL [Mass/Vol]164 mg/dL NormalThe Newark HospitalComment on above:Performed By: #### DLDL, LIPID #### [facility] [address] [place] [address] Dr. Sameera MontanaDLDL NORMALSEE Medina HospitalComcorewell health [facility] on above: Result Comment: <100 mg/dl OPTIMAL 100 - 129 mg/dl NEAR OR ABOVE OPTIMAL 130 - 159 mg/dl BORDERLINE HIGH 160 - 189 mg/dl HIGH >190 mg/dl VERY HIGHPerformed By: #### DLDL, LIPID #### [facility] [address] [place] [address] Dr. Sameera MontanaGLYCOHEMOGLOBIN A1Con 81-99-3779CMO RECOMMENDATIONSEE BELOWMount Carmel Health SystemComcorewell health [facility] on above:Result Comment: ADA RECOMMENDED LIMIT 4.0 - 6.0 ADA THERAPEUTIC TARGET < 7.0 ACTION SUGGESTED > 7.0Performed By: #### A1C #### [facility] [address] [place] [address] Dr. Sameera MontanaGlucose [Mass/Vol]137 mg/dLParkwood HospitalComcorewell health [facility] on above:Performed By: #### A1C #### [facility] [address] [place] [address] Dr. Sameera MontanaHbA1c (Bld) [Mass fraction]6.4 %Critically high4.5-6.2[facility] on above:Performed By: #### A1C #### [facility] [address] [place] [address] Dr. Sameera MontanaLIPID PROFILEon 99-86-2128SAUX-HDL RATIO NORMSEE [facility] HospitalComcorewell health [facility] on above:Result Comment: 3.3 - 4.4 LOW RISK 4.4 - 7.1 AVERAGE RISK 7.1 - 11.0 MODERATE RISK >11.0 HIGH RISKPerformed By: #### DLDL, LIPID #### [facility] [address] [place] [address] Dr. Sameera MontanaCholesterol [Mass/Vol]295 mg/dLCritically high<=200[facility] on above:Performed By: #### DLDL, LIPID #### [facility] [address] [place] [address] Dr. Sameera MontanaCholesterol in HDL [Mass/Vol]41 mg/qZWmnjoj45-25Smx [facility] HospitalComment on above:Performed By: #### DLDL, LIPID #### [facility] [address] [place] [address] Dr. Sameera MontanaCholesterol.total/Cholesterol in HDL [Mass ratio]7.2 {ratio} NormalThe [facility] HospitalComcorewell health [facility] on above:Performed By: #### DLDL, LIPID #### [facility] [address] [place] [address] Dr. Sameera EdmondsonL NORMAL> or = 60 mg/dl - LOW CARDIOVASCULAR RISK <40 mg/dl - HIGH CARDIOVASCULAR RISKParkwood HospitalComcorewell health [facility] on above:Performed By: #### DLDL, LIPID #### [facility] [address] [place] [address] Dr. Sameera Bennett CALC NORMALSEE BELOWParkwood HospitalComcorewell health [facility] on above:Result Comment: <100 mg/dl OPTIMAL 100 - 129 mg/dl NEAR OR ABOVE OPTIMAL 130 - 159 mg/dl BORDERLINE HIGH 160 - 189 mg/dl HIGH >190 mg/dl VERY HIGH Performed By: #### DLDL, LIPID #### [facility] [address] [place] [address] Dr. Sameera MontanaTriglyceride [Mass/Vol]440 mg/dLCritically high<=150[facility] HospitalComcorewell health [facility] on above:Performed By: #### DLDL, LIPID #### [facility] [address] [place] [address] Dr. Sameera DalalLDL CALC88.0 mg/dLParkwood HospitalComcorewell health [facility] on above: Performed By: #### DLDL, LIPID #### [facility] [address] [place] [address] Dr. Sameera MontanaMG MAMM SCREEN 3D MIKEY CADon 65-93-8398JY MAMM SCREEN 3D MIKEY CAD Patient: LALI JACKSON Exam Date: 03/22/2022 : 1955 Gender:F Ordering : SHAIKH Radha JOHNSON . Admission #: [id number] Family : Order #: [id number] CLICK HERE TO VIEW EXAM RADIOLOGY REPORT [...] bone cancer at age 53. LOCATION: [facility] BREAST COMPOSITION: Heterogeneously dense,which may obscure [...] by: Samir Dorantes MD on 03/22/2022 at 12:14[facility] Vital Signs Date TimeVital SignValuePerforming QmtdihufvFqudgyxc68-50-2329 09:28-0400Body plginh164.02 cmChuckie Zepeda MD Work Phone: [phone]09-09-2025 09:28-0400 Body mass index (BMI) [Ratio]25.8 kg/m2Chuckie Zepeda MD Work Phone: [phone]09-09-2025 09:28-0400 Body bywklztdwbw69.3 [degF]Chuckie Zepeda MD Work Phone: [facility]09-09-2025 09:28-0400 Body efqsnz59.22 kgChuckie Zepeda MD Work Phone: [phone]09-09-2025 09:28-0400 Heart rate80 /minChuckie Zepeda MD Work Phone: [phone]09-09-2025 09:28-0400 Respiratory rate20 /minChuckie Zepeda MD Work Phone: [phone] [place], [place] 4397009-09-2025 09:28-0400 SaO2% (BldA) [Mass fraction]97 %Chuckie Zepeda MD Work Phone: [phone]06-09-2025 08:36-0400 Body nfiqcj061 cmChuckie Zepeda MD Work Phone: [facility] HospitalYrwergzknk83-12-8002 08:36-0400Body mass index (BMI) [Ratio]25.86 kg/m2Chuckie Zepeda MD Work Phone: [facility] HospitalIyduuesnhp31-55-7946 08:36-0400Body temperature 97.5 [degF]Chuckie Zepeda MD Work Phone: [facility] HospitalKvqgimakqu38-58-7670 08:36-0400Body mcysny94.22 kgChuckie Zepeda MD Work Phone: [facility] HospitalLdqjxozpyj86-07-2157 08:36-0400Diastolic blood ecwjhfhk11 mm[Hg]Chuckie Zepeda MD Work Phone: [facility] HospitalGwtumdplbn30-89-8732 08:36-0400Heart rate89 /min Chuckie Zepeda MD Work Phone: [facility] HospitalXpchfymqpv95-42-9892 08:36-0400Respiratory rate18 /minChuckie Zepeda MD Work Phone: [facility] HospitalWjlbeeeriv10-97-8398 08:36-3731UwS5% (BldA) [Mass fraction]97 %Chuckie Zepeda MD Work Phone: [facility] HospitalYxshdcqkes53-88-4673 08:36-0400Systolic blood mm[Hg]Chuckie Zepeda MD Work Phone: [facility] HospitalVvgnjwszjx00-25-4802 08:58-0500Body aofrkk244 cm Ada Foley VBA DEVELOPER Work Phone: [facility] HospitalTgzhdzarbs05-69-4700 08:58-0500Body mass index (BMI) [Ratio]25.69 kg/a9Ecjhgijk Foley VBA DEVELOPER Work Phone: noSamaritan HospitalRdisubtqst22-51-5211 08:58-0500Body temperature 97.5 [degF]Ada Foley VBA DEVELOPER Work Phone: [facility] HospitalZtnpdpzuil05-15-0390 08:58-0500Body rjijgw87.77 kgAda Foley VBA DEVELOPER Work Phone: noSamaritan HospitalIfymngurch57-03-8828 08:58-0500Diastolic blood mm[Hg]Ada Foley VBA DEVELOPER Work Phone: [facility] HospitalRwyurbxqin10-54-9348 08:58-0500Heart rate90 /min Ada Foley VBA DEVELOPER Work Phone: [facility] HospitalDvgvwwphss87-38-2329 08:58-0500Respiratory rate22 /minAda Foley VBA DEVELOPER Work Phone: [facility] HospitalYgbavisesp74-54-4010 08:58-9522OqV0% (BldA) [Mass fraction]96 %Ada Foley VBA DEVELOPER Work Phone: [facility] HospitalYueehxtvxu87-01-0162 08:58-0500Systolic blood vaubvebs064 mm[Hg]Ada Foley VBA DEVELOPER Work Phone: noSamaritan HospitalGjkfuebkzn74-06-5227 09:27-0400Body mass index (BMI) [Ratio]25.15 kg/v8Cceitvcj Foley VBA DEVELOPER Work Phone: [facility] HospitalUkynxhqlwu73-23-3126 09:27-0400Body temperature 97.2 [degF]Ada Foley VBA DEVELOPER Work Phone: noSamaritan HospitalAleqvfvegh29-04-7265 09:27-0400Body ovqbza84.41 kgAllisonittelizabeth Foley VBA DEVELOPER Work Phone: noSamaritan HospitalHrynzdqpha96-64-2503 09:27-0400Diastolic blood kynhmxvo93 mm[Hg]Ada Foley VBA DEVELOPER Work Phone: noSamaritan HospitalLpihlvlnzn27-13-3516 09:27-0400Heart rate75 /min Ada Medinak VBA DEVELOPER Work Phone: noSamaritan HospitalKddxnmjbfg09-58-7030 09:27-7190ZpJ9% (BldA) [Mass fraction]99 %Ada Grigsbytrick VBA DEVELOPER Work Phone: [facility] Kujdkzzocp65-79-2146 09:27-0400Systolic blood gxixkqtx777 mm[Hg]Ada Grigsbytrick VBA DEVELOPER Work Phone: [facility] Encounters Encounter DateEncounter TypeCare ProviderFacilityStart: 02-19-2025 End: 08-59-2223awekindqnbKvef Naderer MD Work Phone: [facility] Work Phone: Start: 02-19-2025 End: 63-94-4131Ohfznnm encounter procedureChristopher Toni Singh DO-[facility] Neurology Esme Work Phone: Start: 01-22-2025 End: 31-36-3796qrogstqojvOwxq Naderer MD Work Phone: [facility] Work Phone: Start: 01-22-2025 End: 37-64-3597Nhtovul encounter procedureChuckie Zepeda MD-[facility] Family Medicine [place] Work Phone: Start: 10-22-2024 End: 00-39-6911Zvmqbz flowsNaresh Zepeda MD Work Phone: [facility] CWM FMStart: 10-22-2024 End: 79-21-4230Zwbehv He Zepeda MD Work Phone: [facility] CWM FMStart: 10-22-2024 End: 05-55-7060Imkeys outpatient visit 15 minutesChuckie Zepeda MD Work Phone: [facility] CWM FMComment on above:Medicare annual wellness visit, subsequent (Primary Dx); Type 2 diabetes mellitus with hyperglycemia, without long-term current use of insulin (CMS/HCC); Essential hypertension; Diabetic polyneuropathy associated with type 2 diabetes mellitus (CMS/HCC); Colon cancer screeningStart: 10-22-2024 End: 38-45-5338Utleaxq encounter procedureChuckie Zepeda MD Work Phone: [facility] HealthcareStart: 10-22-2024 End: 04-68-5333ujhaficbuiNUKB NADERERNot AvailableStart: 03-53-7260Szccpbi encounter procedureChuckie Zepeda MD Work Phone: NOD[facility] HealthcareStart: 07-20-2024 End: 07-76-4448komowijqqeFPXM NADERERNot AvailableStart: 05-23-2024 End: 65-89-8582Mmlgxk flowsheetBrittany Foley VBA DEVELOPER Work Phone: [facility] CWM FMStart: 05-23-2024 End: 44-41-4762Iflhrh flowsheetBrittany Foley VBA DEVELOPER Work Phone: [facility]WM FMStart: 05-23-2024 End: 52-36-6799Yeklqd outpatient visit 15 minutesBrittany Foley VBA DEVELOPER Work Phone: [facility] CWM FMComment on above:Other hyperlipidemia (CMS/HCC) (Primary Dx); Diabetic polyneuropathy associated with type 2 diabetes mellitus (CMS/HCC); Type 2 diabetes mellitus with diabetic polyneuropathy, without long-term current use of insulin (CMS/HCC)Start: 05-23-2024 End: 60-31-5172hvnxgaqzywSKMPMBDI FITZPATRICKNot AvailableStart: 05-22-2024 End: 31-73-7246xcgmkkohafKEYNZDNE FITZPATRICKNot AvailableStart: 02-21-2024 End: 16-13-2095Bctyne flowsheetBrittany Foley VBA DEVELOPER Work Phone: noMS CWM FMStart: 02-21-2024 End: 52-74-7571Ycnqgh flowsheetBrittany Foley VBA DEVELOPER Work Phone: [facility] CWM FMStart: 02-21-2024 End: 28-82-8510Uwnwzk outpatient visit 25 minutesAda Foley VBA DEVELOPER Work Phone: [facility] CWM FMComment on above:Essential hypertension (Primary Dx); Diabetic polyneuropathy associated with type 2 diabetes mellitus ([facility]/HCC); Encounter for osteoporosis screening in asymptomatic postmenopausal patient; Encounter for screening for malignant neoplasm of colon; Screening mammogram, encounter for; Other hyperlipidemia ([facility]); Type 2 diabetes mellitus with diabetic polyneuropathy, without long-term current use of insulin ([facility])Start: 02-21-2024 End: 47-74-5260fsspjbxrciKQFJWOQAAjit Romano AvailableStart: 11-07-2023 End: 35-00-9277tuwyqmnrptTBHYSR FAWWADNot AvailableStart: 66-55-8829Ldbvxuz encounter procedureAda Foley VBA DEVELOPER Work Phone: NOTX HealthcareStart: 08-03-2022 End: 75-33-2295gdbrwhjsrfDRQHQB H FAWWADFacility:C0Dytxo: 06-14-2022 End: 08-54-6591tibmlbaphqYGQAGF H FAWWADFacility:A1Zpqug: 03-22-2022 End: 71-21-1334vhlxlybspcLY DAVID V WESTFacility:H1 Procedures DateProcedureProcedure DetailPerforming ClinicianStart: 18-27-3182Gsqoyyyeler Chuckie Zepeda MD Work Phone: Plan of Treatment DateCare ActivityDetailAuthorStart: 12-26-2597Hriynkeb screeningDiabetes: Retinopathy ScreeningNOTX HealthcareStart: 85-54-6157Vbrma screening for protein Diabetes: Urine Protein ScreeningNOTX HealthcareStart: 94-64-2848Wdsjsfxws for malignant neoplasm of breastMammogramNOTX HealthcareStart: 58-36-4071Plhmntuadz A1c measurementDiabetes: Hemoglobin B6KABOB HealthcareStart: 01-22-2025 End: 47-54-4246Zzswrdy encounter hkqowecrc76/01/2025 9:30 AM EDT Office Visit [facility] [address] [place] [phone] Chuckie Zepeda MD [address] [place] [phone] [facility] FMStart: 72-30-0508Osydgpwip vaccinationInfluenza Vaccine (Season Ended)[facility] HealthcareStart: 10-22-2024 End: 84-42-7763Psoranxdwqd colorectal cancer DNA and occult blood screening [Presence] in StoolCologuard colon cancer screening Lab Routine Colon cancer screening Expected: 10/22/2024 (Approximate), Expires: 10/22/2025[facility] Work Phone: Comment on above:Expected: 10/22/2024 (Approximate), Expires: 10/22/2025Start: 10-22-2024 End: 54-18-1706Ymduryj encounter cnnjejrtl23/09/2025 8:30 AM EDT Office Visit [facility] [address] [place] [phone] Chuckie Zepeda MD [address] [place] [phone] [facility] FMComment on above:ArrivedStart: 08-22-2024 End: 69-58-1094Hcpbrll encounter iptjkudgy10/09/2025 10:00 AM EDT Office Visit [facility] [address] [place] [phone] Ada Foley NP [address] [place] [address] [facility] FMStart: 98-47-4300Vxaxtome screeningDiabetes: Retinopathy ScreeningNOTX HealthcareStart: 63-21-2813Kgfyf screening for protein Diabetes: Urine Protein ScreeningNOTX HealthcareStart: 01-11-2025Medicare Annual Wellness (AWV)Medicare Annual Wellness (AWV)[facility] HealthcareStart: 05-26-2024 Pneumococcal Vaccine: 65+ Years (1 of 2 - PCV)Pneumococcal Vaccine: 65+ Years (1 of 2 - PCV)[facility] HealthcareComment on above:Postponed from 1963 (Patient Refused)Start: 05-23-2024 End: 72-76-8291Ngzuzmo encounter procedureNOTX CW FMComment on above:Arrived Start: 02-21-2024 End: 99-34-9743JGZ W Auto Differential panel - BloodCBC and differential Lab Routine Essential hypertension Type 2 diabetes mellitus with diabetic polyn europathy, without long-term current use of insulin (CMS/[facility]) Expected: 02/21/2024 (Approximate), Expires: 02/20/2025NOTX HealthcareComment on above: Expected: 02/21/2024 (Approximate), Expires: 02/20/2025Start: 02-21-2024 End: 86-20-6191Chyuiuxoveolb metabolic 2000 panel - Serum or PlasmaComprehensive metabolic panel Lab Routine Essential hypertension Type 2 diabetes mellitus with diabetic polyneuropathy, without long-term current use of insulin (CMS/HCC) Expected: 02/21/2024 (Approximate), Expires: 02/20/2025[facility] HealthcareComment on above:Expected: 02/21/2024 (Approximate), Expires: 02/20/2025Start: 02-21-2024 End: 17-11-6412FWH Skeletal system Views for bone densityDEXA bone density Imaging Routine Encounter for osteoporosis screening in asymptomatic postmenopausal patient Expected: 02/21/2024, Expires: 02/20/2025[facility] Healthcare Comment on above:Expected: 02/21/2024, Expires: 02/20/2025Start: 02-21-2024 End: 96-77-6923Cfydgxpcng A1c/Hemoglobin.total in BloodHemoglobin A1c Lab Routine Type 2 diabetes mellitus with diabetic polyneuropathy, without long-term current use of insulin (CMS/HCC) Expected: 02/21/2024 (Approximate), Expires: 02/20/2025[facility] HealthcareComment on above:Expected: 02/21/2024 (Approximate), Expires: 02/20/2025Start: 02-21-2024 End: 07-02-7514Mnzja 1996 panel - Serum or PlasmaLipid panel Lab Routine Other hyperlipidemia (CMS/HCC) Expected: 02/21/2024 (Approximate), Expires:02/20/2025 [facility] HealthcareComment on above:Expected: 02/21/2024 (Approximate), Expires: 02/20/2025Start: 02-21-2024 End: 48-21-8675IB Breast - bilateral ScreeningBilateral screening mammogram Imaging Routine Screening mammogram, encounter for Expected: 02/21/2024, Expires: 04/22/2025NOTX HealthcareComment on above:Expected: 02/21/2024, Expires: 04/22/2025Start: 02-21-2024 End: 02-49-5576Cntvkelhibz colorectal cancer DNA and occult blood screening [Presence] in StoolCologuard colon cancer screening Lab Routine Encounter for screening for malignant neoplasm of colon Expected: 02/21/2024 (Approximate), Expires: 02/20/2025NOTX HealthcareComment on above:Expected: 02/21/2024 (Approximate), Expires: 02/20/2025Start: 02-21-2024 End: 34-80-4366PWA W/REFLEX TO FT4TSH W/REFLEX TO FT4 Lab Routine Essential hypertension Expected: 02/21/2024 (Approximate), Expires:02/20/2025[facility] Work Phone: Comment on above:Expected: 02/21/2024 (Approximate), Expires: 02/20/2025Start: 02-21-2024 End: 16-61-6989Vfnlhej encounter amiytpyst04/08/2024 9:30 AM EDT Office Visit [facility] [address] [place] [address] Ada Foley, ALFONSO [address] [place] [address] [facility] FMComment on above:ArrivedStart: 01-15-2024 Influenza vaccinationInfluenza Vaccine (#1)[facility] HealthcareStart: 12-05-2023 Hemoglobin A1c measurementDiabetes: Hemoglobin O4VLTPC HealthcareStart: 90-65-7960Zrmwlmcvb for malignant neoplasm of breastMammogramOREM COMMUNITY HOSPITAL Healthcare Start: 15-85-7468Ylcfowsciehx Vaccine: 65+ Years (1 of 2 - PCV)Pneumococcal Vaccine: 65+ Years (1 of 2 - PCV)[facility] HealthcareStart: 41-51-8565Xwpgcvoym for malignant neoplasm of colonOR[facility] COMMUNITY [facility]OSPITAL HealthcareMicroalbumin/Creatinine panel in random UrineMicroalbumin / creatinine urine ratio Lab Routine Essential hypertension Type 2 diabetes mellitus with diabetic polyneuropathy, without long-term current use of insulin ([facility]) Ordered: 02/21/2024[facility] Comment on above:Ordered: 02/21/2024[facility] Payers DatePayer CategoryPayerPolicy ID2023MedicaidAETNA MEDICARE ADVANTAGE [id number] 2023MedicareAETNA MEDICARE ADVANTAGE AETNA MEDICARE REPLACEMENT [id number] 2022-Present [address] [place] [id number] [id number] [id number] [id number] [id number] 2.16.840.1.537672.3.57[id number] 2.16.840.1.102510.3.57[id number] 2.16.840.1.098330.3.57[id number] 2.16.840.1.918160.3.57[id number] 2.16.840.1.613833.3.57[id number] 2.16.840.1.371179.3.57[id number] 2.16.840.1.074851.3.57[id number] 2.16.840.1.436012.3.57[id number] 2.16.840.1.337193.3.57[id number] 2.16.840.1.254584.3.579.2.1259 Social History DateTypeDetailFacilityStart: 08-15-2023 End: 22-44-7629Hhrmuij smoking status NHISEx-smokerNOMS HealthcareHistory of tobacco useCurrent smokerNOMS HealthcareHistory of tobacco useCigarette Smoker [facility] HealthcareHistory of tobacco usePassive smokerNOMS HealthcareStart: 11-07-2023 End: 69-05-2061Bfyahgfpu beverage intakeLifetime non-drinker (finding)[facility] HealthcareStart: 05-25-2023 End: 83-71-2497Syeyiwg of Social functionNOMS HealthcareStart: 05-25-2023 End: 41-43-9942Fgstgyldbun, Afraid, Rape, and Kick questionnaire [HARK][facility] HealthcareWithin the last year, have you been afraid of your partner or ex-partner?NoNOMS HealthcareHow often do you attend meetings of the clubs or organizations you belong to?Patient declinedNOTX HealthcareAre you now , , , , never or living with a partner?MarriedOREM COMMUNITY [facility]OSPITAL HealthcareDo you feel stress - tense, restless, nervous, or anxious, or unable to sleep at night because yourmind is troubled all the time - these days [OSQ]To some extentCooper County Memorial HospitalStart: 15-26-2640Xqydvsq Commentcaffeine: 3-4 cups per dayCooper County Memorial HospitalStart: 33-10-8886Mcg assigned at birthNot on [facility] CenterSexFemal (finding)[facility] Centertart: 1955 [facility] At [facility] Functional Status WlmfLuiypstupbZwuxbeWwyfhlnj85-04-6919Pijcjvh Health Questionnaire 2 item (PHQ- 2) [Reported][facility] Clinical Notes 02-21-2024 to 01-22-2025 Note Date & CpoqKlxrKixmszeh73-75-4860 Evaluation note* Diagnosis Onset Date Resolution Status Admit Date Diabetic polyneuropathy associated with type 2 diabetes mellitus acuteSeptember 2024 9:21amEssential hypertensionacuteSept2024 9:21amLumbar spondylosisacuteSeptember 2024 9:21amStatin myopathyacute Milagro 2024 9:21amType 2 diabetes mellitus with diabetic microalbuminuria, without long-termacuteSeptember 2024 9:21amPolyneuropathy acuteOctober 2024 9:44am [facility] Work Phone: [phone]) 288-333306-09-2025 History of Present illness Narrative* Chuckie Zepeda MD - 10/22/2024 9:14 AM EDTAssociated Problem(s): Type 2 diabetes mellitus with hyperglycemia, without long-term current use of insulin ([facility]) Last A1C 6.5. Stick to ADA [...] polyneuropathy associated with type 2 diabetes mellitus ([facility]) Continued pain and stop neurontin. Try [...] 6.5. Stopped losartan due to side effects. [place] nauseated and had HART. BP okay without [...] hyperglycemia, without long-term current use of insulin ([facility]) Last A1C 6.5. Stick to ADA diet and limit carbs. Essential hypertension (Chronic) BP okay without medication and monitor. Discussed DASH diet. Diabetic polyneuropathy associated with type 2 diabetes mellitus ([facility]) Continued pain and stop neurontin. Try [...] Cologuard colon cancer screening documented in this encounterCooper County Memorial HospitalErjbzdzcii56-29-1264 History of Present illness Narrative* Ada Foley, VBA DEVELOPER - 05/23/2024 9:50 AM ESTAssociated Problem(s): Type 2 diabetes mellitus with diabetic polyneuropathy, without long-term current use of insulin ([facility]) Stopped taking all of her medications. States she feels significantly better since stopping all medications. Discussed in detail with pt cardiovascular and additional risks associated with unmanaged diabetes mellitus. Pt verbalized understanding and maintains she would like to stay off of all medications except gabapentin at this time. * Ada Foley NP - 05/23/2024 9:21 AM ESTAssociated Problem(s): Other hyperlipidemia ([facility]) Currently stopped taking Rosuvastatin and Zetia; [...] polyneuropathy, without long-term current use of insulin ([facility]) Stopped taking all of her medications. [...] (Neurontin) 300 MG capsule documented in this [facility]01-08-2025 Instructions* Patient Instructions* Ada Foley NP - 05/23/2024 9:00 AM EST FASTING labs ordered. Nothing to eat or drink for 12 hours prior to blood draw. Water and black coffee ok. We will call you with results! documented in this [facility]10-08-2024 History of Present illness Narrative* Ada [...] A1C today. DM Eye Exam: 06/2022 @ [facility] in [place] * Ada Foley NP - 02/21/2024 9:30 [...] DM Eye Exam: 06/2022 @ [facility] in [place] DM Neuropathy: Was taking Gabapentin 100mg Bid. [...] R ALBUMIN GLOBULIN RATIO 0.9 Resulting Agency [facility] Review of Systems Constitutional: Negative for activity [...] polyneuropathy, without long-term current use of insulin ([facility]) Taking Rybelsus 7mg Denies any adverse [...] A1C today. DM Eye Exam: 06/2022 @ [facility] in [place] Relevant Orders Microalbumin / creatinine urine ratio Hemoglobin A1c Comprehensive metabolic panel CBC and differential Other hyperlipidemia ([facility]) Currently taking Rosuvastatin 40mg; Stopped fenofibrate [...] polyneuropathy associated with type 2 diabetes mellitus ([facility]/HCC) Previously reported Gabapentin as allergy due [...] Cologuard colon cancer screening documented in this encounterCooper County Memorial HospitalGscopfsrjq06-79-1893 Instructions* Patient Instructions* Ada Foley NP - [...] carbohydrates, and simple sugars. documented in this encounterNOTX HealthcareEvaluation note* Diagnosis Essential hypertension- Primary Unspecified essential hypertension Diabetic polyneuropathy associated with type 2 diabetes mellitus ([facility]/HCC) Encounter for osteoporosis screening in asymptomatic postmenopausal patient Encounter for screening for malignant neoplasm of colon Screening mammogram, encounter for Other hyperlipidemia ([facility]) Type 2 diabetes mellitus with diabetic polyneuropathy, without long-term current use of insulin (CMS/[facility]) documented in this encounter [facility] HealthcareEvaluation note* Diagnosis Type 2 diabetes mellitus without complication, without long-term current use of insulin ([facility])- Primary Other hyperlipidemia (CMS/HCC) Essential hypertension Unspecified essential hypertension Screening mammogram, encounter for Diabetic polyneuropathy associated with type 2 diabetes mellitus ([facility]) Encounter for osteoporosis screening in asymptomatic [...] of insulin (CMS/HCC) documented in this encounter [facility] HealthcareEvaluation note* Diagnosis Type 2 diabetes mellitus [...] polyneuropathy, without long-term current use of insulin ([facility]) Other hyperlipidemia- Primary Diabetic polyneuropathy associated with type 2 diabetes mellitus ([facility]/HCC) Type 2 diabetes mellitus with diabetic polyneuropathy, without long-term current use of insulin ([facility]) Type 2 diabetes mellitus with hyperglycemia, without long-term current use of insulin ([facility])- Primary Essential hypertension Unspecified essential hypertension Diabetic polyneuropathy associated with type 2 diabetes mellitus ([facility]) Statin myopathy Toxic myopathy Dyslipidemia ([facility]) Other and unspecified hyperlipidemia Encounter for long-term (current) use of medications Encounter for long-term (current) use of other medications Fatigue, unspecified type Medicare annual wellness visit, subsequent- Primary Type 2 diabetes mellitus with hyperglycemia, without long-term current use of insulin ([facility]) Essential hypertension Unspecified essential hypertension Diabetic polyneuropathy associated with type 2 diabetes mellitus ([facility]) Colon cancer screening Special screening for malignant neoplasms, colon [facility] HealthcareEvaluation note* Diagnosis Onset Date Resolution Status Admit Date Diabetic polyneuropathy associated with type 2 diabetes mellitus acuteSeptember 2024 9:21amEssential hypertensionacuteSeptember 2024 9:21amLumbar spondylosisacuteSeptember 2024 9:21amType 2 diabetes mellitus with diabetic microalbuminuria, without long-termacuteSeptember 2024 9:21am [facility] Work Phone: Reason for referral (narrative)No reason for referral information availableBerger Hospital Work Phone: Summary Purpose Family History [...] 2025 9:21am [facility] BLE per Aide Lewis VBA DEVELOPER-C February 19, 2025 9:44am Reason for Visit [...] and content) DATE CREATED AUTHOR 10/22/2022 [facility] DATE CREATED AUTHOR AUTHOR'S ORGANIZ ATION 10/22/2024 [facility] EPIC Care Teams (unrecognized sec tion and content) Team MemberRelationshipSpecialtyStart DateEnd Date Chuckie Zepeda MD [address] [place] [address] PCP - GeneralFamily Medicine12/27/23 Ada Foley NP [address] [place] [address] Nurse PractitionerFapaly Medicine12/27/23Team MemberRelationshipSpecialtyStart DateEnd Date Chuckie Zepeda MD [address] [place] [address] PCP - GeneralFamily Medicine12/27/23 Ada Foley NP [address] [place] [address] Nurse PractitionerFamily Medicine12/27/23Team MemberRelationshipSpecialtyStart DateEnd Date Chuckie Zepeda MD [address] [place] [address] PCP - [facility]12/27/23 Ada Foley NP [address] [place] [address] Nurse PractitionerJasper [facility]12/27/23Team MemberRelationshipSpecialtyStart DateEnd Date Chuckie Zepeda MD [address] [place] [address] PCP - [facility]12/27/23 Ada Foley NP [address] [place] [address] Nurse PractitionerJasper Memorial Hospital12/27/23Team MemberRelationshipSpecialtyStart DateEnd Date Chuckie Zepeda MD [address] [place] [address] PCP - [facility]12/27/23Team MemberRelationshipSpecialtyStart DateEnd Date Chuckie Zepeda MD [address] [place] [address] PCP - [facility]12/27/23 Team Status: Active Member Role Status Dates Chuckie Zepeda MD Primary Care Provider Active Team Status: Inactive Member Role Status Dates Chuckie Zepeda MD Primary Care Provider Active S tart: January 22, 2025 End: January 22, 2025[facility]mike Zepeda MDAttending ProviderActiveStart: January 22, 2025 End: [...] BE BASED ON THE PRIMARY CLINICAL RECORDS. [facility]. provides no warranty or guarantee of the accuracy or completeness of information in this document.
[2025-04-01 07:13] VITALS: BP 159/88; PULSE 84; TEMP 36.4; O2SAT 98
[2025-04-01 07:55] VITALS: BP 177/83; PULSE 87; O2SAT 96
[2025-04-01 07:56] VITALS: BP 189/79; PULSE 85; O2SAT 96
[2025-04-01] MEDS: 0.9 % SODIUM CHLORIDE 10 ML SYRINGE - SALINE FLUSH INJ (07:56)
[2025-04-01] MEDS: BUPIVACAINE HCL 0.25% PF 25 MG/10 ML VIAL INJ (07:56)
[2025-04-01] MEDS: METHYLPREDNISOLONE ACETATE 80 MG/ML VIAL INJ (07:57)
[2025-04-01] MEDS: LIDOCAINE HCL 2% 400 MG/20 ML MDV 3 ML INJ (07:57)
[2025-04-01] MEDS: IOHEXOL 240 MG/ML - 10 ML VIAL 24 MG INJ (07:57)
--- NOTE | 2025-04-01 07:58 | W.PM.PROCNOT ---
Date of procedure: 04/01/25 Pre-op diagnosis: Pain due to lumbar stenosis with neurogenic claudication Post-op diagnosis: same as pre-op Procedure: Procedure: Bilateral L4-5 transforaminal epidural steroid injection Medications: Bupivacaine 0.25% 2cc, lidocaine 2% 1cc, depomedrol 80mg The patient was seen and examined in the preoperative holding area.? Informed consent was obtained and placed on the chart.? Patient was brought to the medical procedure unit and placed in the prone position where a timeout was completed verifying the correct patient, procedure site, position, and planned special equipment using sterile aseptic technique.? Under direct fluoroscopic visualization a 25-gauge Quincke tipped spinal needle was advanced at level left L4-5 to the designated neural foramen where contrast dye was injected to show adequate spread.? There was no evidence of vascular or adverse uptake.? Epidural spread was appreciated.? The above-mentioned injectate was then placed in a 1.5 mL aliquot preceded by negative aspiration.? The needle was removed. The same procedure, at the same level, was completed on the opposite side. ? Patient was taken to the postprocedural recovery area and monitored for an appropriate length of time before found suitable for discharge in the accompaniment of a responsible adult. Anesthesia: Local Surgeon: Kyung Linton Pathology: none sent Condition: stable Disposition: no change
== END 2025-04-01 08:02 | disposition home or self-care (01) ==
PROVIDERS: PCP Family Medicine; Visit Provider Anesthesiology
DX: M48.062 Spinal stenosis, lumbar region with neurogenic claudication (principal); E11.9 Type 2 diabetes mellitus without complications
CPT/HCPCS: 36415; 64483; 82948; J0665; J1010; Q9966

== ENCOUNTER 2025-04-18 09:15 | Outpatient (OUT) | payer MEDICARE, SELFPAY ==
--- OUTSIDE RECORDS SUMMARY | 2025-04-18 09:19 | XMS_ITS | Clinical Summary ---
Author Organization [facility] Address [address] [place] [address] Care Team Providers Care Customer Service Teller Name Role Phone Chuckie Lindsay MD Primary Care Provider [phone] Allergies Active AllergyReactionsCriticalityNoted MsobXpxvcnfcTekivncjwnPbhcg26/09/2024 Severe muscle aches Medications MedicationSigDispense QuantityRefillsLast FilledStart DateEnd DateStatus amitriptyline (Elavil) 25 MG tablet Indications:Diabetic polyneuropathy associated with type 2 diabetes mellitus (HCC)Take 1 tablet (25 mg) by mouth at bedtime 30 tablet 5Active Active Problems ProblemNoted DateDiagnosed DateType 2 diabetes mellitus with diabetic microalbuminuria, without long-term current use of xstdyjs4707/31/2024Statin fmmsbess15/07/2025 Assessment & Plan (07/20/2024 10:42 AM EST): Did not tolerate statins and monitor. Encounter for long-term (current) use of awlbjlfwsgx59/07/2025Encounter for screening for malignant neoplasm of colon11/07/2023 Assessment & Plan (11/07/2023 9:51 AM EDT): Had normal colonoscopy 10 years ago - ordered cologuard. Type 2 diabetes mellitus with hyperglycemia, without long-term current use of ctjoscg5705/26/2023 Assessment & Plan (10/22/2024 9:14 AM EDT): [...] DM Eye Exam: 06/2022 @ [facility] in [place] Assessment & Plan (11/07/2023 9:49 AM EDT): [...] questions or concerns related to new medications. Wwksaesqougf01/11/2024 Assessment & Plan (07/20/2024 10:42 AM EST): [...] if she can tolerate it better. Essential nafbkggqylab45/11/2024 Assessment & Plan (10/22/2024 9:13 AM EDT): [...] Diabetic polyneuropathy associated with type 2 diabetes drzkkohv60/11/2024 Assessment & Plan (10/22/2024 9:13 AM EDT): [...] age > 65 Medicare annual wellness visit, /11/2024 Assessment & Plan (10/22/2024 9:13 AM [...] times a week05/25/2023How often do you attend buddhist or evangelical services?Never05/25/2023o you belong to any clubs or organizations such as buddhist groups, unions, fraternal or athletic groups, or school groups?No05/25/2023How often do you attend meetings of the clubs or organizations you belong to?Patient tzxbouom16/10/2024re you , , , , never , or living with a partner? 05/25/2023UDIT-CAnswerDate RecordedQ1: How often do you have a drink containing alcohol?Patient yrtkypnz43/10/2024Q2: How many drinks containing alcohol do you have on a typical day when you are drinking?Patient qxxzexzi51/10/2024Q3: How often do you have six or more drinks on one occasion?Patient vusbdxph05/10/2024 Overall Financial Resource Strain (CARDIA)AnswerDate RecordedHow hard is it for you to pay for the very basics like food, housing, medical care, and heating? Patient /10/2024HQ-2AnswerDate RecordedPatient Health Questionnaire-2 Mkhgi976Finheber [facility] medical [facility] [place] of Occupational Health - Occupational Stress QuestionnaireAnswerDate RecordedDo you feel stress - tense, restless, nervous, or anxious, or unable to sleep at night because yourmind is troubled all the time - these days?To some aiazdp1305/25/2023Exercise Vital SignAnswerDate Recorded On average, how many days per week do you engage in moderate to strenuous exercise (like a brisk walk)?4 days05/25/2023On average, how many minutes do you engage in exercise at this level?30 min05/25/2023Hunger Vital SignAnswerDate RecordedWithin the past 12 months, you worried that your food would run out before you got the money to buymore.Patient uphrnzog53/10/2024Within the past 12 months, the food you bought just didn't last and you didn't have money to get more.Patient zdtjbdif35/10/2024RAPARE - TransportationAnswerDate RecordedIn the past 12 months, has lack of transportation kept you from medical appointments or from getting medications?Patient ktpacfup63/10/2024In the past 12 months, has lack of transportation kept you from meetings, work, or from getting things needed for daily living?Patient kogjbdpf62/10/2024Housing Stability Vital Sign AnswerDate RecordedIn the last 12 months, was there a time when you were not able to pay the mortgage or rent on time?Patient ivmklhh6805/25/2023Number of Places Lived in the Last YearNot on file05/25/2023In the last 12 months, was there a time when you did not have a steady place to sleep or slept in [facility] (including now)?Patient hhjggjz2505/25/2023CommentsUnknownSex and Gender InformationValueDate RecordedSex Assigned at BirthNot on fileLegal SexFemale 07/28/2022 7:11 PM EDTGender IdentityNot on fileSexual OrientationNot on file Last Filed Vital Signs Vital SignReadingTime TakenCommentsBlood Hozmhrlm925/8206 8:36 AM EDT Hjuok473410/22/2024 8:36 AM UMIJietrymlayk01.4 ??C (97.5 ??F)10/22/2024 8:36 AM EDTRespiratory Xbya024910/22/2024 8:36 AM EDTOxygen Xpfcnxdrjp28%10/22/2024 8:36 AM EDTInhaled Oxygen Concentration--Vtmuqy60.2 kg (146 lb)10/22/2024 8:36 AM EDT Duztip741 cm (5' 3 )10/22/2024 8:36 AM EDTBody Mass Index25.8610/22/2024 8:36 AM EDT Plan of Treatment Not on file Insurance Care Teams Team MemberRelationshipSpecialtyStart DateEnd Date Chuckie Lindsay MD PCP - GeneralFamily Medicine12/27/23
--- OUTSIDE RECORDS SUMMARY | 2025-04-18 09:19 | XMS_ITS | Clinical Summary ---
Author Organization [facility] Address [address] [place] [address] Care Team Providers Care World History Teacher Name Role Phone Unavailable Primary Care Provider Unavailabl e Social History Tobacco UseTypesPacks/DayYears UsedDateSmoking Tobacco: Never Assessed CommentsUnknownSex and Gender InformationValueDate RecordedSex Assigned at Not on fileLegal WjxSkufpa31/30/2022 12:18 AM EDTGender IdentityNot on file Sexual OrientationNot on file Last Filed Vital Signs Vital SignReadingTime TakenCommentsBlood Vifkejab847/6610 9:39 AM EDT Pulse--Temperature--Respiratory Rate--Oxygen Hxeoxckhsa11%03/01/2019 9:39 AM EDT Inhaled Oxygen Concentration--Bvsaqp02.3 kg (144 lb)03/01/2019 9:37 AM EDTHeight 160 cm (5' 3 )03/01/2019 9:39 AM EDTBody Mass Index25.511 9:37 AM EDT Plan of Treatment Not on file
--- OUTSIDE RECORDS SUMMARY | 2025-04-18 09:21 | XMS_ITS | CCD ---
Author Organization [facility] Care Team Providers Care Commis Chef Name Role Phone FAWWAD, AREVALO H Attending [...] Attending UnavailChuckie Rodriguez MD Primary Care Provider [phone] Chuckie Zepeda MD Attending Provider [phone] Noel Muñoz DO Attending Provider [phone] Allergies Allergy ClassificationReported Allergen(s)Allergy TypeDate of OnsetReaction(s) Facility (11 sources)gabapentinDrug Ajmghsu03-86-1066LefjdEUZQ Healthcare Medications Current Medications MedicationDrug Class(es)DatesSig (Normalized)Sig (Original)DULoxetine 30 mg delayed release oral capsule (2 sources)Serotonin and Norepinephrine Reuptake InhibitorStart: 09-92-0227nqam 1 capsule by mouth once dailyezetimibe 10 mg oral tablet (5 sources)Dietary Cholesterol Absorption InhibitorStart: 02-21-2024 End: 71-94-1389rorj 1 tablet by mouth once dailyezetimibe (Zetia) 10 MG tablet Indications: Other hyperlipidemia (CMS/HCC) Take 1 tablet (10 mg) bymouth Daily 30 tablet 11 02/21/2024 02/20/2025 Activefenofibrate 145 mg oral tablet (3 sources)Peroxisome Proliferator Receptor alpha AgonistStart: 11-08-2023 End: 82-41-8568hafh 1 tablet by mouth once dailyfenofibrate (Tricor) 145 MG tablet Indications: Other hyperlipidemia (CMS/HCC) Take 1 tablet (145 mg) by mouth Daily 90 tablet 11/08/2023 02/21/2024 Discontinued (Side effects) gabapentin 300 mg oral capsule (13 sources)Anti-epileptic AgentStart: 02-21-2024 End: 00-24-8794eqmk 1 capsule by mouth in the morninggabapentin (Neurontin) 300 MG capsule Indications: Diabetic polyneuropathy associated with type 2 diabetes mellitus (CMS/HCC) Take 1 capsule (300 mg) by mouth in the morning and 1 capsule (300 mg) before bedtime. 180 capsule 07/20/2024 10/22/2024 DiscontinuedStart: 11-07-2023 End: 14-29-3770bmty 1 capsule by mouth in the morninggabapentin (Neurontin) 100 MG capsule Indications: Diabetic polyneuropathy associated with type 2 diabetes mellitus (CMS/HCC) Take 1 capsule (100 mg) by mouth in the morning and 1 capsule (100 mg) before bedtime. 200 capsule 1 11/07/2023 02/21/2024 Discontinued (Dose adjustment)lidocaine 0.05 mg/mg medicated patch (2 sources)Antiarrhythmic, Amide Local AnestheticStart: 55-07-7335thonp 1 dose topically once dailylosartan potassium 25 mg oral tablet (3 sources)Angiotensin 2 Receptor BlockerStart: 07-31-2024 End: 97-80-7235gyuq 1 tablet by mouth once dailylosartan (Cozaar) 25 MG tablet Indications: Essential hypertension (CMS/HCC) Take 1 tablet (25 mg) by mouth Daily 30 tablet 5 07/31/2024 10/22/2024 Discontinuedpregabalin 75 mg oral capsule (2 sources)Start: 10-22-2024 End: 00-62-5928tbdv 1 capsule by mouth in the morningpregabalin (Lyrica) 75 MG capsule Indications: Diabetic polyneuropathy associated with type 2 diabetes mellitus (CMS/HCC) Take 1 capsule (75 mg) by mouth in the morning and 1 capsule (75 mg) before bedtime. 60 capsule 1 10/22/2024 12/21/2024 Activerosuvastatin calcium 40 mg oral tablet (6 sources)HMG-CoA Reductase InhibitorStart: 11-08-2023 End: 29-58-5876vrko 1 tablet by mouth once dailyrosuvastatin (Crestor) 40 MG tablet Indications: Other hyperlipidemia (CMS/HCC) Take 1 tablet (40 mg) by mouth Daily 100 tablet 1 11/08/2023 05/26/2024 Activesemaglutide 7 mg oral tablet (6 sources)Start: 11-07-2023 End: 20-83-5884izkf 1 tablet by mouth before mealtimesemaglutide (Rybelsus) 7 MG tablet Indications: Type 2 diabetes mellitus without complication, without long- term current use of insulin (CMS/HCC) Take 1 tablet (7 mg) by mouth in the morning. Take before meals. 100 tablet 1 11/07/2023 05/25/2024 Active Completed/Discontinued Medications MedicationDrug Class(es)DatesSig (Normalized)Sig (Original)amitriptyline hydrochloride 25 mg oral tablet (2 sources)Tricyclic AntidepressantStart: 01-21-2025 End: 64-30-5374vsmp 1 tablet by mouth once daily at [...] complications; Translations: [TYPE 2 DM WITHOUT COMPLICATIONS]Onset: 15-61-1220XlcwgmnWwzredhqn of lipid metabolism (16 sources)Hyperlipidemia, unspecified; Translations: [Hyperlipidemia]Onset: 562661-55-1832BdlwuwhQkugojbla hypertension (17 sources)Essential hypertension; Translations: [Essential (primary) hypertension]Onset: 444144-75-7118JfznyzqTiajf aftercare (5 sources)Long-term current use of drug therapy; Translations: [Other senior care (current) drug therapy]Onset: 142189-21-3874NtnybolyAtkep nervous system disorders (2 sources)Polyneuropathy; Translations: [Polyneuropathy, unspecified]02-19-2025 ChronicOther nervous system disorders (6 sources)Drug-induced myopathy; Translations: [Toxic myopathy]Onset: 201916-48-1866OeztyrzlKdcxo screening for suspected conditions (not mental disorders or infectious disease) (20 sources)Encounter for screening mammogram for malignant neoplasm of breast; Translations: [Patient encounter status]Onset: 35-45-2367SdndulnuDyuepovzdvc; intervertebral disc disorders; other back problems (4 sources)Lumbar spondylosis; Translations: [Spondylosis without myelopathy or radiculopathy, lumbar region]99-82-7859Blxfara Past or Other Problems Problem ClassificationProblemDateDocumented DateEpisodic/ChronicMood disorders (9 sources)Mood disordersOnset: 05-26-2023 Resolved: 631951-53-2480Ojdmkhjl codes; unclassified (1 source)Family history of malignant neoplasm of other organs or systems; Translations: [FAM HX MALIG NEOPLASM OTH ORGN/SYS]Onset: 10-63-5133Srrtqjeq Results Test NameValueInterpretationReference RangeFacilityGlucose mean value [Mass/volume] in Blood Estimated from glycated hemoglobinOrdered By: Chuckie Zepeda on 69-11-5735Ycjxbpd glucose Estimated from glycated hemoglobin (Bld) [Mass/Vol]137 mg/dLBluffton HospitalHemoglobin A1c percentage Ordered By: Chuckie Zepeda on 26-58-3747GyE3o (Bld) [Mass fraction]6.4 %High 4.5-6.2FPremier Health Miami Valley HospitalComment on above:ADA RECOMMENDED LIMIT 4.0 - 6.0ADA THERAPEUTIC TARGET < 7.0ACTION SUGGESTED> 7.0BI MAMMOGRAM SCREENING TOMOSYNTHESIS BILATERALon 60-59-0359UC MAMMOGRAM SCREENING TOMOSYNTHESIS BILATERALThis is a summary [...] Sukhdev Betancourt M.D.NormalNot AvailableDEXA BONE DENSITY on 22-66-6706EEGO BONE DENSITYExamination: DEXA BONE DENSITY Clinical History: [...] BY: Sukhdev Betancourt M.D.NormalNot AvailableVITAMIN B1 (THIAMINE)on 16-14-3551Amq. B1, Whole Ouvad546.2 nmol/DFqonse70.5-200.0[facility] Medical CenterComment on above:Performed By: #### VITB1T #### [facility] [address] [place] [address] Dr. Sameera MontanaGLYCOHEMOGLOBIN A1Con 15-98-9386UNB RECOMMENDATIONSEE BELOWHaverhill The Doctors HospitalCommarlette regional hospital on above:Result Comment: ADA RECOMMENDED LIMIT 4.0 - 6.0 ADA THERAPEUTIC TARGET < 7.0 ACTION SUGGESTED > 7.0Performed By: #### A1C #### [facility] [address] [place] [address] Dr. Sameera MontanaGlucose [Mass/Vol]131 mg/dLNoSt. Mary's Medical [facility] on above:Performed By: #### A1C #### [facility] [address] [place] [address] Dr. Sameera MontanaHbA1c (Bld) [Mass fraction]6.2 %Normal4.5-6.2[facility] on above:Performed By: #### A1C #### [facility] [address] [place] [address] Dr. Sameera BowdenID PROFILEon 98-15-0520EFKM-HDL RATIO NORMSEE BELOWProtestant HospitalCommarlette regional hospital on above:Result Comment: 3.3 - 4.4 LOW RISK 4.4 - 7.1 AVERAGE RISK 7.1 - 11.0 MODERATE RISK >11.0 HIGH RISKPerformed By: #### LIPID #### [facility] [address] [place] [address] Dr. Sameera Ellisonesterol [Mass/Vol]216 mg/dLCritically high<=200[facility] on above:Performed By: #### LIPID #### [facility] [address] [place] [address] Dr. Sameera Ellisonesterol in HDL [Mass/Vol]46 mg/eGMfvnob10-13[facility] on above:Performed By: #### LIPID #### [facility] [address] [place] [address] Dr. Sameera Ellisonesterol in LDL [Mass/Vol]106.4 mg/dLProtestant HospitalCommarlette regional hospital on above:Performed By: #### LIPID #### [facility] [address] [place] [address] Dr. Yilan ChangCholesterol.total/Cholesterol in HDL [Mass ratio]4.7 {ratio} NormalKettering Health Behavioral Medical CenterComment on above:Performed By: #### LIPID #### [facility] [address] [address] [address] Sameera Singer NORMAL> or = 60 mg/dl - LOW CARDIOVASCULAR RISK <40 mg/dl - HIGH CARDIOVASCULAR RISKProtestant HospitalComment on above:Performed By: #### LIPID #### [facility] [address] [address] [address] Sameera MontanaLDL CALC NORMALSEE [facility] Hospital - CantonComment on above:Result Comment: <100 mg/dl OPTIMAL 100 - 129 mg/dl NEAR OR ABOVE OPTIMAL 130 - 159 mg/dl BORDERLINE HIGH 160 - 189 mg/dl HIGH >190 mg/dl VERY HIGH Performed By: #### LIPID #### [facility] [address] [place] [address] Dr. Sameera MontanaTriglyceride [Mass/Vol]318 mg/dLCritically high<=150The Doctors HospitalComment on above:Performed By: #### LIPID #### [facility] [address] [address] [address] Sameera MontanaVLDL CALC63.6 mg/dLNoTriHealth Bethesda Butler HospitalComment on above: Performed By: #### LIPID #### [facility] [address] [place] [address] Dr. Sameera MontanaVITAMIN B12on 23-38-8429Ppmnfdtuv (Vitamin B12) [Mass/Vol]506.0 pg/tEDghnjn630.0-986.0The Doctors HospitalComment on above:Performed By: #### VITB12 #### [facility] [address] [place] [address] Dr. Sameera MontanaDIRECT LDLon 08-86-0430Irkhmujevbo in LDL [Mass/Vol]164 mg/dL NormalThe Doctors HospitalComment on above:Performed By: #### DLDL, LIPID #### [facility] [address] [place] [address] Dr. Sameera MontanaDLDL NORMALSEE [facility] CantonCommarlette regional hospital on above: Result Comment: <100 mg/dl OPTIMAL 100 - 129 mg/dl NEAR OR ABOVE OPTIMAL 130 - 159 mg/dl BORDERLINE HIGH 160 - 189 mg/dl HIGH >190 mg/dl VERY HIGHPerformed By: #### DLDL, LIPID #### [facility] [address] [place] [address] Dr. Sameera MontanaGLYCOHEMOGLOBIN A1Con 89-11-5966QGP RECOMMENDATIONSEE BELOWGreen Cross HospitalCommarlette regional hospital on above:Result Comment: ADA RECOMMENDED LIMIT 4.0 - 6.0 ADA THERAPEUTIC TARGET < 7.0 ACTION SUGGESTED > 7.0Performed By: #### A1C #### [facility] [address] [place] [address] Dr. Sameera MontanaGlucose [Mass/Vol]137 mg/dLProtestant HospitalCommarlette regional hospital on above:Performed By: #### A1C #### [facility] [address] [place] [address] Dr. Sameera MontanaHbA1c (Bld) [Mass fraction]6.4 %Critically high4.5-6.2[facility] on above:Performed By: #### A1C #### [facility] [address] [place] [address] Dr. Sameera MontanaLIPID PROFILEon [id number]-HDL RATIO NORMSEE [facility]onCommarlette regional hospital on above:Result Comment: 3.3 - 4.4 LOW RISK 4.4 - 7.1 AVERAGE RISK 7.1 - 11.0 MODERATE RISK >11.0 HIGH RISKPerformed By: #### DLDL, LIPID #### [facility] [address] [place] [address] Dr. Sameera MontanaCholesterol [Mass/Vol]295 mg/dLCritically high<=200[facility] on above:Performed By: #### DLDL, LIPID #### [facility] [address] [place] [address] Dr. Sameera MontanaCholesterol in HDL [Mass/Vol]41 mg/pCNpsapq37-39Akd Esme HospitalComment on above:Performed By: #### DLDL, LIPID #### [facility] [address] [place] [address] Dr. Sameera MontanaCholesterol.total/Cholesterol in HDL [Mass ratio]7.2 {ratio} NormalThe Doctors HospitalCommarlette regional hospital on above:Performed By: #### DLDL, LIPID #### [facility] [address] [place] [address] Dr. Sameera EdmondsonL NORMAL> or = 60 mg/dl - LOW CARDIOVASCULAR RISK <40 mg/dl - HIGH CARDIOVASCULAR RISKProtestant HospitalCommarlette regional hospital on above:Performed By: #### DLDL, LIPID #### [facility] [address] [place] [address] Dr. Sameera Bennett CALC NORMALSEE BELOWProtestant HospitalCommarlette regional hospital on above:Result Comment: <100 mg/dl OPTIMAL 100 - 129 mg/dl NEAR OR ABOVE OPTIMAL 130 - 159 mg/dl BORDERLINE HIGH 160 - 189 mg/dl HIGH >190 mg/dl VERY HIGH Performed By: #### DLDL, LIPID #### [facility] [address] [place] [address] Dr. Sameera MontanaTriglyceride [Mass/Vol]440 mg/dLCritically high<=150[facility] CenterCommarlette regional hospital on above:Performed By: #### DLDL, LIPID #### [facility] [address] [place] [address] Dr. Sameera DalalLDL CALC88.0 mg/dLProtestant HospitalCommarlette regional hospital on above: Performed By: #### DLDL, LIPID #### [facility] [address] [place] [address] Dr. Sameera MontanaMG MAMM SCREEN 3D MIKEY CADon 16-75-1308KQ MAMM SCREEN 3D MIKYE CAD Patient: LALI JACKSON Exam Date: 03/22/2022 : 1955 Gender:F Ordering : SHAIKH Radha JOHNSON . Admission #: [id number] Family : Order #: [id number] CLICK HERE TO VIEW EXAM RADIOLOGY REPORT [...] bone cancer at age 53. LOCATION: [facility] BREAST COMPOSITION: Heterogeneously dense,which may obscure [...] by: Samir Dorantes MD on 03/22/2022 at 12:14[facility] Vital Signs Date TimeVital SignValuePerforming IvjptmytiAjpkgxjd24-83-2012 09:28-0400Body .02 cmChuckie Zepeda MD Work Phone: [phone]-[facility]09-09-2025 09:28-0400 Body mass index (BMI) [Ratio]25.8 kg/m2Chuckie Zepeda MD Work Phone: [phone]-[facility]09-09-2025 09:28-0400 Body hrcbqnameqh03.3 [degF]Chuckie Zepeda MD Work Phone: [facility]09-09-2025 09:28-0400 Body .22 kgChuckie Zepeda MD Work Phone: [phone]-[facility]09-09-2025 09:28-0400 Heart rate80 /minChuckie Zepeda MD Work Phone: [phone]-[facility]09-09-2025 09:28-0400 Respiratory rate20 /minChuckie Zepeda MD Work Phone: [phone] [place], [place] [address]709-09-2025 09:28-0400 SaO2% (BldA) [Mass fraction]97 %Chuckie Zepeda MD Work Phone: [phone]-[facility]06-09-2025 08:36-0400 Body kqhuro565 cmChuckie Zepeda MD Work Phone: [facility]SmithvilleLeobxibuhu22-59-9064 08:36-0400Body mass index (BMI) [Ratio]25.86 kg/m2Chuckie Zepeda MD Work Phone: [facility]SmithvilleUvwweanxpm93-20-0359 08:36-0400Body temperature 97.5 [degF]Chuckie Zepeda MD Work Phone: [facility]SmithvilleRlhnshtoqu55-35-7420 08:36-0400Body hygwee45.22 kgChuckie Zepeda MD Work Phone: [facility]–SmithvilleCknohqxoyo17-47-0860 08:36-0400Diastolic blood odguhoup40 mm[Hg]Chuckie Zepeda MD Work Phone: [facility]–SmithvilleGddrgbkmrc15-05-2007 08:36-0400Heart rate89 /min Chuckie Zepeda MD Work Phone: [facility]SmithvilleVwakrvmjbs46-94-8708 08:36-0400Respiratory rate18 /minChuckie Zepeda MD Work Phone: [facility]–SmithvilleYzhwoesepr03-31-6879 08:36-7524CjS0% (BldA) [Mass fraction]97 %Chuckie Zepeda MD Work Phone: [facility]SmithvilleEjqjolljri15-04-9062 08:36-0400Systolic blood bixwfqjw725 mm[Hg]Chuckie Zepeda MD Work Phone: [facility]–SmithvilleZvjagmakto92-59-7096 08:58-0500Body riipoj850 cm Ada Foley CLINICAL PROVIDER TRAINER Work Phone: [facility]SmithvilleCqhzqjjcuh89-06-8052 08:58-0500Body mass index (BMI) [Ratio]25.69 kg/d6Rffdokvm Foley CLINICAL PROVIDER TRAINER Work Phone: noOzarks Community HospitalDhlgjwmnxa29-34-0464 08:58-0500Body temperature 97.5 [degF]Ada Foley CLINICAL PROVIDER TRAINER Work Phone: [facility]SmithvilleDgicejquqa69-36-5167 08:58-0500Body qubdus94.77 kgAda Foley CLINICAL PROVIDER TRAINER Work Phone: noOzarks Community HospitalFyouygvjcv00-33-9117 08:58-0500Diastolic blood nwdxzhyn11 mm[Hg]Ada Foley CLINICAL PROVIDER TRAINER Work Phone: [facility]SmithvilleYtunfpedsz93-79-5607 08:58-0500Heart rate90 /min Ada Foley CLINICAL PROVIDER TRAINER Work Phone: [facility]SmithvilleVdjoaoxuwq37-48-6565 08:58-0500Respiratory rate22 /minAda Foley CLINICAL PROVIDER TRAINER Work Phone: [facility]–SmithvilleJoequtjcea42-53-0328 08:58-4165SbV3% (BldA) [Mass fraction]96 %Ada Foley CLINICAL PROVIDER TRAINER Work Phone: [facility]SmithvillePduorvscih01-69-7426 08:58-0500Systolic blood hlbjtxia864 mm[Hg]Ada Foley CLINICAL PROVIDER TRAINER Work Phone: noOzarks Community HospitalNajfewbevh41-72-9305 09:27-0400Body mass index (BMI) [Ratio]25.15 kg/u7Faclyswf Foley CLINICAL PROVIDER TRAINER Work Phone: [facility]SmithvilleAeentcuhmx29-55-9211 09:27-0400Body temperature 97.2 [degF]Ada Foley CLINICAL PROVIDER TRAINER Work Phone: noOzarks Community HospitalTpqwtktxbq99-78-2282 09:27-0400Body tikzgj70.41 kgAllisonittelizabeth Foley CLINICAL PROVIDER TRAINER Work Phone: noOzarks Community HospitalYnyvnyznye51-28-4600 09:27-0400Diastolic blood bwbyhyhl61 mm[Hg]Ada Foley CLINICAL PROVIDER TRAINER Work Phone: noOzarks Community HospitalBbtjcyakvt71-97-6484 09:27-0400Heart rate75 /min Ada Medinak CLINICAL PROVIDER TRAINER Work Phone: noOzarks Community HospitalHrdgcitrab32-61-8249 09:27-3015QyS7% (BldA) [Mass fraction]99 %Ada Grigsbytrick CLINICAL PROVIDER TRAINER Work Phone: [facility] Ybtrwownvq64-24-7761 09:27-0400Systolic blood tfftcgob544 mm[Hg]Ada Grigsbytrick CLINICAL PROVIDER TRAINER Work Phone: [facility] Encounters Encounter DateEncounter TypeCare ProviderFacilityStart: 02-19-2025 End: 92-66-6195magqazuicaNlwq Naderer MD Work Phone: [facility] Work Phone: Start: 02-19-2025 End: 91-15-1276Ienvrfj encounter procedureChristopher Toni Singh DO-[facility] Neurology [place] Work Phone: Start: 01-22-2025 End: 88-53-1008qtpdxrwhhcLjog Naderer MD Work Phone: [facility] Work Phone: Start: 01-22-2025 End: 77-66-2326Gzcpryc encounter procedureChuckie Zepeda MD-[facility] Family Medicine [place] Work Phone: Start: 10-22-2024 End: 87-51-9551Pmnxiq flowsNaresh Zepeda MD Work Phone: [facility] FMStart: 10-22-2024 End: 45-31-4431Jfuojo He Zepeda MD Work Phone: [facility] FMStart: 10-22-2024 End: 09-97-0542Fwpaul outpatient visit 15 minutesChuckie Zepeda MD Work Phone: [facility] FMComment on above:Medicare annual wellness visit, subsequent (Primary Dx); Type 2 diabetes mellitus with hyperglycemia, without long-term current use of insulin (CMS/HCC); Essential hypertension; Diabetic polyneuropathy associated with type 2 diabetes mellitus (CMS/HCC); Colon cancer screeningStart: 10-22-2024 End: 90-08-6162Fystwvd encounter procedureChuckie Zepeda MD Work Phone: [facility] HealthcareStart: 10-22-2024 End: 90-10-9714lqhsffonybRJBU NADERERNot AvailableStart: 94-92-0092Tlofklf encounter procedureChuckie Zepeda MD Work Phone: NOYB HealthcareStart: 07-20-2024 End: 34-78-1646cpempxhclhMZAN NADERERNot AvailableStart: 05-23-2024 End: 89-18-7840Vhleld flowsheetBrittany Foley CLINICAL PROVIDER TRAINER Work Phone: [facility] FMStart: 05-23-2024 End: 05-97-7464Votiqa flowsheetBrittany Foley CLINICAL PROVIDER TRAINER Work Phone: [facility] FMStart: 05-23-2024 End: 34-82-4983Ekeaxl outpatient visit 15 minutesBrittany Foley CLINICAL PROVIDER TRAINER Work Phone: [facility] CWM FMComment on above:Other hyperlipidemia (CMS/HCC) (Primary Dx); Diabetic polyneuropathy associated with type 2 diabetes mellitus (CMS/HCC); Type 2 diabetes mellitus with diabetic polyneuropathy, without long-term current use of insulin (CMS/HCC)Start: 05-23-2024 End: 66-50-9162gfimxckpdxJFYNCIFC FITZPATRICKNot AvailableStart: 05-22-2024 End: 62-44-9150idebbqsfhjBXZHSARO FITZPATRICKNot AvailableStart: 02-21-2024 End: 86-98-0835Rsfztw flowsheetBrittany Foley CLINICAL PROVIDER TRAINER Work Phone: noMS CWM FMStart: 02-21-2024 End: 90-80-2975Nswyhf flowsheetBrittany Foley CLINICAL PROVIDER TRAINER Work Phone: [facility] FMStart: 02-21-2024 End: 34-39-3414Tcziid outpatient visit 25 minutesAda Foley CLINICAL PROVIDER TRAINER Work Phone: [facility] FMComment on above:Essential hypertension (Primary Dx); Diabetic polyneuropathy associated with type 2 diabetes mellitus ([facility]/HCC); Encounter for osteoporosis screening in asymptomatic postmenopausal patient; Encounter for screening for malignant neoplasm of colon; Screening mammogram, encounter for; Other hyperlipidemia ([facility]); Type 2 diabetes mellitus with diabetic polyneuropathy, without long-term current use of insulin ([facility])Start: 02-21-2024 End: 93-10-7130unzscqeuwdYEAVQTFJAjit Romano AvailableStart: 11-07-2023 End: 59-66-4512amchogudojKNCHYH FAWWADNot AvailableStart: 34-84-0022Nipptri encounter procedureAda Foley CLINICAL PROVIDER TRAINER Work Phone: NOTX HealthcareStart: 08-03-2022 End: 71-76-3002pxgvhbghgoUJDIIF H FAWWADFacility:X2Pgiga: 06-14-2022 End: 37-76-6460fnbwtliawzAMOMHC H FAWWADFacility:P3Ezipp: 03-22-2022 End: 67-37-1495cdzghuauvnBN DAVID V WESTFacility:H1 Procedures DateProcedureProcedure DetailPerforming ClinicianStart: 47-00-4795Kmmvogldbim Chuckie Zepeda MD Work Phone: Plan of Treatment DateCare ActivityDetailAuthorStart: 62-71-3852Hrtmydfd screeningDiabetes: Retinopathy ScreeningNOTX HealthcareStart: 59-33-8315Ngzzs screening for protein Diabetes: Urine Protein ScreeningNOTX HealthcareStart: 21-98-1620Ooebrzsjl for malignant neoplasm of breastMammogramNOTX HealthcareStart: 73-78-3304Bxisyqwjim A1c measurementDiabetes: Hemoglobin G3LZMBR HealthcareStart: 01-22-2025 End: 58-58-0548Vedrxpu encounter jnlunucya54/01/2025 9:30 AM EDT Office Visit [facility] [address] [place] [phone] Chuckie Zepeda MD [address] [place] [phone] [facility] FMStart: 64-89-0799Tigbavrmg vaccinationInfluenza Vaccine (Season Ended)[facility] HealthcareStart: 10-22-2024 End: 28-49-3336Vwtamwfcvqj colorectal cancer DNA and occult blood screening [Presence] in StoolCologuard colon cancer screening Lab Routine Colon cancer screening Expected: 10/22/2024 (Approximate), Expires: 10/22/2025[facility] Work Phone: Comment on above:Expected: 10/22/2024 (Approximate), Expires: 10/22/2025Start: 10-22-2024 End: 17-16-0123Konuanm encounter czusqqhgy92/09/2025 8:30 AM EDT Office Visit [facility] [address] [place] [phone] Chuckie Zepeda MD [address] [place] [phone] [facility] FMComment on above:ArrivedStart: 08-22-2024 End: 74-74-8486Ridfkcn encounter abiqdtdjn57/09/2025 10:00 AM EDT Office Visit [facility] [address] [place] [phone] Ada Foley NP [address] [place] [phone] [facility] FMStart: 19-43-1965Gsxftomy screeningDiabetes: Retinopathy ScreeningNOTX HealthcareStart: 00-29-2526Rqevg screening for protein Diabetes: Urine Protein ScreeningNOTX HealthcareStart: 01-11-2025Medicare Annual Wellness (AWV)Medicare Annual Wellness (AWV)[facility] HealthcareStart: 05-26-2024 Pneumococcal Vaccine: 65+ Years (1 of 2 - PCV)Pneumococcal Vaccine: 65+ Years (1 of 2 - PCV)[facility] HealthcareComment on above:Postponed from 1963 (Patient Refused)Start: 05-23-2024 End: 42-73-1663Jjarvsk encounter procedureNOTX CW FMComment on above:Arrived Start: 02-21-2024 End: 46-48-6385MVX W Auto Differential panel - BloodCBC and differential Lab Routine Essential hypertension Type 2 diabetes mellitus with diabetic polyn europathy, without long-term current use of insulin (CMS/[facility]) Expected: 02/21/2024 (Approximate), Expires: 02/20/2025NOTX HealthcareComment on above: Expected: 02/21/2024 (Approximate), Expires: 02/20/2025Start: 02-21-2024 End: 95-09-4028Baotsujocvopo metabolic 2000 panel - Serum or PlasmaComprehensive metabolic panel Lab Routine Essential hypertension Type 2 diabetes mellitus with diabetic polyneuropathy, without long-term current use of insulin (CMS/HCC) Expected: 02/21/2024 (Approximate), Expires: 02/20/2025[facility] HealthcareComment on above:Expected: 02/21/2024 (Approximate), Expires: 02/20/2025Start: 02-21-2024 End: 04-72-4088IDY Skeletal system Views for bone densityDEXA bone density Imaging Routine Encounter for osteoporosis screening in asymptomatic postmenopausal patient Expected: 02/21/2024, Expires: 02/20/2025[facility] Healthcare Comment on above:Expected: 02/21/2024, Expires: 02/20/2025Start: 02-21-2024 End: 62-49-0454Zqfdocinwk A1c/Hemoglobin.total in BloodHemoglobin A1c Lab Routine Type 2 diabetes mellitus with diabetic polyneuropathy, without long-term current use of insulin (CMS/HCC) Expected: 02/21/2024 (Approximate), Expires: 02/20/2025[facility] HealthcareComment on above:Expected: 02/21/2024 (Approximate), Expires: 02/20/2025Start: 02-21-2024 End: 36-42-5241Megjp 1996 panel - Serum or PlasmaLipid panel Lab Routine Other hyperlipidemia (CMS/HCC) Expected: 02/21/2024 (Approximate), Expires:02/20/2025 [facility] HealthcareComment on above:Expected: 02/21/2024 (Approximate), Expires: 02/20/2025Start: 02-21-2024 End: 59-33-9291PH Breast - bilateral ScreeningBilateral screening mammogram Imaging Routine Screening mammogram, encounter for Expected: 02/21/2024, Expires: 04/22/2025[facility] HealthcareComment on above:Expected: 02/21/2024, Expires: 04/22/2025Start: 02-21-2024 End: 68-46-5665Csysqzoruqf colorectal cancer DNA and occult blood screening [Presence] in StoolCologuard colon cancer screening Lab Routine Encounter for screening for malignant neoplasm of colon Expected: 02/21/2024 (Approximate), Expires: 02/20/2025[facility] HealthcareComment on above:Expected: 02/21/2024 (Approximate), Expires: 02/20/2025Start: 02-21-2024 End: 42-21-4557CML W/REFLEX TO FT4TSH W/REFLEX TO FT4 Lab Routine Essential hypertension Expected: 02/21/2024 (Approximate), Expires:02/20/2025[facility] Work Phone: Comment on above:Expected: 02/21/2024 (Approximate), Expires: 02/20/2025Start: 02-21-2024 End: 79-08-1485Hfgmipr encounter tbfrvieka79/08/2024 9:30 AM EDT Office Visit [facility] [address] [place] [address] Ada Foley, ALFONSO [address] [place] [address] [facility] FMComment on above:ArrivedStart: 01-15-2024 Influenza vaccinationInfluenza Vaccine (#1)[facility] HealthcareStart: 12-05-2023 Hemoglobin A1c measurementDiabetes: Hemoglobin X7MJQOD HealthcareStart: 59-69-9636Rkoqmygjd for malignant neoplasm of breastMammogramDELTA COMMUNITY MEDICAL [facility]ENTER Healthcare Start: 78-62-0659Jtjqrtdwuito Vaccine: 65+ Years (1 of 2 - PCV)Pneumococcal Vaccine: 65+ Years (1 of 2 - PCV)[facility] HealthcareStart: 64-60-7432Eanrhqixr for malignant neoplasm of colonDELTA COMMUNITY [facility]ENTER HealthcareMicroalbumin/Creatinine panel in random UrineMicroalbumin / creatinine urine ratio Lab Routine Essential hypertension Type 2 diabetes mellitus with diabetic polyneuropathy, without long-term current use of insulin ([facility]) Ordered: 02/21/2024[facility] Comment on above:Ordered: 02/21/2024[facility] Payers DatePayer CategoryPayerPolicy [id number] MEDICARE ADVANTAGE [id number] 2023MedicareAETNA MEDICARE ADVANTAGE AETNA MEDICARE REPLACEMENT [id number] 2022-Present [address] [place] [id number] [id number] [id number] [id number] [id number] [id number] 2.16.840.1.84290[id number] 2.16.840.1.8[id number] 2.16.840.1.54425[id number] 2.16.840.1.603974.3.57[id number] 2.16.840.1.328135.3.57[id number] 2.16.840.1.649584.3.57[id number] [id number] 2.16.840.1.873057.3.579.2.1259 Social History DateTypeDetailFacilityStart: 08-15-2023 End: 09-70-0822Ptujjdw smoking status NHISEx-smokerNOMS HealthcareHistory of tobacco useCurrent smokerNOMS HealthcareHistory of tobacco useCigarette Smoker [facility] HealthcareHistory of tobacco usePassive smokerNOMS HealthcareStart: 11-07-2023 End: 88-60-9290Zdcckpusb beverage intakeLifetime non-drinker (finding)[facility] HealthcareStart: 05-25-2023 End: 93-15-3623Uckuqfg of Social functionNOMS HealthcareStart: 05-25-2023 End: 35-07-7680Nenvlcvebqk, Afraid, Rape, and Kick questionnaire [HARK][facility] HealthcareWithin the last year, have you been afraid of your partner or ex-partner?NoNOMS HealthcareHow often do you attend meetings of the clubs or organizations you belong to?Patient declinedNOTX HealthcareAre you now , , , , never or living with a partner?MarriedDEL[facility] HealthcareDo you feel stress - tense, restless, nervous, or anxious, or unable to sleep at night because yourmind is troubled all the time - these days [OSQ]To some extentSaint Luke's [facility] Hospital–[facility]villeStart: 60-54-2440Hnersdv Commentcaffeine: 3-4 cups per daySaint Luke's North Hospital–SmithvilleStart: 20-31-1345Fxg assigned at birthNot on [facility] HospitalSexFemal (finding)[facility] 1955 [facility] Functional Status WmjoGukbdvjnbaUnfkeiJjfnwkrh47-12-1803Snjoins Health Questionnaire 2 item (PHQ- 2) [Reported][facility] Clinical Notes 02-21-2024 to 01-22-2025 Note Date & EbvhZuldAaqhfumn21-91-3246 Evaluation note* Diagnosis Onset Date Resolution Status Admit Date Diabetic polyneuropathy associated with type 2 diabetes mellitus acuteSeptember 2024 9:21amEssential hypertensionacuteSept2024 9:21amLumbar spondylosisacuteSeptember 2024 9:21amStatin myopathyacute Milagro 2024 9:21amType 2 diabetes mellitus with diabetic microalbuminuria, without long-termacuteSeptember 2024 9:21amPolyneuropathy acuteOctober 2024 9:44am [facility] [place] Work Phone: [phone]) 940-229506-09-2025 History of Present illness Narrative* Chuckie Zepeda MD - 10/22/2024 9:14 AM EDTAssociated Problem(s): Type 2 diabetes mellitus with hyperglycemia, without long-term current use of insulin ([facility]) Last A1C 6.5. Stick to [...] polyneuropathy associated with type 2 diabetes mellitus ([facility]) Continued pain and stop neurontin. [...] 6.5. Stopped losartan due to side effects. Brooks nauseated and had HART. BP okay without [...] hyperglycemia, without long-term current use of insulin ([facility]) Last A1C 6.5. Stick to ADA diet and limit carbs. Essential hypertension (Chronic) BP okay without medication and monitor. Discussed DASH diet. Diabetic polyneuropathy associated with type 2 diabetes mellitus ([facility]) Continued pain and stop neurontin. [...] colon cancer screening documented in this encounterSaint Luke's North Hospital–[id number] History of Present illness Narrative* Ada Foley, CLINICAL PROVIDER TRAINER - 05/23/2024 9:50 AM ESTAssociated Problem(s): Type 2 diabetes mellitus with diabetic polyneuropathy, without long-term current use of insulin ([facility]) Stopped taking all of her medications. States she feels significantly better since stopping all medications. Discussed in detail with pt cardiovascular and additional risks associated with unmanaged diabetes mellitus. Pt verbalized understanding and maintains she would like to stay off of all medications except gabapentin at this time. * Ada Foley NP - 05/23/2024 9:21 AM ESTAssociated Problem(s): Other hyperlipidemia ([facility]) Currently stopped taking Rosuvastatin and [...] polyneuropathy, without long-term current use of insulin ([facility]) Stopped taking all of her [...] (Neurontin) 300 MG capsule documented in this [facility]01-08-2025 Instructions* Patient Instructions* Ada Foley NP - 05/23/2024 9:00 AM EST FASTING labs ordered. Nothing to eat or drink for 12 hours prior to blood draw. Water and black coffee ok. We will call you with results! documented in this [facility]10-08-2024 History of Present illness Narrative* Ada Foley [...] A1C today. DM Eye Exam: 06/2022 @ [facility] in [place] * Ada Foley NP - 02/21/2024 9:30 [...] DM Eye Exam: 06/2022 @ [facility] in [place] DM Neuropathy: Was taking Gabapentin 100mg Bid. [...] R ALBUMIN GLOBULIN RATIO 0.9 Resulting Agency [facility] Review of Systems Constitutional: Negative for [...] polyneuropathy, without long-term current use of insulin ([facility]) Taking Rybelsus 7mg Denies any [...] A1C today. DM Eye Exam: 06/2022 @ [facility] in [place] Relevant Orders Microalbumin / creatinine urine ratio Hemoglobin A1c Comprehensive metabolic panel CBC and differential Other hyperlipidemia ([facility]) Currently taking Rosuvastatin 40mg; Stopped [...] polyneuropathy associated with type 2 diabetes mellitus ([facility]/HCC) Previously reported Gabapentin as allergy due [...] colon cancer screening documented in this encounterSaint Luke's North Hospital–[id number] Instructions* Patient Instructions* Ada Foley NP - [...] polyneuropathy associated with type 2 diabetes mellitus ([facility]/HCC) Encounter for osteoporosis screening in asymptomatic postmenopausal patient Encounter for screening for malignant neoplasm of colon Screening mammogram, encounter for Other hyperlipidemia ([facility]) Type 2 diabetes mellitus with diabetic polyneuropathy, without long-term current use of insulin (CMS/[facility]) documented in this encounter [facility] HealthcareEvaluation note* Diagnosis Type 2 diabetes mellitus without complication, without long-term current use of insulin ([facility])- Primary Other hyperlipidemia (CMS/HCC) Essential hypertension Unspecified essential hypertension Screening mammogram, encounter for Diabetic polyneuropathy associated with type 2 diabetes mellitus ([facility]) Encounter for osteoporosis screening in [...] of insulin (CMS/HCC) documented in this encounter [facility] HealthcareEvaluation note* Diagnosis Type 2 [...] polyneuropathy, without long-term current use of insulin ([facility]) Other hyperlipidemia- Primary Diabetic polyneuropathy associated with type 2 diabetes mellitus ([facility]/HCC) Type 2 diabetes mellitus with diabetic polyneuropathy, without long-term current use of insulin ([facility]) Type 2 diabetes mellitus with hyperglycemia, without long-term current use of insulin ([facility])- Primary Essential hypertension Unspecified essential hypertension Diabetic polyneuropathy associated with type 2 diabetes mellitus ([facility]) Statin myopathy Toxic myopathy Dyslipidemia ([facility]) Other and unspecified hyperlipidemia Encounter for long-term (current) use of medications Encounter for long-term (current) use of other medications Fatigue, unspecified type Medicare annual wellness visit, subsequent- Primary Type 2 diabetes mellitus with hyperglycemia, without long-term current use of insulin ([facility]) Essential hypertension Unspecified essential hypertension Diabetic polyneuropathy associated with type 2 diabetes mellitus ([facility]) Colon cancer screening Special screening for malignant neoplasms, colon documented in this encounter [facility] HealthcareEvaluation note* Diagnosis Onset Date Resolution Status Admit Date Diabetic polyneuropathy associated with type 2 diabetes mellitus acuteSeptember 2024 9:21amEssential hypertensionacuteSeptember 2024 9:21amLumbar spondylosisacuteSeptember 2024 9:21amType 2 diabetes mellitus with diabetic microalbuminuria, without long-termacuteSeptember 2024 9:21am [facility] Work Phone: Reason for referral (narrative)No reason for referral information availableKing'S Daughters [facility] [place] Work Phone: Summary Purpose Family History No [...] 2025 9:21am EMG BLE per Aide Lewis CLINICAL PROVIDER TRAINER-C February 19, 2025 9:44am Reason for Visit [...] and content) DATE CREATED AUTHOR 10/22/2022 [facility] DATE CREATED AUTHOR AUTHOR'S ORGANIZ ATION 10/22/2024 [facility] EPIC Care Teams (unrecognized sec tion and content) Team MemberRelationshipSpecialtyStart DateEnd Date Chuckie Zepeda MD [address] [place] [address] PCP - GeneralFamily Medicine12/27/23 Ada Foley NP [address] [place] [address] Nurse PractitionerFaksly Medicine12/27/23Team MemberRelationshipSpecialtyStart DateEnd Date Chuckie Zepeda MD [address] [place] [address] PCP - GeneralFamily Medicine12/27/23 Ada Foley NP [address] [place] [address] Nurse PractitionerFamily Medicine12/27/23Team MemberRelationshipSpecialtyStart DateEnd Date Chuckie Zepeda MD [address] [place] [address] PCP - [facility]12/27/23 Ada Foley NP [address] [place] [address] [facility] Pract[facility]er[facility]12/27/23Team MemberRelationshipSpecialtyStart DateEnd Date Chuckie Zepeda MD [address] [place] [address] PCP - [facility]12/27/23 Ada Foley NP [address] [place] [address] Nurse PractitionerArch[facility]12/27/23Team MemberRelationshipSpecialtyStart DateEnd Date Chuckie Zepeda MD [address] [place] [address] PCP - [facility]12/27/23Team MemberRelationshipSpecialtyStart DateEnd Date Chuckie Zepeda MD [address] [place] [address] PCP - [facility]12/27/23 Team Status: Active Member Role Status Dates Chuckie Zepeda MD Primary Care Provider Active Team Status: Inactive Member Role Status Dates Chuckie Zepeda MD Primary Care Provider Active S tart: January 22, 2025 End: January 22, 2025[facility] Rehabilitationmike Zepeda MDAttending ProviderActiveStart: January 22, 2025 End: [...] BE BASED ON THE PRIMARY CLINICAL RECORDS. [employer] [facility]. provides no warranty or guarantee of the accuracy or completeness of information in this document.
--- NOTE | 2025-04-18 09:50 | P.CN_ITS ---
Consult Note: HPI Data of Consult Patient: known to practice within the last 3 years Consult date: 03/13/25 Requesting Physician: Aide Lewis NP Primary Care Provider: Chuckie Lindsay MD Consult Narrative Reason for consult: low back and bilateral foot pain Narrative: Lali Jackson a pleasant 70 year old female presents for evaluation of chronic bilateral foot pain. notes traumatic injury to low back 25 years ago with intermittent back and BLE pain since then, however over the last few years she has had increasing severe bilateral foot pain. pain 5/10 increasing to 7/10 at night, standing, walking, stairs, bending, activity. pt has failed to benefit from amitriptyline, gabapentin, pregabalin, and duloxetine noted significant side effects with each medication. she was referred to Dr Hill for treatment, he suggested a compound cream which she is utilizing with minimal relief. finds no benefit to topical lidocaine patches. recently completed EMG NCV of BLE which is consistent with polyneuropathy and diabetic neuropathy. recently completed lumbar MRI with results below. pt underwent bilateral L4-5 TF SHIVAM with at least 50% improvement, continues to endorse significant L5/S1 radiculopathy. cc:: CC: Aide Lewis NP Review of Systems ROS Musculoskeletal Reports: back pain and extremity pain [facility] Medical History (Updated 03/26/25 @ 14:04 by Yara Chaudhary RN) Diabetes ?E11.9 - Type 2 diabetes mellitus without complications (ICD-10) Meds Home Medications and Allergies Home Medications ?Medication ?Instructions ?Recorded ?Confirmed ?Type lidocaine 5 % topical patch 2 patch topical DAILY #30 ea 01/16/25 04/01/25 Rx cyclobenzaprine 10 mg tablet See Rx Instructions .[place] 03/13/25 04/01/25 Rx .COMPLEX PRN muscle spasm #60 tabs Allergies Allergy/AdvReac Type Severity Reaction Status Date / Time No Known Drug Allergies Allergy Verified 04/01/25 07:15 Exam Constitutional Documenting provider has reviewed patient's vital signs: yes Common normals: no apparent distress, oriented x3, healthy appearing, alert and well nourished General appearance: cooperative [facility] Common normals: normocephalic, hearing grossly normal bilaterally and moist oral mucous membranes Head and scalp: normocephalic Eye Common normals: PERRL Pupil: PERRL Neck & C-Spine Common normals: full ROM General: normal visual inspection Chest Common normals: inspection of chest normal Respiratory Common normals: normal respiratory effort, no retractions and no use of accessory muscles Back & Pelvis Lumbar spine/lower back: pain with ROM, straight leg raise positive right and straight leg raise positive left Other: increased low back pain with bending radiculopathy noted bilateral L5,S1 Extremity Other: no edema noted to bilateral lower extremities bilateral feet warm to touch, appropraite color, decreased sensation to soles of bilateral feet. dysthesia noted to bilateral feet and digits Neuro Common normals: oriented x3 Sensorium/orientation: alert Psych Common normals: mental status grossly normal, thought process normal, cooperative, affect normal, speech normal and activity/motor behavior normal Speech: normal speech Thought process: normal thought process Results Imaging Lumbar MRI: Attestation: I have reviewed the pertinent imaging results. Radiologist's impression: Lumbar vertebral heights, alignment unremarkable. Anterolisthesis L4-L5 identified be due to the facet arthropathy. Nonspecific focus of diminished signal central T12 vertebral body represent a bone island. Otherwise bone marrow signal is grossly unremarkable. The conus medullaris terminates normally at the superior plate of L2. There is mild levocurvature. T12-L2: Mild facet arthropathy. No significant disease disc protrusion central canal neural from narrowing identified. L2-L3:: Minimal broad-based bulge with gzkg-rj-oiqvymhf facet arthropathy. Mild right neural foraminal narrowing. Minimal canal narrowing. Left foramen is patent. L3-4: Broad-based disc bulge with emki-jh-pvkozhoh facet arthropathy. Canal is grossly patent. Minimal crowding both foramina zones. L4-5: There is 4 mm anterolisthesis with uncovering the posterior disc. There is a circumferential disc bulge with moderate severe facet arthropathy. This results in moderate severe central canal stenosis and bilateral subarticular recess narrowing left greater than right, correlate with bilateral L5 radiculopathy. Otherwise there is evidence of moderate neural foraminal narrowing left greater than right. L5-S1: Circumferential disc bulge with moderate facet arthropathy. Mild right mild to moderate left-sided neural foraminal narrowing. Canal is minimally narrowed. Additional Findings Additional findings: If on a controlled substance or opioids, I have checked an [place] report on this patient and there are no aberrancies noted in the prescribing history.??If on a controlled substance or opioid a drug screen was completed and reviewed within the last year, and if there has not been a drug screen completed we ordered one today to monitor higher risk, state monitored pain medication use. As part of providing excellent, safe, comprehensive care, the following was completed at our patient's visit: 1. A medication reconciliation and review to ensure accurate knowledge of current/active medications, including asking our patients to inform us about any eyfw-dsk-dvgzrxh medications or herbal remedies/nutritional supplements/alternative remedies. 2. A review to specifically ensure our patients have had annual screening for screening for depression, screening for tobacco use, and screening for unhealthy alcohol use. For concerning screenings had a discussion with the patient, pro vided patient education, and recommended follow-up with primary care provider when appropriate. If patient noted with a risk of falling, they received education on strength, gait, and balance training to prevent future risk of falling. Portions of this note may have been carried over from the previous visit and updated as appropriate. Please note this office utilizes paper charting in addition to the electronic medical record. A list of current medications, vitals, and PMH is available there as the clinical staff outside of myself do not have access to [employer] charting during the clinic day operations. As part of providing quality comprehensive care the current medications, vitals, and PMH were reviewed in the paper chart. Assessment and Plan Assessment and Plan (1) Other intervertebral disc degeneration, lumbar region with discogenic back pain and lower extremity pain: (2) Lumbar degenerative disc disease: (3) Lumbar stenosis with neurogenic claudication: (4) Painful diabetic neuropathy: Plan The patient has had over 3 months of moderate to severe low back and bilateral LE pain with functional impairment and inadequate response to conservative care including NSAIDS (unless there are contraindication such as concurrent blood thinners), multiple oral or topical pain medications, and home exercise program/physical therapy.? Patient has completed >6 weeks of guided home exercise program and/or formal physical therapy program without relief of their symptoms.? The Oswestry Disability Index was completed, and the patient scored a 30%.? proceed with bilateral L5-S1 TFESI under fluoroscopy for L5/S1 disc and radicular pain pt not interested in scs trial for painful dpn at this time continue flexeril 5-10mg bid prn pain/spasms f/u 2 weeks after SHIVAM, encouraged to reconsider scs trial for painful DPN
== END 2025-04-18 09:16 | disposition home or self-care (01) ==
LOC: PM 09:16
PROVIDERS: PCP Family Medicine; Visit Provider Nurse Practitioner
DX: M51.369 Other intervertebral disc degeneration, lumbar region without mention of lumbar back pain or lower extremity pain (principal); M51.362 Other intervertebral disc degeneration, lumbar region with discogenic back pain and lower extremity pain; M48.062 Spinal stenosis, lumbar region with neurogenic claudication; E13.40 Other specified diabetes mellitus with diabetic neuropathy, unspecified
CPT/HCPCS: G0463